=== PATIENT | male | born 1940 | race Caucasian/White ===

== ENCOUNTER → 2018-01-31 13:58 | Outpatient (CLI) | payer MEDICARE, OTHER, SELFPAY ==
[2018-01-31 17:44] LABS: Absolute Lymphocyte Count 1.49 X10^3/ul (0.83-4.51); Basophil# 0.02 X10^3/uL; Basophil% 0.3 % (0-1); Eosinophil# 0.06 X10^3/uL; Eosinophils% 0.8 % (0-5); Hematocrit 47.6 % (40-54); Lymphocyte # 1.49 X10^3/ul (4.0); Lymphocyte % 19.6 % (19-41); Mean Corp Hgb Conc 33.6 g/gl (32-36); Mean Corpuscular Hgb 30.9 pg (27.0-32.0); Mean Corpuscular Volume 91.9 fL (80-94); Monocyte# 0.97 X10^3/uL; Monocyte% 12.8 % (0-10); Neutrophil # 4.99 X10^3/uL (2.7-7.7); Neutrophil % 65.7 % (47-70); Platelet Count 263 K/mm3 (150-450); RBC Distribution Width CV 13.4 % (11.6-14.6); RBC Distribution Width SD 44.1 fl (35.1-43.9); Red Blood Count 5.18 M/mm3 (4.6-6.2); White Blood Count 7.6 K/mm3 (4.4-11.0)
[2018-01-31 17:45] LABS: POSITIVE COUNT NO; POSITIVE DIFFERENTIAL NO; POSITIVE MORPHOLOGY NO
[2018-01-31 18:03] LABS: AST(SGOT) 36 U/L (15-37); Alanine Aminotransfer ALT/SGPT 52 U/L (16-61); Albumin, Serum 3.9 g/dL (3.2-5.0); Alkaline Phosphatase 74 U/L (45-117); Anion Gap 7 (5-15); BUN 16 mg/dL (7-18); Calcium,Total 10.4 mg/dL (8.5-10.1); Chloride 109 mmol/L (98-107); EST Glomerular Filtration Rate 77 mL/min (>60); Est Glom Filt Rate - Afr Amer 94 mL/min (>60); Globulin 3.8 g/dL (2.2-4.2); Glucose 99 mg/dL (74-106); Potassium 4.6 mmol/L (3.5-5.1); Protein, Total 7.7 g/dL (6.4-8.2); Sodium Level 142 mmol/L (136-145); Thyroid Stim Hormone (TSH) 1.34 uIU/mL (0.358-3.74)
[2018-01-31 18:11] LABS: Vitamin D,25 Hydroxy 21.4 ng/mL (29.95-100.01)
[2018-01-31 18:13] LABS: Hemoglobin A1c 6.5 % (4.2-6.3)
== END ==
PROVIDERS: Family Provider Family Medicine Geriatric Medicine; PCP Family Medicine Geriatric Medicine; Visit Provider Family Medicine Geriatric Medicine
DX: E11.9 Type 2 diabetes mellitus without complications (principal); E55.9 Vitamin D deficiency, unspecified; I10 Essential (primary) hypertension
CPT/HCPCS: 36415; 80053; 82306; 83036; 84443; 85025

== ENCOUNTER → 2018-01-31 14:38 | Outpatient (CLI) | payer MEDICARE, OTHER, SELFPAY | PROVIDERS: Family Provider Family Medicine Geriatric Medicine; PCP Family Medicine Geriatric Medicine; Visit Provider Family Medicine Geriatric Medicine | DX: Z00.00 Encounter for general adult medical examination without abnormal findings (principal) ==

== ENCOUNTER → 2018-08-03 10:47 | Outpatient (CLI) | payer MEDICARE, OTHER, SELFPAY ==
[2018-08-03 12:42] LABS: Absolute Lymphocyte Count 2.23 X10^3/ul (0.83-4.51); Absolute Neutrophil Count 4.5 X10^3/uL (2.0-7.7); Basophil# 0.02 X10^3/uL; Basophil% 0.3 % (0-1); Eosinophil# 0.06 X10^3/uL; Eosinophils% 0.8 % (0-5); Hematocrit 49.1 % (40-54); Hemoglobin 16.2 g/dl (13.0-16.5); Lymphocyte # 2.23 X10^3/ul (4.0); Mean Corpuscular Hgb 31.6 pg (27.0-32.0); Mean Corpuscular Volume 95.7 fL (80-94); Monocyte# 1.12 X10^3/uL; Monocyte% 14.1 % (0-10); Neutrophil # 4.48 X10^3/uL (2.7-7.7); Neutrophil % 56.2 % (47-70); Platelet Count 270 K/mm3 (150-450); RBC Distribution Width CV 13.3 % (11.6-14.6); RBC Distribution Width SD 45.7 fl (35.1-43.9); Red Blood Count 5.13 M/mm3 (4.6-6.2)
[2018-08-03 12:51] LABS: POSITIVE COUNT NO; POSITIVE DIFFERENTIAL NO; POSITIVE MORPHOLOGY NO
[2018-08-03 12:58] LABS: Vitamin D,25 Hydroxy 15.5 ng/mL (29.95-100.01)
[2018-08-03 13:00] LABS: ALB/GLOB Ratio 1.1 RATIO (0.9-2.4); AST(SGOT) 43 U/L (15-37); Alanine Aminotransfer ALT/SGPT 66 U/L (16-61); Albumin, Serum 3.9 g/dL (3.2-5.0); Alkaline Phosphatase 76 U/L (45-117); Anion Gap 11 (5-15); BUN 15 mg/dL (7-18); BUN/Creat Ratio 12.9 RATIO (10-20); Calcium,Total 9.6 mg/dL (8.5-10.1); Chloride 108 mmol/L (98-107); Creatinine, Serum 1.16 mg/dL (0.70-1.30); EST Glomerular Filtration Rate 65 mL/min (>60); Est Glom Filt Rate - Afr Amer 79 mL/min (>60); Globulin 3.6 g/dL (2.2-4.2); Glucose 123 mg/dL (74-106); Potassium 4.2 mmol/L (3.5-5.1); Protein, Total 7.5 g/dL (6.4-8.2); Sodium Level 142 mmol/L (136-145); Thyroid Stim Hormone (TSH) 2.42 uIU/mL (0.358-3.74)
== END ==
PROVIDERS: Family Provider Family Medicine Geriatric Medicine; PCP Family Medicine Geriatric Medicine; Visit Provider Family Medicine Geriatric Medicine
DX: E11.9 Type 2 diabetes mellitus without complications (principal); E55.9 Vitamin D deficiency, unspecified; I10 Essential (primary) hypertension
CPT/HCPCS: 36415; 80053; 82306; 84443; 85025

== ENCOUNTER 2018-10-06 12:38 | Inpatient (IN) | payer MEDICARE, OTHER, SELFPAY ==
[2018-09-09 15:13] VITALS: BMI 27.0
[2018-10-06] VITALS (7 sets, daily range): BP systolic 84–129; BP diastolic 54–79; PULSE 90–119; RESP 16–18; TEMP 36.3–36.7; O2SAT 92–97; BMI 26.6; BMI 26.2; BMI 26.3
--- NOTE | 2018-10-06 13:54 | CT_ITS ---
STUDY: CT ABDOMEN AND PELVIS WITHOUT CONTRAST REASON FOR EXAM: Male, 78 years old. Right flank pain. History of a DVT and pulmonary embolism. RADIATION DOSAGE (If Supplied By Facility): CTDIvol = ( 13.95 ) mGy, DLP = ( 715.86 ) mGycm TECHNIQUE: Transaxial images were obtained from the dome of the diaphragm to the symphysis pubis without oral contrast, and without intravenous contrast. Sagittal and coronal images were reconstructed. Individualized dose optimization techniques were used for this CT. COMPARISON: Comparison is made with prior study dated May 26, 2013. FINDINGS: Mild degree of increased interstitial markings with areas of confluence and bullous changes at the lung bases suggestive of a scarring. Coronary artery calcification. There is decreased attenuation of the liver consistent with steatosis. There are multiple gallstones. Normal spleen. Normal pancreas. There is a small, circumscribed, smooth, low attenuation left adrenal mass, consistent with an adrenal adenoma. This is unchanged. Normal right adrenal gland. At least 4 nonobstructive intrarenal calculi seen in the right kidney. The largest measures 4.2 mm and is in the lower pole. 3 tiny nonobstructive calculi seen in the left kidney. There is a small hiatal hernia. Normal small intestine. There are multiple colonic diverticula consistent with diverticulosis. The appendix is visualized and appears normal. There is diffuse atherosclerotic calcification of the abdominal aorta and its major visceral branches, without a demonstrated aneurysm. Normal inferior vena cava. Normal retroperitoneum. Normal urinary bladder. There are prostatic calcifications. There is evidence of a 4.1 cm x 13.5 cm x 17.3 cm rectus sheath hematoma on the right side. Small left inguinal hernia containing fat. There are diffuse degenerative changes of the visualized lumbar spine. Grade 1 anterolisthesis of L5 on S1 with spondylolysis. CT/Abdomen/Pelvis without Cont IMPRESSION: Large right rectus sheath hematoma. Multiple gallstones. Small bilateral nonobstructive intrarenal calculi. Electronically Signed: Jose L Shelton MD at 15:36 EST Tel [phone], Service support ,
[2018-10-06] MEDS: Ondansetron 4 MG/2 ML Vial IV (14:32)
[2018-10-06] MEDS: 0.9% Normal Saline 1,000 ML 125 ML IV ×2 (14:32→20:18)
[2018-10-06] MEDS: Morphine 4 MG/ML Syringe IV (14:32)
[2018-10-06 14:40] LABS: Absolute Lymphocyte Count 1.64 X10^3/ul (0.83-4.51); Absolute Neutrophil Count 6.4 X10^3/uL (2.0-7.7); Basophil# 0.02 X10^3/uL; Basophil% 0.2 % (0-1); Eosinophil# 0.05 X10^3/uL; Eosinophils% 0.5 % (0-5); Hematocrit 51.3 % (40-54); Lymphocyte # 1.64 X10^3/ul (4.0); Lymphocyte % 17.2 % (19-41); Mean Corp Hgb Conc 33.1 g/gl (32-36); Mean Corpuscular Hgb 31.1 pg (27.0-32.0); Mean Platelet Vol. 10.2 fl (6.2-12.0); Monocyte# 1.44 X10^3/uL; Monocyte% 15.1 % (0-10); Neutrophil # 6.35 X10^3/uL (2.7-7.7); Neutrophil % 66.4 % (47-70); Platelet Count 237 K/mm3 (150-450); RBC Distribution Width CV 13.2 % (11.6-14.6); Red Blood Count 5.46 M/mm3 (4.6-6.2); White Blood Count 9.6 K/mm3 (4.4-11.0)
[2018-10-06 14:43] LABS: POSITIVE COUNT NO; POSITIVE DIFFERENTIAL NO; POSITIVE MORPHOLOGY NO
[2018-10-06 14:49] LABS: ALB/GLOB Ratio 1.1 RATIO (0.9-2.4); AST(SGOT) 47 U/L (15-37); Alanine Aminotransfer ALT/SGPT 76 U/L (16-61); Albumin, Serum 4.3 g/dL (3.2-5.0); Alkaline Phosphatase 78 U/L (45-117); Anion Gap 10 (5-15); BUN 18 mg/dL (7-18); BUN/Creat Ratio 16.7 RATIO (10-20); Calcium,Total 10.3 mg/dL (8.5-10.1); Chloride 103 mmol/L (98-107); Creatinine, Serum 1.08 mg/dL (0.70-1.30); EST Glomerular Filtration Rate 71 mL/min (>60); Est Glom Filt Rate - Afr Amer 85 mL/min (>60); Estimated Creatinine Clearance 60.08 ml/min; Globulin 3.8 g/dL (2.2-4.2); Glucose 126 mg/dL (74-106); Lipase 150 U/L (73-393); Potassium 4.1 mmol/L (3.5-5.1); Protein, Total 8.1 g/dL (6.4-8.2); Sodium Level 138 mmol/L (136-145)
[2018-10-06 15:03] LABS: Lactic Acid 1.8 mmol/L (0.4-2.0)
[2018-10-06 16:22] LABS: International Normalized Ratio 3.4; Prothrombin Time (Protime)PT. 34.9 SECONDS (11.7-14.9)
--- NOTE | 2018-10-06 16:37 | ED.VISSUMM ---
- ER Visit Summary Date of Service: 10/06/18 Chief Complaint: [Abdominal pain] History of Present Illness: The patient is a 78 M [presents to the emergency department complaint of abdominal pain that started 2 days ago. Patient states that he gave himself a Lovenox injection in the right side of the abdomen 2 days ago and since that time he is noticed increasing pain in swelling to the right side of the abdomen. Patient states that they were trying to bridge him from his Coumadin in order to have a colonoscopy. Patient has bad knees and is supposed to have surgery to potentially have a total knee replacement however they wanted to get a colonoscopy done first apparently. Patient denies any fever. He denies any vomiting. He denies any blood in his stool or black tarry stool. Patient continues to take his Coumadin.] Physical Examination: [HEENT-PERRLA, EOMI. Cranial nerves II through XII grossly intact. TMs clear. Mucous membranes moist. No adenopathy. Cardiovascular-regular rate and rhythm without murmur or ectopy Lungs-clear to auscultation, chest wall stable without crepitus or subcu emphysema Abdomen-normoactive bowel sounds, soft. Patient has tenderness to the right side of the abdomen with some fullness noted to the right abdominal wall. No ecchymosis or bruising noted. Extremities-intact ?4, normal range of motion, normal pulses, atraumatic] Test Results: [CBC with differential obtained showed a white blood cell count of 9.6, hemoglobin 17, hematocrit 51, platelets 221. Chemistries unremarkable. LFTs showed an ALT of 76, AST 47. Lipase was 150. INR was 3.4. CT scan of the abdomen and pelvis showed a large right-sided abdominal wall/rectus sheath hematoma.] Emergency Department Course and Treatment: [Patient was medicated with morphine and Zofran] Treatment Plan: [Case was discussed with Dr. Ochoa who was covering for Dr. López. I was asked to admit to hospitalist service. ] Disposition: [Admit] Impression: [Abdominal wall hematoma Coumadin coagulopathy Abdominal pain] This note was generated with [email or web address] dictation software. It may contain incorrect words, spelling, and punctuation that were not noted in review of the chart prior to signing ED Disposition - Plan for ED Patient: Chief Complaint: Other, Pain/Inj Referrals: Gaston Betts Chi, MD [Primary Care Provider] -
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
[2018-10-06 18:05] LABS: CPK Total, Creatine Kinase 132 U/L (39-308)
[2018-10-06] MEDS: Morphine 2 MG/ML Syringe IV (19:56)
[2018-10-06] MEDS: Phytonadione (Vit K) 10 MG/ML Ampul 5 MG PO (19:59)
[2018-10-07] VITALS (12 sets, daily range): BP systolic 90–119; BP diastolic 55–76; PULSE 72–87; RESP 14–16; TEMP 36.5–36.8; O2SAT 89–98
[2018-10-07] MEDS: Morphine 2 MG/ML Syringe IV (01:01)
[2018-10-07] MEDS: oxyCODONE 5 MG Tablet PO ×2 (04:12→09:33)
[2018-10-07] MEDS: 0.9% Normal Saline 1,000 ML 125 ML IV (04:12)
--- NOTE | 2018-10-07 05:55 | CT_ITS ---
STUDY: CT ABDOMEN AND PELVIS WITH CONTRAST REASON FOR EXAM: Male, 78 years old. Abdominal pain, evaluation right rectus muscle sheath hematoma question active bleeding, started level next injection this week. Coughing and pain. Positive colorectal cancer screening, hypertension, COPD, emphysema RADIATION DOSAGE (If Supplied By Facility): CTDIvol = ( 23.14 ) mGy, DLP = ( 1155.77 ) mGycm TECHNIQUE: Transaxial 3.75 mm were obtained from the dome of the diaphragm to the symphysis pubis with oral contrast. 100 ml of Isovue 300 contrast was administered. Sagittal and coronal images were reconstructed. Individualized dose optimization techniques were used for this CT. COMPARISON: CT abdomen pelvis 10/06/2018. FINDINGS: Stable chronic interstitial lung disease, emphysema, occasional bulla formation with scarring in the bases. The visualized portions of the heart are within normal limits. There is decreased attenuation of the enlarged liver consistent with steatosis. There are multiple gallstones. Normal spleen. Normal pancreas. Normal bilateral adrenal glands. Punctate nonobstructing bilateral renal calculi. Renal cortical thinning most consistent with scarring. Left inferior renal pole low attenuation in the cortex most consistent with a cyst of 0.8 cm. Mild bilateral perirenal stranding. Right rectus muscle sheath hematoma slightly more contracted measuring 5 x 12 x 12.6 cm ( AP x width x height ) mostly centered superior to the umbilicus, there is however extension inferior to the umbilicus over a craniocaudal distance of approximately 20 cm with the infraumbilical component more containing edema and small hematoma. The right inferior epigastric artery is prominent in enhancement, there is however no overt hemorrhage arising of the epigastric artery per se. The supra umbilical component of the rectus muscle hematoma contains a small vascular blush consistent with active hemorrhage image 57 series 2, image 65 series 602. Oral contrast is reaching the ascending colon. Normal visualized stomach. Normal small intestine. There are multiple colonic diverticula consistent with diverticulosis. The appendix is visualized and appears normal. There is atherosclerosis of the abdominal aorta, greater branches and pelvic arteries without aneurysm or leak. Normal inferior vena cava. Normal retroperitoneum. Normal urinary bladder. There is enlargement of the prostate gland. There are small bilateral inguinal and umbilical hernia containing adipose tissue. There are diffuse degenerative changes of the visualized spine. CT/Abdomen/Pelvis WITH Contrast IMPRESSION: Right rectal muscle sheath hematoma, the supraumbilical component is slightly more contracted on the current examination, however there is a vascular blush consistent with a small component of active hemorrhage. The infraumbilical rectus muscle hematoma is small in contains edema, this is however increased not visualized on previous exam. Stable chronic interstitial lung disease, emphysema, hepatomegaly, hepatic steatosis, cholelithiasis, renal calculi, renal scarring, arteriosclerosis, degenerative changes, ventral hernia containing fat, diverticulosis and prostate enlargement. N.B. : The above information has been verbally conveyed by Ely Dominguez MD to Howie Monteiro RN, on 10/07/2018 06:47:56 (ET). Electronically Signed: Ely Dominguez MD at 6:41 EST , Service support ,
--- NOTE | 2018-10-07 05:59 | NURSING ---
PLASTIC MANAGER taking pt off floor to CT.
--- NOTE | 2018-10-07 06:19 | NURSING ---
Pt back from CT.
[2018-10-07] MEDS: 0.9% NaCl Peripheral Flush Adult/Peds IV ×3 (06:20→11:40)
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
[2018-10-07 07:28] LABS: Hematocrit 42.5 % (40-54); Mean Corp Hgb Conc 32.9 g/gl (32-36); Mean Corpuscular Hgb 31.3 pg (27.0-32.0); Mean Corpuscular Volume 95.1 fL (80-94); Mean Platelet Vol. 9.8 fl (6.2-12.0); Platelet Count 229 K/mm3 (150-450); RBC Distribution Width CV 13.3 % (11.6-14.6); RBC Distribution Width SD 44.7 fl (35.1-43.9); Red Blood Count 4.47 M/mm3 (4.6-6.2)
[2018-10-07 07:29] LABS: Scan Indicated on CBC? Y/N NO
[2018-10-07 07:35] LABS: International Normalized Ratio 2.7; Prothrombin Time (Protime)PT. 28.4 SECONDS (11.7-14.9)
--- NOTE | 2018-10-07 07:42 | NURSING ---
pt up in chair, updated of contacts made thus far at pt request- phoned sister Moriah cell [phone], spoke with her spouse Shawn due to Moriah at work, conveyed to Shawn that pt would like him to notify Rodrigo to call patient (pt room phone # provided), updated. Pt sharing social concerns, indicating that his spouse will flip out, she doesn't handle stuff well and she has no one here, she cannot drive and that she has failing health. pt discusses i need to get POA papers, if something should happen i don't want any tubes or anything like that. informed Case management would be able to assist pt with paperwork regarding advanced directives. while in room, pt room phone rings- pt answers, indicates it is his family. privacy given.
--- NOTE | 2018-10-07 07:54 | NURSING ---
[facility] brother Rodrigo phone number is [phone]
[2018-10-07 07:58] LABS: Anion Gap 8 (5-15); BUN 25 mg/dL (7-18); BUN/Creat Ratio 20.3 RATIO (10-20); Calcium,Total 8.6 mg/dL (8.5-10.1); Chloride 106 mmol/L (98-107); Creatinine, Serum 1.23 mg/dL (0.70-1.30); EST Glomerular Filtration Rate 61 mL/min (>60); Est Glom Filt Rate - Afr Amer 74 mL/min (>60); Estimated Creatinine Clearance 52.76 ml/min; Glucose 138 mg/dL (74-106); Potassium 4.4 mmol/L (3.5-5.1); Sodium Level 138 mmol/L (136-145)
[2018-10-07 08:01] LABS: CPK Total, Creatine Kinase 93 U/L (39-308)
--- NOTE | 2018-10-07 08:17 | PCM.HOSP.N ---
Hospitalist Note I was called shirring machine operator automatic by Dr. Bishop. The patient has a rectus sheath hematoma with active bleeding from extravasation or vessel. He took Lovenox shot on Wednesday in the evening time and started having abdominal pain and then yesterday morning it got worse with abdominal wall swelling and he called Dr. Alpesh tang back until and then he came to ER where he was found rectal sheath hematoma. Dr. Bishop also discussed with Dr. Mendoza and suggested transfer to tertiary care center for IR. Patient denies dizziness but has pain and swelling of anterior abdominal wall. Vitals blood pressure 98/63, heart rate 81 pulse ox 96% on 2 L of oxygen no tachypnea. Started on IV fluid normal saline to 50 mill per hour for a total of 1 L and then 150 mill per hour. [facility] and then [facility]. Patient accepted by surgeon, Dr. Dillon.
--- NOTE | 2018-10-07 08:22 | CCHN_ITS ---
Hospitalist Note I was called solid waste division supervisor by Dr. Bishop. The patient has a rectus sheath hematoma with active bleeding from extravasation or vessel. He took Lovenox shot on Wednesday in the evening time and started having abdominal pain and then yesterday morning it got worse with abdominal wall swelling and he called Dr. Alpesh tang back until and then he came to ER where he was found rectal sheath hematoma. Dr. Bishop also discussed with Dr. Mendoza and suggested transfer to tertiary care center for IR. Patient denies dizziness but has pain and swelling of anterior abdominal wall. Vitals blood pressure 98/63, heart rate 81 pulse ox 96% on 2 L of oxygen no tachypnea. Started on IV fluid normal saline to 50 mill per hour for a total of 1 L and then 150 mill per hour. Transfer call made to [facility] but no bed available and then [facility]. Patient accepted by surgeon, Dr. Dillon.
[2018-10-07] MEDS: Ondansetron 4 MG/2 ML Vial IV (09:33)
[2018-10-07] MEDS: Acetaminophen 325 MG Tablet 650 MG PO (09:35)
--- NOTE | 2018-10-07 09:44 | ONC.CON.INP2 ---
- Problem List (1) Coagulopathy Status: Acute (2) Positive colorectal cancer screening using DNA-based stool test Status: Acute (3) Hematoma of rectus sheath Status: Acute Qualifiers: Encounter type: initial encounter Qualified Code(s): S30.1XXA - Contusion of abdominal wall, initial encounter (4) History of deep venous thrombosis or pulmonary embolus Status: Chronic (5) Hypercoagulable state Status: Chronic Consult Referring Physician: Dr. Bishop Consult Results: Coagulopathy complicating hypercoagulable state Subjective Date of Service:: 10/07/18 Chief Complaint: positive cologard History of Present Illness: 78-year-old male on long-term systemic anticoagulation admitted with an acute rectus sheath hematoma. 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 According to the patient diagnosis was not made until May 2013 when he presented with acute dyspnea and was found to have multiple pulmonary emboli. He was placed on systemic anticoagulation and to his recollection has been on Coumadin since with only temporary interruptions. In 2013 and repeated in 2015 hypercoagulability panel showed low protein C level and patient was told that he should remain on systemic anticoagulation indefinitely. 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 Patient recently had a positive noninvasive stool DNA test to screen for colorectal cancer and elective colonoscopy was scheduled with planned temporary Coumadin interruption with Lovenox bridging. The patient reports developing acute abdominal pain while on the Lovenox bridge, he stopped Lovenox and resumed his Coumadin. He was hospitalized October 06, [address] finding of a large acute rectus hematoma and INR of 3.4. Was given a dose of vitamin K on October 06, a repeat INR today October 07 is down to 2.[address] scan of the abdomen is suggestive of ongoing bleeding. Laboratory Tests 10/06/18 10/07/18 14:15 07:09 INR 3.4 2.7 Past Medical History: Chronic Problems (Last Updated 10/07/18 @ 07:22 by Abdullahi Bishop MD) Hypercoagulable state (Chronic) Osteoarthritis of knees, bilateral (Chronic) Emphysema (Chronic) HTN (hypertension) (Chronic) DDD (degenerative disc disease) (Chronic) 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) COPD (chronic obstructive pulmonary disease) (Chronic) Past Medical/Surgical History: Past Medical History - Most Recent Inpatient Visit Past Medical History Start: 10/06/18 17:37 Text: Status: Complete Freq: ONCE Protocol: Document 10/06/18 17:49 NANETTE (Rec: 10/06/18 17:52 NANETTE [id number]) BMI Required to complete PMH What is Patient's BMI 26.3 Past Medical History Unable History Recalled No Query Text:Pt Unable/Family Not Present Neurologic Medical History Hx Stroke/TIA No Hx Dementia/Alzheimer's No Hx Parkinson's Disease No Hx Seizures No Hx Multiple Sclerosis No Hx Migraines No Cardiac Medical History VTE Present on Admission No Hx of Deep Vein Thrombosis/VTE/PE Yes: PE 2012 Hx Hypertension Yes: ON MEDS Hx Chest Pain/Angina No Hx Heart Attack No Hx Cardiac Surgery/Stents/Etc. No Hx Heart Failure No Hx Pacemaker/AICD No Hx Irregular Heartbeat and/or Afib No Hx Anticoagulant Therapy Yes: COUMADIN Query Text:(Coumadin, Aspirin, Plavix, Xarelto, etc.) Hx Pain in Legs when Walking/Leg Cramps No Respiratory Medical History Hx COPD Yes Hx Emphysema No Hx Smoking Yes: QUIT IN Smoking Status Former smoker Tobacco Use Cigarettes Years Smoking 33 Packs Smoked per Day 1.5 Hx Smoking Cessation Date 1986 Hx Smoking Cessation Counseling No Hx Smoking Exposure Yes Hx Tobacco Use in last 12 months Yes Sent to [facility] Yes Hx of Pipe Smoking No Hx Sleep Apnea No CPAP No BIPAP No Do you snore loudly (louder than talking No or can be heard through closed doors)? Do you often feel tired/ fatigued/ Yes sleepy during daytime? Has anyone observed you stop breathing No during sleep? STOP Results Positive GI Medical History Hx Ulcer No Hx Hepatitis No Hx Cirrhosis No Hx GI Bleed No Hx Unplanned Weight Loss No Genitourinary Medical History Indwelling Catheter in Place on Arrival/ No Admission Hx Renal Disease Yes: FREQUENT KIDNSY STONES Hx Dialysis No Musculoskeletal History Hx Arthritis Yes Hx Rheumatoid Arthritis No Endocrine Medical History Hx Diabetes Yes: BORDERLINE Hx Thyroid Disease No Hematologic Medical History Hx of Blood Transfusion No Hx of Transfusion in last 3 Months No Ever experience any problems with No transfusion(s)? Hx of Preganancy in last 3 Months N/A Nurse Filling Out Transfusion & JLAMP Questions: Date: 10/06/18 Time: 17:51 Psycho/Social Medical History Hx Depression Yes Hx Anxiety Yes Hx Behavior Disorder No Hx Alcohol Use No Hx Substance Use No Other Medical History Hx Blood Disorders No Hx Anemia No Hx Cancer No Hx Drug Resistant Organism No Wound/Pressure Injury Present on Arrival No /Admission Query Text:If yes, chart assessment in Shift/Clinical Findings Central Line/PICC/VAD Present on Arrival No /Admission Antibiotics within last 7 days? No Risk for Readmission Number of Risk Factors 6 At Risk for Readmission Patient is At Risk For Readmission Patient is eligible for Call Back Y Past Medical History (Last Updated 10/07/18 @ 07:22 by Abdullahi Bishop MD) Osteoarthritis of knees, bilateral (Chronic) Emphysema (Chronic) HTN (hypertension) (Chronic) DDD (degenerative disc disease) (Chronic) 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) COPD (chronic obstructive pulmonary disease) (Chronic) Protein C deficiency (Acute) Berger by, chemical (Acute) Pulmonary embolism (Acute) chemical berger to arms and face (Inactive) Past Surgical History (Last Reviewed 10/06/18 @ 17:11 by CHRISTELLE Stewart) history of wound debridement (Acute) S/P bilateral cataract extraction (Inactive) arm surgery (Inactive) facial surgery (Inactive) Maternal Family History: Family History (Last Reviewed 10/06/18 @ 17:11 by CHRISTELLE Stewart) Brother Myocardial infarction Status post heart transplant Mother Hypertension CAD (coronary artery disease) Father Hypertension CAD (coronary artery disease) Family History: - - mother lived till age 84. Denies known cardiac history. Paternal Family History: Family History (Last Reviewed 10/06/18 @ 17:11 by CHRISTELLE Stewart) Brother Myocardial infarction Status post heart transplant Mother Hypertension CAD (coronary artery disease) Father Hypertension CAD (coronary artery disease) Family History: - - father with hernia. Denies known cardiac history. - Social History Lives: Spouse/ Significant Other Smoking Status: Former smoker Tobacco Use: Cigarettes Alcohol: None Drugs: None Allergies/Adverse Reactions: Allergy/AdvReac Type Severity Reaction Status Date / Time Penicillins Allergy Hives Verified 10/06/18 12:40 propoxyphene HCl AdvReac Upset Verified 10/06/18 12:40 [From Darvon] Stomach propoxyphene napsylate AdvReac Vomiting Verified 10/06/18 12:40 [From Darvocet-N 100] Review of Systems Constitutional:: Denies: Fever, Sweats, Weight loss, Appetite change, Chills Cardiovascular:: Reports: Dyspnea on exertion - Chronic due to COPD. Patient does not appreciate any recent worsening. Denies: Chest pain, Palpitations, Orthopnea, PND, Shortness of breath Respiratory: Reports: Shortness of breath upon exertion Gastrointestinal:: Reports: Abdominal pain - Anterior abdominal wall. Denies: Nausea, Vomiting, Diarrhea, Constipation, Hematochezia Genitourinary: Denies: Dysuria, Hematuria, 15, Flank pain Musculoskeletal:: Denies: Back pain, Myalgia, Arthralgia Skin: Reports: - - Bruises easy with trauma Neurological:: Denies: Headache, Dizziness, Visual changes, Tinnitus, Hearing loss Psychiatric: Denies: Anxiety, Depression, Homicidal Ideations, Suicidal Ideations Vital Signs Height 5 ft 10 in Weight: 83 kg Weight in Pounds 183.0 lbs Pulse Ox 97 Temperature 97.7 F Pulse Rate 82 Respiratory Rate 14 Blood Pressure [BP] 102/62 Blood Pressure 117/72 Blood Pressure Position [BP] Sitting Blood Pressure Position Sitting - Physical Exam General: Alert, Oriented x3, No apparent distress HEENT: Atraumatic, PERRLA, EOMI, Normocephalic Oropharynx:: Dry mucosa Neck:: Supple, Trachea midline. Negative for: JVD, bilateral Cardiac:: Regular rate, Regular rhythm, Normal S1, Normal S2. Negative for: Murmur Lungs: Clear to auscultation, Diminished, Excusion symmetrical. Negative for: Rhonchi, Wheezes Abdomen:: Soft - No peritonism, Distended - With an upper abdominal, more prominent on the right slightly tender mass representing the hematoma, Tender. Negative for: Hepatosplenomegaly Extremities:: Negative for: Cyanosis, Edema Neurological: Neuro grossly intact Skin:: Negative for: Lesions, Rash, Petechiae, Ecchymosis Psychiatric:: Appropriate affect, Euthymic Lymphatics:: Negative for: Cervical lymphadenopathy, Supraclavicular lymphadenopathy Laboratory Data: Laboratory Tests 10/07/18 10/07/18 10/07/18 Range/Units 08:10 07:09 07:09 WBC (4.4-11.0) K/mm3 RBC (4.6-6.2) M/mm3 Hgb (13.0-16.5) g/dl Hct (40-54) % MCV (80-94) fL MCH (27.0-32.0) pg MCHC (32-36) g/gl RDW (11.6-14.6) % RDW Differential (35.1-43.9) fl Plt Count (150-450) K/mm3 MPV (6.2-12.0) fl Immature Gran % (Auto) (0.0-0.9) % Neut % (Auto) (47-70) % Lymph % (Auto) (19-41) % [place] % (Auto) (0-10) % Eos % (Auto) (0-5) % Baso % (Auto) (0-1) % Absolute Neuts (auto) (2.0-7.7) X10^3/uL Absolute Lymphs (auto) (0.83-4.51) X10^3/ul Total Counted PT (11.7-14.9) SECONDS INR Sodium 138 (136-145) mmol/L Potassium 4.4 (3.5-5.1) mmol/L Chloride 106 (98-107) mmol/L Carbon Dioxide 24.0 (21.0-32.0) mmol/L Anion Gap 8 (5-15) BUN 25 H (7-18) mg/dL Creatinine 1.23 (0.70-1.30) mg/dL Estim Creat Clear Calc 52.76 ml/min Est GFR (MDRD) Af Amer 74 (>60) mL/min Est GFR (MDRD) Non-Af 61 (>60) mL/min BUN/Creatinine Ratio 20.3 H (10-20) RATIO Glucose 138 H (74-106) mg/dL Lactic Acid (0.4-2.0) mmol/L Calcium 8.6 (8.5-10.1) mg/dL Total Bilirubin (0.20-1.00) mg/dL AST (15-37) U/L ALT (16-61) U/L Alkaline Phosphatase (45-117) U/L Total Creatine Kinase 93 (39-308) U/L Total Protein (6.4-8.2) g/dL Albumin (3.2-5.0) g/dL Globulin (2.2-4.2) g/dL Albumin/Globulin Ratio (0.9-2.4) RATIO Lipase (73-393) U/L Blood Type A POSITIVE 10/07/18 10/07/18 10/06/18 Range/Units 07:09 07:09 14:15 WBC 9.0 (4.4-11.0) K/mm3 RBC 4.47 L (4.6-6.2) M/mm3 Hgb 14.0 (13.0-16.5) g/dl Hct 42.5 (40-54) % MCV 95.1 H (80-94) fL MCH 31.3 (27.0-32.0) pg MCHC 32.9 (32-36) g/gl RDW 13.3 (11.6-14.6) % RDW Differential 44.7 H (35.1-43.9) fl Plt Count 229 (150-450) K/mm3 MPV 9.8 (6.2-12.0) fl Immature Gran % (Auto) (0.0-0.9) % Neut % (Auto) (47-70) % Lymph % (Auto) (19-41) % [place] % (Auto) (0-10) % Eos % (Auto) (0-5) % Baso % (Auto) (0-1) % Absolute Neuts (auto) (2.0-7.7) X10^3/uL Absolute Lymphs (auto) (0.83-4.51) X10^3/ul Total Counted PT 28.4 H (11.7-14.9) SECONDS INR 2.7 Sodium (136-145) mmol/L Potassium (3.5-5.1) mmol/L Chloride (98-107) mmol/L Carbon Dioxide (21.0-32.0) mmol/L Anion Gap (5-15) BUN (7-18) mg/dL Creatinine (0.70-1.30) mg/dL Estim Creat Clear Calc ml/min Est GFR (MDRD) Af Amer (>60) mL/min Est GFR (MDRD) Non-Af (>60) mL/min BUN/Creatinine Ratio (10-20) RATIO Glucose (74-106) mg/dL Lactic Acid (0.4-2.0) mmol/L Calcium (8.5-10.1) mg/dL Total Bilirubin (0.20-1.00) mg/dL AST (15-37) U/L ALT (16-61) U/L Alkaline Phosphatase (45-117) U/L Total Creatine Kinase 132 (39-308) U/L Total Protein (6.4-8.2) g/dL Albumin (3.2-5.0) g/dL Globulin (2.2-4.2) g/dL Albumin/Globulin Ratio (0.9-2.4) RATIO Lipase (73-393) U/L Blood Type 10/06/18 10/06/18 10/06/18 Range/Units 14:15 14:15 14:15 WBC (4.4-11.0) K/mm3 RBC (4.6-6.2) M/mm3 Hgb (13.0-16.5) g/dl Hct (40-54) % MCV (80-94) fL MCH (27.0-32.0) pg MCHC (32-36) g/gl RDW (11.6-14.6) % RDW Differential (35.1-43.9) fl Plt Count (150-450) K/mm3 MPV (6.2-12.0) fl Immature Gran % (Auto) (0.0-0.9) % Neut % (Auto) (47-70) % Lymph % (Auto) (19-41) % [place] % (Auto) (0-10) % Eos % (Auto) (0-5) % Baso % (Auto) (0-1) % Absolute Neuts (auto) (2.0-7.7) X10^3/uL Absolute Lymphs (auto) (0.83-4.51) X10^3/ul Total Counted PT 34.9 H (11.7-14.9) SECONDS INR 3.4 Sodium 138 (136-145) mmol/L Potassium 4.1 (3.5-5.1) mmol/L Chloride 103 (98-107) mmol/L Carbon Dioxide 25.0 (21.0-32.0) mmol/L Anion Gap 10 (5-15) BUN 18 (7-18) mg/dL Creatinine 1.08 (0.70-1.30) mg/dL Estim Creat Clear Calc 60.08 ml/min Est GFR (MDRD) Af Amer 85 (>60) mL/min Est GFR (MDRD) Non-Af 71 (>60) mL/min BUN/Creatinine Ratio 16.7 (10-20) RATIO Glucose 126 H (74-106) mg/dL Lactic Acid 1.8 (0.4-2.0) mmol/L Calcium 10.3 H (8.5-10.1) mg/dL Total Bilirubin 0.60 (0.20-1.00) mg/dL AST 47 H (15-37) U/L ALT 76 H (16-61) U/L Alkaline Phosphatase 78 (45-117) U/L Total Creatine Kinase (39-308) U/L Total Protein 8.1 (6.4-8.2) g/dL Albumin 4.3 (3.2-5.0) g/dL Globulin 3.8 (2.2-4.2) g/dL Albumin/Globulin Ratio 1.1 (0.9-2.4) RATIO Lipase 150 (73-393) U/L Blood Type 10/06/18 Range/Units 14:15 WBC 9.6 (4.4-11.0) K/mm3 RBC 5.46 (4.6-6.2) M/mm3 Hgb 17.0 H (13.0-16.5) g/dl Hct 51.3 (40-54) % MCV 94.0 (80-94) fL MCH 31.1 (27.0-32.0) pg MCHC 33.1 (32-36) g/gl RDW 13.2 (11.6-14.6) % RDW Differential 45.0 H (35.1-43.9) fl Plt Count 237 (150-450) K/mm3 MPV 10.2 (6.2-12.0) fl Immature Gran % (Auto) 0.600 (0.0-0.9) % Neut % (Auto) 66.4 (47-70) % Lymph % (Auto) 17.2 L (19-41) % [place] % (Auto) 15.1 H (0-10) % Eos % (Auto) 0.5 (0-5) % Baso % (Auto) 0.2 (0-1) % Absolute Neuts (auto) 6.4 (2.0-7.7) X10^3/uL Absolute Lymphs (auto) 1.64 (0.83-4.51) X10^3/ul Total Counted Not Reportable PT (11.7-14.9) SECONDS INR Sodium (136-145) mmol/L Potassium (3.5-5.1) mmol/L Chloride (98-107) mmol/L Carbon Dioxide (21.0-32.0) mmol/L Anion Gap (5-15) BUN (7-18) mg/dL Creatinine (0.70-1.30) mg/dL Estim Creat Clear Calc ml/min Est GFR (MDRD) Af Amer (>60) mL/min Est GFR (MDRD) Non-Af (>60) mL/min BUN/Creatinine Ratio (10-20) RATIO Glucose (74-106) mg/dL Lactic Acid (0.4-2.0) mmol/L Calcium (8.5-10.1) mg/dL Total Bilirubin (0.20-1.00) mg/dL AST (15-37) U/L ALT (16-61) U/L Alkaline Phosphatase (45-117) U/L Total Creatine Kinase (39-308) U/L Total Protein (6.4-8.2) g/dL Albumin (3.2-5.0) g/dL Globulin (2.2-4.2) g/dL Albumin/Globulin Ratio (0.9-2.4) RATIO Lipase (73-393) U/L Blood Type Diagnostic Data: Diagnostic Data Abdomen/Pelvis CT 10/07/18 05:55 IMPRESSION: Right rectal muscle sheath hematoma, the supraumbilical component is slightly more contracted on the current examination, however there is a vascular blush consistent with a small component of active hemorrhage. The infraumbilical rectus muscle hematoma is small in contains edema, this is however increased not visualized on previous exam. Stable chronic interstitial lung disease, emphysema, hepatomegaly, hepatic steatosis, cholelithiasis, renal calculi, renal scarring, arteriosclerosis, degenerative changes, ventral hernia containing fat, diverticulosis and prostate enlargement. N.B. : The above information has been verbally conveyed by Ely Dominguez MD to Howie Monteiro RN, on 10/07/2018 06:47:56 (ET). Electronically Signed: Ely Dominguez MD at 6:41 EST , Service support , Assessment and Plan 78-year-old male admitted with an acute large rectus sheath hematoma complicatin. Coagulopathy, therapeutic to Coumadin anticoagulation with a partial reversal following vitamin K on October 06, 2018. 2. A hypercoagulable state, presumed due to protein C deficiency and history of DVT in 2013, PE in 2012 and 2016. He probably have super added hypercoagulability due to suspected colorectal cancer (recent abnormal screening DNA test) Patient has had partial correction of his therapeutic anticoagulation with vitamin K administered October 06 but a follow-up CT scan 24 hours from initial presentation on October 06 is suggestive of ongoing bleeding. Recommendations: 1. Advise complete reversal of Coumadin anticoagulation with FFP due to ongoing bleeding. 2. Vascular consult for retrievable IVC filter placement until the patient is able to resume systemic anticoagulation. The presence of the filter will only protect large pulmonary embolism. Arrangements has been made to transfer him urgently to a tertiary referral center for further invasive management. 3. IR consultation for feasibility of therapeutic embolization if an active bleeding vessel is identified to minimize the duration he has to be off anticoagulation. 4. To resume systemic anticoagulation as soon as bleeding is stabilized. I met with the patient, impression and recommendations discussed. Arrangements have been made to transfer him urgently to a tertiary referral center for further invasive management. Case discussed also with Meggan [facility] and [facility]. Medications: Prescriptions This Visit Medication Instructions Recorded Lisinopril/Hydrochlorothiazide 1 tab PO BID 10/06/18 [Lisinopril-Hctz 20-12.5 mg Tab] Warfarin Sodium [Coumadin] 2 mg PO DAILY 10/06/18 Warfarin Sodium [Coumadin] 5 mg PO DAILY 10/06/18 Medications Added to Medication List This Visit Category Date Time Status 0.9% Normal Saline 1,000 ml Med 10/07/18 11:45 Active IV 150 mls/hr 0.9% Normal Saline 1,000 ml Med 10/07/18 07:47 Active IV 250 mls/hr Ondansetron [Zofran] Med 10/07/18 09:09 Active 4 mg IV Q6H PRN PRN Oxycodone [Oxyir] Med 10/07/18 01:53 Active 5 - 10 mg PO Q4H PRN PRN proMETHazine [Phenergan] Med 10/07/18 09:09 Active 12.5 mg IV Q6H PRN PRN Primary Care Provider: Gaston Betts MD Referring Provider:
--- NOTE | 2018-10-07 10:04 | CASEMGMT ---
SW completed LW/POA forms w/pt prior to his being transferred. SW gave pt the originals and copies, placed a copy in the chart and in the envelope for the transferring hospital. EVANGELINA Munguia, [employer] TECHNICIAN
--- NOTE | 2018-10-07 10:06 | NURSING ---
[place] [id number] [address] phone number [phone]
--- NOTE | 2018-10-07 10:08 | NURSING ---
attempted to phone report- unit [phone], female states that nursing unit not aware of pt arriving and requests nurse calls back in 10-15 minutes. informed this is an urgent transfer and pt will be coming by mobile intensive care unit. said nurse requests that unit call to [phone] when recieve pt information to get nurse to nurse report to expedite transport.
--- NOTE | 2018-10-07 10:36 | NURSING ---
nurse to nurse report given to Laquita nava Wilson.
--- NOTE | 2018-10-07 11:00 | PCM.DC.SUM ---
Discharge Date and Diagnosis Date of Admission: 10/06/18 Date of Discharge: 10/07/18 - Primary Discharge Diagnosis Active and Suspected Problems (Last Updated 10/07/18 @ 07:22 by Abdullahi Bishop MD) Hematoma of rectus sheath (Acute) - Secondary Discharge Diagnosis Chronic Problems (Last Updated 10/07/18 @ 07:22 by Abdullahi Bishop MD) 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, bilateral (Chronic) Emphysema (Chronic) HTN (hypertension) (Chronic) DDD (degenerative disc disease) (Chronic) 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) COPD (chronic obstructive pulmonary disease) (Chronic) Hospital Course and Treatment Imaging Results: 10/07/18 05:55 CT Abd [Abdomen/Pelvis WITH Contrast] [CT] AM (NON MEDS) Operations: None Summary of Care Provided: The patient is a 78 year old M with history of protein C deficiency with 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 On CT abdomen was found rectal sheath hematoma measuring 4.1 x 13.5 x 17.3 cm with active extravasation in the superior portion of the rectus sheath. Surgeon Dr. Bishop was consulted. He called me after he discussed with oncologist Dr. Tsang to transfer the patient as it is actively bleeding.Patient denies dizziness but has pain and swelling of anterior abdominal wall. Vitals blood pressure 98/63, heart rate 81 pulse ox 96% on 2 L of oxygen no tachypnea. Started on IV fluid normal saline to 50 mill per hour for a total of 1 L and then 150 mill per hour. 2 units of FFP is ordered. INR was 3.4. Repeat on 10/07 was 2.7. Transfer call made to [facility] but no bed available and then [facility]. Patient accepted by surgeon, Dr. Dillon. Other comorbidities are stable including COPD, hypertension, bilateral knee arthritis and degenerative lumbar disc disease. DVT prophylaxis- SCDs Patient was transferred to [facility]. Clinical Impression(s) from Imaging Studies Abdomen/Pelvis CT 10/06/18 13:54 IMPRESSION: Large right rectus sheath hematoma. Multiple gallstones. Small bilateral nonobstructive intrarenal calculi. Abdomen/Pelvis CT 10/07/18 05:55 IMPRESSION: Right rectal muscle sheath hematoma, the supraumbilical component is slightly more contracted on the current examination, however there is a vascular blush consistent with a small component of active hemorrhage. The infraumbilical rectus muscle hematoma is small in contains edema, this is however increased not visualized on previous exam. Stable chronic interstitial lung disease, emphysema, hepatomegaly, hepatic steatosis, cholelithiasis, renal calculi, renal scarring, arteriosclerosis, degenerative changes, ventral hernia containing fat, diverticulosis and prostate enlargement. Subjective: The patient was seen and examined in the morning. Complain of abdominal pain which is getting worse. Anterior abdominal swelling is also getting bigger and tense. Blood pressure in the morning is 98/63. 1 L of normal saline bolus ordered and blood pressure 120/66. - Physical Exam General: Alert, Oriented x3, Cooperative HEENT: Atraumatic, PERRLA, EOMI, Normocephalic Neck: Supple, No JVD, Negative Carotid Bruits Lungs: Clear to auscultation, No rhonchi, No wheeze, No rales, Diminished - Air entry diminished in bilateral lung bases Cardiovascular: Regular rate, Regular Rhythm, Normal S1, Normal S2, No murmurs Abdomen: Bowel Sounds Present, Soft, Distended - Anterior abdominal is distended from xiphoid to pubic symphysis more in the umbilical region extending to flanks., Tender - Tenderness present in anterior abdominal wall. Extremities: No edema, Capillary Refill Less than 3 Seconds Skin: No rashes, No breakdown Musculoskeletal: No Tenderness to Palpation of Joints or Extremities, Arthritic Changes Neurological: Cranial nerves II-XII grossly intact, Deep Tendon Reflexes 2+/4 and Symmetrical, Neuro grossly intact Psych/Mental Status: Normal Affect, Appropriate Vital Signs Temp Pulse Resp BP Pulse Ox 97.7 F L 87 14 118/63 89 10/07/18 08:10 10/07/18 08:10 10/07/18 08:10 10/07/18 08:10 10/07/18 08:10 Oxygen Flow Rate (L/min) 2 Oxygen Delivery Method Room Air Weight: 182 lb 15.739 oz Body Mass Index (BMI) 26.2 Finger Stick Blood Glucose 147 Intake and Output for Last 24 Hours 10/05/18 10/06/18 10/07/18 23:59 23:59 23:59 Intake Total 1120 / 1120 1414 / 1414 Output Total 125 / 125 Balance 1120 / 1120 1289 / 1289 Laboratory Tests Past 24 Hrs 10/06/18 10/06/18 10/06/18 14:15 14:15 14:15 WBC 9.6 RBC 5.46 Hgb 17.0 H Hct 51.3 MCV 94.0 MCH 31.1 MCHC 33.1 RDW 13.2 RDW Differential 45.0 H Plt Count 237 MPV 10.2 Immature Gran % (Auto) 0.600 Neut % (Auto) 66.4 Lymph % (Auto) 17.2 L [place] % (Auto) 15.1 H Eos % (Auto) 0.5 Baso % (Auto) 0.2 Absolute Neuts (auto) 6.4 Absolute Lymphs (auto) 1.64 Total Counted Not Reportable PT INR Sodium 138 Potassium 4.1 Chloride 103 Carbon Dioxide 25.0 Anion Gap 10 BUN 18 Creatinine 1.08 Estim Creat Clear Calc 60.08 Est GFR (MDRD) Af Amer 85 Est GFR (MDRD) Non-Af 71 BUN/Creatinine Ratio 16.7 Glucose 126 H Lactic Acid 1.8 Calcium 10.3 H Total Bilirubin 0.60 AST 47 H ALT 76 H Alkaline Phosphatase 78 Total Creatine Kinase Total Protein 8.1 Albumin 4.3 Globulin 3.8 Albumin/Globulin Ratio 1.1 Lipase 150 10/06/18 10/06/18 10/07/18 14:15 14:15 07:09 WBC 9.0 RBC 4.47 L Hgb 14.0 Hct 42.5 MCV 95.1 H MCH 31.3 MCHC 32.9 RDW 13.3 RDW Differential 44.7 H Plt Count 229 MPV 9.8 Immature Gran % (Auto) Neut % (Auto) Lymph % (Auto) [place] % (Auto) Eos % (Auto) Baso % (Auto) Absolute Neuts (auto) Absolute Lymphs (auto) Total Counted PT 34.9 H INR 3.4 Sodium Potassium Chloride Carbon Dioxide Anion Gap BUN Creatinine Estim Creat Clear Calc Est GFR (MDRD) Af Amer Est GFR (MDRD) Non-Af BUN/Creatinine Ratio Glucose Lactic Acid Calcium Total Bilirubin AST ALT Alkaline Phosphatase Total Creatine Kinase 132 Total Protein Albumin Globulin Albumin/Globulin Ratio Lipase 10/07/18 10/07/18 10/07/18 07:09 07:09 07:09 WBC RBC Hgb Hct MCV MCH MCHC RDW RDW Differential Plt Count MPV Immature Gran % (Auto) Neut % (Auto) Lymph % (Auto) [place] % (Auto) Eos % (Auto) Baso % (Auto) Absolute Neuts (auto) Absolute Lymphs (auto) Total Counted PT 28.4 H INR 2.7 Sodium 138 Potassium 4.4 Chloride 106 Carbon Dioxide 24.0 Anion Gap 8 BUN 25 H Creatinine 1.23 Estim Creat Clear Calc 52.76 Est GFR (MDRD) Af Amer 74 Est GFR (MDRD) Non-Af 61 BUN/Creatinine Ratio 20.3 H Glucose 138 H Lactic Acid Calcium 8.6 Total Bilirubin AST ALT Alkaline Phosphatase Total Creatine Kinase 93 Total Protein Albumin Globulin Albumin/Globulin Ratio Lipase Home Medications: Medications to take at Discharge Albuterol Aerosols [Ventolin Aerosols] 1 inh INHALATION BID 08/10/16 Acetaminophen [Tylenol Arthritis] 650 mg PO Q6H PRN PRN 09/26/16 cyclobenzaprine 10 mg tablet 10 mg PO TID 09/09/18 Lisinopril/Hydrochlorothiazide [Lisinopril-Hctz 20-12.5 mg Tab] 1 tab PO BID 10/06/18 Warfarin Sodium [Coumadin] 2 mg PO DAILY 10/06/18 Warfarin Sodium [Coumadin] 5 mg PO DAILY 10/06/18 Primary Care Physician: Gaston Betts Chi, MD [Primary Care Provider] - Medical Necessity - Tobacco Use Smoking Status: Former smoker Tobacco Use: Cigarettes Meaningful Use Info Meaningful Use Diagnoses (Choose all that apply): None applicable Code Visit Inpatient E&M: 74006 Disch Hosp
[2018-10-07] MEDS: 0.9% Normal Saline 1,000 ML 150 ML IV (11:10)
--- NOTE | 2018-10-07 11:21 | NURSING ---
report given to FREDRICK SU[facility] PER TELEPHONE. STATES CREW INROUTE.
--- NOTE | 2018-10-07 11:23 | NURSING ---
PT BROTHER ENDER UPDATED ON TRANSPORT STATUS, POC.
--- NOTE | 2018-10-07 12:12 | NURSING ---
1200- [facility] HERE- NURSE TO MD/NURSE REPORT PROVIDED.
--- NOTE | 2018-10-07 12:12 | NURSING ---
PT BROTHER ENDER UPDATED ON GROUND CREW JUST LEFT WITH PT MARTATE TO ILAN.
--- OUTSIDE RECORDS SUMMARY | 2018-12-11 11:27 | XMS RPT_ITS ---
:1940 Author Organization OHIP Support Name Relationship Address Phone SHAHEED RODRIGO Unavailable Unavailable + ISABELLE CORONADOLY Unavailable Unavailable + [place] [address] R Unavailable Unavailable Unavailable MACE, RODRIGO Unavailable Unavailable + ISABELLE CORONADOLY Unavailable Unavailable + [place] [address] R Unavailable Unavailable Unavailable MACE, RODRIGO Unavailable Unavailable + ISABELLE CORONADOLY Unavailable Unavailable + Mace, Rodrigo Unavailable Unavailable + Isabelle Coronadoly Unavailable Unavailable + MACE, RODRIGO Unavailable Unavailable + IVONNE, MORIAH Unavailable Unavailable + [place] [address] R Unavailable Unavailable Unavailable MACE, CLAU Unavailable [address] + [place] [address] IVONNE, MORIAH Unavailable Unavailable + [place] [address] R Unavailable Unavailable Unavailable MACE, CLAU Unavailable [address] + [place] [address] IVONNE, MORIAH Unavailable Unavailable + [place] [address] R Unavailable Unavailable Unavailable MACE, RODRIGO Unavailable Unavailable + ISABELLE CORONADOLY Unavailable Unavailable + [place] [address] R Unavailable Unavailable Unavailable MACE, RODRIGO Unavailable Unavailable + ISABELLE CORONADOLY Unavailable Unavailable + [place] [address] R Unavailable Unavailable Unavailable MORIAH CORONADO Unavailable [address] + [place] . R Unavailable Unavailable Unavailable R Unavailable Unavailable Unavailable MACE, CLAU Unavailable [address] + [place] [address] IVONNE, MORIAH Unavailable [address] + [facility] [place] . R Unavailable Unavailable Unavailable MACE, CLAU Unavailable [address] + [place] [address] IVONNE, MORIAH Unavailable [address] + [facility] . [place] Unavailable Unavailable Unavailable MACE, CLAU Unavailable [address] + [place] [address] IVONNE, MORIAH Unavailable [address] + [facility] [place] . R Unavailable Unavailable Unavailable MACE, CLAU Unavailable [address] + [place] [address] IVONNE, MORIAH Unavailable [address] + [facility] [place] . R Unavailable Unavailable Unavailable MACE, CLAU Unavailable [address] + [place] [address] IVONNE, MORIAH Unavailable [address] + [facility], [place] . R Unavailable Unavailable Unavailable MACE, CLAU Unavailable [address] + [place] [address] IVONNE, MORIAH Unavailable [address] + [facility], [place] . R Unavailable Unavailable Unavailable Care Team Providers Name Role Phone Abdullahi Bishop Attending Unavailable Alpesh, Gaston Chi Referring Unavailable Abdullahi Bishop Attending Unavailable Abdullahi Bishop Referring Unavailable Alpesh, Gaston Chi Primary Care Unavailable Alpesh, Gaston Chi Primary Care Unavailable Semenedilia, Patito Admitting Unavailable Abdullahi Bishop Consulting Unavailable Navid Hampton Attending Unavailable Bishnu Fonseca Consulting Unavailable Sementi, Patito Admitting Unavailable CHRISTELLE Stewart Attending Unavailable Alpesh, Gaston Chi Primary Care Unavailable Sementi, Patito Consulting Unavailable Sementi, Patito Admitting Unavailable Abdullahi Bishop Attending Unavailable Alpesh, Gaston Chi Primary Care Unavailable Calabretta, Abdullahi Consulting Unavailable Isckarus, Mansour Consulting Unavailable Sementi, Patito Consulting Unavailable Sementi, Patito Admitting Unavailable Isckarus, Mansour Attending Unavailable Alpesh, Gaston Chi Primary Care Unavailable Calabretta, Abdullahi Consulting Unavailable Isckarus, Mansour Consulting Unavailable Memo, Navid Consulting Unavailable Sementi, Patito Admitting Unavailable Memo, Navid Attending Unavailable Alpesh, Gaston Chi Primary Care Unavailable Calabretta, Abdullahi Consulting Unavailable Isckarus, Mansour Consulting Unavailable Memo, Navid Consulting Unavailable Alpesh, Gaston Chi Attending Unavailable Alpesh, Gaston Chi Primary Care Unavailable Becky Ochoa Attending Unavailable Alpesh, Gaston Chi Referring Unavailable Alpesh, Gaston Chi Primary Care Unavailable Dave Lima Attending Unavailable Alpesh, Gaston Chi Referring Unavailable Alpesh, Gaston Chi Primary Care Unavailable Alpesh, Gaston Chi Attending Unavailable Alpesh, Gaston Chi Primary Care Unavailable Alpesh, Gaston Chi Attending Unavailable Alpesh, Gaston Chi Primary Care Unavailable Dave Lima Attending Unavailable Alpesh, Gaston Chi Referring Unavailable Alpesh, Gaston Chi Primary Care Unavailable Alpesh, Gaston Chi Attending Unavailable Alpesh, Gaston Chi Primary Care Unavailable Rakesh Khan Attending Unavailable PROVIDER, UNKNOWN Referring Unavailable No, PCP Primary Care Unavailable JOSE DILLON Admitting Unavailable JOSE DILLON Attending Unavailable REHMUSDIANNA Consulting Unavailable PROVIDER, UNKNOWN Admitting Unavailable PROVIDER, UNKNOWN Attending Unavailable SULAIMAN DILLON Admitting Unavailable SULAIMAN DILLON Attending Unavailable IMCA Primary Care Unavailable REHMUS, DIANNA H Consulting Unavailable PROBLEMS PROBLEMS DATE TYPE CONDITION / CODE ATTENDING STATUS SOURCE 10/07/2018 Active Contusion of JOSE DILLON Active [facility] abdominal wall, Clinic Other initial encounter / [facility] S30.1XXA(ICD-10) Repository 10/07/2018 Admitting Unknown / REJI, Active [facility] diagnosis UNK(Unknown) [facility] Repository 09/09/2018 Unknown R19.5 - Other fecal Calabretta, Active [place] abnormalities / [facility] R19.5(ICD-10) Hospital Repository 03/28/2018 Unknown 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 / Repository M17.0(ICD-10) 01/13/2018 Unknown M25.561 - Pain in Dave Lima Active [facility] right knee / Community M25.561(ICD-10) Hospital Repository 01/13/2018 Unknown M25.562 - Pain in Dave Lima Active [facility] left knee / Community M25.562(ICD-10) Hospital Repository 01/13/2018 Unknown G89.29 - Other Dave Lima Active [place] chronic pain / Community G89.29(ICD-10) Hospital Repository PROCEDURES PROCEDURES No Procedure Records FoundRESULTS RESULTS CBC W/DIFF, AUTOMATED Collected: 10/12/2018 Status: F Source: [place] 2:47 PM [facility] REPOSITORY TYPE CODE TESTS RESULT OUT OF RANGE REFERENCE UNITS LAB L100.1000 4.4-11.0 K/mm3 Normal WBC 7.5 LAB L100.1200 4.6-6.2 M/mm3 Low RBC 3.97 LAB L100.1300 13.0-16.5 g/dl Low HGB 12.4 LAB L100.1400 40-54 % Low HCT 37.8 LAB L100.1500 80-94 fL High MCV 95.2 LAB L100.1600 27.0-32.0 pg Normal MCH 31.2 LAB L100.1700 32-36 g/gl Normal MCHC 32.8 LAB L100.1810 11.6-14.6 % Normal RDW CV 12.9 LAB L100.1820 35.1-43.9 fl Normal RDW SD 42.9 LAB L100.1900 150-450 K/mm3 Normal PLT 295 LAB L100.2000 6.2-12.0 fl Normal MPV 10.1 LAB L100.2100 47-70 % Normal NEUT% 69.8 LAB L100.2200 19-41 % Low LY% 14.3 LAB L100.2300 0-10 % High MONO% 13.8 LAB L100.2400 0-5 % Normal EO% 0.9 LAB L100.2500 0-1 % Normal BASO% 0.3 LAB L100.2550 0.0-0.9 % Normal IM GRAN % 0.900 Result Comment: IG% - Immature Granulocytes (promyelocytes, myelocytes and metamyelocytes) > 1% indicates that a LEFT SHIFT is Present. LAB L100.2620 2.0-7.7 X10 3/uL Normal Absolute Neut 5.3 LAB L100.2720 0.83-4.51 X10 3/ul Normal Absolute Lymph 1.08 Performed By: #### L100.0100 #### [facility] [address] [place], [address] SHELBY Observed: 10/11/2018 Status: COMPLETED Source: [place] 12:00 AM CLINIC OTHER CAMPUS REPOSITORY Telephone (AKPRAD) TAYLOR ALCANTARA ([id number]) 1940 M T Date Time Provider Department 10/11/18 ELIS BESS (MEGHANA) KYLE During your visit today, we recorded the following information about you: Elis Bess APRN.CNP 10/11/2018 4:40 PM Signed Attempted to follow up with Mr. Alcantara after his recent hospitalization to answer any questions or concerns he may have. Message left on his voice mail. Will attempt to call again in near future. Elis Bess APRN.CNP Emergency General Surgery 4:40 PM 10/11/2018 Allergies As of Date: 10/11/2018 Noted Allergy Reaction DARVOCET A500 (PROPOXYPHENE N-ALAINA*10/07/2018 8 - GI Upset DARVON (PROPOXYPHENE HCL) 10/07/2018 8 - GI Upset PENICILLIN 10/07/2018 4 - Hives Date Reviewed: 10/09/2018 Reviewed by: Laquita (Rn) TOD Joaquin - Fully Assessed Reason for Visit: Post-hospitalization follow-up [Other] Prescriptions as of 10/11/2018 Sig: TRAMADOL 50 MG TABLET Take 1 tablet by mouth every * LISINOPRIL 20 MG-HYDROCHLOROT* Take 1 tablet by mouth twice * CHOLECALCIFEROL (VITAMIN D3) * Take 50,000 Units by mouth on* CYCLOBENZAPRINE 10 MG TABLET Take 10 mg by mouth 3 times d* Problem List As Of Date 10/11/2018 Noted Resolved Hematoma of rectus sheath [S30.1XXA] INVALID FOR* Encounter Status:Closed by ELIS BESS on 10/11/18 CASE MGT INIT Observed: 10/10/2018 Status: COMPLETED Source: [facility] 10:59 AM CLINIC OTHER CAMPUS REPOSITORY HNO ID: [id number] Author: Theodora (Rn) TOD Soriano Service: Care Management Author Type: Registered Nurse Type: Care Mgt Initial Assessment Filed: 10/10/2018 11:20 AM Note Text: CARE MANAGEMENT: ASSESSMENT AND DISCHARGE PLAN SERVICE DATE: 10/10/2018 SERVICE TIME: 10:59 AM PRIMARY CARE PHYSICIAN: Steve Colunga MD -Information provided on PCPs per patient's request. 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 He was given a dose of vitamin K and repeat INR 10/[address] scan of the abdomen 10/07 demonstrated a possible small component of active hemorrhage. Advance Directive: Current Advance Directive: None Cloud Operations Engineer Attempted to Assist with AD Completion: Yes Action: Patient Unwilling Health Literacy: 1. How often do you need to have someone help you when you read instructions, pamphlets, or other written material from your doctor or pharmacy? Never - 1 2. How confident are you filling out medical forms by yourself? Extremely - 1 If Patient scores > 3 on either question, the following interventions were put into place: Patient did not score > 3 FUNCTIONAL AND COGNITIVE/BEHAVIORAL PRIOR TO ADMISSION: Baseline Mental Status: Alert AND Oriented, Person, Place , Time, Situation and Age Appropriate Functional Status: Independent Does Patient Currently Receive Any Community Services or Home Care? None Equipment Prior to Admission: Aerosols/Intermittent positive breathing/Respiratory Treatments Oxygen PRN liters per minute Walker Wheelchair +Portable oxygen tanks Has the Patient Been in a Group Home Facility in the Past 30 days? No SOCIAL: Living Arrangement: Home Lives With: Spouse Financial Resources: Retired Primary Contact: Extended Emergency Contact Information Primary Emergency Contact: Haydee Alcantara Address[address] [address] [place], [place] [id number] Relation: Spouse Supportive: Yes Other Important Patient Contacts: None Caregiver Assessment: Caregiver is ready, willing and able to meet the patient's needs as recommended by the inter-professional team? Yes Patient's transition needs and plan for meeting these needs: Patient's states his family is willing/ able to care for him as needed including providing transportation at DC. Will follow. Does the patient have an acute stroke diagnosis, or has the patient had a stroke during this admission? No Medication Adherence: I am convinced of the importance of my prescription medication: Agree completely - 0 I worry that my prescription medication will do more harm than good to me Disagree completely - 0 I feel financially burdened by my nwx-ma-iodznr expenses for my prescription medication: Disagree completely - 0 Patient is categorized as low risk < 2 Are you interested in bedside delivery of your medications? No Food Concerns: In the Last Month, Have You had Trouble Getting Food? No trouble getting food During the Last Month, Have You Worried Whether Your Food Would Run Out Before You Had Enough Money to Buy More? No Is the Patient Psychosocially Complex? No ASSESSMENT AND PLAN: Medical Needs: 2 or more chronic diseases Psychosocial Needs: None FREEDOM OF CHOICE EXPLAINED: Financial Disclosure Provided POTENTIAL TRANSITION PLANS Home Patient independent at home with his spouse prior to admission. Patient hopeful to return home at discharge. Will follow clinical course for DC planning needs. SIGNATURE: Theodora Soriano RN PATIENT NAME: Taylor Alcantara DATE: October 10, 2018 TIME: 10:59 AM PAGER/CONTACT #: [phone] CNDS Observed: 10/10/2018 Status: COMPLETED Source: [place] 8:40 AM [facility] OTHER CAMPUS REPOSITORY O ID: [id number] Author: Elis Bess Service: General Surgery Author Type: Nurse Practitioner Type: Discharge Summaries Filed: 10/10/2018 8:42 AM Note Text: DISCHARGE SUMMARY PATIENT NAME: Taylor Alcantara Code Status: Not on file Highest Readmission Risk Score: 7 The 30 day readmissions risk score is derived from an internally validated risk model which evaluates patient level characteristics, utilization history, medication orders and lab results up until the day of discharge. Patients with a score of 40 or above are considered highest risk for readmission. Specific patient level drivers will be listed at the bottom of the summary. Admission Information Admission Information ADMIT DATE: 10/07/2018 DISCHARGE DATE: 10/10/2018 MY DOCTORS AND MEDICAL TEAM: My Main Hospital Doctor: Jose Dillon Primary Care Provider: Steve Colunga MD My Medical Team Members: Treatment Team: Attending Provider: Jose Dillon Consulting: Dianna Meyers MY CONDITION AT DISCHARGE: Stable REASON I WAS IN THE HOSPITAL: rectus sheath hematoma SUMMARY OF WHAT HAPPENED WHILE I WAS IN THE HOSPITAL: 78 year old male on jail anticoagulation for history of DVT/PE was transferred from [facility] with rectus sheath hematoma. Consultations were obtained from Interventional Radiology who recommended expectant management - no embolization needed and from Hematology who recommended holding anticoagulation for now with reevaluation after 1 week for determination in resuming Coumadin. BLE ultrasound was obtained for leg pain similar to prior DVT episode, results negative for DVT. Stable for discharge home with family. Will need to follow up with PCP/Hematology to discuss timing of anticoagulation. Mr. Alcantara states he has an upcoming appointment with his PCP this week as well. OTHER PROBLEMS/DIAGNOSIS: Active Problems: Hematoma of rectus sheath Resolved Problems: * No resolved hospital problems. * OPERATIONS PERFORMED WHILE IN THE HOSPITAL: None IMPORTANT TEST/PROCEDURES: No procedures performed TEST RESULTS NOT AVAILABLE AT THIS TIME: No pending results Discharge Disposition Discharge Disposition: Home With Self Care Activity When You Leave the Hospital No prolonged bedrest, longer than 8 hours in a 24 hour period Resume pre-hospital activity Diet Instructions Drink 6 to 8 glasses of fluids per day Resume your pre-hospital diet For Pain When You Leave the Hospital If you become constipated, you may use any fbul-hxv-tijrjmq treatment such as Milk of Magnesia, Sennakot, Prune Juice, Suppositories, etc. in addition to the stool softener/fiber supplement No alcohol or driving while on pain medication Use acetaminophen (Tylenol) as recommended on the bottle Use the dispensed medication (see prescription) Call Your Doctor If You have lightheadedness, fainting, or confusion You have persistent nausea/vomiting over 24 hours Your temperature is greater than 101F Follow Up Appointments Follow-Up Appointment Follow-up with Dr Chase or PCP in 1 week for re-evaluation and discussion on resuming anticoagulation When: In 1 week Patient/Parents to call for appointment?: Yes Oleg Chase [phone] [facility] [address] [facility] [address] PCP Requested Referral Follow-Up Appointment Follow-up with Dr Chase or PCP in 1 week for re-evaluation and discussion on resuming anticoagulation With: PCP When: In 1 week Patient/Parents to call for appointment?: Yes Additional Provider to Provider Information: No notes on file Transitions of Care Critical Issues: None LABS AND PROCEDURES PENDING AT DISCHARGE: Pathology Results (to be discussed at follow visit with surgeon.) FOLLOW-UP APPOINTMENTS ALREADY SCHEDULED WITH A [facility] PROVIDER: No future appointments. ALLERGIES Allergen Reactions - Darvocet A500 [Prop* GI Upset - Darvon [Propoxyphen* GI Upset - Penicillin Hives DISCHARGE MEDICATION: Current Discharge Medication List START taking these medications traMADol (ULTRAM) 50 mg Take 50 mg by mouth every 6 hours as needed for Pain. Qty: 28 tablet Refills: 0 Associated Diagnoses:Hematoma of rectus sheath, initial encounter CONTINUE these medications which have NOT CHANGED lisinopril-hydrochlorothiazide (PRINZIDE,ZESTORETIC) 1 tablet Take 1 tablet by mouth twice daily. cholecalciferol (Vitamin D3) (VITAMIN D3) 50,000 Units Take 50,000 Units by mouth once every month. cyclobenzaprine (FLEXERIL) 10 mg Take 10 mg by mouth 3 times daily at 6AM 12PM and 9PM. STOP taking these medications warfarin (COUMADIN) 2 mg Comments: Reason for Stopping: warfarin (COUMADIN) 5 mg Comments: Reason for Stopping: Exam: GENERAL: No distress, Alert NEURO: AANDOx3, CN II-XII grossly intact HEENT: normocephalic, atraumatic LUNGS: Unlabored breathing on nasal O2 (2L) CARDIAC: Regular rate and rhythm as above ABDOMEN: Firm, obese, TTP R abd/flank, moderately distended; bruising across entire abdomen. EXTREMITIES: BUSTAMANTE, No deformities, No edema, PPP SKIN: Skin color, texture, turgor normal, No rashes or lesions The patient's risk for 30-day readmission is determined using the following contributing factors: Pt variables contributing to increased readmission risk: 15 Most Recent BUN Result 8.8 First Resulted Calcium During Admission 6 Active Medication Orders 1 Insurance - Medicare 1 Discharge Disposition - Home TIME OF CARE: Discharge Management: I personally spent greater than 30 minutes involved in the discharge management of this patient. SIGNATURE: Elis Bess APRN.BINDER AND WRAPPER PACKER PAGER/CONTACT #: DATE: October 10, 2018 TIME: 8:41 AM Emergency General Surgery Service Pager: For questions or concerns Mon-Fri 6a-5p please page [phone]. After 5pm and on Weekends and Holidays, please page [phone] if in ICU or [phone] if on RNF. PROGRESS Observed: 10/10/2018 Status: COMPLETED Source: [place] 7:58 AM CLINIC OTHER CAMPUS REPOSITORY HNO ID: [id number] Author: Elis Bess Service: General Surgery Author Type: Nurse Practitioner Type: Progress Notes Filed: 10/10/2018 8:02 AM Note Text: Emergency General Surgery Progress Note SERVICE DATE: 10/10/2018 TIME: 0640 SUBJECTIVE: States abdominal pain improved, now just sore. States he would like to be off Coumadin and started on an alternative oral anticoagulant. States he has an appointment with his PCP this week. Passing flatus and BM. Denies N/V. Tolerating diet DIET REGULAR Nausea No Emesis No Flatus Yes Bowel movement Yes Pain Controlled Yes Ambulating Yes minimal, in room OBJECTIVE: Vitals: Temp (24hrs), Av.8 ?C (98.3 ?F), Min:36.7 ?C (98.1 ?F), Max:37 ?C (98.6 ?F) BP 132/75 Pulse 81 Temp 36.9 ?C (98.4 ?F) (Oral) Resp 18 Ht 175.3 cm (5' 9) Wt 83.5 kg (184 lb) SpO2 93% BMI 27.17 kg/m? O2 Therapy: Room Air IANDO: Date 10/09/18699 - 10/10/18 0610/10/18699 - 10/11/18 0659 Shift 5629-0207 6829-9175 8536-0946 24 Hour Total 5824-9677 0957-4124 6991-2957 24 Hour Total I N T A K E PO 360 360 PO 360 360 Shift Total 360 360 O U T P U T Urine 500 109 127 3617 Void (ml) 500 741 752 4398 Urine Not Saved. 1 x 1 x # of BMs Number of BMs 1 x 1 x Shift Total 500 138 788 2429 Weight (kg) 83.5 83.5 83.5 83.5 83.5 83.5 83.5 83.5 MEDICATIONS Current Facility-Administered Medications: dextrose 5% in LR infusion (D5-LR) 75 mL/hr INTRAVENOUS CONTINUOUS oxyCODONE-acetaminophen 5-325 mg 1-2 tablet (PERCOCET) 1-2 tablet ORAL q 4 H PRN morphine 1-2 mg injection 1-2 mg INTRAVENOUS q 2 H PRN ondansetron (PF) 4 mg injection (ZOFRAN) 4 mg INTRAVENOUS q 6 H PRN acetaminophen 650 mg tab(s) (TYLENOL) 650 mg ORAL q 4 H PRN ipratropium-albuterol 3 mL nebulizer solution (DUONEB) 3 mL INHALATION q 4 H PRN Labs: Recent Labs 10/10/18 0333 10/09/18 0415 10/08/18 0235 10/07/18 1642 NA -- -- -- 139 -- 138 K -- -- -- 4.1 -- 4.1 CHLOR -- -- -- 107 -- 106 CO2 -- -- -- 25 -- 27 BUN -- -- -- 15 -- 19* CREAT -- -- -- 0.96 -- 1.06 GLUC -- -- -- 138* -- 109* ANION -- -- -- 11 -- 9 CA -- -- -- 8.1* -- 8.8 WBC 6.25 6.56 < > 7.97 < > -- HB 10.4* 10.7* < > 11.0* < > -- HCT 31.6* 32.3* < > 33.1* < > -- PLT 192 174 < > 171 < > -- INR -- -- -- 1.34* -- 1.54* < > = values in this interval not displayed. Exam: GENERAL: No distress, Alert NEURO: AANDOx3, CN II-XII grossly intact HEENT: normocephalic, atraumatic LUNGS: Unlabored breathing on nasal O2 (2L) CARDIAC: Regular rate and rhythm as above ABDOMEN: Firm, obese, TTP R abd/flank, moderately distended; bruising across entire abdomen. EXTREMITIES: BUSTAMANTE, No deformities, No edema, PPP SKIN: Skin color, texture, turgor normal, No rashes or lesions ASSESSMENT AND PLAN: Active Hospital Problems Diagnosis Date Noted - Hematoma of rectus sheath 10/07/2018 78 year old male with h/o of DVTs, pulmonary emboli, admitted with rectus sheath hematoma - Pain control - Continue regular diet - Hgb stable - SCDs, Ambulate - U/S lower Ext negative - Hematology/oncology: Recommend Hold AC : Restart warfarin after resorption of the Hematoma. Evaluate after one week. - Discharge today SIGNATURE: Elis Bess APRN.CNP PATIENT NAME: Taylor Alcantara DATE: October 10, 2018 TIME: 7:58 AM Emergency General Surgery Service Pager: For questions or concerns Mon-Fri 6a-5p please page [phone]. After 5pm and on Weekends and Holidays, please page [phone]. HEMOGRAM/DIFF Collected: 10/10/2018 Status: F Source: [facility] 3:33 AM HEALTH SYSTEM REPOSITORY TYPE CODE TESTS RESULT OUT OF REFERENCE UNITS RANGE LAB WBC(LOINC) 4.23-9.07 thou/cmm WBC 6.25 LAB RBC(LOINC) 4.63-6.08 mil/cmm Low RBC 3.34 LAB HGB(LOINC) 13.7-17.5 g/dL Low Hgb 10.4 LAB HCT(LOINC) 40.1-51.0 % Low Hct 31.6 LAB MCV(LOINC) 83.2-95.6 fl MCV 94.6 LAB MCH(LOINC) 25.7-32.2 pg MCH 31.1 LAB MCHC(LOINC 32.3-36.5 % ) MCHC 32.9 LAB RDW(LOINC) 11.6-14.4 % RDW 12.5 LAB RDWSD(LOIN 36.1-45.8 fl C) RDW SD 43.3 LAB PLT(LOINC) 141-365 thou/cmm Platelet 192 LAB MPV(LOINC) 8.7-12.0 fl MPV 10.2 LAB SEG(LOINC) % Seg Neutrophil 62.1 LAB IGRE(LOINC % ) Immature Grans 0.80 LAB LYMPH(LOIN % C) Lymphocyte 19.4 LAB MNO(LOINC) % Monocyte 15.0 LAB EOSIN(LOIN % C) Eosinophil 2.1 LAB BASO(LOINC % ) Basophil 0.6 LAB SEGN(LOINC 1.78-5.38 thou/cmm ) Abs. Neut (ANC) 3.88 LAB IGAB(LOINC 0.00-0.05 thou/cmm ) Abs Immature Grans 0.05 LAB LYMN(LOINC 0.84-2.85 thou/cmm ) Abs. Lymph 1.21 LAB MONON(LOIN 0.30-0.82 thou/cmm C) Abs. High [place] 0.94 LAB EOSN(LOINC 0.04-0.54 thou/cmm ) Abs. Eosin 0.13 LAB BASON(LOIN 0.01-0.08 thou/cmm C) Abs. Baso 0.04 Performed By: #### [id number] #### [facility] [address] DVT LOWER BILATERAL Observed: 10/09/2018 Status: F Source: [facility] 2:59 PM HEALTH SYSTEM REPOSITORY Performed at [facility] APPROVED BY: Gold Strange MD EXAM TITLE: BILATERAL LOWER EXTREMITY VENOUS ULTRASOUND (GRAYSCALE, SPECTRAL ANALYSIS AND COLOR DUPLEX EVALUATION): DATE:10/09/2018 14:30 COMPARISON: None. CLINICAL INDICATION/HISTORY: Bilateral lower extremity swelling TECHNIQUE: The deep venous structures of the bilateral lower extremities were interrogated from the inguinal canal through the midcalf with don-scale and Color Doppler. Images were stored in a permanent archive. FINDINGS: All deep venous structures demonstrate normal compressibility, waveforms, and color flow. There is no evidence for lower extremity deep venous thrombosis. IMPRESSION: Normal bilateral lower extremity venous ultrasound. NURSING PROG Observed: 10/09/2018 Status: COMPLETED Source: [place] 1:00 PM [facility] REPOSITORY HNO ID: [id number] Author: Laquita (Rn) TOD Joaquin Service: Nursing Author Type: Registered Nurse Type: Nursing Progress Note Filed: 10/09/2018 2:01 PM Note Text: Patient c/o back of the R knee/calf area pain. Pt states the pain is the same as when he had a DVT in the past. He was given percocet for R knee pain, he states that was stiff knee and this is a new pain. Pt's vitals stale, no SOB. SANTOS Persaud notified, new orders to be given. Will cont to monitor. PROGRESS Observed: 10/09/2018 Status: COMPLETED Source: [place] 6:17 AM [facility] OTHER [facility] REPOSITORY HNO ID: [id number] Author: Rosita Olivarez (Marta Persaud Service: General Surgery Author Type: Nurse Specialist Type: Progress Notes Filed: 10/09/2018 3:00 PM Note Text: Emergency General Surgery Progress Note SERVICE DATE: 10/09/2018 TIME: 0700 SUBJECTIVE: Reports feeling better O2 sat recorded at 87% on room air last evening, now on O2 2L/NC with sats 94-97%. States was coughing up thick mucus due to COPD at that time, denies any SOB Tolerating diet DIET REGULAR Nausea No Emesis No Flatus Yes Bowel movement No Pain Controlled Yes Ambulating Yes minimal, in room OBJECTIVE: Vitals: Temp (24hrs), Av.7 ?C (98.1 ?F), Min:36 ?C (96.8 ?F), Max:37.6 ?C (99.7 ?F) BP 126/65 Pulse 95 Temp 37.6 ?C (99.7 ?F) (Oral) Resp 18 Ht 175.3 cm (5' 9) Wt 83.5 kg (184 lb) SpO2 97% BMI 27.17 kg/m? O2 Therapy: Nasal Cannula IANDO: Date 10/08/18699 - 10/09/18 0659 10/09/18699 - 10/10/18 0659 Shift 6405-0777 5806-1280 6806-4213 24 Hour Total 2537-5582 7429-6051 0446-7944 24 Hour Total I N T A K E PO 250 360 120 730 PO 250 360 120 730 Shift Total 250 360 120 730 O U T P U T Urine 400 200 200 800 Void (ml) 400 200 200 800 Shift Total 400 200 200 800 Weight (kg) 83.5 83.5 83.5 83.5 83.5 83.5 83.5 83.5 MEDICATIONS Current Facility-Administered Medications: dextrose 5% in LR infusion (D5-LR) 75 mL/hr INTRAVENOUS CONTINUOUS oxyCODONE-acetaminophen 5-325 mg 1-2 tablet (PERCOCET) 1-2 tablet ORAL q 4 H PRN morphine 1-2 mg injection 1-2 mg INTRAVENOUS q 2 H PRN ondansetron (PF) 4 mg injection (ZOFRAN) 4 mg INTRAVENOUS q 6 H PRN acetaminophen 650 mg tab(s) (TYLENOL) 650 mg ORAL q 4 H PRN ipratropium-albuterol 3 mL nebulizer solution (DUONEB) 3 mL INHALATION q 4 H PRN Labs: Recent Labs 10/09/18 0415 10/08/18200510/08/1823410/07/18 1642 NA -- -- -- 139 -- 138 K -- -- -- 4.1 -- 4.1 CHLOR -- -- -- 107 -- 106 CO2 -- -- -- 25 -- 27 BUN -- -- -- 15 -- 19* CREAT -- -- -- 0.96 -- 1.06 GLUC -- -- -- 138* -- 109* ANION -- -- -- 11 -- 9 CA -- -- -- 8.1* -- 8.8 WBC 6.56 6.82 < > 7.97 < > -- HB 10.7* 11.1* < > 11.0* < > -- HCT 32.3* 34.1* < > 33.1* < > -- PLT 174 174 < > 171 < > -- INR -- -- -- 1.34* -- 1.54* < > = values in this interval not displayed. Exam: GENERAL: No distress, Alert NEURO: AANDOx3, CN II-XII grossly intact HEENT: normocephalic, atraumatic LUNGS: Unlabored breathing on nasal O2 (2L) CARDIAC: Regular rate and rhythm as above ABDOMEN: Firm, obese, TTP R abd/flank, moderately distended EXTREMITIES: BUSTAMANTE, No deformities, No edema, PPP SKIN: Skin color, texture, turgor normal, No rashes or lesions ASSESSMENT AND PLAN: Active Hospital Problems Diagnosis Date Noted - Hematoma of rectus sheath 10/07/2018 78 year old male with h/o of DVTs, pulmonary emboli, admitted with rectus sheath hematoma - Pain control - Continue regular diet - Serial abdominal exams - Hgb stable - SCDs, Ambulate - Hematology/oncology: Recommend Hold AC : Restart warfarin after resorption of the Hematoma. Evaluate after one week. 1000 Assessment and plan discussed with attending: Dr Dillon - CITLALY for discharge today - Follow up in 1 week with PCP or Hematology for reevaluation and discussion on resuming anticoagulation 1310 US DVT ordered for c/o lower right leg pain, describes as similar to pain experienced with prior VT SIGNATURE: Rosita Persaud APRN.RN NEONATAL PATIENT NAME: Taylor Alcantara DATE: October 09, 2018 TIME: 6:18 AM Emergency General Surgery Service Pager: For questions or concerns Mon-Fri 6a-5p please page [phone]. After 5pm and on Weekends and Holidays, please page [phone]. HEMOGRAM/DIFF Collected: 10/09/2018 Status: F Source: [facility] 4:15 AM HEALTH SYSTEM REPOSITORY TYPE CODE TESTS RESULT OUT OF REFERENCE UNITS RANGE LAB WBC(LOINC) 4.23-9.07 thou/cmm WBC 6.56 LAB RBC(LOINC) 4.63-6.08 mil/cmm Low RBC 3.38 LAB HGB(LOINC) 13.7-17.5 g/dL Low Hgb 10.7 LAB HCT(LOINC) 40.1-51.0 % Low Hct 32.3 LAB MCV(LOINC) 83.2-95.6 fl MCV 95.6 LAB MCH(LOINC) 25.7-32.2 pg MCH 31.7 LAB MCHC(LOINC 32.3-36.5 % ) MCHC 33.1 LAB RDW(LOINC) 11.6-14.4 % RDW 12.8 LAB RDWSD(LOIN 36.1-45.8 fl C) RDW SD 44.8 LAB PLT(LOINC) 141-365 thou/cmm Platelet 174 LAB MPV(LOINC) 8.7-12.0 fl MPV 10.2 LAB SEG(LOINC) % Seg Neutrophil 63.0 LAB IGRE(LOINC % ) Immature Grans 0.80 LAB LYMPH(LOIN % C) Lymphocyte 18.9 LAB MNO(LOINC) % Monocyte 15.4 LAB EOSIN(LOIN % C) Eosinophil 1.4 LAB BASO(LOINC % ) Basophil 0.5 LAB SEGN(LOINC 1.78-5.38 thou/cmm ) Abs. Neut (ANC) 4.13 LAB IGAB(LOINC 0.00-0.05 thou/cmm ) Abs Immature Grans 0.05 LAB LYMN(LOINC 0.84-2.85 thou/cmm ) Abs. Lymph 1.24 LAB MONON(LOIN 0.30-0.82 thou/cmm C) Abs. High [place] 1.01 LAB EOSN(LOINC 0.04-0.54 thou/cmm ) Abs. Eosin 0.09 LAB BASON(LOIN 0.01-0.08 thou/cmm C) Abs. Baso 0.03 Result Comment: Smear scanned; tech agrees with automated differential Performed By: #### CBCD1 #### [facility] [address] [id number] HEMOGRAM/DIFF Collected: 10/08/2018 Status: F Source: [facility] 8:06 PM HEALTH SYSTEM REPOSITORY TYPE CODE TESTS RESULT OUT OF REFERENCE UNITS RANGE LAB WBC(LOINC) 4.23-9.07 thou/cmm WBC 6.82 LAB RBC(LOINC) 4.63-6.08 mil/cmm RBC Low 3.59 LAB HGB(LOINC) 13.7-17.5 g/dL Hgb Low 11.1 LAB HCT(LOINC) 40.1-51.0 % Hct Low 34.1 LAB MCV(LOINC) 83.2-95.6 fl MCV 95.0 LAB MCH(LOINC) 25.7-32.2 pg MCH 30.9 LAB MCHC(LOINC 32.3-36.5 % ) MCHC 32.6 LAB RDW(LOINC) 11.6-14.4 % RDW 12.7 LAB RDWSD(LOIN 36.1-45.8 fl C) RDW SD 44.0 LAB PLT(LOINC) 141-365 thou/cmm Platelet 174 LAB MPV(LOINC) 8.7-12.0 fl MPV 9.9 LAB SEG(LOINC) % Seg Neutrophil 67.0 LAB LYMPH(LOIN % C) Lymphocyte 16.0 LAB MNO(LOINC) % Monocyte 14.0 LAB EOSIN(LOIN % C) Eosinophil 1.0 LAB BASO(LOINC % ) Basophil 0.0 LAB META(LOINC % ) Metamyelocytes 1.0 LAB MYELO(LOIN % C) Myelocytes 1.0 LAB SEGN(LOINC 1.78-5.38 thou/cmm ) Abs. Neut (ANC) 4.57 LAB IMGRA(LOIN C) Immat Grans Abs calc 0.14 LAB LYMN(LOINC 0.84-2.85 thou/cmm ) Abs. Lymph 1.09 LAB MONON(LOIN 0.30-0.82 thou/cmm C) Abs. [place] High 0.95 LAB EOSN(LOINC 0.04-0.54 thou/cmm ) Abs. Eosin 0.07 LAB BASON(LOIN 0.01-0.08 thou/cmm C) Abs. Baso Low 0.00 LAB RBCM(LOINC ) RBC Morphology Normal Performed By: #### CBCD1 #### [facility] [address] [id number] CONSULT Observed: 10/08/2018 Status: COMPLETED Source: [place] 7:10 PM [facility] OTHER [facility]AMPUS REPOSITORY HNO ID: [id number] Author: Oleg Chase Service: Hematology/Oncology Author Type: Physician Type: Consults Filed: 10/08/2018 7:21 PM Note Text: DX: Hematoma 78 y.o. male on long-term anticoagulation who presents with an acute rectus sheath hematoma. Patient has a previous history of LE DVT in 2012 along with multiple pulmonary emboli. He was then placed on coumadin for systemic anticoagulation. Patient was temporarily off coumadin in September, and developed a pulmonary embolus. Patient also has a history of lower protein C level. Patient was in the process of discontinuing Coumadin with lovenox bridge for upcoming colonoscopy. The patient states that he developed acute abdominal pain after giving himself a LVX injection on Wednesday, 10/04. CT demonstrated a large acute rectus sheath hematoma and an INR of 3.4. He was given a dose of vitamin K and repeat INR 10/[address] scan of the abdomen 10/07 demonstrated a possible small component of active hemorrhage. No past medical history on file. No past surgical history on file. ALLERGIES Allergen Reactions - Darvocet A500 [Prop* GI Upset - Darvon [Propoxyphen* GI Upset - Penicillin Hives Current Facility-Administered Medications: dextrose 5% in LR infusion (D5-LR) 75 mL/hr INTRAVENOUS CONTINUOUS oxyCODONE-acetaminophen 5-325 mg 1-2 tablet (PERCOCET) 1-2 tablet ORAL q 4 H PRN morphine 1-2 mg injection 1-2 mg INTRAVENOUS q 2 H PRN ondansetron (PF) 4 mg injection (ZOFRAN) 4 mg INTRAVENOUS q 6 H PRN acetaminophen 650 mg tab(s) (TYLENOL) 650 mg ORAL q 4 H PRN ipratropium-albuterol 3 mL nebulizer solution (DUONEB) 3 mL INHALATION q 4 H PRN Blood pressure 115/66, pulse 96, temperature 36 ?C (96.8 ?F), temperature source Temporal Artery, resp. rate 18, height 175.3 cm (5' 9), weight 83.5 kg (184 lb), SpO2 93 %. GENERAL: No distress, Alert NEURO: AANDOx3, CN II-XII grossly intact HEENT: normocephalic, atraumatic LUNGS: Unlabored breathing CARDIAC: Regular rate and rhythm as above ABDOMEN: Soft, diffusely firm and tender abdomen A/P: : Hematoma secondary to AC therapy. Clot is organizing: No evidence of new bleeding. : Recommend Hold AC : Restart warfarin after resorption of the Hematoma. Surgery following will resume on eval of risk benefit. Evaluate after one week. Sofia Chase MD HEMOGRAM/DIFF Collected: 10/08/2018 Status: F Source: [facility] 12:00 HEALTH SYSTEM REPOSITORY TYPE CODE TESTS RESULT OUT OF REFERENCE UNITS RANGE LAB WBC(LOINC) 4.23-9.07 thou/cmm WBC 8.76 LAB RBC(LOINC) 4.63-6.08 mil/cmm Low RBC 3.82 LAB HGB(LOINC) 13.7-17.5 g/dL Low Hgb 11.9 LAB HCT(LOINC) 40.1-51.0 % Low Hct 36.9 LAB MCV(LOINC) 83.2-95.6 fl MCV High 96.6 LAB MCH(LOINC) 25.7-32.2 pg MCH 31.2 LAB MCHC(LOINC 32.3-36.5 % ) Low MCHC 32.2 LAB RDW(LOINC) 11.6-14.4 % RDW 12.8 LAB RDWSD(LOIN 36.1-45.8 fl C) RDW SD 45.1 LAB PLT(LOINC) 141-365 thou/cmm Platelet 210 LAB MPV(LOINC) 8.7-12.0 fl MPV 9.7 LAB SEG(LOINC) % Seg Neutrophil 65.5 LAB IGRE(LOINC % ) Immature Grans 0.80 LAB LYMPH(LOIN % C) Lymphocyte 19.6 LAB MNO(LOINC) % Monocyte 12.8 LAB EOSIN(LOIN % C) Eosinophil 0.8 LAB BASO(LOINC % ) Basophil 0.5 LAB SEGN(LOINC 1.78-5.38 thou/cmm ) Abs. High Neut (ANC) 5.74 LAB IGAB(LOINC 0.00-0.05 thou/cmm ) Abs High Immature Grans 0.07 LAB LYMN(LOINC 0.84-2.85 thou/cmm ) Abs. Lymph 1.72 LAB MONON(LOIN 0.30-0.82 thou/cmm C) Abs. High [place] 1.12 LAB EOSN(LOINC 0.04-0.54 thou/cmm ) Abs. Eosin 0.07 LAB BASON(LOIN 0.01-0.08 thou/cmm C) Abs. Baso 0.04 Performed By: #### CBCD1 #### [facility] [address] [address] DISCHARGE SUMMARY Observed: 10/08/2018 Status: F Source: [place] 8:35 AM [facility] REPOSITORY [facility] Medical Records Department [address] [place] [id number] Discharge Summary 10/07/18 1100 MR#: [id number] Acct: [id number] Name: TAYLOR ALCANTARA Rep #: [id number] : 1940 78 From: Navid Hampton MD PCP: Alpesh DURANT,Gaston Chi Status: DIS IN Y Location: [facility] [id number] Discharge Date and Diagnosis Date of Admission: 10/06/18 Date of Discharge: 10/07/18 - Primary Discharge Diagnosis Active and Suspected Problems (Last Updated 10/07/18 @ 07:22 by Abdullahi Bishop MD) Hematoma of rectus sheath (Acute) - Secondary Discharge Diagnosis Chronic Problems (Last Updated 10/07/18 @ 07:22 by Abdullahi Bishop MD) 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, bilateral (Chronic) Emphysema (Chronic) HTN (hypertension) (Chronic) DDD (degenerative disc disease) (Chronic) 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) COPD (chronic obstructive pulmonary disease) (Chronic) Hospital Course and Treatment Imaging Results: 10/07/18 05:55 CT Abd [Abdomen/Pelvis WITH Contrast] [CT] AM (NON MEDS) Operations: None Summary of Care Provided: The patient is a 78 year old M with history of protein C deficiency with 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 On CT abdomen was found rectal sheath hematoma measuring 4.1 x 13.5 x 17.3 cm with active extravasation in the superior portion of the rectus sheath. Surgeon Dr. Bishop was consulted. He called me after he discussed with oncologist Dr. Tsang to transfer the patient as it is actively bleeding.Patient denies dizziness but has pain and swelling of anterior abdominal wall. Vitals blood pressure 98/63, heart rate 81 pulse ox 96% on 2 L of oxygen no tachypnea. Started on IV fluid normal saline to 50 mill per hour for a total of 1 L and then 150 mill per hour. 2 units of FFP is ordered. INR was 3.4. Repeat on 10/07 was 2.7. Transfer call made to [facility] but no bed available and then [facility]. Patient accepted by surgeon, Dr. Dillon. Other comorbidities are stable including COPD, hypertension, bilateral knee arthritis and degenerative lumbar disc disease. DVT prophylaxis- SCDs Patient was transferred to [facility]. Clinical Impression(s) from Imaging Studies Abdomen/Pelvis CT 10/06/18 13:54 IMPRESSION: Large right rectus sheath hematoma. Multiple gallstones. Small bilateral nonobstructive intrarenal calculi. Abdomen/Pelvis CT 10/07/18 05:55 IMPRESSION: Right rectal muscle sheath hematoma, the supraumbilical component is slightly more contracted on the current examination, however there is a vascular blush consistent with a small component of active hemorrhage. The infraumbilical rectus muscle hematoma is small in contains edema, this is however increased not visualized on previous exam. Stable chronic interstitial lung disease, emphysema, hepatomegaly, hepatic steatosis, cholelithiasis, renal calculi, renal scarring, arteriosclerosis, degenerative changes, ventral hernia containing fat, diverticulosis and prostate enlargement. Subjective: The patient was seen and examined in the morning. Complain of abdominal pain which is getting worse. Anterior abdominal swelling is also getting bigger and tense. Blood pressure in the morning is 98/63. 1 L of normal saline bolus ordered and blood pressure 120/66. - Physical Exam General: Alert, Oriented x3, Cooperative HEENT: Atraumatic, PERRLA, EOMI, Normocephalic Neck: Supple, No JVD, Negative Carotid Bruits Lungs: Clear to auscultation, No rhonchi, No wheeze, No rales, Diminished - Air entry diminished in bilateral lung bases Cardiovascular: Regular rate, Regular Rhythm, Normal S1, Normal S2, No murmurs Abdomen: Bowel Sounds Present, Soft, Distended - Anterior abdominal is distended from xiphoid to pubic symphysis more in the umbilical region extending to flanks., Tender - Tenderness present in anterior abdominal wall. Extremities: No edema, Capillary Refill Less than 3 Seconds Skin: No rashes, No breakdown Musculoskeletal: No Tenderness to Palpation of Joints or Extremities, Arthritic Changes Neurological: Cranial nerves II-XII grossly intact, Deep Tendon Reflexes 2+/4 and Symmetrical, Neuro grossly intact Psych/Mental Status: Normal Affect, Appropriate Vital Signs Temp Pulse Resp BP Pulse Ox 97.7 F L 87 14 118/63 89 10/07/18 08:10 10/07/18 08:10 10/07/18 08:10 10/07/18 08:10 10/07/18 08:10 Oxygen Flow Rate (L/min) 2 Oxygen Delivery Method Room Air Weight: 182 lb 15.739 oz Body Mass Index (BMI) 26.2 Finger Stick Blood Glucose 147 Intake and Output for Last 24 Hours Intake Total 1120 / 1120 1414 / 1414 Output Total 125 / 125 Balance 1120 / 1120 1289 / 1289 Laboratory Tests Past 24 Hrs WBC 9.0 RBC 4.47 L Hgb 14.0 WBC RBC Hgb Hct Home Medications: Medications to take at Discharge Albuterol Aerosols [Ventolin Aerosols] 1 inh INHALATION BID 08/10/16 Acetaminophen [Tylenol Arthritis] 650 mg PO Q6H PRN PRN 09/26/16 cyclobenzaprine 10 mg tablet 10 mg PO TID 09/09/18 Lisinopril/Hydrochlorothiazide [Lisinopril-Hctz 20-12.5 mg Tab] 1 tab PO BID 10/06/18 Warfarin Sodium [Coumadin] 2 mg PO DAILY 10/06/18 Warfarin Sodium [Coumadin] 5 mg PO DAILY 10/06/18 Primary Care Physician: Gaston Betts Chi, MD [Primary Care Provider] - Medical Necessity - Tobacco Use Smoking Status: Former smoker Tobacco Use: Cigarettes Meaningful Use Info Meaningful Use Diagnoses (Choose all that apply): None applicable Code Visit Inpatient E AND M: 17231 Disch Hosp 10/08/18 0835 <Electronically signed by Navid Hamtpon MD> Date Navid Hampton MD Cosigner Signature (if applicable): Date CC: Navid Hampton MD; Gaston Betts MD Signed PROGRESS Observed: 10/08/2018 Status: COMPLETED Source: [place] 7:13 AM [facility] REPOSITORY [facility] ID: [id number] Author: Keri Mcpherson Service: General Surgery Author Type: Resident Type: Progress Notes Filed: 10/08/2018 9:14 AM Note Text: Attestation signed by Jose Dillon at 10/08/2018 11:38 AM I personally saw and examined the patient. I reviewed the resident's note. I agree with the resident's assessment and plan unless otherwise noted below. General Surgery Progress Note SERVICE DATE: 10/08/2018 SUBJECTIVE: No acute events overnight. Reports pain controlled. Denies nausea/emesis. Denies Bm. Tolerating diet DIET NPO OBJECTIVE: Vitals: Temp (24hrs), Av.7 ?C (98.1 ?F), Min:36.4 ?C (97.5 ?F), Max:37.2 ?C (99 ?F) BP 131/61 Pulse 112 Temp 36.9 ?C (98.4 ?F) (Oral) Resp 18 Ht 175.3 cm (5' 9) Wt 83.5 kg (184 lb) SpO2 94% BMI 27.17 kg/m? O2 Therapy: Nasal Cannula IANDO: Date 10/07/18699 - 10/08/18 0659 10/08/18 07 - 10/09/18 0659 Shift 2850-4089 8376-4911 2476-7156 24 Hour Total 0347-2182 4151-2040 2799-0997 24 Hour Total I N T A K E IV 618 1378 1995 NS 0.9% 618 1378 1995 Shift Total 618 1378 1995 O U T P U T Urine 100 300 500 900 Void (ml) 100 300 500 900 Shift Total 100 300 500 900 Weight (kg) 83.5 83.5 83.5 83.5 83.5 83.5 83.5 83.5 MEDICATIONS Current Facility-Administered Medications: NaCl 0.9% iv infusion 150 mL/hr INTRAVENOUS CONTINUOUS oxyCODONE-acetaminophen 5-325 mg 1-2 tablet (PERCOCET) 1-2 tablet ORAL q 4 H PRN morphine 1-2 mg injection 1-2 mg INTRAVENOUS q 2 H PRN ondansetron (PF) 4 mg injection (ZOFRAN) 4 mg INTRAVENOUS q 6 H PRN acetaminophen 650 mg tab(s) (TYLENOL) 650 mg ORAL q 4 H PRN ipratropium-albuterol 3 mL nebulizer solution (DUONEB) 3 mL INHALATION q 4 H PRN Labs: Recent Labs 10/08/18 0235 10/07/18 1702 10/07/18 1642 NA 139 -- 138 K 4.1 -- 4.1 CHLOR 107 -- 106 CO2 25 -- 27 BUN 15 -- 19* CREAT 0.96 -- 1.06 GLUC 138* -- 109* ANION 11 -- 9 CA 8.1* -- 8.8 WBC 7.97 8.07 -- HB 11.0* 12.2* -- HCT 33.1* 37.7* -- PLT 171 189 -- INR 1.34* -- 1.54* Exam: GENERAL: No distress, Alert NEURO: AANDOx3, CN II-XII grossly intact HEENT: normocephalic, atraumatic LUNGS: Unlabored breathing on NC (2<-4 L) CARDIAC: Regular rate and rhythm as above ABDOMEN: Soft, TTP R flank/abdomen, moderately distended, no evidence of overlying ecchymosis/skin necrosis EXTREMITIES: BUSTAMANTE, No deformities, No edema SKIN: Skin color, texture, turgor normal, No rashes or lesions ASSESSMENT AND PLAN: Active Hospital Problems Diagnosis Date Noted - Hematoma of rectus sheath 10/07/2018 78 year old male with h/o of DVTs, pulmonary emboli, admitted with rectus sheath hematoma ? - IR recs: Close observation, no embolization at this time - Bedrest, Serial abdominal exams - Trend hgb, INR 1.3 this am (reversed on admission) - Hematology/oncology c/s - SCDs for now - Will start diet today Emergency General Surgery Service Pager: For questions or concerns Mon-Fri 6a-5p please page [phone]. After 5pm and on Weekends and Holidays, please page [phone] if in ICU or [phone] if on RNF. SIGNATURE: Keri Mcpherson MD PATIENT NAME: Taylor Alcantara DATE: October 08, 2018 TIME: 7:13 AM Pager: [phone] Collected: 10/08/2018 Status: F Source: [facility] 2:35 AM HEALTH SYSTEM REPOSITORY TYPE CODE TESTS RESULT OUT OF RANGE REFERENCE UNITS LAB GFRFN(LOINC >60mL/min/1.73m ) 2 eGFR >60 Result Comment: If the patient is , multiply the result by 1.210. Performed By: #### GFR #### [place] [id number] HEMOGRAM/DIFF Collected: 10/08/2018 Status: F Source: [facility] 2:35 AM HEALTH SYSTEM REPOSITORY TYPE CODE TESTS RESULT OUT OF REFERENCE UNITS RANGE LAB WBC(LOINC) 4.23-9.07 thou/cmm WBC 7.97 LAB RBC(LOINC) 4.63-6.08 mil/cmm Low RBC 3.50 LAB HGB(LOINC) 13.7-17.5 g/dL Low Hgb 11.0 LAB HCT(LOINC) 40.1-51.0 % Low Hct 33.1 LAB MCV(LOINC) 83.2-95.6 fl MCV 94.6 LAB MCH(LOINC) 25.7-32.2 pg MCH 31.4 LAB MCHC(LOINC 32.3-36.5 % ) MCHC 33.2 LAB RDW(LOINC) 11.6-14.4 % RDW 12.9 LAB RDWSD(LOIN 36.1-45.8 fl C) RDW SD 44.7 LAB PLT(LOINC) 141-365 thou/cmm Platelet 171 LAB MPV(LOINC) 8.7-12.0 fl MPV 9.6 LAB SEG(LOINC) % Seg Neutrophil 72.3 LAB IGRE(LOINC % ) Immature Grans 0.90 LAB LYMPH(LOIN % C) Lymphocyte 12.8 LAB MNO(LOINC) % Monocyte 12.7 LAB EOSIN(LOIN % C) Eosinophil 0.8 LAB BASO(LOINC % ) Basophil 0.5 LAB SEGN(LOINC 1.78-5.38 thou/cmm ) Abs. High Neut (ANC) 5.76 LAB IGAB(LOINC 0.00-0.05 thou/cmm ) Abs High Immature Grans 0.07 LAB LYMN(LOINC 0.84-2.85 thou/cmm ) Abs. Lymph 1.02 LAB MONON(LOIN 0.30-0.82 thou/cmm C) Abs. High [place] 1.01 LAB EOSN(LOINC 0.04-0.54 thou/cmm ) Abs. Eosin 0.06 LAB BASON(LOIN 0.01-0.08 thou/cmm C) Abs. Baso 0.04 Performed By: #### CBCD1 #### [facility] [address] [place], [place] [address] PROTIME Collected: 10/08/2018 Status: F Source: [facility] 2:35 AM HEALTH SYSTEM REPOSITORY TYPE CODE TESTS RESULT OUT OF REFERENCE UNITS RANGE LAB PTI(LOINC) 9.7-13.0 sec Prothrombin High Time 13.6 LAB INR(LOINC) 0.90-1.30 INR High 1.34 Result Comment: Note: Reference Range Change Vitamin K Antagonist (VKA) Therapeutic Range: INR 2 to 3 (Target INR of 2.5) Note: For patients treated with VKA drugs, such as warfarin, the [employer] 2012 Guideline recommends a therapeutic INR range of 2 to 3 (target INR of 2.5). This recommendation includes high-risk patients with antiphospholipid syndrome with previous arterial or venous thromboembolism, current-generation mechanical or bioprosthetic aortic heart valve replacement. VKA Therapeutic Range for some Mechanical Valve Replacement: INR 2.5 to 3.5 (Target INR of 3) Note: Patients with mechanical aortic valve replacement and additional risk factors for thromboembolic events (atrial fibrillation, previous thromboembolism, LV dysfunction, hypercoagulable conditions) or an older generation mechanical AVR (i.e., ball in-Cage) or any mechanical MVR should have a INR therapeutic range of 2.5 to 3.5 target INR of 3). Meñott GH, et al. Chest 2012; 141:7S-47S Kavitha RA et al. [facility] 2017; 70: 252-289 Performed By: #### PT #### [facility] [address] [place] [address] ACTIVATED PTT Collected: 10/08/2018 Status: F Source: [facility] 2:35 AM [facility] SYSTEM REPOSITORY TYPE CODE TESTS RESULT OUT OF REFERENCE UNITS RANGE LAB APTT(LOINC 23.0-32.4 sec ) Activated PTT 24.3 Result Comment: Note: New Reference Range Unfractionated Heparin Therapeutic Ranges: Standard Heparin Nomogram: 53 to 78 seconds (anti-Xa level of 0.3 to 0.7 U/mL) Low Dose/ACS Nomogram: 49 to 67 seconds (anti-Xa level of 0.2 to 0.5 U/mL) Stroke Treatment Nomogram: 49 to 67 seconds (anti-Xa level of 0.2 to 0.5 U/mL) Note: The APTT therapeutic range has been determined for the current lot of laboratory APTT reagent in use throughout the [facility]. Performed By: #### APTT #### [facility] [address] [place] [id number] BASIC PANEL Collected: 10/08/2018 Status: F Source: [facility] 2:35 AM HEALTH SYSTEM REPOSITORY TYPE CODE TESTS RESULT OUT OF REFERENCE UNITS RANGE LAB NA(LOINC) 136-145 mEq/L Sodium Blood 139 LAB K(LOINC) 3.5-5.1 mEq/L Potassium Blood 4.1 LAB CL(LOINC) 98-107 mEq/L Chloride Blood 107 LAB CO2(LOINC) 21-32 mEq/L CO2 Blood 25 LAB GLU(LOINC) 70-99 mg/dL Glucose High Blood 138 LAB BUN(LOINC) 7-18 mg/dL BUN Blood 15 LAB CREA(LOINC 0.67-1.17 mg/dL ) Creatinine Blood 0.96 LAB CA(LOINC) 8.5-10.1 mg/dL Low Calcium Blood 8.1 LAB ANGAP(LOIN 8-16 C) Anion [place] [address] Performed By: #### P8 #### [address] [address] NURSING PROG Observed: 10/07/2018 Status: COMPLETED Source: [facility] 11:52 PM CLINIC OTHER CAMPUS REPOSITORY HNO ID: [id number] Author: Alexandra (Rn) Kenyon, RN Service: (none) Author Type: Registered Nurse Type: Nursing Progress Note Filed: 10/07/2018 11:54 PM Note Text: Nursing Progress Note Patient Name: Taylor Alcantara Patient Location: [place] [address]/[id number]-* Called Dr. Fernandes regarding pt needing to be put on 4L nasal cannula to get pt to 95%. Pt was 70% on RA. No new orders received. Will continue to monitor pt and wean oxygen if able. This note was completed by: Alexandra Prescott RN HEMOGRAM/DIFF Collected: 10/07/2018 Status: F Source: [facility] 5:02 PM HEALTH SYSTEM REPOSITORY TYPE CODE TESTS RESULT OUT OF REFERENCE UNITS RANGE LAB WBC(LOINC) 4.23-9.07 thou/cmm WBC 8.07 LAB RBC(LOINC) 4.63-6.08 mil/cmm Low RBC 3.94 LAB HGB(LOINC) 13.7-17.5 g/dL Low Hgb 12.2 LAB HCT(LOINC) 40.1-51.0 % Low Hct 37.7 LAB MCV(LOINC) 83.2-95.6 fl MCV High 95.7 LAB MCH(LOINC) 25.7-32.2 pg MCH 31.0 LAB MCHC(LOINC 32.3-36.5 % ) MCHC 32.4 LAB RDW(LOINC) 11.6-14.4 % RDW 13.1 LAB RDWSD(LOIN 36.1-45.8 fl C) RDW SD High 46.2 LAB PLT(LOINC) 141-365 thou/cmm Platelet 189 LAB MPV(LOINC) 8.7-12.0 fl MPV 9.8 LAB SEG(LOINC) % Seg Neutrophil 61.4 LAB IGRE(LOINC % ) Immature Grans 0.90 LAB LYMPH(LOIN % C) Lymphocyte 20.7 LAB MNO(LOINC) % Monocyte 15.4 LAB EOSIN(LOIN % C) Eosinophil 1.2 LAB BASO(LOINC % ) Basophil 0.4 LAB SEGN(LOINC 1.78-5.38 thou/cmm ) Abs. Neut (ANC) 4.95 LAB IGAB(LOINC 0.00-0.05 thou/cmm ) Abs High Immature Grans 0.07 LAB LYMN(LOINC 0.84-2.85 thou/cmm ) Abs. Lymph 1.67 LAB MONON(LOIN 0.30-0.82 thou/cmm C) Abs. High [place] 1.24 LAB EOSN(LOINC 0.04-0.54 thou/cmm ) Abs. Eosin 0.10 LAB BASON(LOIN 0.01-0.08 thou/cmm C) Abs. Baso 0.03 Result Comment: Smear scanned; tech agrees with automated differential Performed By: #### CBCD1 #### [facility] [address] [place] [address] BASIC PANEL Collected: 10/07/2018 Status: F Source: [facility] 4:42 HEALTH SYSTEM REPOSITORY TYPE CODE TESTS RESULT OUT OF REFERENCE UNITS RANGE LAB NA(LOINC) 136-145 mEq/L Sodium Blood 138 LAB K(LOINC) 3.5-5.1 mEq/L Potassium Blood 4.1 LAB CL(LOINC) 98-107 mEq/L Chloride Blood 106 LAB CO2(LOINC) 21-32 mEq/L CO2 Blood 27 LAB GLU(LOINC) 70-99 mg/dL Glucose High Blood 109 LAB BUN(LOINC) 7-18 mg/dL BUN High Blood 19 LAB CREA(LOINC 0.67-1.17 mg/dL ) Creatinine Blood 1.06 LAB CA(LOINC) 8.5-10.1 mg/dL Calcium Blood 8.8 LAB ANGAP(LOIN 8-16 C) Anion Gap 9 Performed By: #### P8 #### [facility] [address] [place] [address] PROTIME Collected: 10/07/2018 Status: F Source: [address] [facility] REPOSITORY TYPE CODE TESTS RESULT OUT OF REFERENCE UNITS RANGE LAB PTI(LOINC) 9.7-13.0 sec Prothrombin High Time 15.5 LAB INR(LOINC) 0.90-1.30 INR High 1.54 Result Comment: Note: Reference Range Change Vitamin K Antagonist (VKA) Therapeutic Range: INR 2 to 3 (Target INR of 2.5) Note: For patients treated with VKA drugs, such as warfarin, the [employer] 2012 Guideline recommends a therapeutic INR range of 2 to 3 (target INR of 2.5). This recommendation includes high-risk patients with antiphospholipid syndrome with previous arterial or venous thromboembolism, current-generation mechanical or bioprosthetic aortic heart valve replacement. VKA Therapeutic Range for some Mechanical Valve Replacement: INR 2.5 to 3.5 (Target INR of 3) Note: Patients with mechanical aortic valve replacement and additional risk factors for thromboembolic events (atrial fibrillation, previous thromboembolism, LV dysfunction, hypercoagulable conditions) or an older generation mechanical AVR (i.e., ball in-Cage) or any mechanical MVR should have a INR therapeutic range of 2.5 to 3.5 target INR of 3). Meñott GH, et al. Chest 2012; 141:7S-47S Kavitha RA, et al. JACC 2017; 70: 252-289 Performed By: #### PT #### [facility] [address] [place] [address] ACTIVATED PTT Collected: 10/07/2018 Status: F Source: [facility] 4:42 PM HEALTH SYSTEM REPOSITORY TYPE CODE TESTS RESULT OUT OF REFERENCE UNITS RANGE LAB APTT(LOINC 23.0-32.4 sec ) Activated PTT 27.3 Result Comment: Note: New Reference Range Unfractionated Heparin Therapeutic Ranges: Standard Heparin Nomogram: 53 to 78 seconds (anti-Xa level of 0.3 to 0.7 U/mL) Low Dose/ACS Nomogram: 49 to 67 seconds (anti-Xa level of 0.2 to 0.5 U/mL) Stroke Treatment Nomogram: 49 to 67 seconds (anti-Xa level of 0.2 to 0.5 U/mL) Note: The APTT therapeutic range has been determined for the current lot of laboratory APTT reagent in use throughout the [facility]. Performed By: #### APTT #### [place] [address] EMERGENCY DEPARTMENT Observed: 10/07/2018 Status: F Source: [place] SUMMARY 4:04 PM [facility] REPOSITORY [facility] Medical Records Department [address] [place] [address] Emergency Department Summary 10/06/18 1637 MR#: [id number] Acct: [id number] Name: TAYLOR ALCANTARA Rep #: [id number] : 1940 78 From: Earnest Kumar DO PCP: Alpesh DURANT,Gaston Zamora Status: DIS IN - ER Visit Summary Date of Service: 10/06/18 Chief Complaint: [Abdominal pain] History of Present Illness: The patient is a 78 M [presents to the emergency department complaint of abdominal pain that started 2 days ago. Patient states that he gave himself a Lovenox injection in the right side of the abdomen 2 days ago and since that time he is noticed increasing pain in swelling to the right side of the abdomen. Patient states that they were trying to bridge him from his Coumadin in order to have a colonoscopy. Patient has bad knees and is supposed to have surgery to potentially have a total knee replacement however they wanted to get a colonoscopy done first apparently. Patient denies any fever. He denies any vomiting. He denies any blood in his stool or black tarry stool. Patient continues to take his Coumadin.] Physical Examination: [HEENT-PERRLA, EOMI. Cranial nerves II through XII grossly intact. TMs clear. Mucous membranes moist. No adenopathy. Cardiovascular-regular rate and rhythm without murmur or ectopy Lungs-clear to auscultation, chest wall stable without crepitus or subcu emphysema Abdomen-normoactive bowel sounds, soft. Patient has tenderness to the right side of the abdomen with some fullness noted to the right abdominal wall. No ecchymosis or bruising noted. Extremities-intact 4, normal range of motion, normal pulses, atraumatic] Test Results: [CBC with differential obtained showed a white blood cell count of 9.6, hemoglobin 17, hematocrit 51, platelets 221. Chemistries unremarkable. LFTs showed an ALT of 76, AST 47. Lipase was 150. INR was 3.4. CT scan of the abdomen and pelvis showed a large right-sided abdominal wall/rectus sheath hematoma.] Emergency Department Course and Treatment: [Patient was medicated with morphine and Zofran] Treatment Plan: [Case was discussed with Dr. Ochoa who was covering for Dr. López. I was asked to admit to hospitalist service. ] Disposition: [Admit] Impression: [Abdominal wall hematoma Coumadin coagulopathy Abdominal pain] This note was generated with [employer] dictation software. It may contain incorrect words, spelling, and punctuation that were not noted in review of the chart prior to signing ED Disposition - Plan for ED Patient: Chief Complaint: Other, Pain/Inj Referrals: Gaston Betts Chi, MD [Primary Care Provider] - What to do if you have Problems For any increased pain, shortness of breath, bleeding, nausea or vomiting, chest pain, or any unexpected problems, contact your Primary Care Provider. Call [facility] ([phone]) or report to the closest Emergency Room. Call 911 if necessary. 10/07/18 1940 <Electronically signed by Remus Ungur DO> Date Remus Ungur DO Cosigner Signature (If Indicated): Date CC: Gaston Betts MD HISTORY PHYSICAL Observed: 10/07/2018 Status: COMPLETED Source: [facility] 2:34 PM CLINIC OTHER CAMPUS REPOSITORY O ID: [id number] Author: Edmond (Jourdan Mason Service: General Surgery Author Type: Resident Type: HANDP Filed: 10/07/2018 4:49 PM Note Text: EGS Surgery HANDP Note SERVICE DATE: 10/07/2018 SUBJECTIVE: This is a 78 y.o. male on long-term anticoagulation who presents with an acute rectus sheath hematoma. Patient has a previous history of LE DVT in 2012 along with multiple pulmonary emboli. He was then placed on coumadin for systemic anticoagulation. Patient was temporarily off coumadin in September, and developed a pulmonary embolus. Patient also has a history of lower protein C level. Patient was in the process of discontinuing Coumadin with lovenox bridge for upcoming colonoscopy. The patient states that he developed acute abdominal pain after giving himself a LVX injection on Wednesday, 10/04. Patient then took his coumadin on 10/05 and felt abdominal pain and noticed abdominal swelling. Patient was hospitalized 10/06, and CT demonstrated a large acute rectus sheath hematoma and an INR of 3.4. He was given a dose of vitamin K and repeat INR 10/[address] scan of the abdomen 10/07 demonstrated a possible small component of active hemorrhage. Currently, the patient denies any nausea, vomiting, fever, or chills. The patient denies any dizziness or light-headedness. Tolerating diet Nausea No Emesis No Flatus Yes Bowel movement No Pain Controlled Yes Ambulating Yes OBJECTIVE: Vitals: Temp (24hrs), Av.4 ?C (97.5 ?F), Min:36.4 ?C (97.5 ?F), Max:36.4 ?C (97.5 ?F) BP 119/70 Pulse 80 Temp 36.4 ?C (97.5 ?F) (Temporal Artery) Resp 18 Ht 175.3 cm (5' 9) Wt 83.5 kg (184 lb) SpO2 93% BMI 27.17 kg/m? O2 Therapy: Nasal Cannula IANDO: Date 10/06/18699 - 10/07/18 0659(Not Admitted) 10/07/18699 - 10/08/18 0659 Shift 7029-0577 7824-9740 6417-1598 24 Hour Total 6793-5788 8856-7047 3278-2510 24 Hour Total I N T A K E Shift Total O U T P U T Urine 100 100 Void (ml) 100 100 Shift Total 100 100 Weight (kg) 83.5 83.5 83.5 83.5 MEDICATIONS No current facility-administered medications for this encounter. Labs: No results for input(s): NA, K, CHLOR, CO2, BUN, CREAT, GLUC, ANION, CA, MG, P, ALB, AST, ALT, ALKPHOS, TBILI, DBILI, PHOSINTL, WBC, HB, HCT, PLT, LACT, INR, PH, PCO2, PO2, BE, HCO3 in the last 72 hours. Invalid input(s): LISDBC Exam: GENERAL: No distress, Alert NEURO: AANDOx3, CN II-XII grossly intact HEENT: normocephalic, atraumatic LUNGS: Unlabored breathing CARDIAC: Regular rate and rhythm as above ABDOMEN: Soft, diffusely firm and tender abdomen without any obvious ecchymosis. EXTREMITIES: BUSTAMANTE, No deformities, No edema SKIN: Skin color, texture, turgor normal, No rashes or lesions ASSESSMENT AND PLAN: There are no active hospital problems to display for this patient. 78 year old male with h/o of DVTs, pulmonary emboli, now with concern for rectus sheath hematoma with possible active bleeding, stable hemoglobin, supratherapeutic INR. - spoke with IR who recommends expectant management for now - no embolization at this time - cont to monitor for signs of blood loss - trend hgb - stable - will consult heme/onc for anticoagulation recs - SCDs for now - no current indication for transfusion - recommend bedrest for now - NPO - IVFs - serial abdominal exams - will discuss with attending SIGNATURE: Edmond Mason DO PATIENT NAME: Taylor Alcantara DATE: October 07, 2018 TIME: 2:34 PM Pager: [phone] CONSULTATION Observed: 10/07/2018 Status: F Source: [place] 10:13 AM [facility] REPOSITORY [facility] Medical Records Department [address] [place] [address] Consultation 10/07/18 0944 MR#: [id number] Acct: [id number] Name: TAYLOR ALCANTARA Rep #: [id number] : 1940 78 From: Bishnu Fonseca MD PCP: Gaston Betts MD, Chi Status: ADM IN Y Location: [facility] [id number] - Problem List (1) Coagulopathy Status: Acute (2) Positive colorectal cancer screening using DNA-based stool test Status: Acute (3) Hematoma of rectus sheath Status: Acute Qualifiers: Encounter type: initial encounter Qualified Code(s): S30.1XXA - Contusion of abdominal wall, initial encounter (4) History of deep venous thrombosis or pulmonary embolus Status: Chronic (5) Hypercoagulable state Status: Chronic Consult Referring Physician: Dr. Bishop Consult Results: Coagulopathy complicating hypercoagulable state Subjective Date of Service:: 10/07/18 Chief Complaint: positive cologard History of Present Illness: 78-year-old male on long-term systemic anticoagulation admitted with an acute rectus sheath hematoma. 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 According to the patient diagnosis was not made until May 2013 when he presented with acute dyspnea and was found to have multiple pulmonary emboli. He was placed on systemic anticoagulation and to his recollection has been on Coumadin since with only temporary interruptions. In 2013 and repeated in 2015 hypercoagulability panel showed low protein C level and patient was told that he should remain on systemic anticoagulation indefinitely. 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 Patient recently had a positive noninvasive stool DNA test to screen for colorectal cancer and elective colonoscopy was scheduled with planned temporary Coumadin interruption with Lovenox bridging. The patient reports developing acute abdominal pain while on the Lovenox bridge, he stopped Lovenox and resumed his Coumadin. He was hospitalized October 06, [address] finding of a large acute rectus hematoma and INR of 3.4. Was given a dose of vitamin K on October 06, a repeat INR today October 07 is down to 2.[address] scan of the abdomen is suggestive of ongoing bleeding. Laboratory Tests INR 3.4 2.7 Past Medical History: Chronic Problems (Last Updated 10/07/18 @ 07:22 by Abdullahi Bishop MD) Hypercoagulable state (Chronic) Osteoarthritis of knees, bilateral (Chronic) Emphysema (Chronic) HTN (hypertension) (Chronic) DDD (degenerative disc disease) (Chronic) 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) COPD (chronic obstructive pulmonary disease) (Chronic) Past Medical/Surgical History: Past Medical History - Most Recent Inpatient Visit Past Medical History Start: 10/06/18 17:37 Text: Status: Complete Freq: ONCE Protocol: Document 10/06/18 17:49 NANETTE (Rec: 10/06/18 17:52 NANETTE [id number]) BMI Required to complete PMH What is Patient's BMI 26.3 Past Medical History Unable History Recalled No Query Text:Pt Unable/Family Not Present Neurologic Medical History Hx Stroke/TIA No Hx Dementia/Alzheimer's No Hx Parkinson's Disease No Hx Seizures No Hx Multiple Sclerosis No Hx Migraines No Cardiac Medical History VTE Present on Admission No Hx of Deep Vein Thrombosis/VTE/PE Yes: PE 2012 Hx Hypertension Yes: ON MEDS Hx Chest Pain/Angina No Hx Heart Attack No Hx Cardiac Surgery/Stents/Etc. No Hx Heart Failure No Hx Pacemaker/AICD No Hx Irregular Heartbeat and/or Afib No Hx Anticoagulant Therapy Yes: COUMADIN Query Text:(Coumadin, Aspirin, Plavix, Xarelto, etc.) Hx Pain in Legs when Walking/Leg Cramps No Respiratory Medical History Hx COPD Yes Hx Emphysema No Hx Smoking Yes: QUIT IN Smoking Status Former smoker Tobacco Use Cigarettes Years Smoking 33 Packs Smoked per Day 1.5 Hx Smoking Cessation Date 1986 Hx Smoking Cessation Counseling No Hx Smoking Exposure Yes Hx Tobacco Use in last 12 months Yes Sent to [facility] Yes Hx of Pipe Smoking No Hx Sleep Apnea No CPAP No BIPAP No Do you snore loudly (louder than talking No or can be heard through closed doors)? Do you often feel tired/ fatigued/ Yes sleepy during daytime? Has anyone observed you stop breathing No during sleep? STOP Results Positive GI Medical History Hx Ulcer No Hx Hepatitis No Hx Cirrhosis No Hx GI Bleed No Hx Unplanned Weight Loss No Genitourinary Medical History Indwelling Catheter in Place on Arrival/ No Admission Hx Renal Disease Yes: FREQUENT KIDNSY STONES Hx Dialysis No Musculoskeletal History Hx Arthritis Yes Hx Rheumatoid Arthritis No Endocrine Medical History Hx Diabetes Yes: BORDERLINE Hx Thyroid Disease No Hematologic Medical History Hx of Blood Transfusion No Hx of Transfusion in last 3 Months No Ever experience any problems with No transfusion(s)? Hx of Preganancy in last 3 Months N/A Nurse Filling Out Transfusion AND JLAMP Questions: Date: 10/06/18 Time: 17:51 Psycho/Social Medical History Hx Depression Yes Hx Anxiety Yes Hx Behavior Disorder No Hx Alcohol Use No Hx Substance Use No Other Medical History Hx Blood Disorders No Hx Anemia No Hx Cancer No Hx Drug Resistant Organism No Wound/Pressure Injury Present on Arrival No /Admission Query Text:If yes, chart assessment in Shift/Clinical Findings Central Line/PICC/VAD Present on Arrival No /Admission Antibiotics within last 7 days? No Risk for Readmission Number of Risk Factors 6 At Risk for Readmission Patient is At Risk For Readmission Patient is eligible for Call Back Y Past Medical History (Last Updated 10/07/18 @ 07:22 by Abdullahi Bishop MD) Osteoarthritis of knees, bilateral (Chronic) Emphysema (Chronic) HTN (hypertension) (Chronic) DDD (degenerative disc disease) (Chronic) 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) COPD (chronic obstructive pulmonary disease) (Chronic) Protein C deficiency (Acute) Berger by, chemical (Acute) Pulmonary embolism (Acute) chemical berger to arms and face (Inactive) Past Surgical History (Last Reviewed 10/06/18 @ 17:11 by CHRISTELLE Stewart) history of wound debridement (Acute) S/P bilateral cataract extraction (Inactive) arm surgery (Inactive) facial surgery (Inactive) Maternal Family History: Family History (Last Reviewed 10/06/18 @ 17:11 by CHRISTELLE Stewart) Brother Myocardial infarction Status post heart transplant Mother Hypertension CAD (coronary artery disease) Father Hypertension CAD (coronary artery disease) Family History: - - mother lived till age 84. Denies known cardiac history. Paternal Family History: Family History (Last Reviewed 10/06/18 @ 17:11 by CHRISTELLE Stewart) Brother Myocardial infarction Status post heart transplant Mother Hypertension CAD (coronary artery disease) Father Hypertension CAD (coronary artery disease) Family History: - - father with hernia. Denies known cardiac history. - Social History Lives: Spouse/ Significant Other Smoking Status: Former smoker Tobacco Use: Cigarettes Alcohol: None Drugs: None Allergies/Adverse Reactions: Allergy/AdvReac Type Severity Reaction Status Date / Time Penicillins Allergy Hives Verified 10/06/18 12:40 Review of Systems Constitutional:: Denies: Fever, Sweats, Weight loss, Appetite change, Chills Cardiovascular:: Reports: Dyspnea on exertion - Chronic due to COPD. Patient does not appreciate any recent worsening. Denies: Chest pain, Palpitations, Orthopnea, PND, Shortness of breath Respiratory: Reports: Shortness of breath upon exertion Gastrointestinal:: Reports: Abdominal pain - Anterior abdominal wall. Denies: Nausea, Vomiting, Diarrhea, Constipation, Hematochezia Genitourinary: Denies: Dysuria, Hematuria, 15, Flank pain Musculoskeletal:: Denies: Back pain, Myalgia, Arthralgia Skin: Reports: - - Bruises easy with trauma Neurological:: Denies: Headache, Dizziness, Visual changes, Tinnitus, Hearing loss Psychiatric: Denies: Anxiety, Depression, Homicidal Ideations, Suicidal Ideations Vital Signs Height 5 ft 10 in - Physical Exam General: Alert, Oriented x3, No apparent distress HEENT: Atraumatic, PERRLA, EOMI, Normocephalic Oropharynx:: Dry mucosa Neck:: Supple, Trachea midline. Negative for: JVD, bilateral Cardiac:: Regular rate, Regular rhythm, Normal S1, Normal S2. Negative for: Murmur Lungs: Clear to auscultation, Diminished, Excusion symmetrical. Negative for: Rhonchi, Wheezes Abdomen:: Soft - No peritonism, Distended - With an upper abdominal, more prominent on the right slightly tender mass representing the hematoma, Tender. Negative for: Hepatosplenomegaly Extremities:: Negative for: Cyanosis, Edema Neurological: Neuro grossly intact Skin:: Negative for: Lesions, Rash, Petechiae, Ecchymosis Psychiatric:: Appropriate affect, Euthymic Lymphatics:: Negative for: Cervical lymphadenopathy, Supraclavicular lymphadenopathy Laboratory Data: Laboratory Tests WBC (4.4-11.0) K/mm3 WBC 9.6 (4.4-11.0) K/mm3 RBC 5.46 (4.6-6.2) M/mm3 Hgb 17.0 H (13.0-16.5) g/dl Hct 51.3 (40-54) % Diagnostic Data: Diagnostic Data Abdomen/Pelvis CT 10/07/18 05:55 IMPRESSION: Right rectal muscle sheath hematoma, the supraumbilical component is slightly more contracted on the current examination, however there is a vascular blush consistent with a small component of active hemorrhage. The infraumbilical rectus muscle hematoma is small in contains edema, this is however increased not visualized on previous exam. Stable chronic interstitial lung disease, emphysema, hepatomegaly, hepatic steatosis, cholelithiasis, renal calculi, renal scarring, arteriosclerosis, degenerative changes, ventral hernia containing fat, diverticulosis and prostate enlargement. N.B. : The above information has been verbally conveyed by Ely Dominguez MD to Howie Monteiro RN, on 10/07/2018 06:47:56 (ET). Electronically Signed: Ely Dominguez MD at 6:41 EST , Service support , Assessment and Plan 78-year-old male admitted with an acute large rectus sheath hematoma complicatin. Coagulopathy, therapeutic to Coumadin anticoagulation with a partial reversal following vitamin K on October 06, 2018. 2. A hypercoagulable state, presumed due to protein C deficiency and history of DVT in 2013, PE in 2012 and 2016. He probably have super added hypercoagulability due to suspected colorectal cancer (recent abnormal screening DNA test) Patient has had partial correction of his therapeutic anticoagulation with vitamin K administered October 06 but a follow-up CT scan 24 hours from initial presentation on October 06 is suggestive of ongoing bleeding. Recommendations: 1. Advise complete reversal of Coumadin anticoagulation with FFP due to ongoing bleeding. 2. Vascular consult for retrievable IVC filter placement until the patient is able to resume systemic anticoagulation. The presence of the filter will only protect large pulmonary embolism. Arrangements has been made to transfer him urgently to a tertiary referral center for further invasive management. 3. IR consultation for feasibility of therapeutic embolization if an active bleeding vessel is identified to minimize the duration he has to be off anticoagulation. 4. To resume systemic anticoagulation as soon as bleeding is stabilized. I met with the patient, impression and recommendations discussed. Arrangements have been made to transfer him urgently to a tertiary referral center for further invasive management. Case discussed also with Meggan Bishop and Memo. Medications: Prescriptions This Visit Medication Instructions Recorded Medications Added to Medication List This Visit Primary Care Provider: Gaston Betts MD Referring Provider: 10/07/18 1013 <Electronically signed by Bishnu Fonseca MD> Date Bishnu Fonseca MD Cosigner Signature (if applicable): Date CC: Abdullahi Bishop MD; Bishnu Fonseca MD; Gaston Betts MD Signed ABO RH BLOOD TYPE, Collected: 10/07/2018 Status: F Source: [place] PATIENT 8:10 AM [facility] REPOSITORY Order Comment: Number of units to be transfused: 2 When is Plasma to be Transfused? 0749 TYPE CODE TESTS RESULT OUT OF RANGE REFERENCE UNITS LAB B10.0800 A Normal BLOOD POSITIVE TYPE GEL Performed By: #### B10.0010 #### [facility] [place], [address] FFP Collected: 10/07/2018 Status: F Source: [place] 8:10 AM [facility] REPOSITORY TYPE CODE TESTS RESULT OUT OF REFERENCE UNITS RANGE LAB U100.0900 [id number] TRANSFUSED PRODUCT: Fresh Frozen Plasma COUNT: 2 Performed By: #### U100.0900 #### Non-[facility] - refer to report for specific site CONSULTATION Observed: 10/07/2018 Status: F Source: VERONICA 7:25 AM [facility] REPOSITORY [facility] Medical Records Department [address] [place] [address] Consultation 10/07/18718 MR#: [id number] Acct: [id number] Name: TAYLOR ALCANTARA Rep #: [id number] : 1940 78 From: Abdullahi Bishop MD PCP: Alpesh DURANT,Gaston Zamora Status: ADM IN Y Location: [facility] DT280-4 Problem List (1) Hematoma of rectus sheath Status: Acute Qualifiers: Encounter type: initial encounter Qualified Code(s): S30.1XXA - Contusion of abdominal wall, initial encounter Reason for Consult Date of Consultation: 10/07/18 Reason for Consultation: Rectus sheath hematoma History of Present Illness: The patient is a 78 year old M who presented yesterday evening with right abdominal pain. The patient was possibly bridging for a colonoscopy. The patient is on Coumadin for multiple PEs. His last PE happen after being off of Coumadin for only 3 days. According to the patient he was also diagnosed with protein C deficiency. The patient was started on Lovenox on Wednesday. He gave himself his first shot on the right side of his abdomen and immediately felt pain. The pain increased in nature and on he called his PCPs office and informed them that he would no longer be taking the shots and he started himself back on Coumadin. He presented to the emergency room yesterday afternoon and was admitted with a rectus sheath hematoma on the right side. I saw the patient he was painful yesterday. This morning he reports that he is less painful but he had a CT scan this morning that shows active extravasation and increase in size of the rectus sheath hematoma. He did receive p.o. vitamin K yesterday. 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 L100.2720 0.83-4.51 X10 3/ul Normal Absolute Lymph 1.64 Performed By: #### L100.0100 #### [facility] [address] [place], [address] COMPREHENSIVE METABOLIC Collected: 10/06/2018 Status: F Source: [facility] 2:15 PM [facility] REPOSITORY TYPE CODE TESTS RESULT OUT OF RANGE REFERENCE UNITS LAB L501.0100 74-106 mg/dL High GLU 126 Result Comment: Fasting Glucose result greater than or equal to 126 mg/dL suggests DIABETES MELLITUS per A.D.A. criteria. Please note revised GLUCOSE reference range effective 2017. LAB L501.1000 7-18 mg/dL Normal BUN 18 LAB L501.1100 0.70-1.30 mg/dL Normal CREAT,SERUM 1.08 Result Comment: The validity of the calculated GFR AND GFRAA in patients over 70 years has not been determined. Clinical correlation is essential. LAB L501.1110 >60 mL/min Normal EST GFR 71 Result Comment: Non- GFR Calc LAB L501.1115 >60 mL/min Normal EST GFR - AA 85 Result Comment: GFR Calc LAB L501.1255 ml/min Normal Estimated CRCL 60.08 LAB L501.1300 10-20 RATIO Normal BUN/CRE 16.7 LAB L501.1500 6.4-8. g/dL Normal 2 T PROT 8.1 LAB L501.1800 3.2-5. g/dL Normal 0 ALB 4.3 LAB L501.1950 2.2-4. g/dL Normal 2 GLOB 3.8 LAB L501.2000 0.9-2. RATIO Normal 4 A/G 1.1 LAB L501.2200 8.5-10 mg/dL High .1 CA 10.3 LAB L501.4100 15-37 U/L High AST 47 LAB L501.4305 45-117 U/L Normal ALK P 78 LAB L501.4405 16-61 U/L High ALT 76 LAB L501.4600 0.20-1 mg/dL Normal .00 T BILI 0.60 LAB L501.5300 136-14 mmol/L Normal 5 NA 138 LAB L501.5600 3.5-5. mmol/L Normal 1 K 4.1 LAB L501.5900 98-107 mmol/L Normal CL 103 LAB L501.6100 21.0-3 mmol/L Normal 2.0 CO2 25.0 LAB L501.6200 5-15 Normal GAP 10 Performed By: #### L500.4050, L501.2450 #### [facility] [address] [facility] [place], [address] LIPASE Collected: 10/06/2018 Status: F Source: [place] 2:15 PM [facility] REPOSITORY TYPE CODE TESTS RESULT OUT OF RANGE REFERENCE UNITS LAB L501.2450 73-393 U/L Normal LIPASE 150 Performed By: #### L500.4050, L501.2450 #### [facility] [address] [facility] [place], [address] LACTIC ACID Collected: 10/06/2018 Status: F Source: [place] 2:15 PM [facility] REPOSITORY Order Comment: Yes/No query for Sepsis Lactate Rule Y TYPE CODE TESTS RESULT OUT OF RANGE REFERENCE UNITS LAB L503.6005 0.4-2.0 mmol/L Normal LACTIC ACID 1.8 Performed By: #### L503.6005 #### [facility] [address] [facility] [place], [address] PROTHROMBIN TIME W/INR Collected: 10/06/2018 Status: F Source: [place] 2:15 PM [facility] REPOSITORY TYPE CODE TESTS RESULT OUT OF RANGE REFERENCE UNITS LAB L300.4150 11.7-14.9 SECONDS High PROTIME 34.9 LAB L300.4200 Normal INR 3.4 Performed By: #### L300.3900 #### [facility] [address] [facility] [place], [address] CPK TOTAL, CREATINE Collected: 10/06/2018 Status: F Source: [place] 2:15 PM [facility] REPOSITORY TYPE CODE TESTS RESULT OUT OF RANGE REFERENCE UNITS LAB L501.3620 39-308 U/L Normal CPK TOTAL 132 Performed By: #### L501.3620 #### [facility] [address] [facility] [place], [address] ABDOMEN/PELVIS WITHOUT Observed: 10/06/2018 Status: F Source: [place] CONT 1:55 PM [facility] REPOSITORY [facility] [address] [place] [address] Abdomen/Pelvis without Cont MR#: [id number] Acct: [id number] Name: TAYLOR ALCANTARA Rep #: [id number] : 1940 M 78 From: Jose L Shelton MD PCP: Alpesh DURANT,Call Britannia Status: PRE ER Study: Abdomen/Pelvis without Cont Date of Exam: 10/06/18 Exam# [id number] Ordering Dr: Earnest Kumar DO STUDY: CT ABDOMEN AND PELVIS WITHOUT CONTRAST REASON FOR EXAM: Male, 78 years old. Right flank pain. History of a DVT and pulmonary embolism. RADIATION DOSAGE (If Supplied By Facility): CTDIvol = ( 13.95 ) mGy, DLP = ( 715.86 ) mGycm TECHNIQUE: Transaxial images were obtained from the dome of the diaphragm to the symphysis pubis without oral contrast, and without intravenous contrast. Sagittal and coronal images were reconstructed. Individualized dose optimization techniques were used for this CT. COMPARISON: Comparison is made with prior study dated May 26, 2013. FINDINGS: Mild degree of increased interstitial markings with areas of confluence and bullous changes at the lung bases suggestive of a scarring. Coronary artery calcification. There is decreased attenuation of the liver consistent with steatosis. There are multiple gallstones. Normal spleen. Normal pancreas. There is a small, circumscribed, smooth, low attenuation left adrenal mass, consistent with an adrenal adenoma. This is unchanged. Normal right adrenal gland. At least 4 nonobstructive intrarenal calculi seen in the right kidney. The largest measures 4.2 mm and is in the lower pole. 3 tiny nonobstructive calculi seen in the left kidney. There is a small hiatal hernia. Normal small intestine. There are multiple colonic diverticula consistent with diverticulosis. The appendix is visualized and appears normal. There is diffuse atherosclerotic calcification of the abdominal aorta and its major visceral branches, without a demonstrated aneurysm. Normal inferior vena cava. Normal retroperitoneum. Normal urinary bladder. There are prostatic calcifications. There is evidence of a 4.1 cm x 13.5 cm x 17.3 cm rectus sheath hematoma on the right side. Small left inguinal hernia containing fat. There are diffuse degenerative changes of the visualized lumbar spine. Grade 1 anterolisthesis of L5 on S1 with spondylolysis. CT/Abdomen/Pelvis without Cont IMPRESSION: Large right rectus sheath hematoma. Multiple gallstones. Small bilateral nonobstructive intrarenal calculi. Electronically Signed: Jose L Shelton MD at 15:36 EST Tel [phone], Service support , CC: Earnest Kumar DO; Gaston Betts MD Pipe Layer: Signed SURGERY VISIT REPORT Observed: 09/09/2018 Status: F Source: [place] 3:35 PM [facility] REPOSITORY [facility] 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 Is patient in pain?: No Allergies Penicillins Allergy (Verified 09/09/18 15:13) Hives propoxyphene HCl [From Darvon] Adverse Reaction (Verified 09/09/18 15:13) Upset Stomach propoxyphene napsylate [From Darvocet-N 100] Adverse Reaction (Verified 09/09/18 15:13) Vomiting Medications Lisinopril 20 mg PO DAILY 09/02/13 [History Confirmed 09/09/18] Albuterol Aerosols [Ventolin Aerosols] 1 inh INHALATION BID 08/10/16 [History Confirmed 09/09/18] Acetaminophen [Tylenol Arthritis] 650 mg PO Q6H PRN PRN 09/26/16 [History Confirmed 09/09/18] warfarin 6 mg tablet 7 mg PO DAILY@1700 tab 08/30/17 [History Confirmed 09/09/18] baclofen 10 mg tablet 10 mg PO TID 09/09/18 [History Confirmed 09/09/18] citalopram 10 mg tablet 10 mg PO DAILY 09/09/18 [History Confirmed 09/09/18] cyclobenzaprine 10 mg tablet 10 mg PO TID 09/09/18 [History Confirmed 09/09/18] PFSH Medical History Osteoarthritis of knees, bilateral (Acute) Chest pain on breathing (Acute) Emphysema (Chronic) HTN (hypertension) (Chronic) DDD (degenerative disc disease) (Chronic) 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) COPD (chronic obstructive pulmonary disease) (Chronic) Pneumonia (Acute) BLAYNE (acute kidney injury) (Acute) Berger by, chemical (Acute) Pulmonary embolism (Acute) chemical berger to arms and face (Inactive) Surgical History history of wound debridement (Acute) S/P bilateral cataract extraction (Inactive) arm surgery (Inactive) facial surgery (Inactive) Family History Brother Myocardial infarction Status post heart transplant Mother Hypertension CAD (coronary artery disease) Father Hypertension CAD (coronary artery disease) Social History Smoking Status: Former smoker how long ago did patient quit smokin years alcohol intake: never HPI HPI HPI: TAYLOR ALCANTARA, is a 78 M who presents to the office today for positive cologuard test. The patient had this as a part of his screening protocol. The patient reports his last colonoscopy was many many years ago. Patient does not report any blood in his stool or abdominal pain. He has no family history of colon cancer. ROS General General: Yes fatigue; no weight change, appetite, colon cancer, breast cancer or weakness HEENT HEENT: Yes eye surgery; no difficulty swallowing, eye injury, swollen glands or hoarseness Endo Endocrine: No thyroid disease, diabetes mellitus, thyroid cancer, Hair loss, heat intolerance or cold intolerance Musc Musculoskeletal: Yes back problems and arthritis; no rheumatoid arthritis, gout or joint pain Cardio Cardiovascular: Yes high blood pressure; no murmur, pacemaker, heart disease, atrial fibrillation, heart attack, heart stent, palpitations, shortness of breat with exertion or chest pain Resp Respiratory: Yes shortness of breath, No sleep apnea, Yes cough, Yes COPD, No asthma, No emphysema, No wheezing Gastro Gastrointestinal: No abdominal pain, No nausea or vomiting, Yes diarrhea, No constipation, No blood in stool, No acid reflux, Yes hemorrhoids, No ulcers, No gallbladder problem, No black,tarry stools Neuro Neurologic: No weakness Exam Const General: cooperative Orientation: alert, oriented x3 Resp Effort AND Inspection: normal respiratory effort Auscultation: clear to auscultation bilaterally Cardio Rate: regular rate Rhythm: regular rhythm Heart Sounds: no murmurs GI Inspection: non-distended Palpation: soft, nontender Assessment AND Plan Problems 1. Positive colorectal cancer screening using DNA-based stool test R19.5 Plan 1. The patient had a positive [place] guard test and was recommended for colonoscopy to evaluate. The patient does not remember his last colonoscopy but he said it was over 10 years ago. The patient does not have any abdominal pain or family history of colon cancer. 2. The patient reports that he had a PE in 2012 was placed on warfarin. He says that he was taken off his warfarin a year ago for 3 days and developed another PE. The patient will need to be bridged with Lovenox up until the day of the procedure and not take it the day of the procedure and resume it the day after the procedure until his INR is back in the therapeutic range. We will contact Dr. Betts's office to assist in this. 3. I explained endoscopy in detail to the patient. I explained the risks including but not limited to stroke or heart attack with anesthesia, perforation of the GI tract, bleeding, infection. I explained that any of these could necessitate further emergency surgery. The patient understands and all questions were answered sufficiently. The patient wishes to proceed with procedure. Abdullahi Bishop MD Pager: [facility] [address] [place] [address], [address] [place] [address] Office: Orders Orders: Medications Discontinued: aspirin (Adult Aspirin Regimen) Discontinued Reason: Pt no longer taki81 mg PO DAILY ng Coding Level of Care Code Off vis,new,level 3 Diagnoses Positive colorectal cancer screening using DNA-based stool test R19.5 09/09/18 1535 <Electronically signed by Abdullahi Bishop MD> Date [facility] Signature: Date (if applicable) CC: Gaston Betts MD CBC W/DIFF, AUTOMATED Collected: 08/03/2018 Status: F Source: [place] 10:50 AM [facility] REPOSITORY TYPE CODE TESTS RESULT OUT OF RANGE REFERENCE UNITS LAB L100.1000 4.4-11.0 K/mm3 Normal WBC 8.0 LAB L100.1200 4.6-6.2 M/mm3 Normal RBC 5.13 LAB L100.1300 13.0-16.5 g/dl Normal HGB 16.2 LAB L100.1400 40-54 % Normal HCT 49.1 LAB L100.1500 80-94 fL High MCV 95.7 LAB L100.1600 27.0-32.0 pg Normal MCH 31.6 LAB L100.1700 32-36 g/gl Normal MCHC 33.0 LAB L100.1810 11.6-14.6 % Normal RDW CV 13.3 LAB L100.1820 35.1-43.9 fl High RDW SD 45.7 LAB L100.1900 150-450 K/mm3 Normal PLT 270 LAB L100.2000 6.2-12.0 fl Normal MPV 10.0 LAB L100.2100 47-70 % Normal NEUT% 56.2 LAB L100.2200 19-41 % Normal LY% 28.0 LAB L100.2300 0-10 % High MONO% 14.1 LAB L100.2400 0-5 % Normal EO% 0.8 LAB L100.2500 0-1 % Normal BASO% 0.3 LAB L100.2550 0.0-0.9 % Normal IM GRAN % 0.600 Result Comment: IG% - Immature Granulocytes (promyelocytes, myelocytes and metamyelocytes) > 1% indicates that a LEFT SHIFT is Present. LAB L100.2620 2.0-7.7 X10 3/uL Normal Absolute Neut 4.5 LAB L100.2720 0.83-4.51 X10 3/ul Normal Absolute Lymph 2.23 Performed By: #### L100.0100 #### [facility] [address] [place], [address] VITAMIN D,25 HYDROXY Collected: 08/03/2018 Status: F Source: [place] 10:50 AM [facility] REPOSITORY TYPE CODE TESTS RESULT OUT OF REFERENCE UNITS RANGE LAB L506.1000 29.95-100.01 ng/mL Low Vitamin D 15.5 25-OH Result Comment: Vitamin D 25(OH) Status Range Deficiency <20 ng/mL (50nmol/L) Insuffciency 20 - 30 ng/mL (50 - 75 nmol/L) Sufficiency 30 - 100 ng/mL (75 - 250 nmol/L) Toxicity >100 ng/mL (>250 nmol/L) Performed By: #### L506.1000 #### [facility] [address], [address] COMPREHENSIVE METABOLIC Collected: 08/03/2018 Status: F Source: [facility] 10:50 AM [facility] REPOSITORY TYPE CODE TESTS RESULT OUT OF RANGE REFERENCE UNITS LAB L501.0100 74-106 mg/dL High GLU 123 Result Comment: Fasting Glucose result from 100 to 125 mg/dL suggests IMPAIRED HOMEOSTASIS per A.D.A. criteria. Please note revised GLUCOSE reference range effective 2017. LAB L501.1000 7-18 mg/dL Normal BUN 15 LAB L501.1100 0.70-1.30 mg/dL Normal CREAT,SERUM 1.16 Result Comment: The validity of the calculated GFR AND GFRAA in patients over 70 years has not been determined. Clinical correlation is essential. LAB L501.1110 >60 mL/min Normal EST GFR 65 Result Comment: Non- GFR Calc LAB L501.1115 >60 mL/min Normal EST GFR - AA 79 Result Comment: GFR Calc LAB L501.1300 10-20 RATIO Normal BUN/CRE 12.9 LAB L501.1500 6.4-8.2 g/dL T Normal PROT 7.5 LAB L501.1800 3.2-5.0 g/dL Normal ALB 3.9 LAB L501.1950 2.2-4.2 g/dL Normal GLOB 3.6 LAB L501.2000 0.9-2.4 RATIO Normal A/G 1.1 LAB L501.2200 8.5-10.1 mg/dL CA Normal 9.6 LAB L501.4100 15-37 U/L High AST 43 LAB L501.4305 45-117 U/L Normal ALK P 76 LAB L501.4405 16-61 U/L High ALT 66 LAB L501.4600 0.20-1.00 mg/dL T Normal BILI 0.30 LAB L501.5300 136-145 mmol/L NA Normal 142 LAB L501.5600 3.5-5.1 mmol/L K Normal 4.2 LAB L501.5900 98-107 mmol/L High CL 108 LAB L501.6100 21.0-32.0 mmol/L Normal CO2 23.0 LAB L501.6200 5-15 Normal GAP 11 Performed By: #### L500.4050, L501.9520 #### [facility] [address] [place], [address] THYROID STIM HORMONE Collected: 08/03/2018 Status: F Source: [place] (TSH) 10:50 AM [facility] REPOSITORY TYPE CODE TESTS RESULT OUT OF RANGE REFERENCE UNITS LAB L501.9520 0.358-3.74 uIU/mL Normal TSH 2.42 Performed By: #### L500.4050, L501.9520 #### [facility] [address] [place], [address] ORTHOPEDIC VISIT Observed: 04/03/2018 Status: F Source: [place] REPORT 10:39 AM [facility] REPOSITORY [facility] [address] [place] [address] OFFICE VISIT Date of Service: 03/28/18 MR#: [id number] Acct: [id number] Name: TAYLOR ALCANTARA Rep #: [id number] : 1940 Provider: Dave Lima DO Age/Sex: 77/M Location: [facility] [place] Status: Signed Intake Intake Visit Reasons: Bilat Knee Pain Is patient in pain?: Yes Pain scale (1-10): 8 Allergies Penicillins Allergy (Verified 12/06/17 15:54) Hives propoxyphene HCl [From Darvon] Adverse Reaction (Verified 12/06/17 15:54) Upset Stomach propoxyphene napsylate [From Darvocet-N 100] Adverse Reaction (Verified 12/06/17 15:54) Vomiting Medications Lisinopril 20 mg PO DAILY 09/02/13 [History Confirmed 11/18/17] Albuterol Aerosols [Ventolin Aerosols] 1 inh INHALATION BID 08/10/16 [History Confirmed 11/18/17] Acetaminophen [Tylenol Arthritis] 650 mg PO Q6H PRN PRN 09/26/16 [History Confirmed 11/18/17] Oxycodone [Oxyir] 5 mg PO Q6H PRN PRN #20 tab 09/29/16 [Rx Confirmed 11/18/17] warfarin 6 mg tablet 7 mg PO DAILY@1700 tab 08/30/17 [History Confirmed 11/18/17] PFSH Medical History Osteoarthritis of knees, bilateral (Acute) Chest pain on breathing (Acute) Emphysema (Chronic) HTN (hypertension) (Chronic) DDD (degenerative disc disease) (Chronic) 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) COPD (chronic obstructive pulmonary disease) (Chronic) Pneumonia (Acute) BLAYNE (acute kidney injury) (Acute) Berger by, chemical (Acute) Pulmonary embolism (Acute) chemical berger to arms and face (Inactive) Surgical History S/P bilateral cataract extraction (Inactive) arm surgery (Inactive) facial surgery (Inactive) Family History Brother Myocardial infarction Status post heart transplant Mother Hypertension CAD (coronary artery disease) Father Hypertension CAD (coronary artery disease) Social History Smoking Status: Former smoker how long ago did patient quit smokin years alcohol intake: never HPI Bilat Knee Pain: Details: TAYLOR ALCANTARA is a 77 year old M here today for bilateral knee pain, the right is greater than the left. He has had good relief that has last a little over three months from the last injections. He has increased pain with increased activities and he has been doing a lot lately to care for his brother and outside work. Denies numbness, tingling or other associated symptoms. He does not wear any bracing. ROS [facility] Reports joint pain, Reports muscle weakness, Reports stiffness, Reports as per HPI, Reports abnormal walking Neuro Yes abnormal walking Ortho Exam Left Knee KNEE: Alert and oriented 3 no acute distress. Appropriate eye contact and affect. Otherwise intact in L1 S1 distributions. He has positive pulses. Patient has bilateral varus deformities knee with a mild knee effusions noted today. He has medial joint line pain bilaterally. He continues have positive Reinaldo's and Apley's compression maneuver. No obvious popliteal masses or calf pain negative Homans. Office Procedures Ortho Injections Injections Yes Knee Bilateral Details: Obtained consent for injection. Under sterile conditions, injected the patients bilateral knee with a 10cc cocktail of 8cc bupivacaine and 2cc kenalog each. The patient tolerated the injection well without any noted complication. Patient should call our office if redness develops, pain worsens or if they have any concerns. Office Meds Kenalog Performing Provider: Dave Lima DO Administered by: NEAL Elam on 03/28/18 14:15 Dose Route Admin Location Lot Number Expiration DateNDC Employment Officer 4 mg Intra-Articularbilateral knee [id number] 01/18/19 4412-7507-82 [employer] Assessment AND Plan Problems 1. Primary osteoarthritis of both knees M17.0 2. Chronic pain of both knees M25.561; M25.562; G89.29 Plan Assessment: Bilateral osteoarthritis knees bilateral knee pain. Plan: This point time patient would like to proceed with his knee injections. Last injections were roughly 4 months ago. Patient does not desire surgical intervention to his knees at this point. Patient will follow up my partner or PA in 3-4 months for repeat injections if needed. Patient counseled the longer he goes between injections better. If he were to fail conservative measures patient will be a good candidate for total knee arthroplasties Obtained consent for injection. Under sterile conditions, injected the patients right knee with a 10cc cocktail of 8cc bupivacaine and 2cc kenalog. The patient tolerated the injection well without any noted complication. Patient should call our office if redness develops, pain worsens or if they have any concerns. Obtained consent for injection. Under sterile conditions, injected the patients left knee with a 10cc cocktail of 8cc bupivacaine and 2cc kenalog . The patient tolerated the injection well without any noted complication. Patient should call our office if redness develops, pain worsens or if they have any concerns. 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) 04/03/18 1039 <Electronically signed by Dave Lima DO> Date Dave Perez Signature: Date (if applicable) CC: CBC W/DIFF, AUTOMATED Collected: 01/31/2018 Status: F Source: [place] 2:42 PM [facility] [facility] REPOS[facility]ORY TYPE CODE TESTS RESULT OUT OF RANGE REFERENCE UNITS LAB L100.1000 4.4-11.0 K/mm3 Normal WBC 7.6 LAB L100.1200 4.6-6.2 M/mm3 Normal RBC 5.18 LAB L100.1300 13.0-16.5 g/dl Normal HGB 16.0 LAB L100.1400 40-54 % Normal HCT 47.6 LAB L100.1500 80-94 fL Normal MCV 91.9 LAB L100.1600 27.0-32.0 pg Normal MCH 30.9 LAB L100.1700 32-36 g/gl Normal MCHC 33.6 LAB L100.1810 11.6-14.6 % Normal RDW CV 13.4 LAB L100.1820 35.1-43.9 fl High RDW SD 44.1 LAB L100.1900 150-450 K/mm3 Normal PLT 263 LAB L100.2000 6.2-12.0 fl Normal MPV 10.0 LAB L100.2100 47-70 % Normal NEUT% 65.7 LAB L100.2200 19-41 % Normal LY% 19.6 LAB L100.2300 0-10 % High MONO% 12.8 LAB L100.2400 0-5 % Normal EO% 0.8 LAB L100.2500 0-1 % Normal BASO% 0.3 LAB L100.2550 0.0-0.9 % Normal IM GRAN % 0.800 Result Comment: IG% - Immature Granulocytes (promyelocytes, myelocytes and metamyelocytes) > 1% indicates that a LEFT SHIFT is Present. LAB L100.2620 2.0-7.7 X10 3/uL Normal Absolute Neut 5.0 LAB L100.2720 0.83-4.51 X10 3/ul Normal Absolute Lymph 1.49 Performed By: #### L100.0100 #### [facility] [place], [address] COMPREHENSIVE METABOLIC Collected: 01/31/2018 Status: F Source: [place] AMADO 2:42 PM [facility] REPOSITORY TYPE CODE TESTS RESULT OUT OF RANGE REFERENCE UNITS LAB L501.0100 74-106 mg/dL Normal GLU 99 Result Comment: Please note revised GLUCOSE reference range effective 2017. LAB L501.1000 7-18 mg/dL Normal BUN 16 LAB L501.1100 0.70-1.30 mg/dL Normal CREAT,SERUM 1.00 Result Comment: The validity of the calculated GFR AND GFRAA in patients over 70 years has not been determined. Clinical correlation is essential. LAB L501.1110 >60 mL/min Normal EST GFR 77 Result Comment: Non- GFR Calc LAB L501.1115 >60 mL/min Normal EST GFR - AA 94 Result Comment: GFR Calc LAB L501.1300 10-20 RATIO Normal BUN/CRE 16.0 LAB L501.1500 6.4-8.2 g/dL T Normal PROT 7.7 LAB L501.1800 3.2-5.0 g/dL Normal ALB 3.9 LAB L501.1950 2.2-4.2 g/dL Normal GLOB 3.8 LAB L501.2000 0.9-2.4 RATIO Normal A/G 1.0 LAB L501.2200 8.5-10.1 mg/dL High CA 10.4 LAB L501.4100 15-37 U/L Normal AST 36 LAB L501.4305 45-117 U/L Normal ALK P 74 LAB L501.4405 16-61 U/L Normal ALT 52 LAB L501.4600 0.20-1.00 mg/dL T Normal BILI 0.30 LAB L501.5300 136-145 mmol/L NA Normal 142 LAB L501.5600 3.5-5.1 mmol/L K Normal 4.6 LAB L501.5900 98-107 mmol/L High CL 109 LAB L501.6100 21.0-32.0 mmol/L Normal CO2 26.0 LAB L501.6200 5-15 Normal GAP 7 Performed By: #### L500.4050, L501.9520 #### [facility] [address] [place], [address] THYROID STIM HORMONE Collected: 01/31/2018 Status: F Source: [place] (TSH) 2:42 PM [facility] REPOSITORY TYPE CODE TESTS RESULT OUT OF RANGE REFERENCE UNITS LAB L501.9520 0.358-3.74 uIU/mL Normal TSH 1.34 Performed By: #### L500.4050, L501.9520 #### [facility] [address] [place], [address] VITAMIN D,25 HYDROXY Collected: 01/31/2018 Status: F Source: [place] 2:42 PM [facility] REPOSITORY TYPE CODE TESTS RESULT OUT OF REFERENCE UNITS RANGE LAB L506.1000 29.95-100.01 ng/mL Low Vitamin D 21.4 25-OH Result Comment: Vitamin D 25(OH) Status Range Deficiency <20 ng/mL (50nmol/L) Insuffciency 20 - 30 ng/mL (50 - 75 nmol/L) Sufficiency 30 - 100 ng/mL (75 - 250 nmol/L) Toxicity >100 ng/mL (>250 nmol/L) Performed By: #### L506.1000 #### [facility] [address] [place], [address] HEMOGLOBIN A1C Collected: 01/31/2018 Status: F Source: [place] 2:42 PM [facility] REPOSITORY TYPE CODE TESTS RESULT OUT OF RANGE REFERENCE UNITS LAB L501.9985 4.2-6.3 % High HGB A1C 6.5 Performed By: #### L501.9985 #### [facility] [address] [place], [address] ORTHOPEDIC VISIT Observed: 12/13/2017 Status: F Source: [place] REPORT 8:47 AM [facility] REPOSITORY [facility] [address] [place] [address] 5 [place] [address] OFFICE VISIT Date of Service: 12/06/17 MR#: [id number] Acct: [id number] Name: TAYLOR ALCANTARA #: [id number] : 1940 Provider: Dave Lima DO Age/Sex: 77/M Location: [facility] Status: Signed Intake Intake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
== END 2018-10-07 11:58 | disposition short-term general hospital (02) | DRG 556 ==
LOC: ED 15:51 → MS2 17:37
PROVIDERS: Family Medicine; Nurse Practitioner Family; Admitting Provider Internal Medicine; Emergency Provider Emergency Medicine; Family Provider Family Medicine Geriatric Medicine; PCP Family Medicine Geriatric Medicine; Visit Provider Internal Medicine
DX: M79.81 Nontraumatic hematoma of soft tissue (principal); D68.32 Hemorrhagic disorder due to extrinsic circulating anticoagulants; J96.11 Chronic respiratory failure with hypoxia; D68.59 Other primary thrombophilia; T45.515A Adverse effect of anticoagulants, initial encounter; M17.0 Bilateral primary osteoarthritis of knee; I10 Essential (primary) hypertension; Z87.891 Personal history of nicotine dependence; K80.20 Calculus of gallbladder without cholecystitis without obstruction; N20.0 Calculus of kidney; Z79.01 Long term (current) use of anticoagulants; Z86.711 Personal history of pulmonary embolism; Z86.718 Personal history of other venous thrombosis and embolism; J43.9 Emphysema, unspecified; M51.36 Other intervertebral disc degeneration, lumbar region
CPT/HCPCS: 36415; 74176; 74177; 80048; 80053; 82550; 83605; 83690; 85025; 85027; 85610; 86900; 99282; J7030; J7040; J7050; P9017; Q9967; A4216; J2405

== ENCOUNTER → 2018-10-12 14:46 | Outpatient (CLI) | payer MEDICARE, OTHER, SELFPAY ==
[2018-10-06 17:37] VITALS: BMI 26.2
[2018-10-12 17:22] LABS: Absolute Lymphocyte Count 1.08 X10^3/ul (0.83-4.51); Absolute Neutrophil Count 5.3 X10^3/uL (2.0-7.7); Basophil# 0.02 X10^3/uL; Basophil% 0.3 % (0-1); Eosinophil# 0.07 X10^3/uL; Eosinophils% 0.9 % (0-5); Hematocrit 37.8 % (40-54); Hemoglobin 12.4 g/dl (13.0-16.5); Lymphocyte # 1.08 X10^3/ul (4.0); Lymphocyte % 14.3 % (19-41); Mean Corp Hgb Conc 32.8 g/gl (32-36); Mean Corpuscular Hgb 31.2 pg (27.0-32.0); Mean Corpuscular Volume 95.2 fL (80-94); Mean Platelet Vol. 10.1 fl (6.2-12.0); Monocyte# 1.04 X10^3/uL; Monocyte% 13.8 % (0-10); Neutrophil # 5.25 X10^3/uL (2.7-7.7); Neutrophil % 69.8 % (47-70); Platelet Count 295 K/mm3 (150-450); RBC Distribution Width CV 12.9 % (11.6-14.6); RBC Distribution Width SD 42.9 fl (35.1-43.9); Red Blood Count 3.97 M/mm3 (4.6-6.2); White Blood Count 7.5 K/mm3 (4.4-11.0)
[2018-10-12 17:34] LABS: POSITIVE COUNT NO; POSITIVE DIFFERENTIAL NO; POSITIVE MORPHOLOGY NO
--- OUTSIDE RECORDS SUMMARY | 2018-12-14 15:42 | XMS RPT_ITS ---
:1940 Author Organization OHIP Support Name Relationship Address Phone SHAHEED, RODRIGO Unavailable Unavailable + ISABELLE CORONADOLY Unavailable Unavailable + [place] [address] R Unavailable Unavailable Unavailable MACE, RODRIGO Unavailable Unavailable + ISABELLE CORONADOLY Unavailable Unavailable + [place] [address] R Unavailable Unavailable Unavailable MACE, RODRIGO Unavailable Unavailable + IVONNE MORIAH Unavailable Unavailable + Mace, Rodrigo Unavailable Unavailable + Isabelle Coronadoly Unavailable Unavailable + MACE, RODRIGO Unavailable Unavailable + IVONNE, MORIAH Unavailable Unavailable + [place] [address] R Unavailable Unavailable Unavailable MACE, RODRIGO Unavailable Unavailable + IVONNE, MORIAH Unavailable Unavailable + [place] [address] R Unavailable Unavailable Unavailable MACE, CLAU Unavailable [address] [facility] + [place] [address] ISABELLE CORONADOLY Unavailable Unavailable + [place] [address] R Unavailable Unavailable Unavailable MACE, RODRIGO Unavailable Unavailable + IVONNE, MORIAH Unavailable Unavailable + [place] [address] R Unavailable Unavailable Unavailable MACE, RODRIGO Unavailable Unavailable + ISABELLE CORONADOLY Unavailable Unavailable + [place] [address] R Unavailable Unavailable Unavailable ISABELLE CORONADOLY Unavailable [address] + [place], [place] . R Unavailable Unavailable Unavailable R Unavailable Unavailable Unavailable MACE, CLAU Unavailable [address] + [place] [address] IVONNE, MORIAH Unavailable [address] + [place] . R Unavailable Unavailable Unavailable MACE, CLAU Unavailable [address] + [place] [address] IVONNE, MORIAH Unavailable [address] + [place] . R Unavailable Unavailable Unavailable MACE, CLAU Unavailable [address] + [place] [address] IVONNE, MORIAH Unavailable [address] + [place] . R Unavailable Unavailable Unavailable MACE, CLAU Unavailable [address] + [place] [address] IVONNE, MORIAH Unavailable [address] + [place] . R Unavailable Unavailable Unavailable MACE, CLAU Unavailable [address] + [place] [address] IVONNE, MORIAH Unavailable [address] + [place] . R Unavailable Unavailable Unavailable MACE, CLAU Unavailable [address] + [place] [address] IVONNE, MORIAH Unavailable [address] + [place] . R Unavailable Unavailable Unavailable Care Team Providers Name Role Phone Abdullahi Bishop Attending Unavailable Alpesh, Gaston Chi Referring Unavailable Abdullahi Bishop Attending Unavailable Abdullahi Bishop Referring Unavailable Alpesh, Gaston Chi Primary Care Unavailable Alpesh, Gaston Chi Primary Care Unavailable Sementi, Patito Admitting Unavailable Abdullahi Bishop Consulting Unavailable Navid Hampton Attending Unavailable Isckarus, Mansour Consulting Unavailable Sementi, Patito Admitting Unavailable Alpesh, Gaston Chi Primary Care Unavailable Sementi, Patito Consulting Unavailable Semenedilia, Patito Attending Unavailable Sementi, Patito Admitting Unavailable Abdullahi Bishop Attending Unavailable Alpesh, Gaston Chi Primary Care Unavailable Abdullahi Bishop Consulting Unavailable Isckarus, Mansour Consulting Unavailable Sementi, [...] Referring Unavailable No, PCP Primary Care Unavailable PROVIDER, UNKNOWN Admitting Unavailable PROVIDER, UNKNOWN Attending Unavailable JOSE DILLON Admitting Unavailable JOSE DILLON Attending Unavailable DIANNA MEYERSOGLJUAN JOSE Consulting Unavailable SULAIMAN DILLON Admitting Unavailable SULAIMAN DILLON Attending Unavailable IMCA Primary Care Unavailable REHMUS, DIANNA H Consulting Unavailable PROBLEMS PROBLEMS DATE TYPE CONDITION / CODE ATTENDING STATUS SOURCE 10/07/2018 Active Contusion of JOSE DILLON Active [place] abdominal wall, Clinic Other initial encounter / [place] S30.1XXA(ICD-10) Repository 10/07/2018 Admitting Unknown / REJI, Active [place] [facility] diagnosis UNK(Unknown) [facility] Repository 09/09/2018 Unknown R19.5 - Other fecal [place], Active [place] abnormalities / [facility] R19.5(ICD-10) Hospital Repository 03/28/2018 Unknown M17.0 - Bilateral [place] Active [place] primary Community osteoarthritis of Hospital knee / Repository M17.0(ICD-10) 01/13/2018 Unknown M25.561 - Pain in Dave Lima Active [place] right knee / Community M25.561(ICD-10) Hospital Repository 01/13/2018 Unknown M25.562 - Pain in Dave Lima Active [place] left knee / Community M25.562(ICD-10) Hospital Repository 01/13/2018 Unknown G89.29 - Other [place] L[place] Active [place] chronic pain / Community G89.29(ICD-10) Hospital Repository PROCEDURES PROCEDURES No Procedure Records FoundRESULTS RESULTS CBC W/DIFF, AUTOMATED Collected: 10/12/2018 Status: F Source: [place] 2:47 PM [facility] HOSPITAL REPOSITORY TYPE CODE TESTS RESULT OUT [...] Lymph 1.08 Performed By: #### L100.0100 #### [facility] [address] [place], [address] CNPN Observed: 10/11/2018 Status: COMPLETED Source: [place] 12:00 AM CLINIC OTHER CAMPUS REPOSITORY Telephone (AKPRAD) TAYLOR ALCANTARA ([id number]) 1940 M T Date Time Provider Department [...] Hives Date Reviewed: 10/09/2018 Reviewed by: Laquita (Ashley) ASHLEY Joaquin - Fully Assessed Reason for Visit: [...] [place] 10:59 AM CLINIC OTHER CAMPUS REPOSITORY O ID: [id number] Author: Theodora (Rn) ASHLEY Soriano Service: Care Management Author Type: Registered Nurse Type: Care Mgt Initial Assessment Filed: 10/10/2018 11:20 AM Note Text: CARE MANAGEMENT: ASSESSMENT AND DISCHARGE PLAN SERVICE DATE: 10/10/2018 SERVICE TIME: 10:59 AM PRIMARY CARE PHYSICIAN: Steve Colunga MD -Information provided on PCPs per patient's request. ADMISSION STATUS: Observation Needs Prior to Discharge: Ready for Discharge MEDICAL: Patient/Urgent Care Physician Assistant Stated Goals: To return home to life [...] hemorrhage. Advance Directive: Current Advance Directive: None Business Project Manager Attempted to Assist with AD Completion: Yes [...] tanks Has the Patient Been in a Usp Facility in the Past 30 days? No SOCIAL: Living Arrangement: Home Lives With: Spouse Financial Resources: Retired Primary Contact: Extended Emergency Contact Information Primary Emergency Contact: Haydee Alcantara Address: [address] [place] [address] Relation: Spouse Supportive: Yes Other Important Patient [...] 0 I feel financially burdened by my buc-rb-zjkpgj expenses for my prescription medication: Disagree completely [...] 10, 2018 TIME: 10:59 AM PAGER/CONTACT #: [phone] CNDS Observed: 10/10/2018 Status: COMPLETED Source: [place] 8:40 AM [facility] OTHER CAMPUS REPOSITORY O ID: [id number] Author: Elis Bess Service: General Surgery Author [...] THE HOSPITAL: 78 year old male on senior care anticoagulation for history of DVT/PE was transferred from [facility] with rectus sheath hematoma. Consultations were [...] you become constipated, you may use any plgl-ozx-tvphkll treatment such as Milk of Magnesia, Sennakot, [...] to call for appointment?: Yes Oleg Chase [phone] [facility] [address] [facility] [address] PCP Requested Referral Follow-Up Appointment Follow-up with Dr Rena or PCP in 1 week for re-evaluation and discussion on resuming anticoagulation With: PCP When: In 1 week Patient/Parents to call for appointment?: Yes Additional Provider to Provider Information: No notes on file Transitions of Care Critical Issues: None LABS AND PROCEDURES PENDING AT DISCHARGE: Pathology Results (to be discussed at follow visit with surgeon.) FOLLOW-UP APPOINTMENTS ALREADY SCHEDULED WITH A [facility] PROVIDER: No future appointments. ALLERGIES Allergen Reactions [...] management of this patient. SIGNATURE: Elis Bess APRN.CNP PAGER/CONTACT #: DATE: October 10, 2018 TIME: 8:41 AM Emergency General Surgery Service Pager: For questions or concerns Mon-Fri 6a-5p please page [phone]. After 5pm and on Weekends and Holidays, please page [phone] if in ICU or [phone] if on RNF. PROGRESS Observed: 10/10/2018 Status: COMPLETED Source: [place] 7:58 AM CLINIC OTHER CAMPUS REPOSITORY HNO ID: [id number] Author: Elis Bess Service: General Surgery Author [...] Room Air IANDO: Date 10/09/18699 - 10/10/18 0659 10/10/18699 - 10/11/18 0659 Shift 3579-1323 2228-8888 3934-5054 24 Hour Total 6592-4499 5749-9582 3591-9861 24 Hour Total I N T A K E PO 360 360 PO 360 360 Shift Total 360 360 O U T P U T Urine 500 992 169 2053 Void (ml) 500 420 911 9814 Urine Not Saved. 1 x 1 x # of BMs Number of BMs 1 x 1 x Shift Total 500 767 899 3527 Weight (kg) 83.5 83.5 83.5 83.5 83.5 [...] Surgery Service Pager: For questions or concerns Mon-Wed 6a-5p please page [phone]. After 5pm and on Weekends and Holidays, please page [phone]. HEMOGRAM/DIFF Collected: 10/10/2018 Status: F Source: [facility] 3:33 AM HEALTH SYSTEM REPOSITORY TYPE CODE [...] LAB MONON(LOIN 0.30-0.82 thou/cmm C) Abs. High [place]nam 0.94 LAB EOSN(LOINC 0.04-0.54 thou/cmm ) Abs. Eosin 0.13 LAB BASON(LOIN 0.01-0.08 thou/cmm C) Abs. Baso 0.04 Performed By: #### CBCD1 #### [facility] [address] DVT LOWER BILATERAL Observed: 10/09/2018 Status: F Source: [facility] 2:59 PM HEALTH SYSTEM REPOSITORY Performed at [facility] APPROVED BY: Gold Strange MD EXAM [...] NURSING PROG Observed: 10/09/2018 Status: COMPLETED Source: [place] 1:00 PM [facility] REPOSITORY HNO ID: [id number] Author: Laquita (Rn) ASHLEY Joaquin Service: Nursing Author Type: Registered Nurse [...] monitor. PROGRESS Observed: 10/09/2018 Status: COMPLETED Source: [place] 6:17 AM [facility] REPOSITORY HNO ID: [id number] Author: Rosita Olivarez (Tennis Racket Repairer) Hung Service: General Surgery Author Type: Nurse Specialist [...] 10/09/18 0659 10/09/18699 - 10/10/18 0659 Shift 6158-0796 9641-8140 0865-7498 24 Hour Total 0178-7043 3576-1099 5824-1626 24 Hour Total I N T A [...] H PRN Labs: Recent Labs 10/09/18 0415 10/08/18200510/08/18 0235 10/07/18 1642 NA -- -- -- [...] plan discussed with attending: Dr Dillon - OK for discharge today - Follow up in 1 week with PCP or Hematology for reevaluation and discussion on resuming anticoagulation 1310 US DVT ordered for c/o lower right leg pain, describes as similar to pain experienced with prior VT SIGNATURE: Rosita Persaud APRN.COURTROOM REPORTER PATIENT NAME: Taylor Alcantara DATE: October 09, 2018 TIME: 6:18 AM Emergency General Surgery Service Pager: For questions or concerns Mon-Wed 6a-5p please page [phone]. After 5pm and on Weekends and Holidays, please page [phone]. HEMOGRAM/DIFF Collected: 10/09/2018 Status: F Source: [facility] 4:15 AM HEALTH SYSTEM REPOSITORY TYPE CODE [...] LAB MONON(LOIN 0.30-0.82 thou/cmm C) Abs. High [place] 1.01 LAB EOSN(LOINC 0.04-0.54 thou/cmm ) Abs. Eosin 0.09 LAB BASON(LOIN 0.01-0.08 thou/cmm C) Abs. Baso 0.03 Result Comment: Smear scanned; tech agrees with automated differential Performed By: #### CBCD1 #### [facility] [address] [place] [address] HEMOGRAM/DIFF Collected: 10/08/2018 Status: F Source: [facility] 8:06 HEALTH SYSTEM REPOSITORY TYPE CODE TESTS RESULT [...] 1.09 LAB MONON(LOIN 0.30-0.82 thou/cmm C) Abs. [place] High 0.95 LAB EOSN(LOINC 0.04-0.54 thou/cmm ) Abs. Eosin 0.07 LAB BASON(LOIN 0.01-0.08 thou/cmm C) Abs. Baso Low 0.00 LAB RBCM(LOINC ) RBC Morphology Normal Performed By: #### CBCD1 #### [facility] [address] [place] [address] CONSULT Observed: 10/08/2018 Status: COMPLETED Source: [place] 7:10 PM CLINIC OTHER CAMPUS REPOSITORY HNO ID: [id number] Author: Oleg Chase Service: Hematology/Oncology Author Type: [...] MD HEMOGRAM/DIFF Collected: 10/08/2018 Status: F Source: [facility] 12:00 HEALTH SYSTEM REPOSITORY TYPE CODE TESTS [...] LAB MONON(LOIN 0.30-0.82 thou/cmm C) Abs. High [place] 1.12 LAB EOSN(LOINC 0.04-0.54 thou/cmm ) Abs. Eosin 0.07 LAB BASON(LOIN 0.01-0.08 thou/cmm C) Abs. Baso 0.04 Performed By: #### CBCD1 #### [facility] [address] [place] [address] DISCHARGE SUMMARY Observed: 10/08/2018 Status: F Source: [place] 8:35 AM [facility] REPOSITORY [facility] Medical Records Department [address] [place] [address] Discharge Summary 10/07/18 1100 MR#: [id number] Acct: [id number] Name: TAYLOR ALCANTARA Rep #: [id number] : 1940 78 From: Navid Hampton MD PCP: Alpesh DURANT,Gaston Chi Status: DIS IN Y Location: [facility] [id number] Discharge Date and Diagnosis Date of Admission: [...] 10/07 was 2.7. Transfer call made to [facility] but no bed available and then [facility]. Patient accepted by surgeon, Dr. Dillon. Other comorbidities are stable including COPD, hypertension, bilateral knee arthritis and degenerative lumbar disc disease. DVT prophylaxis- SCDs Patient was transferred to [facility]. Clinical Impression(s) from Imaging Studies Abdomen/Pelvis [...] applicable Code Visit Inpatient E AND M: 42432 Disch Hosp 10/08/18 0835 <Electronically signed by Navid Hampton MD> Date Navid Hampton MD Cosigner Signature (if applicable): Date CC: Navid Hampton MD; Gaston Betts MD Signed PROGRESS Observed: 10/08/2018 Status: COMPLETED Source: [place] 7:13 AM [facility] OTHER CAMPUS REPOSITORY O ID: [id number] Author: Keri Mcpherson Service: General Surgery Author [...] 0659 10/08/18 07 - 10/09/18 0659 Shift 3268-0621 8086-3040 0801-4272 24 Hour Total 8390-6071 4357-3428 3503-8940 24 Hour Total I N T A [...] in ICU or 2174 if on RNF. SIGNATURE: Keri Mcpherson MD PATIENT NAME: Taylor Alcantara DATE: October 08, 2018 TIME: 7:13 AM Pager: MDRD GFR Collected: 10/08/2018 Status: F Source: [facility] 2:35 AM HEALTH SYSTEM REPOSITORY TYPE CODE TESTS RESULT OUT OF RANGE REFERENCE UNITS LAB GFRFN(LOINC >60mL/min/1.73m ) 2 eGFR >60 Result Comment: If the patient is , multiply the result by 1.210. Performed By: #### GFR #### [place] [address] HEMOGRAM/DIFF Collected: 10/08/2018 Status: F Source: [facility] 2:35 AM HEALTH SYSTEM REPOSITORY TYPE CODE [...] LAB MONON(LOIN 0.30-0.82 thou/cmm C) Abs. High [place] 1.01 LAB EOSN(LOINC 0.04-0.54 thou/cmm ) Abs. Eosin 0.06 LAB BASON(LOIN 0.01-0.08 thou/cmm C) Abs. Baso 0.04 Performed By: #### CBCD1 #### [place] [address] PROTIME Collected: 10/08/2018 Status: F Source: [facility] 2:35 AM HEALTH SYSTEM REPOSITORY TYPE CODE TESTS RESULT OUT OF REFERENCE UNITS RANGE LAB PTI(LOINC) 9.7-13.0 sec Prothrombin High Time 13.6 LAB INR(LOINC) 0.90-1.30 INR High 1.34 Result Comment: Note: Reference Range Change Vitamin K Antagonist (VKA) Therapeutic Range: INR 2 to 3 (Target INR of 2.5) Note: For patients treated with VKA drugs, such as warfarin, the [place] [employer] 2012 Guideline recommends [...] 2.5 to 3.5 target INR of 3). Guyatt GH, et al. Chest 2012; 141:7S-47S Kavitha RA, et al. [facility] 2017; 70: 252-289 Performed By: #### PT #### [facility] [address] [place] [address] ACTIVATED PTT Collected: 10/08/2018 Status: F Source: [facility] 2:35 AM HEALTH SYSTEM REPOSITORY TYPE CODE [...] laboratory APTT reagent in use throughout the [facility]. Performed By: #### APTT #### [facility] [address] [place] [id number] BASIC PANEL Collected: 10/08/2018 Status: F Source: [facility] 2:35 AM HEALTH SYSTEM REPOSITORY TYPE CODE [...] Gap 11 Performed By: #### P8 #### [place] [id number] NURSING PROG Observed: 10/07/2018 Status: COMPLETED Source: [place] 11:52 PM CLINIC OTHER CAMPUS REPOSITORY O ID: [id number] Author: Alexandra (Rn) Kenyon RN Service: (none) Author Type: Registered Nurse Type: Nursing Progress Note Filed: 10/07/2018 11:54 PM Note Text: Nursing Progress Note Patient Name: aTylor Alcantara Patient Location: [place] [address] [address] Called Dr. Fernandes regarding pt needing to be put on 4L nasal cannula to get pt to 95%. Pt was 70% on RA. No new orders received. Will continue to monitor pt and wean oxygen if able. This note was completed by: Alexandra Prescott RN HEMOGRAM/DIFF Collected: 10/07/2018 Status: F Source: [facility] 5:02 PM HEALTH SYSTEM REPOSITORY TYPE CODE [...] LAB MONON(LOIN 0.30-0.82 thou/cmm C) Abs. High [place]nam 1.24 LAB EOSN(LOINC 0.04-0.54 thou/cmm ) Abs. Eosin 0.10 LAB BASON(LOIN 0.01-0.08 thou/cmm C) Abs. Baso 0.03 Result Comment: Smear scanned; tech agrees with automated differential Performed By: #### CBCD1 #### [facility] 1 [place], [place] [address] BASIC PANEL Collected: 10/07/2018 Status: F Source: [facility] 4:42 HEALTH SYSTEM REPOSITORY TYPE CODE TESTS [...] Performed By: #### P8 #### [facility] [address] [place] [id number] PROTIME Collected: 10/07/2018 Status: F Source: [facility] 4:42 HEALTH SYSTEM REPOSITORY TYPE CODE TESTS RESULT OUT OF REFERENCE UNITS RANGE LAB PTI(LOINC) 9.7-13.0 sec Prothrombin High Time 15.5 LAB INR(LOINC) 0.90-1.30 INR High 1.54 Result Comment: Note: Reference Range Change Vitamin K Antagonist (VKA) Therapeutic Range: INR 2 to 3 (Target INR of 2.5) Note: For patients treated with VKA drugs, such as warfarin, the [place] [employer] 2012 Guideline recommends [...] 2.5 to 3.5 target INR of 3). Kimberly GH, et al. Chest 2012; 141:7S-47S Kavitha RA, et al. JACC 2017; 70: 252-289 Performed By: #### PT #### [facility] [address] [place] [address] ACTIVATED PTT Collected: 10/07/2018 Status: F Source: [facility] 4:42 PM HEALTH SYSTEM REPOSITORY TYPE CODE [...] laboratory APTT reagent in use throughout the [facility]. Performed By: #### APTT #### [facility] [address] [place] [address] EMERGENCY DEPARTMENT Observed: 10/07/2018 Status: F Source: [facility] 4:04 PM [facility] HOSPITAL REPOSITORY [facility] Medical Records Department [address] [place] [address] Emergency Department Summary 10/06/18 1637 MR#: [id number] Acct: [id number] Name: TAYLOR ALCANTARA Rep #: [id number] : 1940 78 From: Earnest Kumar DO [...] Abdominal pain] This note was generated with [employer] dictation software. It may contain incorrect words, [...] your Primary Care Provider. Call [facility] ([phone]) or report to the closest Emergency Room. Call 911 if necessary. 10/07/18 4991 <Electronically signed by Earnest Kumar DO> Date Earnest Kumar DO Hunter Signature (If Indicated): Date CC: Gaston Betts MD HISTORY PHYSICAL Observed: 10/07/2018 Status: COMPLETED Source: [place] 2:34 PM CLINIC OTHER CAMPUS REPOSITORY O ID: [id number] Author: Edmond Mason Service: General Surgery Author Type: Resident [...] kg/m? O2 Therapy: Nasal Cannula IANDO: Date 10/06/18 07 - 10/07/18 0659(Not Admitted) 10/07/18699 - 10/08/18 0659 Shift 7905-7725 5001-7955 1661-2471 24 Hour Total 0184-6060 1487-8615 9144-8534 24 Hour Total I N T A [...] October 07, 2018 TIME: 2:34 PM Pager: [phone] CONSULTATION Observed: 10/07/2018 Status: F Source: [place] 10:13 AM [facility] REPOSITORY [facility] Medical Records Department [address] [place] [address] Consultation 10/07/18 0944 MR#: [id number] Acct: [id number] Name: TAYLOR ALCANTARA Rep #: [id number] : 1940 78 From: Bishnu Fonseca MD PCP: Alpesh DURANT,Gaston Zamora Status: ADM IN Y Location: [facility] [id number] - Problem List (1) Coagulopathy Status: Acute [...] 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 According to the [...] 10/06/18 17:49 NANETTE (Rec: 10/06/18 17:52 NANETTE [id number]) BMI Required to complete PMH What is Patient's BMI 26.3 Past Medical History Unable History Recalled No Query Text:Pt Unable/Family Not Present Neurologic Medical History Hx Stroke/TIA No Hx Dementia/Alzheimer's No Hx Parkinson's Disease No Hx Seizures No Hx Multiple Sclerosis No Hx Migraines No Cardiac Medical History VTE Present on Admission No Hx of Deep Vein Thrombosis/VTE/PE Yes: PE 2013 Hx Hypertension Yes: ON MEDS Hx Chest [...] History (Last Reviewed 10/06/18 @ 17:11 by SHARIF Stewart Brother Myocardial infarction Status post heart transplant [...] conveyed by Ely Dominguez MD to Howie Mnoteiro RN, on 10/07/2018 06:47:56 (ET). Electronically Signed: [...] Status: F Source: [place] PATIENT 8:10 AM [facility] REPOSITORY Order Comment: Number of units to be transfused: 2 When is Plasma to be Transfused? 0749 TYPE CODE TESTS RESULT OUT OF RANGE REFERENCE UNITS LAB B10.0800 A Normal BLOOD POSITIVE TYPE GEL Performed By: #### B10.0010 #### [facility] [address] [place], [address] FFP Collected: 10/07/2018 Status: F Source: [place] 8:10 AM [facility] REPOSITORY TYPE CODE TESTS RESULT OUT OF REFERENCE UNITS RANGE LAB U100.0900 [id number] TRANSFUSED PRODUCT: Fresh Frozen Plasma COUNT: 2 Performed By: #### U100.0900 #### [facility] - refer to report for specific site CONSULTATION Observed: 10/07/2018 Status: F Source: [place] 7:25 AM [facility] REPOSITORY [facility] Medical Records Department [address] [place] [address] Consultation 10/07/18 0719 MR#: [id number] Acct: [id number] Name: TAYLOR ALCANTARA Rep #: [id number] : 1940 78 From: Abdullahi Bishop MD PCP: Alpesh DURANT,Gaston Zamora Status: ADM IN Y Location: [place] GS295-7 Problem List (1) Hematoma of rectus sheath [...] (Chronic) I10 DDD (degenerative disc disease) (Chronic) JYS2381 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) FME5782 COPD (chronic obstructive pulmonary disease) (Chronic) J44.9 [...] L Shelton MD at 15:36 EST Tel [phone], Service support , Abdomen/Pelvis CT 10/07/18 05:55 [...] discussed the case with Dr. Fonseca, our production sampler. I have put in a consult for [...] this active bleed. Abdullahi Bishop MD Pager: [facility] [address] [place] [address], [address] [place] [address] Office: 10/07/18 6025 <Electronically signed by Abdullahi Bishop MD> Date Abdullahi Bishop MD Cosigner Signature (if applicable): Date CC: Abdullahi Bishop MD; Bishnu Fonseca MD; Gaston Betts MD Signed CBC-COMPLETE BLOOD CNT Collected: 10/07/2018 Status: F Source: [place] NO DIFF 7:09 AM [facility] REPOSITORY TYPE CODE TESTS RESULT OUT OF [...] MPV 9.8 Performed By: #### L100.0500 #### [facility] [address] [facility] [place], [place], [address] PROTHROMBIN TIME W/INR Collected: 10/07/2018 Status: F Source: [place] 7:09 AM [facility] REPOSITORY TYPE CODE TESTS RESULT OUT OF RANGE REFERENCE UNITS LAB L300.4150 11.7-14.9 SECONDS High PROTIME 28.4 LAB L300.4200 Normal INR 2.7 Performed By: #### L300.3900 #### [facility] [address] [facility] [place], [address] BASIC METABOLIC Collected: 10/07/2018 Status: F Source: [place] PROFILE (BMP) 7:09 AM [facility] REPOSITORY TYPE CODE TESTS RESULT OUT OF [...] GAP 8 Performed By: #### L500.2500 #### [facility] [address] [facility] [place], [address] CPK TOTAL, CREATINE Collected: 10/07/2018 Status: F Source: [place] KINASE 7:09 AM [facility] REPOSITORY TYPE CODE TESTS RESULT OUT OF RANGE REFERENCE UNITS LAB L501.3620 39-308 U/L Normal CPK TOTAL 93 Performed By: #### L501.3620 #### [facility] [address] [place], [address] ABDOMEN/PELVIS WITH Observed: 10/07/2018 Status: F Source: [place] CONTRAST 12:00 AM [facility] REPOSITORY [facility] Imaging Services [address] [facility] [place] [address] Abdomen/Pelvis WITH Contrast MR#: [id number] Acct: [id number] Name: TAYLOR ALCANTARA Rep #: [id number] : 1940 M 78 From: Ely Dominguez MD PCP: Alpesh DURANT,Gaston Zamora Status: ADM IN Study: Abdomen/Pelvis WITH Contrast Date of Exam: 10/07/18 Exam# [id number] Ordering Dr: Emelia Carranza LADIES' LOCKER ROOM ATTENDANT-C STUDY: CT ABDOMEN AND PELVIS WITH CONTRAST [...] , CC: CHRISTELLE Carranza; Gaston Betts MD Robotic Toy Inventor: Signed HISTORY AND PHYSICAL Observed: 10/06/2018 Status: F Source: [place] EXAM 8:46 PM [facility] REPOSITORY [facility] Medical Records Department [address] [place] [address] History and Physical 10/06/18 1705 MR#: [id number] Acct: [id number] Name: TAYLOR ALCANTARA Rep #: [id number] : 1940 78 From: Emelia BOURGEOIS PCP: Alpesh DURANT,Gaston Zamora Status: ADM IN Location: [facility] [id number] ADDENDUM by Patito Shay on 10/06/18 at [...] a thrombotic event. Inpatient E AND M: 08246 Init Hosp L3 10/06/182045 <Electronically signed by [...] (Chronic) I10 DDD (degenerative disc disease) (Chronic) QPD4933 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) AWU7850 COPD (chronic obstructive pulmonary disease) (Chronic) J44.9 [...] <Electronically signed by Emelia WOLFC> Date Emelia WOLFC 10/06/182028<Electronically signed by Nancy Shay DO> Cosigner Signature: Date (if applicable) Nancy Shay DO CC: CHRISTELLE Carranza; Patito Shay; Gaston Betts MD Signed CBC W/DIFF, AUTOMATED Collected: 10/06/2018 Status: F Source: [place] 2:15 PM [facility] REPOSITORY TYPE CODE TESTS RESULT OUT OF [...] Lymph 1.64 Performed By: #### L100.0100 #### [facility] [address] [place], [place], [address] COMPREHENSIVE METABOLIC Collected: 10/06/2018 Status: F Source: [facility] 2:15 PM [facility] REPOSITORY TYPE CODE TESTS RESULT OUT OF [...] 10 Performed By: #### L500.4050, L501.2450 #### [facility] [address] [place], [address] LIPASE Collected: 10/06/2018 Status: F Source: [place] 2:15 PM [facility] REPOSITORY TYPE CODE TESTS RESULT OUT OF RANGE REFERENCE UNITS LAB L501.2450 73-393 U/L Normal LIPASE 150 Performed By: #### L500.4050, L501.2450 #### [facility] [address] [place], [address] LACTIC ACID Collected: 10/06/2018 Status: F Source: [place] 2:15 PM [facility] REPOSITORY Order Comment: Yes/No query for Sepsis Lactate Rule Y TYPE CODE TESTS RESULT OUT OF RANGE REFERENCE UNITS LAB L503.6005 0.4-2.0 mmol/L Normal LACTIC ACID 1.8 Performed By: #### L503.6005 #### [facility] [address] [facility] [place], [address] PROTHROMBIN TIME W/INR Collected: 10/06/2018 Status: F Source: [place] 2:15 PM [facility] REPOSITORY TYPE CODE TESTS RESULT OUT OF RANGE REFERENCE UNITS LAB L300.4150 11.7-14.9 SECONDS High PROTIME 34.9 LAB L300.4200 Normal INR 3.4 Performed By: #### L300.3900 #### [facility] [address] [place], [address] CPK TOTAL, CREATINE Collected: 10/06/2018 Status: F Source: [place] KINASE 2:15 PM [facility] REPOSITORY TYPE CODE TESTS RESULT OUT OF RANGE REFERENCE UNITS LAB L501.3620 39-308 U/L Normal CPK TOTAL 132 Performed By: #### L501.3620 #### [facility] [address] [facility] [place], [address] ABDOMEN/PELVIS WITHOUT Observed: 10/06/2018 Status: F Source: [place] CONT 1:55 PM [facility] REPOSITORY [facility] Imaging Services [address] [place] [address] Abdomen/Pelvis without Cont MR#: [id number] Acct: [id number] Name: TAYLOR ALCANTARA Rep #: [id number] : 1940 M 78 From: Jose L Shelton MD PCP: Alpesh DURANT,Zapoint Status: PRE ER Study: Abdomen/Pelvis without Cont Date of Exam: 10/06/18 Exam# [id number] Ordering Dr: Earnest Kumar DO STUDY: CT [...] L Shelton MD at 15:36 EST Tel [phone], Service support , CC: Earnest Kumar DO; Gaston Betts MD Robotic Toy Inventor: Signed SURGERY VISIT REPORT Observed: 09/09/2018 Status: F Source: [place] 3:35 PM [facility] REPOSITORY [facility] [address] [place], [place] [address]michell. [address] [place] [address] OFFICE VISIT Date of Service: 09/09/18 MR#: [id number] Acct: [id number] Name: TAYLOR ALCANTARA Rep #: [id number] : 1940 Provider: Abdullahi Bishop MD Age/Sex: 78/M Location: 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 The patient had a positive [place] guard test and was recommended for colonoscopy [...] proceed with procedure. Abdullahi Bishop MD Pager: [facility] [address] [place] [address], [address] [place] [address] Office: Orders Orders: Medications Discontinued: aspirin (Adult Aspirin Regimen) Discontinued Reason: Pt no longer taki81 mg PO DAILY ng Coding Level of Care Code Off vis,new,level 3 Diagnoses Positive colorectal cancer screening using DNA-based stool test R19.5 09/09/18 1535 <Electronically signed by Abdullahi Bishop MD> Date Abdullahi Bishop MD Cosigner Signature: Date (if applicable) CC: Gaston Betts MD CBC W/DIFF, AUTOMATED Collected: 08/03/2018 Status: F Source: [place] 10:50 AM [facility] REPOSITORY TYPE CODE TESTS RESULT OUT OF [...] Lymph 2.23 Performed By: #### L100.0100 #### [facility] [address] [place], [address] VITAMIN D,25 HYDROXY Collected: 08/03/2018 Status: F Source: [place] 10:50 AM [facility] REPOSITORY TYPE CODE TESTS RESULT OUT OF REFERENCE UNITS RANGE LAB L506.1000 29.95-100.01 ng/mL Low Vitamin D 15.5 25-OH Result Comment: Vitamin D 25(OH) Status Range Deficiency <20 ng/mL (50nmol/L) Insuffciency 20 - 30 ng/mL (50 - 75 nmol/L) Sufficiency 30 - 100 ng/mL (75 - 250 nmol/L) Toxicity >100 ng/mL (>250 nmol/L) Performed By: #### L506.1000 #### [facility] [place], [address] COMPREHENSIVE METABOLIC Collected: 08/03/2018 Status: F Source: [place] [facility] 10:50 AM [facility] REPOSITORY TYPE CODE TESTS RESULT OUT OF [...] 11 Performed By: #### L500.4050, L501.9520 #### [facility] [address] [place], [address] THYROID STIM HORMONE Collected: 08/03/2018 Status: F Source: [place] (TSH) 10:50 AM [facility] REPOSITORY TYPE CODE TESTS RESULT OUT OF RANGE REFERENCE UNITS LAB L501.9520 0.358-3.74 uIU/mL Normal TSH 2.42 Performed By: #### L500.4050, L501.9520 #### [facility] [address] [facility] [place], [place], [address] ORTHOPEDIC VISIT Observed: 04/03/2018 Status: F Source: [place] REPORT 10:39 AM [facility] REPOSITORY [facility] [address] [place] [address] 5 [place] [address] OFFICE VISIT Date of Service: 03/28/18 MR#: [id number] Acct: [id number] Name: TAYLOR ALCANTARA Rep #: [id number] : 1940 Provider: Dave Lima DO Age/Sex: 77/M Location: [facility] Status: Signed Intake Intake Visit Reasons: Bilat [...] never HPI Bilat Knee Pain: Details: TAYLOR LACANTARA is a 77 year old M here [...] He does not wear any bracing. ROS Musc Reports joint pain, Reports muscle weakness, Reports [...] if they have any concerns. Office Meds Odalys Performing Provider: Dave Lima DO Administered by: NEAL Elam on 03/28/18 14:15 Dose Route Admin Location Lot Number Expiration DateNDC Cigarette And Filter Chief Inspector 4 mg Intra-Articularbilateral knee [id number] 01/18/19 0278-8774-43 [place] [employer] / [email or web address] Assessment AND Plan Problems 1. 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 [place], [place], [address] COMPREHENSIVE METABOLIC Collected: 01/31/2018 Status: F Source: [place] AMADO 2:42 PM [facility] REPOSITORY TYPE CODE TESTS RESULT OUT OF [...] 7 Performed By: #### L500.4050, L501.9520 #### [facility] [address] [place], [address] THYROID STIM HORMONE Collected: 01/31/2018 Status: F Source: [place] (TSH) 2:42 PM [facility] REPOSITORY TYPE CODE TESTS RESULT OUT OF RANGE REFERENCE UNITS LAB L501.9520 0.358-3.74 uIU/mL Normal TSH 1.34 Performed By: #### L500.4050, L501.9520 #### [facility] [address] [place], [address] VITAMIN D,25 HYDROXY Collected: 01/31/2018 Status: F Source: [place] 2:42 PM [facility] REPOSITORY TYPE CODE TESTS RESULT OUT OF REFERENCE UNITS RANGE LAB L506.1000 29.95-100.01 ng/mL Low Vitamin D 21.4 25-OH Result Comment: Vitamin D 25(OH) Status Range Deficiency <20 ng/mL (50nmol/L) Insuffciency 20 - 30 ng/mL (50 - 75 nmol/L) Sufficiency 30 - 100 ng/mL (75 - 250 nmol/L) Toxicity >100 ng/mL (>250 nmol/L) Performed By: #### L506.1000 #### [facility] [address] [place], [address] HEMOGLOBIN A1C Collected: 01/31/2018 Status: F Source: [place] 2:42 PM [facility] REPOSITORY TYPE CODE TESTS RESULT OUT OF RANGE REFERENCE UNITS LAB L501.9985 4.2-6.3 % High HGB A1C 6.5 Performed By: #### L501.9985 #### [facility] [address] [place], [address] ORTHOPEDIC VISIT Observed: 12/13/2017 Status: F Source: [place] REPORT 8:47 AM [facility] REPOSITORY [facility] [address] [place] [address] 5 [place] [address] OFFICE VISIT Date of Service: 12/06/17 MR#: [id number] Acct: [id number] Name: TAYLOR ALCANTARA Rep #: [id number] : 1940 Provider: Dave Lima DO Age/Sex: 77/M Location: [facility] Status: Signed Intake Intake Visit Reasons: bilateral [...] Ortho Injections Injections Yes Knee Bilateral Office Ayde Morrow Performing Provider: Dave Lima DO Administered by: Dave Lima DO on 12/06/17 16:32 [address]ose [address] Admin Location Lot Number Expiration DateNDC Cigarette And Filter Chief Inspector 2 mg Intra-Articularbilateral [id number] 12/19/18 [id number] [place] [employer] / [email or web address] Assessment AND Plan Problems 1. 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 Emphysema J43.9 Plan Did discuss the [...] change in symptoms. Becky Ochoa M.D. Pager: [phone] [facility] [address] [place] [address], [address] [place] [id number] Office: [phone] Medications Discontinued: Plan Detail Follow Up PRN Coding Level of Care Code Off vis,new,level 3 Diagnoses Umbilical hernia without obstruction and without gangrene K42.9 History of deep venous thrombosis or pulmonary embolus DAV9076 Emphysema J43.9 12/08/17 0938 <Electronically signed by Becky Ochoa MD> Date Becky Harrison Signature: Date (if applicable) CC: Gaston Betts MD ALLERGIES ALLERGIES DATE TYPE / CODE NAME / CODE REACTION SEVERITY SOURCE 10/07/2018 DRUG/486544 PROPOXYPHENE GI UPSET [facility] 003(SNOMED N-ACETAMINOPHEN Other [place]) Repository 10/07/2018 DRUG PROPOXYPHENE HCL GI UPSET [facility] INGREDI/419 Other [place] 150010(SNOM Repository ED CT) 10/07/2018 DRUG PENICILLIN HIVES [facility] INGREDI/419 Other [place] 043074(SNOM Repository ED CT) 10/06/2018 Drug propoxyphene Upset Stomach Unknown [place] Allergy/416 HCl/N712127865(RXNO Community 444169([facility]) [facility] ED CT) Repository 10/06/2018 Drug propoxyphene Vomiting Unknown [place] Allergy/416 napsylate/Q07838921 Community 612616([facility] 6(RXNORM) [facility] ED CT) Repository 10/06/2018 Drug Penicillins/E690264 Hives Unknown [place] Allergy/416 476(RXNORM) Community 262086([facility] ED [facility]) Repository NG/27707336 PROPOXYPHENE [facility] 6(SNOMED N-ACETAMINOPHEN Health System CT) Repository NG/24177789 PROPOXYPHENE HCL [facility] 6(SNOMED Health System CT) Repository NG/65973698 PENICILLIN [facility] 6(SNOMED Health System CT) Repository ENCOUNTERS ENCOUNTERS ADMIT/DISCHARGE ACCOUNT NUMBER ADMITTING ENCOUNTER LOCATION SOURCE CLASS 10/12/2018 [id number] [facility] ding:POLAB3 Repository 10/11/2018 [id number] [facility] ding:EN Repository 10/07/2018/ [id number] Unknown [facility] u[facility] Repository 10/07/2018/ [id number] REJI JOSE Ambulatory [address] Other [place] Repository 10/07/2018/ [id number] REJI, Inpatient AKRON [facility] 019 SULAIMAN R [facility] MEDICAL Repository CENTERBuildi nARoom: 5217Bed: 02 10/07/2018 [id number] Inpatient [facility] Repository 10/06/2018/ [id number] Sementi, Inpatient [place] 019 Patito Encounter [facility] ding:[id number] Repository : AY132Bdx: 1 10/06/2018 [id number] Sementi, Ambulatory BMSBuilding: [place] Patito BMS.Replaced by [facility] Repository 10/06/2018 [id number] Sementi, Ambulatory BMSBuilding: [place] Pat[place] BMS..[facility] Repository 10/06/2018 [id number] Sementi, Ambulatory BMSBuilding: [place] Pat[place] BMS..[facility] Repository 10/06/2018 [id number] Sementi, Ambulatory BMSBuilding: [place] Pat[place] BMS.Replaced by [facility] Repository 09/09/2018/ [id number] Ambulatory BMSBuilding: [place] 018 BMS.[facility] Repository 08/03/2018 [id number] Ambulatory [facility] ding:POLAB3 Repository 03/28/2018/ [id number] Ambulatory BMSBuilding: [place] 018 BMS.[facility] Repository 01/31/2018 [id number] Ambulatory [facility] ding:POLAB3 Repository 01/31/2018 [id number] Ambulatory [facility] ding:POLAB3 Repository 12/06/2017/ [id number] Ambulatory BMSBuilding: [place] 018 BMS.[facility] Repository 11/18/2017/ [id number] Ambulatory BMSBuilding: [place] 018 BMS.[facility] Repository PAYERS PAYERS ENCOUNTER GUARANTOR PAYER SUBSCRIBER SOURCE 10/12/2018 TAYLOR A Primary TAYLOR A MACEDOB: [place] Community [id number] Insurance:MEDICARE [id number] BPolicy Number: [place] [id number]: (330) Date:2018-10-12 [phone] (HP) 10/12/2018 Secondary TAYLOR A MACEDOB: [place] [facility] Insurance:[facility] [id number] Hospital SUPPLEMENT INSPolicy Repository Number: [id number] Date:1966-60-57LDMRZ SENIOR SUPPLEMENT [address] [place] [address]UP: 10/12/2018 Tertiary NOT GIVENUNK [place] [facility] Insurance:SELF PAY Hospital INSURANCEPolicy Repository Number: Effective Date:2018-10-12 10/11/2018 TAYLOR A Primary TAYLOR A MACEDOB: [place] [facility]1177 Insurance:MEDICARE [id number] [facility] Center BPolicy Number: Repository [place] [id number]: (330) Date:2018-09-14 [phone] (HP) 10/11/2018 Secondary TAYLOR A MACEDOB: [place] [facility] Insurance:[facility] [id number] Hospital SUPPLEMENT INSPolicy Repository Number: [id number] Date:[id number] SENIOR SUPPLEMENT [address] [place] [address]LY: 10/11/2018 Tertiary NOT GIVENUNK [place] [facility] Insurance:SELF PAY Hospital INSURANCEPolicy Repository Number: Effective Date:2018-09-14 10/07/2018 TAYLOR A Primary TAYLOR A MACEDOB: [facility] MACEDOB: Insurance:MEDICARE [id number] [facility] PART APolicy Number: 7 [facility] [id number] [place] Date:2007-05-21 [address]Pnz: [phone]: [phone] (HP) (HP) (WP) 10/07/2018 TAYLOR MACEDOB: Primary TAYLOR MACEDOB: [facility] Insurance:MEDICARE A [id number] AND BPolicy Number: Repository [place] [id number]: 330) Date: [phone] (HP) 10/07/2018 Secondary TAYLOR MACEDOB: [facility] Insurance:[facility] [id number] Health System MEDICARE Repository SUPPLEMENTPolicy Number: [id number] Date: 10/07/2018 Taylor A Primary Taylor A MaceDOB: [facility] [employer] MaceDOB: Insurance:MedicarePoli [id number] System Repository cy Number: Effective Ganesh View Date: [place] [address]Nve: (HP) 10/07/2018 Secondary Taylor A MaceDOB: [facility] Insurance:MedicarePoli [id number] System Repository cy Number: Effective Date: 10/07/2018 Tertiary Taylor A MaceDOB: [facility] [id number] System Repository Number: Effective Date: 10/06/2018 TAYLOR A Primary TAYLOR A MACEDOB: [place] [facility] [id number] Insurance:MEDICARE [id number] Regional Medical Center PART A BPolicy Number: Repository [place] [id number]: (330) Date:2018-10-06 [phone] (HP) 10/06/2018 Secondary TAYLOR A MACEDOB: [place] [facility] Insurance:[facility]LY [facility] [id number] Hospital SUPPLEMENT INSPolicy Repository Number: [id number] Date:2088-36-77HEEGH SENIOR SUPPLEMENT INSP[address] [place] [address]QF: 10/06/2018 Tertiary NOT GIVENUNK [place] [facility] Insurance:SELF PAY Hospital INSURANCEPolicy Repository Number: Effective Date:2018-10-06 10/06/2018 TAYLOR A Primary TAYLOR A MACEDOB: [place] [facility] [id number] Insurance:MEDICARE [id number] County Hospital Center BPolicy Number: Repository LNjustyna MARTIN [id number] 827[address]Zft: (330) Date:2018-10-066664 () 10/06/2018 Secondary TAYLOR A MACEDOB: [place] [facility] Insurance:[facility] [id number] Hospital SUPPLEMENT INSPolicy Repository Number: [id number] Date:3146-29-56BXUXW SENIOR SUPPLEMENT INSPO [address] [place] [address]BJ: 10/06/2018 Tertiary NOT GIVENUNK [place] [facility] Insurance:SELF PAY Hospital INSURANCEPolicy Repository Number: Effective Date:2018-10-06 10/06/2018 TAYLOR A Primary TAYLOR A MACEDOB: [place] [facility] [id number] Insurance:MEDICARE [id number] County Hospital Center BPolicy Number: Repository [place] [id number]: (330) Date:2018-10-0699 () 10/06/2018 Secondary TAYLOR A MACEDOB: [place] [facility] Insurance:[facility] [id number] Hospital SUPPLEMENT INSPolicy Repository Number: [id number] Date:9097-69-39FFNAH SENIOR SUPPLEMENT [address]FJ[place], [place] [address]FR: 10/06/2018 Tertiary NOT GIVENUNK [place] [facility] Insurance:SELF PAY Hospital INSURANCEPolicy Repository Number: Effective Date:2018-10-06 10/06/2018 TAYLOR A Primary TAYLOR A MACEDOB: [place] [facility] [id number] Insurance:MEDICARE [id number] [facility] Hospital Center BPolicy Number: Repository [place] [id number]: (330) Date:2018-10-06 [id number] () 10/06/2018 Secondary TAYLOR A MACEDOB: [place] [facility] Insurance:[facility] [id number] Hospital SUPPLEMENT INSPolicy Repository Number: [id number] Date:9859-12-60IBHBA SENIOR SUPPLEMENT [address] [place] [address]RL: 10/06/2018 Tertiary NOT GIVENUNK [place] [facility] Insurance:SELF PAY Hospital INSURANCEPolicy Repository Number: Effective Date:2018-10-06 10/06/2018 TAYLOR A Primary TAYLOR A MACEDOB: [place] [facility] [id number] Insurance:MEDICARE [id number] [facility] A BPolicy Number: Repository justyna TAYLOR [id number]: (330) Date:2018-10-06 [phone] (HP) 10/06/2018 Secondary TAYLOR A MACEDOB: [place] [facility] Insurance:[facility] [id number] Hospital SUPPLEMENT INSPolicy Repository Number: [id number] Date:[id number] SENIOR SUPPLEMENT IN[address] [place] [address]LB: 10/06/2018 Tertiary NOT GIVENUNK [place] [facility] Insurance:SELF PAY Hospital INSURANCEPolicy Repository Number: Effective Date:2018-10-06 09/09/2018 TAYLOR A Primary TAYLOR A MACEDOB: [place] [facility] [id number] Insurance:MEDICARE [id number] [facility] Medical Center A BPolicy Number: Repository justyna TAYLOR [id number]: (330) Date:2018-09-021849 (HP) 09/09/2018 Secondary TAYLOR A MACEDOB: [place] [facility] Insurance:[facility] [id number] Hospital SUPPLEMENT INSPolicy Repository Number: [id number] Date:3693-22-06TPFJX SENIOR SUPPLEMENT IN[address]O [address] [place] [address]CB: 09/09/2018 Tertiary NOT GIVENUNK [place] [facility] Insurance:SELF PAY Hospital INSURANCEPolicy Repository Number: Effective Date:2018-09-07 08/03/2018 TAYLOR A Primary TAYLOR A MACEDOB: [place] [facility] [id number] Insurance:MEDICARE [id number] Regional Medical Center PART A BPolicy Number: Repository justyna TAYLOR [id number] [address]Mqo: (330) Date:2018-08-03 [id number] (HP) 08/03/2018 Secondary TAYLOR A MACEDOB: [place] [facility] Insurance:[facility]ETFORMERLY [facility] [id number] Hospital SUPPLEMENT INSPolicy Repository Number: [id number] Date:3496-71-85GQGBZ SENIOR SUPPLEMENT INSPO [address] [place] [address]JZ: 08/03/2018 Tertiary NOT GIVENUNK [place] [facility] Insurance:SELF PAY Hospital INSURANCEPolicy Repository Number: Effective Date:2018-08-03 03/28/2018 TAYLOR A Primary TAYLOR A MACEDOB: [place] [facility] [id number] Insurance:MEDICARE [id number] Regional Medical Center PART A BPolicy Number: Repository [place] [id number]: (330) Date:2018-03-25 [phone] () 03/28/2018 Secondary TAYLOR A MACEDOB: [place] [facility] Insurance:AETFORMERLY MOREHEAD [facility] [id number] [facility] SUPPLEMENT INSPolicy Repository Number: [id number] Date:0723-88-93THEZX SENIOR SUPPLEMENT INSPO [address] [place] [id number]: 03/28/2018 Tertiary NOT GIVENUNK [facility] Insurance:SELF PAY Hospital INSURANCEPolicy Repository Number: Effective Date:2018-03-28 01/31/2018 TAYLOR A Primary TAYLOR A MACEDOB: [facility] [id number] Insurance:MEDICARE [id number] PART A BPolicy Number: [place] [id number]: (330) Date:2018-01-31 [phone] (HP) 01/31/2018 Secondary TAYLOR A MACEDOB: [facility] Insurance:AETFORMERLY [facility] [id number] Hospital SUPPLEMENT INSPolicy Repository Number: [id number] Date:2018-12-36CRYDA SENIOR SUPPLEMENT IN[id number] [place] [id number]: 01/31/2018 Tertiary NOT GIVENUNK [facility] Insurance:SELF PAY Hospital INSURANCEPolicy Repository Number: Effective Date:2018-01-31 01/31/2018 TAYLOR A Primary TAYLOR A MACEDOB: [facility] [id number] Insurance:MEDICARE [id number] PART A BPolicy Number: [place] [id number]: (330) Date:2018-01-31 [phone] (HP) 01/31/2018 Secondary TAYLOR A MACEDOB: [facility] Insurance:[facility] [id number] Hospital SUPPLEMENT INSPolicy Repository Number: [id number] Date:2056-22-63GOWIM SENIOR SUPPLEMENT INSPO [id number] [place] [id number]: 01/31/2018 Tertiary NOT GIVENUNK [facility] Insurance:SELF PAY Hospital INSURANCEPolicy Repository Number: Effective Date:2018-01-31 12/06/2017 TAYLOR A Primary TAYLOR A MACEDOB: [facility] [id number] Insurance:MEDICARE [id number] PART A BPolicy Number: [place] [id number]: (330) Date:2017-12-06 [phone] (HP) 12/06/2017 Secondary TAYLOR A MACEDOB: [facility] Insurance:[facility] [id number] Hospital SUPPLEMENT INSPolicy Repository Number: [id number] Date:1784-00-33NTYRJ SENIOR SUPPLEMENT INSP[id number] [place] [id number]: 12/06/2017 Tertiary NOT GIVENUNK [facility] Insurance:SELF PAY Hospital INSURANCEPolicy Repository Number: Effective Date:2017-12-06 11/18/2017 TAYLOR A Primary TAYLOR A MACEDOB: [facility] [id number] Insurance:MEDICARE [id number] PART A BPolicy Number: [place] [id number]: (330) Date:2017-11-17 [phone] (HP) 11/18/2017 Secondary TAYLOR A MACEDOB: [facility] Insurance:[facility] [id number] Hospital SUPPLEMENT INSPolicy Repository Number: [id number] Date:6949-71-05PEMSL SENIOR SUPPLEMENT INSPO [address] [address]CSFZFXATU, [place] [address]IT: 11/18/2017 Tertiary NOT GIVENLE [facility] Insurance:SELF PAY Hospital INSURANCEPolicy Repository Number: Effective Date:2017-11-17
== END ==
PROVIDERS: Family Provider Family Medicine Geriatric Medicine; PCP Family Medicine Geriatric Medicine; Visit Provider Family Medicine Geriatric Medicine
DX: D68.59 Other primary thrombophilia (principal)
CPT/HCPCS: 36415; 85025

== ENCOUNTER 2018-10-25 16:42 | Inpatient (IN) | payer MEDICARE, OTHER, SELFPAY ==
[2018-10-06 17:37] VITALS: BMI 26.2
[2018-10-25] VITALS (12 sets, daily range): BP systolic 97–135; BP diastolic 70–99; PULSE 106–131; RESP 16–23; TEMP 36.4–36.7; O2SAT 92–96; BMI 26.0; BMI 26.1; BMI 25.7
--- NOTE | 2018-10-25 17:18 | EKG12_ITS ---
Test Reason : SOB Blood Pressure : / mmHG Vent. Rate : 106 BPM Atrial Rate : 106 BPM P-R Int : 154 ms QRS Dur : 094 ms QT Int : 358 ms P-R-T Axes : 067 -35 036 degrees QTc Int : 475 ms Sinus tachycardia Left axis deviation Inferior infarct , age undetermined Abnormal ECG Confirmed by JOSE DURANT, NATHAN ([id number]), newspaper managing editor RADHA MARSH ([id number]) on 10/31/2018 9:52:33 AM Referred By: Omega Ann Confirmed By:NATHAN GARCIA MD
--- NOTE | 2018-10-25 17:19 | CT_ITS ---
We are attempting to reach Mandy Hernández to discuss findings. An addendum with communication details will be sent when the communication is complete. STUDY: CTA CHEST REASON FOR EXAM: Male, 78 years old. Dyspnea and syncope RADIATION DOSAGE (If Supplied By Facility): CTDIvol = ( 21.00 ) mGy, DLP = ( 774.71 ) mGycm TECHNIQUE: The examination was performed with the intravenous administration of 100 ml of Isovue 370 contrast material. Post-processing of the angiographic images was performed, with multiplanar reformation and 3D reconstruction. Individualized dose optimization techniques were used for this CT. COMPARISON: September 2016 FINDINGS: Normal enhancement of the main pulmonary artery and right and left pulmonary arteries. There is extensive intraluminal thrombus involving the main pulmonary arteries which contains sagittal embolus extending into the interlobar vessels bilaterally segmental and subsegmental branches of both lower lobes. There is also clot noted within the branches to both upper lobes. Atherosclerotic changes of the aorta without evidence for aneurysm There is no demonstrated aortic dissection. Heart is enlarged and there is multivessel coronary artery calcification Normal mediastinum. Normal hilar regions. Normal visualized trachea and bronchi. The lungs are well expanded. There is diffuse chronic interstitial and emphysematous change seen bilaterally. Normal pleura. Normal chest wall structures. Dorsal spine demonstrates advanced spondylosis The liver is enlarged and fatty infiltrated. The pulmonary embolic disease has progressed significantly since prior exam CT/CTA Chest W/WO Contrast IMPRESSION: Extensive bilateral pulmonary emboli including saddle embolus. Chronic interstitial emphysematous changes Electronically Signed: Tripp Chen MD at 19:02 EST , Service support ,
[2018-10-25] MEDS: 0.9% Normal Saline 1,000 ML 999 ML IV (17:22)
--- NOTE | 2018-10-25 17:23 | ED.DCSUM_ITS ---
- ER Visit Summary Date of Service: 10/25/18 Chief Complaint: Shortness of breath and syncopal episode History of Present Illness: The patient is a 78 M who presents for shortness of breath, intermittent today. Patient prior to arrival had a syncopal episode. His heard him fall and found him unresponsive. EMS was called. Patient is currently complaining of healing short of breath, nausea and dizziness. He has a history of DVT and PEs for which she is on Coumadin. He recently was admitted at [facility] because of a rectus sheath hematoma. He is now back on his Coumadin for 2 weeks. Patient denies fever, chest pain, abdominal pain, urinary symptoms, diarrhea, or vomiting. He feels he needs to cough up mucus but has been unable to. He takes breathing treatments at home. Physical Examination: Vital signs: afebrile, hemodynamically stable, 88% on nasal cannula General: well nourished, well developed, in moderate distress Skin: warm, dry, no rash, no pallor HEENT: normocephalic and atraumatic; PERRL, EOMI, dry mucous membranes Cardiovascular: Tachycardic rate and rhythm without murmurs, no peripheral edema, 2+ pulses all distal extremities Respiratory: Tachypnea, moderate increased work of breathing, lungs are clear to auscultation bilaterally and diminished globally, no rales, rhonchi or wheezing Abdominal: Abdomen is soft, tender with normoactive bowel sounds, mass noted in the right abdomen with old contusion subcutaneously no guarding or rebound, no masses MSK: Moves all extremities, no deformities, normal strength Neuro: Awake and alert, oriented ?4. No facial droop, sensation and motor function intact and symmetric Test Results: Abnormal Lab Results 10/25/18 10/25/18 10/25/18 16:50 16:54 16:54 WBC 10.6 RBC 4.65 Hgb 14.8 Hct 45.1 MCV 97.0 H MCH 31.8 MCHC 32.8 RDW 13.8 RDW Differential 47.2 H Plt Count 238 MPV 10.1 Immature Gran % (Auto) 1.000 H Neut % (Auto) 63.4 Lymph % (Auto) 19.7 [place] % (Auto) 14.7 H Eos % (Auto) 0.9 Baso % (Auto) 0.3 Absolute Neuts (auto) 6.7 Absolute Lymphs (auto) 2.08 Total Counted Not Reportable Differential Comment SLIDE SCANNED Diff Path Review May foll Platelet Estimate ADEQUATE Anisocytosis RARE Macrocytosis RARE PT 14.4 INR 1.1 APTT 24.8 Sodium 138 Potassium 3.9 Chloride 105 Carbon Dioxide 23.0 Anion Gap 10 BUN 20 H Creatinine 1.30 Estim Creat Clear Calc 49.91 Est GFR (MDRD) Af Amer 69 Est GFR (MDRD) Non-Af 57 L BUN/Creatinine Ratio 15.4 Glucose 144 H Lactic Acid Calcium 9.2 Troponin I < 0.015 B-Natriuretic Peptide 10/25/18 10/25/18 16:54 18:06 WBC RBC Hgb Hct MCV MCH MCHC RDW RDW Differential Plt Count MPV Immature Gran % (Auto) Neut % (Auto) Lymph % (Auto) [place] % (Auto) Eos % (Auto) Baso % (Auto) Absolute Neuts (auto) Absolute Lymphs (auto) Total Counted Differential Comment Diff Path Review Platelet Estimate Anisocytosis Macrocytosis PT INR APTT Sodium Potassium Chloride Carbon Dioxide Anion Gap BUN Creatinine Estim Creat Clear Calc Est GFR (MDRD) Af Amer Est GFR (MDRD) Non-Af BUN/Creatinine Ratio Glucose Lactic Acid 2.6 H Calcium Troponin I B-Natriuretic Peptide 15.7 Clinical Impression(s) from Imaging Studies Chest CTA 10/25/18 17:19 IMPRESSION: Extensive bilateral pulmonary emboli including saddle embolus. Chronic interstitial emphysematous changes Electronically Signed: Tripp Chen MD at 19:02 EST , Service support , ADDENDUM: 10/25/18 191 IMPRESSION: Extensive bilateral pulmonary emboli including saddle embolus. Chronic interstitial emphysematous changes N.B. : The above information has been verbally conveyed by Tripp Chen MD to Mandy Gan MD, on 10/25/2018 19:06:29 (ET). Electronically Signed: Tripp Chen MD at 19:02 EST , Service support , Abdomen/Pelvis CT 10/25/18 17:23 IMPRESSION: 1. Atherosclerotic vascular calcifications. 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 No luminal stenosis, however. 2. Slight decreased size of hematoma in the right rectus abdominis muscle. 3. Fatty metamorphosis of the liver again noted. 4. Gallstones. No CT sign of acute cholecystitis. 5. Small, nonobstructing right renal stones again noted. No hydronephrosis. 6. Colonic diverticulosis without acute diverticulitis. No sign of bowel obstruction. The appendix is normal. 7. Stable fat-containing left inguinal hernia. 8. Stable degenerative changes of the spine as well as chronic central depression of the superior L2 and L3 vertebral endplates. Chronic bilateral L5 pars defects and grade 1 L5-S1 anterolisthesis again noted. Electronically Signed: William Dobbins MD at 18:36 EST , Service support , Brain CT 10/25/18 17:23 IMPRESSION: Chronic involutional changes without evidence of acute intracranial or calvarial abnormality. Electronically Signed: Agustin Zuniga DO at 18:23 EST Tel [phone], Service support , Medications Given Heparin Sodium (Porcine) (Heparin Na) 0 unit IV UD PRN; Protocol Heparin Sodium/Dextrose () 25,000 units in 250 mls @ 10 mls/hr IV .Q25H SAI; Protocol Last Admin: 10/25/18 19:10 Dose: 10 mls/hr Discontinued Medications Albuterol Sulfate (Ventolin Aerosols) 2.5 mg INHALATION Q20M SAI Stop: 10/25/18 18:11 Last Admin: 10/25/18 18:05 Dose: 2.5 mg Admin: 10/25/18 18:05 Dose: 2.5 mg Admin: 10/25/18 18:04 Dose: 2.5 mg Albuterol/Ipratropium (Duoneb) 3 ml INHALATION X1 ONE Stop: 10/25/18 17:19 Last Admin: 10/25/18 18:05 Dose: 3 ml Aspirin (Aspirin) 325 mg PO X1 ONE Stop: 10/25/18 17:42 Last Admin: 10/25/18 18:30 Dose: 325 mg Heparin Sodium (Porcine) (Heparin Na) 4,000 unit IV BOLUS ONE Stop: 10/25/18 18:36 Last Admin: 10/25/18 19:10 Dose: 4,000 unit Sodium Chloride () 1,000 mls @ 999 mls/hr IV .Q1H1M ONE Stop: 10/25/18 18:18 Last Admin: 10/25/18 17:22 Dose: 999 mls/hr Emergency Department Course and Treatment: Patient presents for worsening shortness of breath today with a syncopal episode and associated dizziness. Patient does have history of pulmonary embolism and has been off of his Coumadin due to a rectus sheath hematoma. He states he has been back on Coumadin for 2 weeks, however given his significant history, PE is high on the differential. He also does have COPD, thus COPD exacerbation also on the differential. Patient was started on breathing treatments and had modest improvement in his respiratory effort. CTA of the chest was emergently obtained. Because patient did fall in his syncopal episode, a head CT was also performed and showed no intracranial hemorrhage. Also due to the recent rectus sheath hematoma, CT abdomen and pelvis was performed to evaluate for any possible rebleeding. CTA of the chest was remarkable for large bilateral clot burden. Patient remained hemodynamically stable and maintained an oxygen saturation in the low 90s on nasal cannula. Heparin was started. Given patient's history of the recent rectus sheath hematoma, patient is not a candidate for tPA. Patient currently has no signs of impending hemodynamic collapse. Patient's troponin was negative. EKG showed a sinus tachycardia with Q waves in 3 and aVF but otherwise no ischemic changes. CBC and BMP were unremarkable. Patient had elevated lactate of 2.6, likely more related to his PE rather than underlying sepsis. Patient was discussed with Dr. Seth laboy for further management of bilateral PEs, hypoxia on room air and shortness of breath. Critical care time of 50 minutes for initial evaluation, coordination of care, frequent reassessments, interpretation of CT a of the chest, lab work, discussion with hospitalist and family, documentation. Treatment Plan: [] Disposition: [] Impression: Bilateral pulmonary emboli, hypoxia on room air, shortness of breath This note was generated with Eduvantation software. It may contain incorrect words, spelling, and punctuation that were not noted in review of the chart prior to signing ED Disposition - Plan for ED Patient: [facility]
--- NOTE | 2018-10-25 17:23 | CT_ITS ---
STUDY: CT BRAIN WITHOUT CONTRAST REASON FOR EXAM: Male, 78 years old. Syncope. Dyspnea. RADIATION DOSAGE (If Supplied By Facility): CTDIvol = ( 44.99 ) mGy, DLP = ( 745.49 ) mGycm TECHNIQUE: Transaxial CT imaging of the brain was performed without administration of intravenous contrast material. Individualized dose optimization techniques were used for this CT. COMPARISON: None. FINDINGS: Normal soft tissue structures. Normal calvarium. There is mild cerebral atrophy with widening of the extra-axial spaces and ventricular dilatation. There are areas of decreased attenuation within the white matter tracts of the supratentorial brain, consistent with microvascular disease changes. There are small punctate calcifications of the basal ganglia which are seen in the aging brain as a normal variant. Normal brainstem. Normal cerebellum. There is no intracranial hemorrhage. There are no findings of an acute ischemic infarction. Normal visualized paranasal sinuses. CT/Brain/Head without Contrast IMPRESSION: Chronic involutional changes without evidence of acute intracranial or calvarial abnormality. Electronically Signed: Agustin Zuniga DO at 18:23 EST Tel [phone], Service support ,
--- NOTE | 2018-10-25 17:23 | CT_ITS ---
STUDY: CT ABDOMEN AND PELVIS WITH CONTRAST REASON FOR EXAM: Male, 78 years old. Dyspnea, syncope. RADIATION DOSAGE (If Supplied By Facility): CTDIvol = ( 23.87 ) mGy, DLP = ( 1104.75 ) mGycm TECHNIQUE: Transaxial images were obtained from the dome of the diaphragm to the symphysis pubis without oral contrast. 100 ml of Isovue 370 contrast was administered. Sagittal and coronal images were reconstructed. Individualized dose optimization techniques were used for this CT. COMPARISON: CT abdomen and pelvis with IV contrast October 07, 2018 and without IV contrast February 21, 20172018. FINDINGS: There is a stable band of scarring in the anterior-inferior right lung base. Minor atelectasis now in the posterior right calcified sulcus. The visualized portions of the heart are within normal limits. Liver density is difficult to accurately assess after IV contrast, but there is grossly stable diffuse decreased density consistent with fatty infiltration. The main portal vein diameter is 1.5 mm. There are a few stable gallstones. No mural thickening of the gallbladder nor pericholecystic fluid to suggest acute cholecystitis. Normal spleen. Normal pancreas. Normal bilateral adrenal glands. At least one small nonobstructing calyceal stone again seen in the lower pole of the right kidney, and there may be another nonobstructing stone versus atherosclerotic calcification at the midpole. Punctate calcification also seen within focal cortical scarring at the tip of the lower pole. 10 mm cortical cyst again seen in the lateral lower pole of left kidney. No hydronephrosis. Normal visualized stomach. Normal small intestine. There are stable multiple colonic diverticula consistent with diverticulosis. The appendix is visualized and appears normal. There is diffuse atherosclerotic calcification of the abdominal aorta and iliofemoral arteries. 2.5 x 2.65 cm fusiform ectasia of the proximal mid infrarenal aorta includes mural thrombus or noncalcified plaque along the left posterolateral wall. Normal inferior vena cava. Normal retroperitoneum. Normal urinary bladder. There are prostatic calcifications. Mildly heterogeneous fusiform shaped 12.75 x 3.9 x 9.7 cm hematoma in the right rectus abdominis muscle is slightly decreased in size. There is a stable small umbilical hernia containing fat. There is a stable left-sided inguinal hernia containing adipose tissue. There are stable degenerative changes of the visualized lumbar spine. Central depression of the superior L2 and L3 vertebral endplates, chronic bilateral L5 pars defects, and grade 1 L5-S1 spondylolisthesis are also unchanged. CT/Abdomen/Pelvis W IV Cont ONLY IMPRESSION: 1. Atherosclerotic vascular calcifications. 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 No luminal stenosis, however. 2. Slight decreased size of hematoma in the right rectus abdominis muscle. 3. Fatty metamorphosis of the liver again noted. 4. Gallstones. No CT sign of acute cholecystitis. 5. Small, nonobstructing right renal stones again noted. No hydronephrosis. 6. Colonic diverticulosis without acute diverticulitis. No sign of bowel obstruction. The appendix is normal. 7. Stable fat-containing left inguinal hernia. 8. Stable degenerative changes of the spine as well as chronic central depression of the superior L2 and L3 vertebral endplates. Chronic bilateral L5 pars defects and grade 1 L5-S1 anterolisthesis again noted. Electronically Signed: William Dobbins MD at 18:36 EST , Service support ,
[2018-10-25 17:45] LABS: Absolute Lymphocyte Count 2.08 X10^3/ul (0.83-4.51); Absolute Neutrophil Count 6.7 X10^3/uL (2.0-7.7); Basophil# 0.03 X10^3/uL; Basophil% 0.3 % (0-1); Eosinophils% 0.9 % (0-5); Hematocrit 45.1 % (40-54); Hemoglobin 14.8 g/dl (13.0-16.5); Lymphocyte # 2.08 X10^3/ul (4.0); Lymphocyte % 19.7 % (19-41); Mean Corp Hgb Conc 32.8 g/gl (32-36); Mean Corpuscular Hgb 31.8 pg (27.0-32.0); Mean Platelet Vol. 10.1 fl (6.2-12.0); Monocyte# 1.55 X10^3/uL; Monocyte% 14.7 % (0-10); Neutrophil # 6.68 X10^3/uL (2.7-7.7); Neutrophil % 63.4 % (47-70); Platelet Count 238 K/mm3 (150-450); RBC Distribution Width CV 13.8 % (11.6-14.6); RBC Distribution Width SD 47.2 fl (35.1-43.9); Red Blood Count 4.65 M/mm3 (4.6-6.2); White Blood Count 10.6 K/mm3 (4.4-11.0)
[2018-10-25 17:48] LABS: Differential Indicated SCAN CRITERIA MET; POSITIVE COUNT NO; POSITIVE DIFFERENTIAL YES; POSITIVE MORPHOLOGY NO
[2018-10-25 17:56] LABS: Anion Gap 10 (5-15); BUN 20 mg/dL (7-18); BUN/Creat Ratio 15.4 RATIO (10-20); Calcium,Total 9.2 mg/dL (8.5-10.1); Chloride 105 mmol/L (98-107); EST Glomerular Filtration Rate 57 mL/min (>60); Est Glom Filt Rate - Afr Amer 69 mL/min (>60); Estimated Creatinine Clearance 49.91 ml/min; Glucose 144 mg/dL (74-106); Potassium 3.9 mmol/L (3.5-5.1); Sodium Level 138 mmol/L (136-145)
[2018-10-25] MEDS: Albuterol 2.5 MG/3 ML VIAL.NEB. INHALATION ×3 (18:04→18:05)
[2018-10-25] MEDS: Ipratropium/Albuterol Sulfate 3 ML AMPUL.NEB INHALATION ×2 (18:05→22:50)
[2018-10-25 18:11] LABS: Anisocytosis RARE; Differential Comment SLIDE SCANNED; Macrocytosis RARE; Platelet Estimate ADEQUATE (ADEQ)
[2018-10-25] MEDS: Aspirin 325 MG Tablet PO (18:30)
[2018-10-25 18:31] LABS: BNP,B-Type NATRIURETIC PEPTIDE 15.7 pg/mL (0-100)
[2018-10-25 18:45] LABS: Lactic Acid 2.6 mmol/L (0.4-2.0)
--- NOTE | 2018-10-25 18:45 | ED.RN ---
LAB CALLS WITH CRITICAL RESULT, LACTIC ACID 2.6, DR. MORGAN MADE AWARE.
[2018-10-25 18:48] LABS: International Normalized Ratio 1.1; Prothrombin Time (Protime)PT. 14.4 SECONDS (11.7-14.9)
[2018-10-25 18:49] LABS: Partial Thromboplast Time 24.8 Seconds (24.1-36.2)
[2018-10-25] MEDS: HEPARIN/D5w 25,000 UNITS 25,000 UNITS/250 ML IV.SOLN. 10 UNITS IV (19:10)
[2018-10-25] MEDS: Heparin Injection (Vial) 5,000 UNIT/ML VIAL 4000 UNIT IV (19:10)
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
--- NOTE | 2018-10-25 20:17 | VDLE_ITS ---
Reason For Study: Pulmonary Embolism RIGHT LEFT GSV is normal. GSV is normal. CFV is compressible, spontaneous, phasic, CFV is compressible, spontaneous, phasic, competent and demonstrates normal competent, and demonstrates normal augmentation. augmentation. FV is compressible, spontaneous, phasic, FV is compressible, spontaneous, phasic, competent and demonstrates normal competent and demonstrates normal augmentation. augmentation. POP V is compressible, spontaneous, phasic, POP V is compressible, spontaneous, phasic, competent and demonstrates normal competent and demonstrates normal augmentation. augmentation. T/P Trunk is compressible. T/P Trunk is compressible. PTV is compressible. PTV is compressible. RT PerV is compressible. Acute deep vein thrombosis is noted in the Procedure left peroneal vein. Exam performed portable in patient room. A preliminary report was called and/or faxed to [facility] Nurse. Interpretation Summary Acute deep venous thrombosis left peroneal vein. No evidence for acute deep venous thrombosis right lower extremity Patent and compressible bilateral great saphenous veins Ordering Physician: Omega Ann Referring Physician: Gaston Betts Chi Performed By: Sharri Inman RVT and Student
--- NOTE | 2018-10-25 20:17 | ECHOD_ITS ---
Reason For Study: Emboli Procedure This was a 2D Doppler, Color Flow transthoracic echocardiogram. Exam performed portable in ICU/CCU. Left Ventricle Normal size and thickness. D shaped septum in diastole. The estimated ejection fraction is 65 %. Stage 1 diastolic dysfunction. No regional wall motion abnormalities noted. Right Ventricle Severely dilated right ventricle. Moderately severe global right ventricular systolic dysfunction. Apical RV strain pattern c/w acute pulmonary embolism. Atria Normal left atrium. The right atrium is severely enlarged. Normal atrial septum. Mitral Valve The mitral valve is structurally normal. No prolapse or stenosis seen. Tricuspid Valve Normal tricuspid valve. Trivial tricuspid valve insufficiency. Right ventricular systolic pressure estimated to be 40 mmHg. Mild pulmonary hypertension. Aortic Valve Trisinus/trileaflet aortic valve. Mild focal aortic valve thickening. Pulmonic Valve Normal pulmonic valve. Great Vessels Normal aortic root. Normal arch. Pericardium/Pleural No pericardial effusion. MMode/2D Measurements & Calculations LVIDd: 3.7 cm IVSd: 1.3 cm Ao root diam: 3.8 cm LVIDs: 2.5 cm LVPWd: 1.1 cm LA dimension: 3.3 cm RVDd: 5.2 cm FS: 33.5 % LAV(MOD-bp): 34.7 ml LA A4 area: 13.6 cm2 RA A4 area: 24.0 cm2 LAV(MOD-bp) Indexed: 17.4 ml/m2 LAV(MOD-sp2): 34.9 ml LAV(MOD-sp4): 29.6 ml Time Measurements MV dec time: 0.21 sec Doppler Measurements & Calculations MV E max nino: 56.9 cm/sec Lat Peak E' Nino: 8.6 cm/sec Med Peak E' Nino: 6.8 cm/sec MV A max nino: 101.3 cm/sec E/E' lat: 6.6 E/E' med: 8.4 MV E/A: 0.56 MV V2 max: 104.8 cm/sec MV P1/2t max nino: 55.0 cm/sec Ao V2 max: 134.2 cm/sec MV max P.4 mmHg MV P1/2t: 68.9 msec Ao max P.2 mmHg MV V2 mean: 55.3 cm/sec MV dec slope: 233.6 cm/sec2 Ao V2 mean: 85.5 cm/sec MV mean P.5 mmHg MVA(P1/2t): 3.2 cm2 Ao mean P.5 mmHg MV V2 VTI: 18.0 cm Ao V2 VTI: 22.6 cm LV V1 max: 94.5 cm/sec PA V2 max: 53.9 cm/sec TR max nino: 273.2 cm/sec LV V1 max P.6 mmHg TR max P.9 mmHg LV V1 mean P.6 mmHg LV V1 mean: 58.5 cm/sec LV V1 VTI: 15.2 cm Interpretation Summary The estimated ejection fraction is 65 %. Stage 1 diastolic dysfunction. Severely dilated right ventricle. Moderately severe global right ventricular systolic dysfunction. D shaped septum in diastole. Apical RV strain pattern c/w acute pulmonary embolism. The right atrium is severely enlarged. Trivial tricuspid valve insufficiency. Right ventricular systolic pressure estimated to be 40 mmHg. At least mild pulmonary hypertension; may be underestimated. Compared to echo report dated 05/30/2014, LV function has remained the same, but RV is now severely enlarged. D/w Dr Blanco. Ordering Physician: Omega Ann Referring Physician: Omega Ann Performed By: Aaron Correia RCS
[2018-10-25] MEDS: Lisinopril 20 MG Tablet PO (20:59)
[2018-10-25] MEDS: hydroCHLOROthiazide 12.5mg 12.5 MG PO (20:59)
[2018-10-25] MEDS: 0.9% Normal Saline 1,000 ML 75 ML IV (20:59)
[2018-10-25 22:11] LABS: Reflex Lactate? Y
[2018-10-25 23:29] LABS: Lactic Acid 4.1 mmol/L (0.4-2.0)
[2018-10-26] VITALS (40 sets, daily range): BP systolic 78–156; BP diastolic 50–92; PULSE 79–129; RESP 13–27; TEMP 36.3–37.6; O2SAT 86–100
[2018-10-26 01:31] LABS: Partial Thromboplast Time 38.5 Seconds (24.1-36.2)
[2018-10-26] MEDS: Heparin Injection (Vial) 5,000 UNIT/ML VIAL IV ×2 (01:57→16:40)
[2018-10-26] MEDS: 0.9% Normal Saline 1,000 ML 150 ML IV (05:22)
[2018-10-26] MEDS: Ipratropium/Albuterol Sulfate 3 ML AMPUL.NEB INHALATION ×2 (06:56→12:58)
--- NOTE | 2018-10-26 08:12 | CPS ---
Pt. SOB when I walked into room. Sp02 was 86% on 4L NC. Pt. was breathing heavily through mouth. Expressed discomfort with NC also. Put pt. on low grade Ventri mask at 31% on 6L flow. Sp02 much improved at 94%.
[2018-10-26 08:44] LABS: Partial Thromboplast Time 41.6 Seconds (24.1-36.2)
--- NOTE | 2018-10-26 09:22 | PCM.PROGNOTE ---
Patient Problems: Active and Suspected Problems (Last Reviewed 10/25/18 @ 19:51 by Omega Ann MD) Bilateral pulmonary embolism (Acute) Subjective: Chief complaint: Follow-up after admission for extensive bilateral pulmonary emboli/saddle embolism, acute on chronic hypoxic respiratory failure and lactic acidosis. Patient seen and examined. He mentioned that his breathing is almost the same, no significant improvement. He looked dyspneic and tachypneic. Denied chest pain, palpitation, dizziness or lightheadedness. Denied cough or sputum production. 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 On admission, his INR was 1.1, subtherapeutic. Back in September,, he was admitted for rectus sheath hematoma after he was started on Lovenox bridging for elective colonoscopy. At this time, he is tachycardic, blood pressure stable, tachypneic, pulse ox is 96% on 4 L. - Physical Exam General: Alert, Oriented x3, Cooperative, - - Moderately short of breath, distress. HEENT: Atraumatic, PERRLA, EOMI, Normocephalic Oral: Moist Mucosa, No Gingival or Mucosal Lesions/ Ulcerations Neck: Supple, No JVD, Negative Carotid Bruits, Trachea Midline, Thyroid Normal Size and Texture Lungs: Clear to auscultation, No rhonchi, No wheeze, No rales, Diminished, - - Decreased breath sounds at the bases, otherwise clear. Cardiovascular: Regular rate, Regular Rhythm, Normal S1, Normal S2, No murmurs, PMI Normal, Tachycardic Abdomen: Bowel Sounds Present, Non Tender, No Hepato-splenomegaly, - - Large anterior abdominal wall firm mass at the mid abdomen, mainly on the right side to the midline, measuring about 15 x 50 cm, nontender with overlying bruises. Extremities: No clubbing, No cyanosis, No edema Skin: No rashes, No breakdown Lymphatic: No Cervical, Supraclavicular, or Inguinal Adenopathy Neurological: Cranial nerves II-XII grossly intact, Motor Exam 5/5 strength throughout Psych/Mental Status: Normal Affect, Appropriate, Alert and oriented to time, place, person, mood and affect Vital Signs Temp Pulse Resp BP Pulse Ox 97.4 F L 109 H 20 H 131/85 H 96 10/26/18 05:25 10/26/18 09:00 10/26/18 09:00 10/26/18 09:00 10/26/18 09:00 Oxygen Flow Rate (L/min) 4 Oxygen Delivery Method Nasal Cannula Weight: 179 lb 10.828 oz Body Mass Index (BMI) 25.7 Finger Stick Blood Glucose 147 Intake and Output for Last 24 Hours 10/24/18 10/25/18 10/26/18 23:59 23:59 23:59 Intake Total 417.1 / 417.1 891.8 / 891.8 Output Total 325 / 325 400 / 400 Balance 92.1 / 92.1 491.8 / 491.8 Microbiology Past 72 Hours 10/25/18 18:00 Influenza Types A,B Direct FA (DEBRA) - Final Mucosa - Nose Laboratory Tests Past 24 Hrs 10/25/18 10/25/18 10/25/18 16:50 16:54 16:54 WBC 10.6 RBC 4.65 Hgb 14.8 Hct 45.1 MCV 97.0 H MCH 31.8 MCHC 32.8 RDW 13.8 RDW Differential 47.2 H Plt Count 238 MPV 10.1 Immature Gran % (Auto) 1.000 H Neut % (Auto) 63.4 Lymph % (Auto) 19.7 [place] % (Auto) 14.7 H Eos % (Auto) 0.9 Baso % (Auto) 0.3 Absolute Neuts (auto) 6.7 Absolute Lymphs (auto) 2.08 Total Counted Not Reportable Differential Comment SLIDE SCANNED Diff Path Review May foll Platelet Estimate ADEQUATE Anisocytosis RARE Macrocytosis RARE PT 14.4 INR 1.1 APTT 24.8 Sodium 138 Potassium 3.9 Chloride 105 Carbon Dioxide 23.0 Anion Gap 10 BUN 20 H Creatinine 1.30 Estim Creat Clear Calc 49.91 Est GFR (MDRD) Af Amer 69 Est GFR (MDRD) Non-Af 57 L BUN/Creatinine Ratio 15.4 Glucose 144 H Lactic Acid Calcium 9.2 Troponin I < 0.015 B-Natriuretic Peptide 10/25/18 10/25/18 10/25/18 16:54 18:06 22:30 WBC RBC Hgb Hct MCV MCH MCHC RDW RDW Differential Plt Count MPV Immature Gran % (Auto) Neut % (Auto) Lymph % (Auto) [place] % (Auto) Eos % (Auto) Baso % (Auto) Absolute Neuts (auto) Absolute Lymphs (auto) Total Counted Differential Comment Diff Path Review Platelet Estimate Anisocytosis Macrocytosis PT INR APTT Sodium Potassium Chloride Carbon Dioxide Anion Gap BUN Creatinine Estim Creat Clear Calc Est GFR (MDRD) Af Amer Est GFR (MDRD) Non-Af BUN/Creatinine Ratio Glucose Lactic Acid 2.6 H 4.1 H* Calcium Troponin I B-Natriuretic Peptide 15.7 10/26/18 10/26/18 01:05 07:45 WBC RBC Hgb Hct MCV MCH MCHC RDW RDW Differential Plt Count MPV Immature Gran % (Auto) Neut % (Auto) Lymph % (Auto) [place] % (Auto) Eos % (Auto) Baso % (Auto) Absolute Neuts (auto) Absolute Lymphs (auto) Total Counted Differential Comment Diff Path Review Platelet Estimate Anisocytosis Macrocytosis PT INR APTT 38.5 H 41.6 H Sodium Potassium Chloride Carbon Dioxide Anion Gap BUN Creatinine Estim Creat Clear Calc Est GFR (MDRD) Af Amer Est GFR (MDRD) Non-Af BUN/Creatinine Ratio Glucose Lactic Acid Calcium Troponin I B-Natriuretic Peptide Clinical Impression(s) from Imaging Studies Chest CTA 10/25/18 17:19 IMPRESSION: Extensive bilateral pulmonary emboli including saddle embolus. Chronic interstitial emphysematous changes Electronically Signed: Tripp Chen MD at 19:02 EST , Service support , ADDENDUM: 10/25/18 1914 IMPRESSION: Extensive bilateral pulmonary emboli including saddle embolus. Chronic interstitial emphysematous changes N.B. : The above information has been verbally conveyed by Tripp Chen MD to Mandy Gan MD, on 10/25/2018 19:06:29 (ET). Electronically Signed: Tripp Chen MD at 19:02 EST , Service support , Abdomen/Pelvis CT 10/25/18 17:23 IMPRESSION: 1. Atherosclerotic vascular calcifications. 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 No luminal stenosis, however. 2. Slight decreased size of hematoma in the right rectus abdominis muscle. 3. Fatty metamorphosis of the liver again noted. 4. Gallstones. No CT sign of acute cholecystitis. 5. Small, nonobstructing right renal stones again noted. No hydronephrosis. 6. Colonic diverticulosis without acute diverticulitis. No sign of bowel obstruction. The appendix is normal. 7. Stable fat-containing left inguinal hernia. 8. Stable degenerative changes of the spine as well as chronic central depression of the superior L2 and L3 vertebral endplates. Chronic bilateral L5 pars defects and grade 1 L5-S1 anterolisthesis again noted. Electronically Signed: William Dobbins MD at 18:36 EST , Service support , Brain CT 10/25/18 17:23 IMPRESSION: Chronic involutional changes without evidence of acute intracranial or calvarial abnormality. Electronically Signed: Agustin Zuniga DO at 18:23 EST Tel [phone], Service support , Medical Necessity - Tobacco Use Smoking Status: Former smoker Tobacco Use: Cigarettes, Cigars Assessment/Plan All Active Problems (Last Reviewed 10/25/18 @ 19:51 by Omega Ann MD) Positive colorectal cancer screening using DNA-based stool test (Acute) Hematoma of rectus sheath (Acute) Coagulopathy (Acute) Bilateral pulmonary embolism (Acute) This is a 78 years old male patient presented to the emergency room because of shortness of breath and syncopal episode, found to have extensive bilateral pulmonary emboli with saddle embolus on CTA chest, 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 #1 acute extensive bilateral pulmonary emboli/saddle embous: He is on IV heparin drip. CTA chest reviewed. Patient is dyspneic and tachypneic, tachycardic, blood pressure stable. EKG reviewed, revealed sinus tachycardia, otherwise normal. His lactic acid is elevated likely because of the hypoxia, I doubt any infectious process. 2D echocardiogram ordered. Plan: Transfer to ICU, serial cardiac enzymes, continue IV heparin drip, critical care consult. #2 acute on chronic hypoxic respiratory failure: Patient has been on oxygen secondary to COPD. At this time, he is on oxygen up to 4 L, dyspneic and tachypneic. It is secondary to above. Plan for bronchodilators, continue IV heparin drip as above. #3 acute DVT of the left peroneal vein: He is on IV heparin drip as above. Upon admission, INR 1.1, subcapital. #4 recent history of rectus sheath hematoma: This occurred when he was started on Lovenox bridging for colonoscopy on September,, he developed the rectus sheath hematoma. On examination, he does have large anterior abdominal hematoma. 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 Plan for clinical monitoring monitoring, repeat CBC tomorrow morning. #5 lactic acidosis: This is likely because of tissue hypoxemia. I doubt any infectious process. Patient is afebrile, no leukocytosis. Plan to treat underlying extensive PEs. #6 protein C deficiency: On lifelong Coumadin, INR was therapeutic upon admission. Plan as above. #7 COPD/chronic respiratory failure: Continue DuoNeb every 6 hours, albuterol as needed, incentive spirometer, oxygen by nasal cannula as above. #9 hypertension: Blood pressure stable, continue HCTZ and lisinopril. #10 DVT prophylaxis: He is on IV heparin drip. This note was generated with [employer] dictation software. It may contain incorrect words, spelling, and punctuation that were not noted in checking the note before signing. Code Visit Inpatient E&M: 37652 Subs Hosp L3
--- NOTE | 2018-10-26 09:26 | PN_ITS ---
Patient Problems: Active and Suspected Problems (Last Reviewed 10/25/18 @ 19:51 by Omega Ann MD) Bilateral pulmonary embolism (Acute) Subjective: Chief complaint: Follow-up after admission for extensive bilateral pulmonary emboli/saddle embolism, acute on chronic hypoxic respiratory failure and lactic acidosis. Patient seen and examined. He mentioned that his breathing is almost the same, no significant improvement. He looked dyspneic and tachypneic. Denied chest pain, palpitation, dizziness or lightheadedness. Denied cough or sputum production. 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 On admission, his INR was 1.1, subtherapeutic. Back in September,, he was admitted for rectus sheath hematoma after he was started on Lovenox bridging for elective colonoscopy. At this time, he is tachycardic, blood pressure stable, tachypneic, pulse ox is 96% on 4 L. - Physical Exam General: Alert, Oriented x3, Cooperative, - - Moderately short of breath, distress. HEENT: Atraumatic, PERRLA, EOMI, Normocephalic Oral: Moist Mucosa, No Gingival or Mucosal Lesions/ Ulcerations Neck: Supple, No JVD, Negative Carotid Bruits, Trachea Midline, Thyroid Normal Size and Texture Lungs: Clear to auscultation, No rhonchi, No wheeze, No rales, Diminished, - - Decreased breath sounds at the bases, otherwise clear. Cardiovascular: Regular rate, Regular Rhythm, Normal S1, Normal S2, No murmurs, PMI Normal, Tachycardic Abdomen: Bowel Sounds Present, Non Tender, No Hepato-splenomegaly, - - Large anterior abdominal wall firm mass at the mid abdomen, mainly on the right side to the midline, measuring about 15 x 50 cm, nontender with overlying bruises. Extremities: No clubbing, No cyanosis, No edema Skin: No rashes, No breakdown Lymphatic: No Cervical, Supraclavicular, or Inguinal Adenopathy Neurological: Cranial nerves II-XII grossly intact, Motor Exam 5/5 strength throughout Psych/Mental Status: Normal Affect, Appropriate, Alert and oriented to time, place, person, mood and affect Vital Signs Temp Pulse Resp BP Pulse Ox 97.4 F L 109 H 20 H 131/85 H 96 10/26/18 05:25 10/26/18 09:00 10/26/18 09:00 10/26/18 09:00 10/26/18 09:00 Oxygen Flow Rate (L/min) 4 Oxygen Delivery Method Nasal Cannula Weight: 179 lb 10.828 oz Body Mass Index (BMI) 25.7 Finger Stick Blood Glucose 147 Intake and Output for Last 24 Hours 10/24/18 10/25/18 10/26/18 23:59 23:59 23:59 Intake Total 417.1 / 417.1 891.8 / 891.8 Output Total 325 / 325 400 / 400 Balance 92.1 / 92.1 491.8 / 491.8 Microbiology Past 72 Hours 10/25/18 18:00 Influenza Types A,B Direct FA (DEBRA) - Final Mucosa - Nose Laboratory Tests Past 24 Hrs 10/25/18 10/25/18 10/25/18 16:50 16:54 16:54 WBC 10.6 RBC 4.65 Hgb 14.8 Hct 45.1 MCV 97.0 H MCH 31.8 MCHC 32.8 RDW 13.8 RDW Differential 47.2 H Plt Count 238 MPV 10.1 Immature Gran % (Auto) 1.000 H Neut % (Auto) 63.4 Lymph % (Auto) 19.7 [place] % (Auto) 14.7 H Eos % (Auto) 0.9 Baso % (Auto) 0.3 Absolute Neuts (auto) 6.7 Absolute Lymphs (auto) 2.08 Total Counted Not Reportable Differential Comment SLIDE SCANNED Diff Path Review May foll Platelet Estimate ADEQUATE Anisocytosis RARE Macrocytosis RARE PT 14.4 INR 1.1 APTT 24.8 Sodium 138 Potassium 3.9 Chloride 105 Carbon Dioxide 23.0 Anion Gap 10 BUN 20 H Creatinine 1.30 Estim Creat Clear Calc 49.91 Est GFR (MDRD) Af Amer 69 Est GFR (MDRD) Non-Af 57 L BUN/Creatinine Ratio 15.4 Glucose 144 H Lactic Acid Calcium 9.2 Troponin I < 0.015 B-Natriuretic Peptide 10/25/18 10/25/18 10/25/18 16:54 18:06 22:30 WBC RBC Hgb Hct MCV MCH MCHC RDW RDW Differential Plt Count MPV Immature Gran % (Auto) Neut % (Auto) Lymph % (Auto) [place] % (Auto) Eos % (Auto) Baso % (Auto) Absolute Neuts (auto) Absolute Lymphs (auto) Total Counted Differential Comment Diff Path Review Platelet Estimate Anisocytosis Macrocytosis PT INR APTT Sodium Potassium Chloride Carbon Dioxide Anion Gap BUN Creatinine Estim Creat Clear Calc Est GFR (MDRD) Af Amer Est GFR (MDRD) Non-Af BUN/Creatinine Ratio Glucose Lactic Acid 2.6 H 4.1 H* Calcium Troponin I B-Natriuretic Peptide 15.7 10/26/18 10/26/18 01:05 07:45 WBC RBC Hgb Hct MCV MCH MCHC RDW RDW Differential Plt Count MPV Immature Gran % (Auto) Neut % (Auto) Lymph % (Auto) [place] % (Auto) Eos % (Auto) Baso % (Auto) Absolute Neuts (auto) Absolute Lymphs (auto) Total Counted Differential Comment Diff Path Review Platelet Estimate Anisocytosis Macrocytosis PT INR APTT 38.5 H 41.6 H Sodium Potassium Chloride Carbon Dioxide Anion Gap BUN Creatinine Estim Creat Clear Calc Est GFR (MDRD) Af Amer Est GFR (MDRD) Non-Af BUN/Creatinine Ratio Glucose Lactic Acid Calcium Troponin I B-Natriuretic Peptide Clinical Impression(s) from Imaging Studies Chest CTA 10/25/18 17:19 IMPRESSION: Extensive bilateral pulmonary emboli including saddle embolus. Chronic interstitial emphysematous changes Electronically Signed: Tripp Chen MD at 19:02 EST , Service support , ADDENDUM: 10/25/18 1914 IMPRESSION: Extensive bilateral pulmonary emboli including saddle embolus. Chronic interstitial emphysematous changes N.B. : The above information has been verbally conveyed by Tripp Chen MD to Mandy Gan MD, on 10/25/2018 19:06:29 (ET). Electronically Signed: Tripp Chen MD at 19:02 EST , Service support , Abdomen/Pelvis CT 10/25/18 17:23 IMPRESSION: 1. Atherosclerotic vascular calcifications. 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 No luminal stenosis, however. 2. Slight decreased size of hematoma in the right rectus abdominis muscle. 3. Fatty metamorphosis of the liver again noted. 4. Gallstones. No CT sign of acute cholecystitis. 5. Small, nonobstructing right renal stones again noted. No hydronephrosis. 6. Colonic diverticulosis without acute diverticulitis. No sign of bowel obstruction. The appendix is normal. 7. Stable fat-containing left inguinal hernia. 8. Stable degenerative changes of the spine as well as chronic central depression of the superior L2 and L3 vertebral endplates. Chronic bilateral L5 pars defects and grade 1 L5-S1 anterolisthesis again noted. Electronically Signed: William Dobbins MD at 18:36 EST , Service support , Brain CT 10/25/18 17:23 IMPRESSION: Chronic involutional changes without evidence of acute intracranial or calvarial abnormality. Electronically Signed: Agustin Zuniga DO at 18:23 EST Tel [phone], Service support , Medical Necessity - Tobacco Use Smoking Status: Former smoker Tobacco Use: Cigarettes, Cigars Assessment/Plan All Active Problems (Last Reviewed 10/25/18 @ 19:51 by Omega Ann MD) Positive colorectal cancer screening using DNA-based stool test (Acute) Hematoma of rectus sheath (Acute) Coagulopathy (Acute) Bilateral pulmonary embolism (Acute) This is a 78 years old male patient presented to the emergency room because of shortness of breath and syncopal episode, found to have extensive bilateral pulmonary emboli with saddle embolus on CTA chest, 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 #1 acute extensive bilateral pulmonary emboli/saddle embous: He is on IV heparin drip. CTA chest reviewed. Patient is dyspneic and tachypneic, tachycardic, blood pressure stable. EKG reviewed, revealed sinus tachycardia, otherwise normal. His lactic acid is elevated likely because of the hypoxia, I doubt any infectious process. 2D echocardiogram ordered. Plan: Transfer to ICU, serial cardiac enzymes, continue IV heparin drip, critical care consult. #2 acute on chronic hypoxic respiratory failure: Patient has been on oxygen secondary to COPD. At this time, he is on oxygen up to 4 L, dyspneic and tachypneic. It is secondary to above. Plan for bronchodilators, continue IV heparin drip as above. #3 acute DVT of the left peroneal vein: He is on IV heparin drip as above. Upon admission, INR 1.1, subcapital. #4 recent history of rectus sheath hematoma: This occurred when he was started on Lovenox bridging for colonoscopy on September,, he developed the rectus sheath hematoma. On examination, he does have large anterior abdominal hematoma. 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 Plan for clinical monitoring monitoring, repeat CBC tomorrow morning. #5 lactic acidosis: This is likely because of tissue hypoxemia. I doubt any infectious process. Patient is afebrile, no leukocytosis. Plan to treat underlying extensive PEs. #6 protein C deficiency: On lifelong Coumadin, INR was therapeutic upon admission. Plan as above. #7 COPD/chronic respiratory failure: Continue DuoNeb every 6 hours, albuterol as needed, incentive spirometer, oxygen by nasal cannula as above. #9 hypertension: Blood pressure stable, continue HCTZ and lisinopril. #10 DVT prophylaxis: He is on IV heparin drip. This note was generated with iWelcome dictation software. It may contain incorrect words, spelling, and punctuation that were not noted in checking the note before signing. Code Visit Inpatient E&M: 04524 Subs Hosp L3
--- NOTE | 2018-10-26 10:00 | NURSING ---
In ICU 1 per bed from PCU, [employer] INTERN in attendance.
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
[2018-10-26] MEDS: hydroCHLOROthiazide 12.5mg 12.5 MG PO (12:01)
[2018-10-26 12:41] LABS: Pathologist Review Reviewed
[2018-10-26] MEDS: Haloperidol Lactate 5 MG/ML Vial IV (13:30)
--- NOTE | 2018-10-26 13:44 | CASEMGMT ---
TOD KATHLEEN assessment: Face to Face with patient for initial transition planning/care coordination assessment. TOD KATHLEEN introduced self and role at [facility], pt voices understanding and consents to assessment at this time. Pt is sitting up in bed in no distress at this time. Pt is A/Ox4 at this time and answers all questions appropriately at this time. Care providers, pharmacy, and demographics verified at this time. PCP: Alpesh Specialists: Aron Camacho Pharmacy: [facility] Insurance: [employer] A/B, [facility] Prescription Benefit: Yes Living Will/HPOA: Pt states has LW/HPOA and they are on file at [facility] at this time. Pt states his sister, Moriah, is HPOA. LNOK: Moriah Peña, sister; Rodrigo Alcantara, brother Living Arrangements: Pt states lives with in a ranch style home with only 2 steps and states no concerns at home at this time. Pt states they just built the home to be more accessible. Transportation: Pt states drives self and states no transportation concerns at this time. DME/HHC: Pt states has the following DME: walker, nebulizer and home oxygen thru [employer]. Pt states he has only been using 2.5liters prn. Pt states is working on getting new grab bars in shower. Pt states does not have hx of HHC or SNF in the past. Pt states some anxiety with going home at time of discharge but states 'I won't be going to a fpc if I can help it.' Pt is retired. Pt states quit smoking in 1986 and does not drink ETOH. Pt states no further concerns/needs at this time. CM to follow PT/OT evals and for any further discharge planning/needs. Advised pt to ask for CM if any further questions/concerns/needs arise, voices understanding. Plan: Home, pending PT/OT evals. S[place] TOD KATHLEEN
[2018-10-26] MEDS: Lisinopril 20 MG Tablet PO (13:47)
[2018-10-26 15:12] LABS: Hematocrit 41.9 % (40-54); Hemoglobin 13.5 g/dl (13.0-16.5)
[2018-10-26 15:17] LABS: Partial Thromboplast Time 39.8 Seconds (24.1-36.2)
[2018-10-26] MEDS: HEPARIN/D5w 25,000 UNITS 25,000 UNITS/250 ML IV.SOLN. 10 UNITS IV (16:33)
[2018-10-26] MEDS: 0.9% NaCl Peripheral Flush Adult/Peds IV (16:35)
--- NOTE | 2018-10-26 18:34 | NURSING ---
education re chronic illness deferred till acute illness resolving
[2018-10-26] MEDS: 0.9% Normal Saline 1,000 ML 75 ML IV (21:06)
[2018-10-26 23:02] LABS: Partial Thromboplast Time 47.7 Seconds (24.1-36.2)
[2018-10-27] VITALS (32 sets, daily range): BP systolic 82–153; BP diastolic 57–94; PULSE 96–123; RESP 16–27; TEMP 36.9–37.4; O2SAT 89–98
[2018-10-27 05:29] LABS: Absolute Lymphocyte Count 1.22 X10^3/ul (0.83-4.51); Absolute Neutrophil Count 6.8 X10^3/uL (2.0-7.7); Basophil# 0.02 X10^3/uL; Basophil% 0.2 % (0-1); Eosinophil# 0.11 X10^3/uL; Eosinophils% 1.2 % (0-5); Hemoglobin 12.6 g/dl (13.0-16.5); Lymphocyte # 1.22 X10^3/ul (4.0); Lymphocyte % 12.9 % (19-41); Mean Corp Hgb Conc 31.5 g/gl (32-36); Mean Corpuscular Hgb 30.9 pg (27.0-32.0); Mean Platelet Vol. 10.2 fl (6.2-12.0); Monocyte# 1.26 X10^3/uL; Monocyte% 13.4 % (0-10); Neutrophil # 6.75 X10^3/uL (2.7-7.7); Neutrophil % 71.6 % (47-70); Platelet Count 194 K/mm3 (150-450); RBC Distribution Width SD 48.3 fl (35.1-43.9); Red Blood Count 4.08 M/mm3 (4.6-6.2); White Blood Count 9.4 K/mm3 (4.4-11.0)
[2018-10-27 05:30] LABS: POSITIVE COUNT NO; POSITIVE DIFFERENTIAL NO; POSITIVE MORPHOLOGY NO
[2018-10-27 05:36] LABS: Partial Thromboplast Time 24.5 Seconds (24.1-36.2)
[2018-10-27 05:41] LABS: Anion Gap 9 (5-15); BUN 14 mg/dL (7-18); BUN/Creat Ratio 13.2 RATIO (10-20); Calcium,Total 8.6 mg/dL (8.5-10.1); Chloride 111 mmol/L (98-107); Creatinine, Serum 1.06 mg/dL (0.70-1.30); EST Glomerular Filtration Rate 72 mL/min (>60); Est Glom Filt Rate - Afr Amer 87 mL/min (>60); Estimated Creatinine Clearance 61.22 ml/min; Glucose 137 mg/dL (74-106); Potassium 4.2 mmol/L (3.5-5.1); Sodium Level 143 mmol/L (136-145)
[2018-10-27] MEDS: HEPARIN/D5w 25,000 UNITS 25,000 UNITS/250 ML IV.SOLN. 10 UNITS IV ×2 (05:46→19:29)
[2018-10-27] MEDS: Heparin Injection (Vial) 5,000 UNIT/ML VIAL IV (05:47)
[2018-10-27] MEDS: Ipratropium/Albuterol Sulfate 3 ML AMPUL.NEB INHALATION ×3 (07:21→19:24)
--- NOTE | 2018-10-27 08:40 | PN_ITS ---
Patient Problems: Active and Suspected Problems (Last Reviewed 10/25/18 @ 19:51 by Omega Ann MD) Bilateral pulmonary embolism (Acute) Subjective: Chief complaint: Follow-up after admission for extensive bilateral pulmonary emboli/saddle embolism, acute on chronic hypoxic respiratory failure and lactic acidosis. Patient seen and examined. No acute events overnight. He reported some improvement of his shortness of breath of the he is requiring more oxygen. Denied chest pain, palpitation, dizziness or lightheadedness. Denied increasing abdominal pain, nausea or vomiting. He has been afebrile, tachycardic, blood pressure is on the lower side, pulse ox is 95% on 5 L. - Physical Exam General: Alert, Oriented x3, Cooperative, - - Moderately short of breath. HEENT: Atraumatic, PERRLA, EOMI, Normocephalic Oral: Moist Mucosa, No Gingival or Mucosal Lesions/ Ulcerations Neck: Supple, No JVD, Negative Carotid Bruits, Trachea Midline, Thyroid Normal Size and Texture Lungs: Clear to auscultation, No wheeze, No rales, Diminished, Rhonchi Cardiovascular: Regular rate, Regular Rhythm, Normal S1, Normal S2, PMI Normal, Tachycardic Abdomen: Bowel Sounds Present, Soft, Non Tender, Non-Distended, - - Today, abdomen is more softer, less firm than yesterday, rectus sheath hematoma is decreasing in size. Extremities: No clubbing, No cyanosis, No edema Skin: No rashes, No breakdown Lymphatic: No Cervical, Supraclavicular, or Inguinal Adenopathy Neurological: Cranial nerves II-XII grossly intact, Neuro grossly intact Psych/Mental Status: Normal Affect, Appropriate, Alert and oriented to time, place, person, mood and affect Vital Signs Temp Pulse Resp BP Pulse Ox 98.8 F 102 H 16 88/69 L 95 10/27/18 04:00 10/27/18 07:21 10/27/18 07:21 10/27/18 06:00 10/27/18 07:21 Oxygen Flow Rate (L/min) 5 Oxygen Delivery Method Nasal Cannula Weight: 182 lb 1.629 oz Body Mass Index (BMI) 25.7 Finger Stick Blood Glucose 147 Intake and Output for Last 24 Hours 10/25/18 10/26/18 10/27/18 23:59 23:59 23:59 Intake Total 417.1 / 417.1 3171.8 / 3171.8 511 / 511 Output Total 325 / 325 1400 / 1400 200 / 200 Balance 92.1 / 92.1 1771.8 / 1771.8 311 / 311 Microbiology Past 72 Hours 10/25/18 18:00 Influenza Types A,B Direct FA (DEBRA) - Final Mucosa - Nose Laboratory Tests Past 24 Hrs 10/25/18 10/26/18 10/26/18 16:54 07:45 15:00 WBC RBC Hgb Hct MCV MCH MCHC RDW RDW Differential Plt Count MPV Immature Gran % (Auto) Neut % (Auto) Lymph % (Auto) [place] % (Auto) Eos % (Auto) Baso % (Auto) Absolute Neuts (auto) Absolute Lymphs (auto) Total Counted Diff Path Review Reviewed APTT 41.6 H 39.8 H Sodium Potassium Chloride Carbon Dioxide Anion Gap BUN Creatinine Estim Creat Clear Calc Est GFR (MDRD) Af Amer Est GFR (MDRD) Non-Af BUN/Creatinine Ratio Glucose Calcium Troponin I 10/26/18 10/26/18 10/26/18 15:00 15:00 22:35 WBC RBC Hgb 13.5 Hct 41.9 MCV MCH MCHC RDW RDW Differential Plt Count MPV Immature Gran % (Auto) Neut % (Auto) Lymph % (Auto) [place] % (Auto) Eos % (Auto) Baso % (Auto) Absolute Neuts (auto) Absolute Lymphs (auto) Total Counted Diff Path Review APTT 47.7 H Sodium Potassium Chloride Carbon Dioxide Anion Gap BUN Creatinine Estim Creat Clear Calc Est GFR (MDRD) Af Amer Est GFR (MDRD) Non-Af BUN/Creatinine Ratio Glucose Calcium Troponin I 0.163 H 10/27/18 10/27/18 10/27/18 05:10 05:10 05:10 WBC 9.4 RBC 4.08 L Hgb 12.6 L Hct 40.0 MCV 98.0 H MCH 30.9 MCHC 31.5 L RDW 14.0 RDW Differential 48.3 H Plt Count 194 MPV 10.2 Immature Gran % (Auto) 0.700 Neut % (Auto) 71.6 H Lymph % (Auto) 12.9 L [place] % (Auto) 13.4 H Eos % (Auto) 1.2 Baso % (Auto) 0.2 Absolute Neuts (auto) 6.8 Absolute Lymphs (auto) 1.22 Total Counted Not Reportable Diff Path Review APTT 24.5 Sodium 143 Potassium 4.2 Chloride 111 H Carbon Dioxide 23.0 Anion Gap 9 BUN 14 Creatinine 1.06 Estim Creat Clear Calc 61.22 Est GFR (MDRD) Af Amer 87 Est GFR (MDRD) Non-Af 72 BUN/Creatinine Ratio 13.2 Glucose 137 H Calcium 8.6 Troponin I Medical Necessity - Tobacco Use Smoking Status: Former smoker Tobacco Use: Cigarettes, Cigars Assessment/Plan All Active Problems (Last Reviewed 10/25/18 @ 19:51 by Omega Ann MD) Positive colorectal cancer screening using DNA-based stool test (Acute) Hematoma of rectus sheath (Acute) Coagulopathy (Acute) Bilateral pulmonary embolism (Acute) This is a 78 years old male patient presented to the emergency room because of shortness of breath and syncopal episode, found to have extensive bilateral pulmonary emboli with saddle embolus on CTA chest, 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 #1 acute extensive bilateral pulmonary emboli/saddle embous: Remained on IV heparin drip. He is requiring more oxygen, still tachycardic, blood pressure is on the lower side. EKG reviewed, revealed sinus tachycardia, otherwise normal. His lactic acid is elevated likely because of the hypoxia, I doubt any infectious process. 2D echocardiogram revealed ejection fraction of 65%, stage I diastolic dysfunction, severely dilated right ventricle, RVSP of 40 consistent with mild pulmonary hypertension. Initial troponin was negative, repeat troponin was 0.163 and it is likely due to extensive PEs causing heart strain. plan: Continue same treatment. #2 acute on chronic hypoxic respiratory failure: Patient has been on oxygen secondary to COPD. Oxygen record has been increasing, he is up to 6 L of oxygen. It is secondary to above. Plan as above. #3 acute DVT of the left peroneal vein: He is on IV heparin drip as above. Upon admission, INR 1.1, subtherapeutic. #4 recent history of rectus sheath hematoma: On examination, size of the hematoma is decreasing. Patient denies any worsening abdominal pain. Hemoglobin and hematocrit are stable. This hematoma occurred when he was started on Lovenox bridging for colonoscopy on September,, he developed the rectus sheath hematoma. 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 #5 lactic acidosis: This is likely because of tissue hypoxemia. I doubt any infectious process. Patient is afebrile, no leukocytosis. Plan to treat underlying extensive PEs. #6 protein C deficiency: On lifelong Coumadin, INR was therapeutic upon admission. Plan as above. #7 COPD/chronic respiratory failure: Continue DuoNeb every 6 hours, albuterol as needed, incentive spirometer, oxygen by nasal cannula as above. #9 hypertension: Blood pressure has been borderline, will hold HCTZ and lisinopril. #10 DVT prophylaxis: He is on IV heparin drip. This note was generated with [employer] dictation software. It may contain incorrect words, spelling, and punctuation that were not noted in checking the note before signing. Code Visit Inpatient E&M: 78111 Subs Hosp L2
--- NOTE | 2018-10-27 09:05 | CASEMGMT ---
This RN CM participated in multi-disciplinary ICU rounds for pt this am and pt requested that this RN CM cancel his appt this wednesday10/31/[address] Betts's office. Call to Dr. Betts's office and per spa receptionist, pt was to see the nurse for INR check and she states she will cancel this appt at this time. SStjennifer BARON CM
[2018-10-27] MEDS: 0.9% Normal Saline 1,000 ML 75 ML IV ×2 (10:27→21:51)
[2018-10-27 11:29] LABS: Partial Thromboplast Time 50.8 Seconds (24.1-36.2)
--- NOTE | 2018-10-27 12:25 | PN_ITS ---
Subjective: Patient did okay overnight. Patient has been to the bedside and reports less dizziness, but taking it slow. Nursing reports that patient's IV with heparin was found on the floor overnight and repeat PTT was within normal range. No bleeding complications were reported overnight. General: Alert, Oriented x3, Cooperative, No apparent distress, - - Less anxious today. Speaking in full sentences. HEENT: Atraumatic, PERRLA, EOMI, Normocephalic, - - No scleral icterus or injection noted. Oral: Moist Mucosa, No Gingival or Mucosal Lesions/ Ulcerations Neck: Supple, No JVD, No Nodes, Trachea Midline Lungs: No rhonchi, No wheeze, No rales, Diminished Cardiovascular: Regular rate, Regular Rhythm, Normal S1, No murmurs, - - Pronounced S2. Abdomen: Bowel Sounds Present, Soft, Non Tender, Non-Distended, - - No increase in area of induration Extremities: No clubbing, No cyanosis, Capillary Refill Less than 3 Seconds, Edema Skin: - - No significant change compared to previous Musculoskeletal: No Tenderness to Palpation of Joints or Extremities Lymphatic: No Cervical, Supraclavicular, or Inguinal Adenopathy Neurological: Cranial nerves II-XII grossly intact, Neuro grossly intact, Motor Exam 5/5 strength throughout Psych/Mental Status: Alert and oriented to time, place, person, mood and affect Vital Signs Temp Pulse Resp BP Pulse Ox 37.2 C 109 H 22 H 127/75 H 96 10/27/18 08:00 10/27/18 11:43 10/27/18 09:00 10/27/18 09:00 10/27/18 10:00 Oxygen Flow Rate (L/min) 4 Oxygen Delivery Method Nasal Cannula Weight: 82.6 kg Body Mass Index (BMI) 25.7 Finger Stick Blood Glucose 147 Intake and Output for Last 24 Hours 10/25/18 10/26/18 10/27/18 23:59 23:59 23:59 Intake Total 417.1 / 417.1 3171.8 / 3171.8 1055 / 1055 Output Total 325 / 325 1400 / 1400 750 / 750 Balance 92.1 / 92.1 1771.8 / 1771.8 305 / 305 Labs (Last 48 Hours) 10/25/18 10/25/18 10/25/18 16:50 16:54 16:54 WBC 10.6 RBC 4.65 Hgb 14.8 Hct 45.1 MCV 97.0 H MCH 31.8 MCHC 32.8 RDW 13.8 RDW Differential 47.2 H Plt Count 238 MPV 10.1 Immature Gran % (Auto) 1.000 H Neut % (Auto) 63.4 Lymph % (Auto) 19.7 [place] % (Auto) 14.7 H Eos % (Auto) 0.9 Baso % (Auto) 0.3 Absolute Neuts (auto) 6.7 Absolute Lymphs (auto) 2.08 Total Counted Not Reportable Differential Comment SLIDE SCANNED Diff Path Review Reviewed Platelet Estimate ADEQUATE Anisocytosis RARE Macrocytosis RARE PT 14.4 INR 1.1 APTT 24.8 Sodium 138 Potassium 3.9 Chloride 105 Carbon Dioxide 23.0 Anion Gap 10 BUN 20 H Creatinine 1.30 Estim Creat Clear Calc 49.91 Est GFR (MDRD) Af Amer 69 Est GFR (MDRD) Non-Af 57 L BUN/Creatinine Ratio 15.4 Glucose 144 H Lactic Acid Calcium 9.2 Troponin I < 0.015 B-Natriuretic Peptide 10/25/18 10/25/18 10/25/18 16:54 18:06 22:30 WBC RBC Hgb Hct MCV MCH MCHC RDW RDW Differential Plt Count MPV Immature Gran % (Auto) Neut % (Auto) Lymph % (Auto) [place] % (Auto) Eos % (Auto) Baso % (Auto) Absolute Neuts (auto) Absolute Lymphs (auto) Total Counted Differential Comment Diff Path Review Platelet Estimate Anisocytosis Macrocytosis PT INR APTT Sodium Potassium Chloride Carbon Dioxide Anion Gap BUN Creatinine Estim Creat Clear Calc Est GFR (MDRD) Af Amer Est GFR (MDRD) Non-Af BUN/Creatinine Ratio Glucose Lactic Acid 2.6 H 4.1 H* Calcium Troponin I B-Natriuretic Peptide 15.7 10/26/18 10/26/18 10/26/18 01:05 07:45 15:00 WBC RBC Hgb Hct MCV MCH MCHC RDW RDW Differential Plt Count MPV Immature Gran % (Auto) Neut % (Auto) Lymph % (Auto) [place] % (Auto) Eos % (Auto) Baso % (Auto) Absolute Neuts (auto) Absolute Lymphs (auto) Total Counted Differential Comment Diff Path Review Platelet Estimate Anisocytosis Macrocytosis PT INR APTT 38.5 H 41.6 H 39.8 H Sodium Potassium Chloride Carbon Dioxide Anion Gap BUN Creatinine Estim Creat Clear Calc Est GFR (MDRD) Af Amer Est GFR (MDRD) Non-Af BUN/Creatinine Ratio Glucose Lactic Acid Calcium Troponin I B-Natriuretic Peptide 10/26/18 10/26/18 10/26/18 15:00 15:00 22:35 WBC RBC Hgb 13.5 Hct 41.9 MCV MCH MCHC RDW RDW Differential Plt Count MPV Immature Gran % (Auto) Neut % (Auto) Lymph % (Auto) [place] % (Auto) Eos % (Auto) Baso % (Auto) Absolute Neuts (auto) Absolute Lymphs (auto) Total Counted Differential Comment Diff Path Review Platelet Estimate Anisocytosis Macrocytosis PT INR APTT 47.7 H Sodium Potassium Chloride Carbon Dioxide Anion Gap BUN Creatinine Estim Creat Clear Calc Est GFR (MDRD) Af Amer Est GFR (MDRD) Non-Af BUN/Creatinine Ratio Glucose Lactic Acid Calcium Troponin I 0.163 H B-Natriuretic Peptide 10/27/18 10/27/18 10/27/18 05:10 05:10 05:10 WBC 9.4 RBC 4.08 L Hgb 12.6 L Hct 40.0 MCV 98.0 H MCH 30.9 MCHC 31.5 L RDW 14.0 RDW Differential 48.3 H Plt Count 194 MPV 10.2 Immature Gran % (Auto) 0.700 Neut % (Auto) 71.6 H Lymph % (Auto) 12.9 L [place] % (Auto) 13.4 H Eos % (Auto) 1.2 Baso % (Auto) 0.2 Absolute Neuts (auto) 6.8 Absolute Lymphs (auto) 1.22 Total Counted Not Reportable Differential Comment Diff Path Review Platelet Estimate Anisocytosis Macrocytosis PT INR APTT 24.5 Sodium 143 Potassium 4.2 Chloride 111 H Carbon Dioxide 23.0 Anion Gap 9 BUN 14 Creatinine 1.06 Estim Creat Clear Calc 61.22 Est GFR (MDRD) Af Amer 87 Est GFR (MDRD) Non-Af 72 BUN/Creatinine Ratio 13.2 Glucose 137 H Lactic Acid Calcium 8.6 Troponin I B-Natriuretic Peptide 10/27/18 11:10 WBC RBC Hgb Hct MCV MCH MCHC RDW RDW Differential Plt Count MPV Immature Gran % (Auto) Neut % (Auto) Lymph % (Auto) [place] % (Auto) Eos % (Auto) Baso % (Auto) Absolute Neuts (auto) Absolute Lymphs (auto) Total Counted Differential Comment Diff Path Review Platelet Estimate Anisocytosis Macrocytosis PT INR APTT 50.8 H Sodium Potassium Chloride Carbon Dioxide Anion Gap BUN Creatinine Estim Creat Clear Calc Est GFR (MDRD) Af Amer Est GFR (MDRD) Non-Af BUN/Creatinine Ratio Glucose Lactic Acid Calcium Troponin I B-Natriuretic Peptide Microbiology 10/25/18 18:00 Mucosa - Nose Influenza Types A,B Direct FA ([facility]) - Final Medical Necessity - Tobacco Use Smoking Status: Former smoker Tobacco Use: Cigarettes, Cigars Assessment/Plan All Active Problems (Last Reviewed 10/25/18 @ 19:51 by Omega Ann MD) Positive colorectal cancer screening using DNA-based stool test (Acute) Hematoma of rectus sheath (Acute) Coagulopathy (Acute) Bilateral pulmonary embolism (Acute) RECOMMENDATIONS: 1. Continue heparin drip 2. Supplemental oxygen to keep saturations greater than 90% 3. Increase activity as tolerated 4. Bronchodilators as ordered but no steroids at this time 5. Transition to DNR Comfort Care arrest without intubation IMPRESSIONS: 1. Submassive pulmonary embolism secondary to protein C deficiency Echocardiogram shows significant strain on right-sided heart. Patient has been on heparin drip and doing okay overnight. Patient may have longer recovery secondary to protein C deficiency. We will continue with heparin for now. Poss ibly transition to Coumadin therapy Wednesday or Wednesday. Increase activity as tolerated. 2. Rectus sheath hematoma Hematoma appears to be improving clinically. Patient still with some tenderness on palpation, but cutaneous variation indicate probable reabsorption. Will need to watch this closely given patient's need for further anticoagulation. If patient were to develop repeat bleeding, IVC filter may be necessary. Patient is not a good candidate for TPA 3. 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 Patient currently on a heparin drip. Patient does not appear to be in acute exacerbation of COPD, but this may be contributing to hypoxemia. 4. CODE STATUS Discussed with patient at the bedside. Patient does not want to be intubated or receive CPR for any reason. Patient states that he lives with chronic pain and has had family members get intubated. Code Visit Inpatient E&M: 15302 Subs Hosp L3
[2018-10-27 18:58] LABS: Partial Thromboplast Time 62.2 Seconds (24.1-36.2)
[2018-10-27] MEDS: Acetaminophen 325 MG Tablet 650 MG PO (21:48)
[2018-10-28] VITALS (21 sets, daily range): BP systolic 89–131; BP diastolic 52–82; PULSE 88–116; RESP 17–23; TEMP 36.4–37.2; O2SAT 90–100
[2018-10-28 01:06] LABS: Partial Thromboplast Time 73.9 Seconds (24.1-36.2)
[2018-10-28] MEDS: 0.9% NaCl Peripheral Flush Adult/Peds IV ×2 (04:30→04:32)
[2018-10-28 04:48] LABS: Absolute Lymphocyte Count 1.69 X10^3/ul (0.83-4.51); Absolute Neutrophil Count 4.5 X10^3/uL (2.0-7.7); Basophil# 0.03 X10^3/uL; Basophil% 0.4 % (0-1); Eosinophil# 0.21 X10^3/uL; Eosinophils% 2.7 % (0-5); Hemoglobin 11.9 g/dl (13.0-16.5); Lymphocyte # 1.69 X10^3/ul (4.0); Lymphocyte % 21.9 % (19-41); Mean Corp Hgb Conc 32.2 g/gl (32-36); Mean Corpuscular Hgb 31.5 pg (27.0-32.0); Mean Corpuscular Volume 97.9 fL (80-94); Mean Platelet Vol. 10.4 fl (6.2-12.0); Monocyte# 1.16 X10^3/uL; Monocyte% 15.1 % (0-10); Neutrophil # 4.51 X10^3/uL (2.7-7.7); Neutrophil % 58.6 % (47-70); Platelet Count 179 K/mm3 (150-450); RBC Distribution Width CV 13.7 % (11.6-14.6); RBC Distribution Width SD 47.4 fl (35.1-43.9); Red Blood Count 3.78 M/mm3 (4.6-6.2); White Blood Count 7.7 K/mm3 (4.4-11.0)
[2018-10-28 04:56] LABS: POSITIVE COUNT NO; POSITIVE DIFFERENTIAL NO; POSITIVE MORPHOLOGY NO
[2018-10-28 05:05] LABS: Anion Gap 10 (5-15); BUN 13 mg/dL (7-18); BUN/Creat Ratio 13.7 RATIO (10-20); Calcium,Total 8.5 mg/dL (8.5-10.1); Chloride 110 mmol/L (98-107); Creatinine, Serum 0.95 mg/dL (0.70-1.30); EST Glomerular Filtration Rate 82 mL/min (>60); Est Glom Filt Rate - Afr Amer 99 mL/min (>60); Glucose 119 mg/dL (74-106); Magnesium 1.9 mg/dL (1.6-2.6); Phosphorus 2.9 mg/dL (2.5-4.9); Potassium 4.1 mmol/L (3.5-5.1); Sodium Level 144 mmol/L (136-145)
--- NOTE | 2018-10-28 06:38 | PN_ITS ---
Subjective: Patient did well overnight. No acute issues were reported. Patient was able to make it out of the bed to the chair yesterday. No fevers were noted overnight. Patient is still requiring 4-5 L nasal cannula to maintain saturations. No hemodynamic instability has been reported. Patient reports no change in abdominal discomfort. No bleeding complications have been reported. General: Alert, Oriented x3, Cooperative, No apparent distress, Well developed, Well nourished, - - Speaking in full sentences. HEENT: Atraumatic, PERRLA, EOMI, Normocephalic, - - No scleral icterus or injection noted. Oral: Moist Mucosa, No Gingival or Mucosal Lesions/ Ulcerations Neck: Supple, No JVD, No Nodes, Trachea Midline Lungs: No rhonchi, No wheeze, No rales, Diminished, - - Symmetric expansion. No dullness to percussion. Cardiovascular: Regular rate, Regular Rhythm, Normal S1, Normal S2, No murmurs, No rub noted, No Gallop Abdomen: Bowel Sounds Present, Soft, Non Tender, Non-Distended Extremities: No clubbing, No cyanosis, No edema, Capillary Refill Less than 3 Seconds Skin: No rashes, No breakdown, - - Abdomen appears stable compared to previous Musculoskeletal: No Tenderness to Palpation of Joints or Extremities Lymphatic: No Cervical, Supraclavicular, or Inguinal Adenopathy Neurological: Cranial nerves II-XII grossly intact, Neuro grossly intact, Motor Exam 5/5 strength throughout Psych/Mental Status: Alert and oriented to time, place, person, mood and affect Vital Signs Temp Pulse Resp BP Pulse Ox 36.6 C 95 21 H 116/78 97 10/28/18 04:00 10/28/18 05:00 10/28/18 05:00 10/28/18 05:00 10/28/18 05:00 Oxygen Flow Rate (L/min) 5 Oxygen Delivery Method Nasal Cannula Weight: 82.5 kg Body Mass Index (BMI) 25.7 Finger Stick Blood Glucose 147 Intake and Output for Last 24 Hours 10/26/18 10/27/18 10/28/18 23:59 23:59 23:59 Intake Total 3171.8 / 3171.8 1962 / 1962 1451 / 1451 Output Total 1400 / 1400 1200 / 1200 750 / 750 Balance 1771.8 / 1771.8 762 / 762 701 / 701 Labs (Last 48 Hours) 10/25/18 10/26/18 10/26/18 16:54 07:45 15:00 WBC RBC Hgb Hct MCV MCH MCHC RDW RDW Differential Plt Count MPV Immature Gran % (Auto) Neut % (Auto) Lymph % (Auto) [place] % (Auto) Eos % (Auto) Baso % (Auto) Absolute Neuts (auto) Absolute Lymphs (auto) Total Counted Diff Path Review Reviewed APTT 41.6 H 39.8 H Sodium Potassium Chloride Carbon Dioxide Anion Gap BUN Creatinine Estim Creat Clear Calc Est GFR (MDRD) Af Amer Est GFR (MDRD) Non-Af BUN/Creatinine Ratio Glucose Calcium Phosphorus Magnesium Troponin I 10/26/18 10/26/18 10/26/18 15:00 15:00 22:35 WBC RBC Hgb 13.5 Hct 41.9 MCV MCH MCHC RDW RDW Differential Plt Count MPV Immature Gran % (Auto) Neut % (Auto) Lymph % (Auto) [place] % (Auto) Eos % (Auto) Baso % (Auto) Absolute Neuts (auto) Absolute Lymphs (auto) Total Counted Diff Path Review APTT 47.7 H Sodium Potassium Chloride Carbon Dioxide Anion Gap BUN Creatinine Estim Creat Clear Calc Est GFR (MDRD) Af Amer Est GFR (MDRD) Non-Af BUN/Creatinine Ratio Glucose Calcium Phosphorus Magnesium Troponin I 0.163 H 10/27/18 10/27/18 10/27/18 05:10 05:10 05:10 WBC 9.4 RBC 4.08 L Hgb 12.6 L Hct 40.0 MCV 98.0 H MCH 30.9 MCHC 31.5 L RDW 14.0 RDW Differential 48.3 H Plt Count 194 MPV 10.2 Immature Gran % (Auto) 0.700 Neut % (Auto) 71.6 H Lymph % (Auto) 12.9 L [place] % (Auto) 13.4 H Eos % (Auto) 1.2 Baso % (Auto) 0.2 Absolute Neuts (auto) 6.8 Absolute Lymphs (auto) 1.22 Total Counted Not Reportable Diff Path Review APTT 24.5 Sodium 143 Potassium 4.2 Chloride 111 H Carbon Dioxide 23.0 Anion Gap 9 BUN 14 Creatinine 1.06 Estim Creat Clear Calc 61.22 Est GFR (MDRD) Af Amer 87 Est GFR (MDRD) Non-Af 72 BUN/Creatinine Ratio 13.2 Glucose 137 H Calcium 8.6 Phosphorus Magnesium Troponin I 10/27/18 10/27/18 10/28/18 11:10 17:55 00:05 WBC RBC Hgb Hct MCV MCH MCHC RDW RDW Differential Plt Count MPV Immature Gran % (Auto) Neut % (Auto) Lymph % (Auto) [place] % (Auto) Eos % (Auto) Baso % (Auto) Absolute Neuts (auto) Absolute Lymphs (auto) Total Counted Diff Path Review APTT 50.8 H 62.2 H 73.9 H Sodium Potassium Chloride Carbon Dioxide Anion Gap BUN Creatinine Estim Creat Clear Calc Est GFR (MDRD) Af Amer Est GFR (MDRD) Non-Af BUN/Creatinine Ratio Glucose Calcium Phosphorus Magnesium Troponin I 10/28/18 10/28/18 04:30 04:30 WBC 7.7 RBC 3.78 L Hgb 11.9 L Hct 37.0 L MCV 97.9 H MCH 31.5 MCHC 32.2 RDW 13.7 RDW Differential 47.4 H Plt Count 179 MPV 10.4 Immature Gran % (Auto) 1.300 H Neut % (Auto) 58.6 Lymph % (Auto) 21.9 [place] % (Auto) 15.1 H Eos % (Auto) 2.7 Baso % (Auto) 0.4 Absolute Neuts (auto) 4.5 Absolute Lymphs (auto) 1.69 Total Counted Not Reportable Diff Path Review APTT Sodium 144 Potassium 4.1 Chloride 110 H Carbon Dioxide 24.0 Anion Gap 10 BUN 13 Creatinine 0.95 Estim Creat Clear Calc 68.30 Est GFR (MDRD) Af Amer 99 Est GFR (MDRD) Non-Af 82 BUN/Creatinine Ratio 13.7 Glucose 119 H Calcium 8.5 Phosphorus 2.9 Magnesium 1.9 Troponin I Microbiology 10/27/18 10:45 Sputum, Expectorated/Coughed Gram Stain - Final Medical Necessity - Tobacco Use Smoking Status: Former smoker Tobacco Use: Cigarettes, Cigars Assessment/Plan All Active Problems (Last Reviewed 10/25/18 @ 19:51 by Omega Ann MD) Positive colorectal cancer screening using DNA-based stool test (Acute) Hematoma of rectus sheath (Acute) Coagulopathy (Acute) Bilateral pulmonary embolism (Acute) RECOMMENDATIONS: 1. Continue heparin drip, okay to initiate Coumadin from my perspective 2. Supplemental oxygen to keep saturations greater than 90% 3. Increase activity as tolerated 4. Bronchodilators as ordered but no steroids at this time 5. Transition to DNR Comfort Care arrest without intubation 6. Okay to leave the intensive care unit IMPRESSIONS: 1. Submassive pulmonary embolism secondary to protein C deficiency Echocardiogram showed significant strain on right-sided heart. Patient has been on heparin drip and doing okay overnight. Patient may have longer recovery secondary to protein C deficiency. Okay to initiate Coumadin therapy. Increase activity as tolerated. Hemodynamically stable on nasal cannula oxygen. Okay to leave the intensive care unit from my perspective. 2. Rectus sheath hematoma Hematoma appears to be stable clinically. Patient still with some tenderness on palpation, but cutaneous variation indicate probable reabsorption. Will need to watch this closely given patient's need for further anticoagulation. Patient is not a good candidate for TPA 3. 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 Patient currently on a heparin drip. Patient does not appear to be in acute exacerbation of COPD, but this may be contributing to hypoxemia. 4. CODE STATUS Discussed with patient at the bedside. Patient does not want to be intubated or receive CPR for any reason. Patient states that he lives with chronic pain and has had family members get intubated. Code Visit Inpatient E&M: 33662 [facility] Hosp L3
[2018-10-28] MEDS: Ipratropium/Albuterol Sulfate 3 ML AMPUL.NEB INHALATION ×3 (06:46→19:47)
[2018-10-28 07:56] LABS: Partial Thromboplast Time 70.3 Seconds (24.1-36.2)
--- NOTE | 2018-10-28 09:11 | PN_ITS ---
Patient Problems: Active and Suspected Problems (Last Reviewed 10/25/18 @ 19:51 by Omega Ann MD) Bilateral pulmonary embolism (Acute) Subjective: Chief complaint: Follow-up after admission for extensive bilateral pulmonary emboli/saddle embolism, acute on chronic hypoxic respiratory failure and lactic acidosis. Patient seen and examined. No acute events overnight. He is sitting on his chair, eating his breakfast. He reported improvement of his shortness of breath, oxygen, has been decreasing. Denied abdominal pain, nausea or vomiting. He is afebrile, blood pressure and heart rate are stable, pulse ox is 90% on 3 L. - Physical Exam General: Alert, Oriented x3, Cooperative, - - Minimally short of breath. HEENT: Atraumatic, PERRLA, EOMI, Normocephalic Oral: Moist Mucosa, No Gingival or Mucosal Lesions/ Ulcerations Neck: Supple, No JVD, Negative Carotid Bruits, Trachea Midline, Thyroid Normal Size and Texture Lungs: No wheeze, No rales, Diminished, Rhonchi Cardiovascular: Regular rate, Regular Rhythm, Normal S1, Normal S2, PMI Normal Abdomen: Bowel Sounds Present, Soft, Non Tender, Non-Distended, No Hepato-splenomegaly Extremities: No clubbing, No cyanosis, No edema Skin: No rashes, No breakdown Lymphatic: No Cervical, Supraclavicular, or Inguinal Adenopathy Neurological: Cranial nerves II-XII grossly intact, Motor Exam 5/5 strength throughout Psych/Mental Status: Normal Affect, Appropriate, Alert and oriented to time, place, person, mood and affect Vital Signs Temp Pulse Resp BP Pulse Ox 97.9 F 110 H 22 H 102/64 90 10/28/18 04:00 10/28/18 07:04 10/28/18 06:46 10/28/18 06:00 10/28/18 06:46 Oxygen Flow Rate (L/min) 3 Oxygen Delivery Method Nasal Cannula Weight: 181 lb 14.102 oz Body Mass Index (BMI) 25.7 Finger Stick Blood Glucose 147 Intake and Output for Last 24 Hours 10/26/18 10/27/18 10/28/18 23:59 23:59 23:59 Intake Total 3171.8 / 3171.8 1962 / 1961 1451 / 1451 Output Total 1400 / 1400 1200 / 1200 750 / 750 Balance 1771.8 / 1771.8 762 / 762 701 / 701 Microbiology Past 72 Hours 10/27/18 10:45 Gram Stain - Final Sputum, Expectorated/Coughed Respiratory Culture - Preliminary Appears to be normal respiratory juan. Further studies to follow. 10/25/18 18:00 Influenza Types A,B Direct FA ([facility]) - Final Mucosa - Nose Laboratory Tests Past 24 Hrs 10/27/18 10/27/18 10/28/18 11:10 17:55 00:05 WBC RBC Hgb Hct MCV MCH MCHC RDW RDW Differential Plt Count MPV Immature Gran % (Auto) Neut % (Auto) Lymph % (Auto) [place] % (Auto) Eos % (Auto) Baso % (Auto) Absolute Neuts (auto) Absolute Lymphs (auto) Total Counted APTT 50.8 H 62.2 H 73.9 H Sodium Potassium Chloride Carbon Dioxide Anion Gap BUN Creatinine Estim Creat Clear Calc Est GFR (MDRD) Af Amer Est GFR (MDRD) Non-Af BUN/Creatinine Ratio Glucose Calcium Phosphorus Magnesium 10/28/18 10/28/18 10/28/18 04:30 04:30 07:10 WBC 7.7 RBC 3.78 L Hgb 11.9 L Hct 37.0 L MCV 97.9 H MCH 31.5 MCHC 32.2 RDW 13.7 RDW Differential 47.4 H Plt Count 179 MPV 10.4 Immature Gran % (Auto) 1.300 H Neut % (Auto) 58.6 Lymph % (Auto) 21.9 [place] % (Auto) 15.1 H Eos % (Auto) 2.7 Baso % (Auto) 0.4 Absolute Neuts (auto) 4.5 Absolute Lymphs (auto) 1.69 Total Counted Not Reportable APTT 70.3 H Sodium 144 Potassium 4.1 Chloride 110 H Carbon Dioxide 24.0 Anion Gap 10 BUN 13 Creatinine 0.95 Estim Creat Clear Calc 68.30 Est GFR (MDRD) Af Amer 99 Est GFR (MDRD) Non-Af 82 BUN/Creatinine Ratio 13.7 Glucose 119 H Calcium 8.5 Phosphorus 2.9 Magnesium 1.9 Medical Necessity - Tobacco Use Smoking Status: Former smoker Tobacco Use: Cigarettes, Cigars Assessment/Plan All Active Problems (Last Reviewed 10/25/18 @ 19:51 by Omega Ann MD) Positive colorectal cancer screening using DNA-based stool test (Acute) Hematoma of rectus sheath (Acute) Coagulopathy (Acute) Bilateral pulmonary embolism (Acute) This is a 78 years old male patient presented to the emergency room because of shortness of breath and syncopal episode, found to have extensive bilateral pulmonary emboli with saddle embolus on CTA chest, 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 #1 acute extensive bilateral pulmonary emboli/saddle embous: Remained on IV heparin drip. Symptoms improved, he is requiring less oxygen. Blood pressure stable, heart rate is down and improving. 2D echocardiogram revealed ejection fraction of 65%, stage I diastolic dysfunction, severely dilated right ventricle, RVSP of 40 consistent with mild pulmonary hypertension. Plan: Start oral Coumadin, repeat INR tomorrow morning, transfer to PCU. #2 acute on chronic hypoxic respiratory failure: Patient has been on oxygen secondary to COPD. Oxygen requirement has been decreasing, he is down to 3 L. #3 acute DVT of the left peroneal vein: He is on IV heparin drip as above. Upon admission, INR 1.1, subtherapeutic. Plan as above. #4 recent history of rectus sheath hematoma: On examination, size of the hematoma is decreasing. Patient denies any worsening abdominal pain. Hemoglobin and hematocrit are stable. This hematoma occurred when he was started on Lovenox bridging for colonoscopy on September,, he developed the rectus sheath hematoma. 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 Plan as above. #5 lactic acidosis: This is likely because of tissue hypoxemia. I doubt any infectious process. Patient is afebrile, no leukocytosis. Plan to treat underlying extensive PEs. #6 protein C deficiency: On lifelong Coumadin, INR was therapeutic upon admi ssion. Plan as above. #7 COPD/chronic respiratory failure: Continue DuoNeb every 6 hours, albuterol as needed, incentive spirometer, oxygen by nasal cannula as above. #9 hypertension: Blood pressure stabilized, keep holding HCTZ and lisinopril. #10 DVT prophylaxis: He is on IV heparin drip. This note was generated with [employer] dictation software. It may contain incorrect words, spelling, and punctuation that were not noted in checking the note before signing. Code Visit Inpatient E&M: 62416 Subs Hosp L2
[2018-10-28] MEDS: HEPARIN/D5w 25,000 UNITS 25,000 UNITS/250 ML IV.SOLN. 10 UNITS IV (09:45)
[2018-10-28] MEDS: Acetaminophen 325 MG Tablet 650 MG PO ×2 (13:57→20:02)
[2018-10-28 15:44] LABS: Partial Thromboplast Time 59.1 Seconds (24.1-36.2)
[2018-10-28 21:35] LABS: Partial Thromboplast Time 50.9 Seconds (24.1-36.2)
[2018-10-29] VITALS (13 sets, daily range): BP systolic 106–137; BP diastolic 62–73; PULSE 89–110; RESP 15–20; TEMP 36.4–37.3; O2SAT 94–99
[2018-10-29] MEDS: HEPARIN/D5w 25,000 UNITS 25,000 UNITS/250 ML IV.SOLN. 10 UNITS IV ×2 (01:15→13:25)
[2018-10-29 04:15] LABS: Hematocrit 38.3 % (40-54); Hemoglobin 12.5 g/dl (13.0-16.5)
[2018-10-29 04:18] LABS: International Normalized Ratio 1.1; Prothrombin Time (Protime)PT. 14.5 SECONDS (11.7-14.9)
[2018-10-29 04:19] LABS: Partial Thromboplast Time 65.1 Seconds (24.1-36.2)
--- NOTE | 2018-10-29 07:24 | PCM.PROGNOTE ---
Patient Problems: Active and Suspected Problems (Last Reviewed 10/25/18 @ 19:51 by Omega Ann MD) Bilateral pulmonary embolism (Acute) Subjective: Patient transferred out of the intensive care unit yesterday. Patient states his dizziness with change in body position is much improved compared to previous. Patient is still requiring some nasal cannula oxygen to maintain saturations. No bleeding complications have been reported overnight. - Physical Exam General: Alert, Oriented x3, Cooperative, No apparent distress, - - No conversational dyspnea appreciated. HEENT: Atraumatic, PERRLA, EOMI, Normocephalic, - - No scleral icterus or injection noted. Oral: Moist Mucosa, No Gingival or Mucosal Lesions/ Ulcerations Neck: Supple, No JVD, No Nodes, Trachea Midline Lungs: No rhonchi, No wheeze, No rales, Diminished, - - Symmetric expansion. No dullness to percussion. Cardiovascular: Regular rate, Regular Rhythm, Normal S1, Normal S2, No murmurs, No rub noted, No Gallop Abdomen: Bowel Sounds Present, Soft, Non Tender, Non-Distended Extremities: No clubbing, No cyanosis, No edema Skin: No rashes, No breakdown, - - No significant change in abdominal exam Musculoskeletal: No Tenderness to Palpation of Joints or Extremities Lymphatic: No Cervical, Supraclavicular, or Inguinal Adenopathy Neurological: Cranial nerves II-XII grossly intact, Neuro grossly intact Psych/Mental Status: Alert and oriented to time, place, person, mood and affect Vital Signs Temp Pulse Resp BP Pulse Ox 37.3 C 89 20 H 106/62 99 10/29/18 02:15 10/29/18 03:17 10/29/18 02:15 10/29/18 02:15 10/29/18 02:15 Oxygen Flow Rate (L/min) 3 Oxygen Delivery Method Nasal Cannula Weight: 82.5 kg Body Mass Index (BMI) 25.7 Finger Stick Blood Glucose 147 Intake and Output for Last 24 Hours 10/27/18 10/28/18 10/29/18 23:59 23:59 23:59 Intake Total 1961 3271 / 3271 104 / 104 Output Total 1200 / 1200 1200 / 1200 300 / 300 Balance 762 / 762 207 / 2071 -196 / -196 Microbiology Past 72 Hours 10/25/18 18:26 Blood Culture - Preliminary Blood Culture (Wb) #2 - Anticubital Right No growth in 48 hours. 10/25/18 18:06 Blood Culture - Preliminary Blood Culture (Wb) - Anticubital Left No growth in 48 hours. 10/27/18 10:45 Gram Stain - Final Sputum, Expectorated/Coughed Respiratory Culture - Preliminary Appears to be normal respiratory juan. Further studies to follow. Laboratory Tests Past 24 Hrs 10/28/18 10/28/18 10/28/18 07:10 15:20 21:15 Hgb Hct PT INR APTT 70.3 H 59.1 H 50.9 H 10/29/18 10/29/18 03:55 03:55 Hgb 12.5 L Hct 38.3 L PT 14.5 INR 1.1 APTT 65.1 H Medical Necessity - Tobacco Use Smoking Status: Former smoker Tobacco Use: Cigarettes, Cigars Assessment/Plan All Active Problems (Last Reviewed 10/25/18 @ 19:51 by Omega Ann MD) Positive colorectal cancer screening using DNA-based stool test (Acute) Hematoma of rectus sheath (Acute) Coagulopathy (Acute) Bilateral pulmonary embolism (Acute) RECOMMENDATIONS: 1. Continue heparin drip, continue Coumadin therapy 2. Supplemental oxygen to keep saturations greater than 90% 3. Increase activity as tolerated 4. Bronchodilators as ordered but no steroids at this time 5. Transition to DNR Comfort Care arrest without intubation 6. Walking oximetry prior to discharge IMPRESSIONS: 1. Submassive pulmonary embolism secondary to protein C deficiency Echocardiogram showed significant strain on right-sided heart. Patient has been on heparin drip and doing okay overnight. Patient may have longer recovery secondary to protein C deficiency. Will likely require bridge therapy to therapeutic Coumadin levels. Patient will be at increased risk for complications given background of protein C deficiency. Increase activity as tolerated. Hemodynamically stable on nasal cannula oxygen. 2. Rectus sheath hematoma Hematoma appears to be stable clinically. Patient still with some tenderness on palpation, but cutaneous variation indicate probable reabsorption. Will need to watch this closely given patient's need for further anticoagulation. Patient is not a good candidate for TPA 3. 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 Patient currently on a heparin drip. Patient does not appear to be in acute exacerbation of COPD, but this may be contributing to hypoxemia. 4. CODE STATUS Discussed with patient at the bedside. Patient does not want to be intubated or receive CPR for any reason. Patient states that he lives with chronic pain and has had family members get intubated. Code Visit Inpatient E&M: 42908 Subs Hosp L2
[2018-10-29] MEDS: Ipratropium/Albuterol Sulfate 3 ML AMPUL.NEB INHALATION ×3 (07:47→20:10)
--- NOTE | 2018-10-29 08:08 | PCM.PROGNOTE ---
Patient Problems: Active and Suspected Problems (Last Reviewed 10/25/18 @ 19:51 by Omega Ann MD) Bilateral pulmonary embolism (Acute) Subjective: Chief complaint: Follow-up after admission for extensive bilateral pulmonary emboli/saddle embolism, acute on chronic hypoxic respiratory failure and lactic acidosis. Patient seen and examined. No acute events overnight. He is doing better, shortness of breath continued to improve very slowly, still requiring oxygen supplement but down to 3 L. Denied abdominal pain, nausea vomiting. Other vital signs are stable. - Physical Exam General: Alert, Oriented x3, Cooperative, No apparent distress HEENT: Atraumatic, PERRLA, EOMI, Normocephalic Oral: Moist Mucosa, No Gingival or Mucosal Lesions/ Ulcerations Neck: Supple, No JVD, Negative Carotid Bruits, Trachea Midline, Thyroid Normal Size and Texture Lungs: Clear to auscultation, No rhonchi, No wheeze, No rales, Diminished Cardiovascular: Regular rate, Regular Rhythm, Normal S1, Normal S2, PMI Normal Abdomen: Bowel Sounds Present, Soft, Non Tender, Non-Distended, No Hepato-splenomegaly Extremities: No clubbing, No cyanosis, No edema Skin: No rashes, No breakdown Musculoskeletal: No Tenderness to Palpation of Joints or Extremities Lymphatic: No Cervical, Supraclavicular, or Inguinal Adenopathy Neurological: Cranial nerves II-XII grossly intact, Motor Exam 5/5 strength throughout Psych/Mental Status: Normal Affect, Appropriate, Alert and oriented to time, place, person, mood and affect Vital Signs Temp Pulse Resp BP Pulse Ox 99.1 F 95 20 H 106/62 94 10/29/18 02:15 10/29/18 07:47 10/29/18 07:47 10/29/18 02:15 10/29/18 07:47 Oxygen Flow Rate (L/min) 3 Oxygen Delivery Method Nasal Cannula Weight: 181 lb 14.102 oz Body Mass Index (BMI) 25.7 Finger Stick Blood Glucose 147 Intake and Output for Last 24 Hours 10/27/18 10/28/18 10/29/18 23:59 23:59 23:59 Intake Total 1961 / 1961 3271 / 3271 104 / 104 Output Total 1200 / 1200 1200 / 1200 300 / 300 Balance 762 / 762 2070 / 2070 -196 / -196 Microbiology Past 72 Hours 10/25/18 18:26 Blood Culture - Preliminary Blood Culture (Wb) #2 - Anticubital Right No growth in 48 hours. 10/25/18 18:06 Blood Culture - Preliminary Blood Culture (Wb) - Anticubital Left No growth in 48 hours. 10/27/18 10:45 Gram Stain - Final Sputum, Expectorated/Coughed Respiratory Culture - Preliminary Appears to be normal respiratory juan. Further studies to follow. Laboratory Tests Past 24 Hrs 10/28/18 10/28/18 10/29/18 15:20 21:15 03:55 Hgb 12.5 L Hct 38.3 L PT INR APTT 59.1 H 50.9 H 10/29/18 03:55 Hgb Hct PT 14.5 INR 1.1 APTT 65.1 H Medical Necessity - Tobacco Use Smoking Status: Former smoker Tobacco Use: Cigarettes, Cigars Assessment/Plan All Active Problems (Last Reviewed 10/25/18 @ 19:51 by Omega Ann MD) Positive colorectal cancer screening using DNA-based stool test (Acute) Hematoma of rectus sheath (Acute) Coagulopathy (Acute) Bilateral pulmonary embolism (Acute) This is a 78 years old male patient presented to the emergency room because of shortness of breath and syncopal episode, found to have extensive bilateral pulmonary emboli with saddle embolus on CTA chest, 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 #1 acute extensive bilateral pulmonary emboli/saddle embous: Remained on IV heparin drip, started on Coumadin yesterday, INR still subtherapeutic. Symptoms continue to improve, no tachycardia, pulse ox is maintained on 3 L. 2D echocardiogram revealed ejection fraction of 65%, stage I diastolic dysfunction, severely dilated right ventricle, RVSP of 40 consistent with mild pulmonary hypertension. Plan to continue same treatment, repeat INR tomorrow morning. #2 acute on chronic hypoxic respiratory failure: Patient has been on oxygen secondary to COPD. Oxygen requirement has been decreasing, he is down to 3 L. #3 acute DVT of the left peroneal vein: He is on IV heparin and Coumadin drip as above. INR is 1.1, subtherapeutic. Plan as above. #4 recent history of rectus sheath hematoma: No complaints, abdominal examination is benign, hematoma size is stable. Hemoglobin and hematocrit are stable. This hematoma occurred when he was started on Lovenox bridging for colonoscopy on September,, he developed the rectus sheath hematoma. 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 Plan as above. #5 lactic acidosis: This is likely because of tissue hypoxemia. I doubt any infectious process. Patient is afebrile, no leukocytosis. Plan to treat underlying extensive PEs. #6 protein C deficiency: On lifelong Coumadin, INR still therapeutic. Plan as above. #7 COPD/chronic respiratory failure: Continue DuoNeb every 6 hours, albuterol as needed, incentive spirometer, oxygen by nasal cannula as above. #9 hypertension: Blood pressure stabilized, keep holding HCTZ and lisinopril. #10 DVT prophylaxis: He is on IV heparin drip and Coumadin. This note was generated with [employer] dictation software. It may contain incorrect words, spelling, and punctuation that were not noted in checking the note before signing. Code Visit Inpatient E&M: 59396 Subs Hosp L2
[2018-10-29 10:04] LABS: Partial Thromboplast Time 61.8 Seconds (24.1-36.2)
[2018-10-29] MEDS: Acetaminophen 325 MG Tablet 650 MG PO ×2 (10:49→19:46)
[2018-10-29] MEDS: BENZOCAINE/MENTHOL 1 LOZENGE MUCOUS MEM (13:25)
[2018-10-29] MEDS: 0.9% NaCl Peripheral Flush Adult/Peds IV (21:25)
[2018-10-30] VITALS (15 sets, daily range): BP systolic 123–153; BP diastolic 67–85; PULSE 83–102; RESP 16–20; TEMP 36.3–37; O2SAT 91–96
[2018-10-30] MEDS: HEPARIN/D5w 25,000 UNITS 25,000 UNITS/250 ML IV.SOLN. 10 UNITS IV ×2 (03:45→16:39)
[2018-10-30 05:38] LABS: Absolute Lymphocyte Count 1.39 X10^3/ul (0.83-4.51); Absolute Neutrophil Count 3.9 X10^3/uL (2.0-7.7); Basophil# 0.02 X10^3/uL; Basophil% 0.3 % (0-1); Eosinophil# 0.21 X10^3/uL; Eosinophils% 3.2 % (0-5); Hematocrit 40.1 % (40-54); Hemoglobin 12.7 g/dl (13.0-16.5); Lymphocyte # 1.39 X10^3/ul (4.0); Lymphocyte % 21.2 % (19-41); Mean Corp Hgb Conc 31.7 g/gl (32-36); Mean Corpuscular Hgb 30.5 pg (27.0-32.0); Mean Corpuscular Volume 96.4 fL (80-94); Mean Platelet Vol. 10.5 fl (6.2-12.0); Monocyte# 0.99 X10^3/uL; Monocyte% 15.1 % (0-10); Neutrophil # 3.88 X10^3/uL (2.7-7.7); Platelet Count 213 K/mm3 (150-450); RBC Distribution Width CV 13.7 % (11.6-14.6); RBC Distribution Width SD 48.5 fl (35.1-43.9); Red Blood Count 4.16 M/mm3 (4.6-6.2); White Blood Count 6.6 K/mm3 (4.4-11.0)
[2018-10-30 05:46] LABS: International Normalized Ratio 1.1
[2018-10-30 05:48] LABS: Partial Thromboplast Time 67.1 Seconds (24.1-36.2)
[2018-10-30 05:52] LABS: POSITIVE COUNT NO; POSITIVE DIFFERENTIAL NO; POSITIVE MORPHOLOGY NO
[2018-10-30] MEDS: Ipratropium/Albuterol Sulfate 3 ML AMPUL.NEB INHALATION ×3 (06:58→19:20)
--- NOTE | 2018-10-30 08:16 | PN_ITS ---
Patient Problems: Active and Suspected Problems (Last Reviewed 10/25/18 @ 19:51 by Omega Ann MD) Bilateral pulmonary embolism (Acute) Subjective: Patient did well overnight. No acute issues were reported. Patient denies any bleeding complications. Patient is still requiring supplemental oxygen to maintain appropriate saturations. Patient does report leg weakness limiting his ability to get to the bathroom. - Physical Exam General: Alert, Oriented x3, Cooperative, No apparent distress, - - Speaking in full sentences. HEENT: Atraumatic, PERRLA, EOMI, Normocephalic, - - No scleral icterus or injection noted. Oral: Moist Mucosa, No Gingival or Mucosal Lesions/ Ulcerations Neck: Supple, No JVD, No Nodes, Trachea Midline Lungs: Normal air movement, No rhonchi, No wheeze, No rales, Diminished, - - Symmetric expansion. No dullness to percussion. Cardiovascular: Regular rate, Regular Rhythm, Normal S1, Normal S2, No murmurs, No rub noted, No Gallop Abdomen: Bowel Sounds Present, Soft, Non Tender, Non-Distended Extremities: No clubbing, No cyanosis, No edema, Capillary Refill Less than 3 Seconds Skin: - - No significant change compared to previous Musculoskeletal: No Tenderness to Palpation of Joints or Extremities, No Muscle Wasting Lymphatic: No Cervical, Supraclavicular, or Inguinal Adenopathy Neurological: Cranial nerves II-XII grossly intact, Neuro grossly intact, Motor Exam 5/5 strength throughout Psych/Mental Status: Alert and oriented to time, place, person, mood and affect Vital Signs Temp Pulse Resp BP Pulse Ox 37.0 C 92 20 H 126/67 H 93 10/30/18 03:20 10/30/18 07:19 10/30/18 06:58 10/30/18 03:20 10/30/18 06:58 Oxygen Flow Rate (L/min) 3 Oxygen Delivery Method Nasal Cannula Weight: 81.7 kg Body Mass Index (BMI) 25.7 Finger Stick Blood Glucose 147 Intake and Output for Last 24 Hours 10/28/18 10/29/18 10/30/18 23:59 23:59 23:59 Intake Total 3271 / 3271 1200 / 1200 544 / 544 Output Total 1200 / 1200 300 / 300 1025 / 1025 Balance 2070 / 2070 900 / 900 -481 / -481 Microbiology Past 72 Hours 10/27/18 10:45 Gram Stain - Final Sputum, Expectorated/Coughed Respiratory Culture - Final 10/25/18 18:26 Blood Culture - Preliminary Blood Culture (Wb) #2 - Anticubital Right No growth in 48 hours. 10/25/18 18:06 Blood Culture - Preliminary Blood Culture (Wb) - Anticubital Left No growth in 48 hours. Laboratory Tests Past 24 Hrs 10/29/18 10/30/18 10/30/18 09:40 04:40 04:40 WBC 6.6 RBC 4.16 L Hgb 12.7 L Hct 40.1 MCV 96.4 H MCH 30.5 MCHC 31.7 L RDW 13.7 RDW Differential 48.5 H Plt Count 213 MPV 10.5 Immature Gran % (Auto) 1.200 H Neut % (Auto) 59.0 Lymph % (Auto) 21.2 [place] % (Auto) 15.1 H Eos % (Auto) 3.2 Baso % (Auto) 0.3 Absolute Neuts (auto) 3.9 Absolute Lymphs (auto) 1.39 Total Counted Not Reportable PT 14.0 INR 1.1 APTT 61.8 H 67.1 H Medical Necessity - Tobacco Use Smoking Status: Former smoker Tobacco Use: Cigarettes, Cigars Assessment/Plan All Active Problems (Last Reviewed 10/25/18 @ 19:51 by Omega Ann MD) Positive colorectal cancer screening using DNA-based stool test (Acute) Hematoma of rectus sheath (Acute) Coagulopathy (Acute) Bilateral pulmonary embolism (Acute) RECOMMENDATIONS: 1. Continue heparin drip, continue Coumadin therapy, await therapeutic INR 2. Supplemental oxygen to keep saturations greater than 90% 3. Increase activity as tolerated 4. Bronchodilators as ordered but no steroids at this time 5. Transition to DNR Comfort Care arrest without intubation 6. Walking oximetry prior to discharge IMPRESSIONS: 1. Submassive pulmonary embolism secondary to protein C deficiency Echocardiogram showed significant strain on right-sided heart. This will need to be rechecked in 4-6 weeks to ensure resolution. Patient has been on heparin drip and doing okay overnight. Patient may have longer recovery secondary to protein C deficiency. Will likely require bridge therapy to therapeutic Coumadin levels. Patient will be at increased risk for complications given background of protein C deficiency. Increase activity as tolerated. Hemodynamically stable on nasal cannula oxygen. 2. Rectus sheath hematoma Hematoma appears to be stable clinically. Patient still with some tenderness on palpation, but cutaneous variation indicate probable reabsorption. Will need to watch this closely given patient's need for further anticoagulation. Patient is not a good candidate for TPA 3. 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 Patient currently on a heparin drip. Patient does not appear to be in acute exacerbation of COPD, but this may be contributing to hypoxemia. 4. CODE STATUS Discussed with patient at the bedside. Patient does not want to be intuba pennie or receive CPR for any reason. Patient states that he lives with chronic pain and has had family members get intubated. Code Visit Inpatient E&M: 30162 Subs Hosp L2
--- NOTE | 2018-10-30 08:34 | PCM.PROGNOTE ---
Patient Problems: Active and Suspected Problems (Last Reviewed 10/25/18 @ 19:51 by Omega Ann MD) Bilateral pulmonary embolism (Acute) Subjective: Chief complaint: Follow-up after admission for extensive bilateral pulmonary emboli/saddle embolism, acute on chronic hypoxic respiratory failure. Patient seen and examined. No acute events overnight. His breathing has been stable, remains on 3 L of oxygen. He has been ambulating, needs assistance. Denied abdominal pain, nausea vomiting. Denies dizziness or lightheadedness. His vital signs are stable, remains on 3 L of oxygen, pulse ox is 93%. - Physical Exam General: Alert, Oriented x3, Cooperative, No apparent distress HEENT: Atraumatic, PERRLA, EOMI, Normocephalic Oral: Moist Mucosa, No Gingival or Mucosal Lesions/ Ulcerations Neck: Supple, No JVD, Negative Carotid Bruits, Trachea Midline, Thyroid Normal Size and Texture Lungs: Clear to auscultation, No rhonchi, No wheeze, No rales, Diminished Cardiovascular: Regular rate, Regular Rhythm, Normal S1, Normal S2, PMI Normal Abdomen: Bowel Sounds Present, Soft, Non Tender, Non-Distended, No Hepato-splenomegaly Extremities: No clubbing, No cyanosis, No edema Skin: No rashes, No breakdown Lymphatic: No Cervical, Supraclavicular, or Inguinal Adenopathy Neurological: Cranial nerves II-XII grossly intact, Neuro grossly intact Psych/Mental Status: Normal Affect, Appropriate, Alert and oriented to time, place, person, mood and affect Vital Signs Temp Pulse Resp BP Pulse Ox 98.6 F 92 20 H 126/67 H 93 10/30/18 03:20 10/30/18 07:19 10/30/18 06:58 10/30/18 03:20 10/30/18 06:58 Oxygen Flow Rate (L/min) 3 Oxygen Delivery Method Nasal Cannula Weight: 180 lb 1.883 oz Body Mass Index (BMI) 25.7 Finger Stick Blood Glucose 147 Intake and Output for Last 24 Hours 10/28/18 10/29/18 10/30/18 23:59 23:59 23:59 Intake Total 3271 / 3271 1200 / 1200 544 / 544 Output Total 1200 / 1200 300 / 300 1025 / 1025 Balance 2070 / 2070 900 / 900 -481 / -481 Microbiology Past 72 Hours 10/27/18 10:45 Gram Stain - Final Sputum, Expectorated/Coughed Respiratory Culture - Final 10/25/18 18:26 Blood Culture - Preliminary Blood Culture (Wb) #2 - Anticubital Right No growth in 48 hours. 10/25/18 18:06 Blood Culture - Preliminary Blood Culture (Wb) - Anticubital Left No growth in 48 hours. Laboratory Tests Past 24 Hrs 10/29/18 10/30/18 10/30/18 09:40 04:40 04:40 WBC 6.6 RBC 4.16 L Hgb 12.7 L Hct 40.1 MCV 96.4 H MCH 30.5 MCHC 31.7 L RDW 13.7 RDW Differential 48.5 H Plt Count 213 MPV 10.5 Immature Gran % (Auto) 1.200 H Neut % (Auto) 59.0 Lymph % (Auto) 21.2 [place] % (Auto) 15.1 H Eos % (Auto) 3.2 Baso % (Auto) 0.3 Absolute Neuts (auto) 3.9 Absolute Lymphs (auto) 1.39 Total Counted Not Reportable PT 14.0 INR 1.1 APTT 61.8 H 67.1 H Medical Necessity - Tobacco Use Smoking Status: Former smoker Tobacco Use: Cigarettes, Cigars Assessment/Plan All Active Problems (Last Reviewed 10/25/18 @ 19:51 by Omega Ann MD) Positive colorectal cancer screening using DNA-based stool test (Acute) Hematoma of rectus sheath (Acute) Coagulopathy (Acute) Bilateral pulmonary embolism (Acute) This is a 78 years old male patient presented to the emergency room because of shortness of breath and syncopal episode, found to have extensive bilateral pulmonary emboli with saddle embolus on CTA chest, 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 #1 acute extensive bilateral pulmonary emboli/saddle embous: Remained on IV heparin drip, on Coumadin, INR still subtherapeutic. Vital signs have been stable, no more tachycardia, blood pressure maintained, pulse ox is improving, currently on 3 L. 2D echocardiogram revealed ejection fraction of 65%, stage I diastolic dysfunction, severely dilated right ventricle, RVSP of 40 consistent with mild pulmonary hypertension. Plan to keep patient in the hospital until INR is therapeutic, will increase Coumadin to 7.5 mg p.o. daily, repeat INR tomorrow morning. #2 acute on chronic hypoxic respiratory failure: Patient has been on oxygen at home secondary to COPD. Oxygen requirement has been decreasing, he is down to 3 L. #3 acute DVT of the left peroneal vein: He is on IV heparin and Coumadin drip as above. INR is 1.1, subtherapeutic. Plan as above. #4 recent history of rectus sheath hematoma: No complaints, abdominal examination is benign, hematoma size is stable. Hemoglobin and hematocrit are stable. This hematoma occurred when he was started on Lovenox bridging for colonoscopy on September,, he developed the rectus sheath hematoma. 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 Plan as above. #5 lactic acidosis: This is likely because of tissue hypoxemia. I doubt any infectious process. Resolved. #6 protein C deficiency: On lifelong Coumadin, INR still therapeutic. Plan as above. #7 COPD/chronic respiratory failure: Continue DuoNeb every 6 hours, albuterol as needed, incentive spirometer, oxygen by nasal cannula as above. #9 hypertension: Blood pressure stabilized, keep holding HCTZ and lisinopril. #10 DVT prophylaxis: He is on IV heparin drip and Coumadin. This note was generated with [employer] dictation software. It may contain incorrect words, spelling, and punctuation that were not noted in checking the note before signing. Code Visit Inpatient E&M: 39093 Subs Hosp L2
[2018-10-30] MEDS: Acetaminophen 325 MG Tablet 650 MG PO (20:40)
[2018-10-31] VITALS (14 sets, daily range): BP systolic 115–137; BP diastolic 64–75; PULSE 78–100; RESP 16–20; TEMP 36.4–37.2; O2SAT 92–97
[2018-10-31 05:15] LABS: International Normalized Ratio 1.2; Prothrombin Time (Protime)PT. 14.9 SECONDS (11.7-14.9)
[2018-10-31 05:16] LABS: Partial Thromboplast Time 59.9 Seconds (24.1-36.2)
[2018-10-31] MEDS: Ipratropium/Albuterol Sulfate 3 ML AMPUL.NEB INHALATION ×3 (07:07→19:44)
--- NOTE | 2018-10-31 08:22 | PCM.PROGNOTE ---
Patient Problems: Active and Suspected Problems (Last Reviewed 10/25/18 @ 19:51 by Omega Ann MD) Bilateral pulmonary embolism (Acute) Subjective: The patient was seen and examined at the bedside this morning. Events from the last 24 hours have been reviewed. The patient is currently afebrile, hemodynamically stable and maintaining appropriate oxygen saturations on 2 L/min via nasal cannula. INR was noted to be 1.2 this morning. The patient does report the presence of back pain. Objective: The patient's most recent lab work, culture data and imaging studies have all been personally reviewed. CTA chest revealed extensive bilateral pulmonary emboli including saddle embolus. Surface echocardiogram revealed evidence of stage I diastolic dysfunction along with a severely dilated RV, moderate severe global RV systolic dysfunction, apical RV strain pattern and a right ventricular systolic pressure estimated to be 40 mmHg. - Physical Exam General: Alert, Cooperative, No apparent distress, - - is present at the bedside HEENT: Atraumatic, PERRLA, Normocephalic Oral: No Gingival or Mucosal Lesions/ Ulcerations Neck: Supple, No Nodes, Trachea Midline Lungs: No rhonchi, No wheeze, No rales, Diminished Cardiovascular: Regular rate, Regular Rhythm, Normal S1, Normal S2 Abdomen: Bowel Sounds Present, Soft, Non Tender Extremities: No clubbing, No cyanosis, No edema Skin: No breakdown Musculoskeletal: No Muscle Wasting Lymphatic: No Cervical, Supraclavicular, or Inguinal Adenopathy Neurological: Neuro grossly intact Psych/Mental Status: Normal Affect, Appropriate Vital Signs Temp Pulse Resp BP Pulse Ox 37.2 C 87 16 125/64 H 92 10/31/18 03:00 10/31/18 07:10 10/31/18 07:07 10/31/18 03:00 10/31/18 07:07 Oxygen Flow Rate (L/min) 2 Oxygen Delivery Method Nasal Cannula Weight: 179 lb 3.773 oz Body Mass Index (BMI) 25.7 Finger Stick Blood Glucose 147 Intake and Output for Last 24 Hours 10/29/18 10/30/18 10/31/18 23:59 23:59 23:59 Intake Total 1200 / 1200 1772 / 1772 107 / 107 Output Total 300 / 300 1025 / 1025 Balance 900 / 900 747 / 747 107 / 107 Microbiology Past 72 Hours 10/27/18 10:45 Gram Stain - Final Sputum, Expectorated/Coughed Respiratory Culture - Final 10/25/18 18:26 Blood Culture - Preliminary Blood Culture (Wb) #2 - Anticubital Right No growth in 48 hours. 10/25/18 18:06 Blood Culture - Preliminary Blood Culture (Wb) - Anticubital Left No growth in 48 hours. Laboratory Tests Past 24 Hrs 10/31/18 04:56 PT 14.9 INR 1.2 APTT 59.9 H Labs (Last 48 Hours) 10/29/18 10/30/18 10/30/18 09:40 04:40 04:40 WBC 6.6 RBC 4.16 L Hgb 12.7 L Hct 40.1 MCV 96.4 H MCH 30.5 MCHC 31.7 L RDW 13.7 RDW Differential 48.5 H Plt Count 213 MPV 10.5 Immature Gran % (Auto) 1.200 H Neut % (Auto) 59.0 Lymph % (Auto) 21.2 [place] % (Auto) 15.1 H Eos % (Auto) 3.2 Baso % (Auto) 0.3 Absolute Neuts (auto) 3.9 Absolute Lymphs (auto) 1.39 Total Counted Not Reportable PT 14.0 INR 1.1 APTT 61.8 H 67.1 H 10/31/18 04:56 WBC RBC Hgb Hct MCV MCH MCHC RDW RDW Differential Plt Count MPV Immature Gran % (Auto) Neut % (Auto) Lymph % (Auto) [place] % (Auto) Eos % (Auto) Baso % (Auto) Absolute Neuts (auto) Absolute Lymphs (auto) Total Counted PT 14.9 INR 1.2 APTT 59.9 H Microbiology 10/27/18 10:45 Sputum, Expectorated/Coughed Gram Stain - Final 10/27/18 10:45 Sputum, Expectorated/Coughed Respiratory Culture - Final Clinical Impression(s) from Imaging Studies Chest CTA 10/25/18 17:19 IMPRESSION: Extensive bilateral pulmonary emboli including saddle embolus. Chronic interstitial emphysematous changes Electronically Signed: Tripp Chen MD at 19:02 EST , Service support , ADDENDUM: 02/05/19 1914 IMPRESSION: Extensive bilateral pulmonary emboli including saddle embolus. Chronic interstitial emphysematous changes N.B. : The above information has been verbally conveyed by Trpip Chen MD to Mandy Gan MD, on 10/25/2018 19:06:29 (ET). Electronically Signed: Tripp Chen MD at 19:02 EST , Service support , Abdomen/Pelvis CT 10/25/18 17:23 IMPRESSION: 1. Atherosclerotic vascular calcifications. 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 No luminal stenosis, however. 2. Slight decreased size of hematoma in the right rectus abdominis muscle. 3. Fatty metamorphosis of the liver again noted. 4. Gallstones. No CT sign of acute cholecystitis. 5. Small, nonobstructing right renal stones again noted. No hydronephrosis. 6. Colonic diverticulosis without acute diverticulitis. No sign of bowel obstruction. The appendix is normal. 7. Stable fat-containing left inguinal hernia. 8. Stable degenerative changes of the spine as well as chronic central depression of the superior L2 and L3 vertebral endplates. Chronic bilateral L5 pars defects and grade 1 L5-S1 anterolisthesis again noted. Electronically Signed: William Dobbins MD at 18:36 EST , Service support , Brain CT 10/25/18 17:23 IMPRESSION: Chronic involutional changes without evidence of acute intracranial or calvarial abnormality. Electronically Signed: Agustin Zuniga DO at 18:23 EST Tel [phone], Service support , Medical Necessity - Tobacco Use Smoking Status: Former smoker Tobacco Use: Cigarettes, Cigars Assessment/Plan All Active Problems (Last Reviewed 10/25/18 @ 19:51 by Omega Ann MD) Positive colorectal cancer screening using DNA-based stool test (Acute) Hematoma of rectus sheath (Acute) Coagulopathy (Acute) Bilateral pulmonary embolism (Acute) RECOMMENDATIONS: 1. Continue heparin drip with Coumadin bridge as ordered. 2. Wean supplemental oxygen to maintain saturations at or above 90%. 3. Encourage incentive spirometer use and mobilize patient as tolerated. 4. Perform walking oximetry study prior to consideration for discharge from the hospital. IMPRESSIONS: 1. 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 The patient's INR remains subtherapeutic this morning. Recommend continuing to wean supplemental oxygen as tolerated. Recommend outpatient follow-up in the pulmonary medicine clinic along with repeat echocardiogram in 4-6 weeks. 2. Rectus sheath hematoma Hematoma appears to be stable clinically. The patient is not a good candidate for TPA. 3. Self-reported COPD/AAA/chronic pain syndrome/osteoarthritis/CODE STATUS Complicates care, management, recovery and prognosis. CODE STATUS was once again verified to be DNR CCA. This note was generated with [employer] dictation software. It may contain incorrect words, spelling, and punctuation that were not noted in checking the note before signing. Code Visit Inpatient E&M: 72727 Subs Hosp L2
--- NOTE | 2018-10-31 08:27 | PN_ITS ---
Patient Problems: Active and Suspected Problems (Last Reviewed 10/25/18 @ 19:51 by Omega Ann MD) Bilateral pulmonary embolism (Acute) Subjective: The patient was seen and examined at the bedside this morning. Events from the last 24 hours have been reviewed. The patient is currently afebrile, hemodynamically stable and maintaining appropriate oxygen saturations on 2 L/min via nasal cannula. INR was noted to be 1.2 this morning. The patient does report the presence of back pain. Objective: The patient's most recent lab work, culture data and imaging studies have all been personally reviewed. CTA chest revealed extensive bilateral pulmonary emboli including saddle embolus. Surface echocardiogram revealed evidence of stage I diastolic dysfunction along with a severely dilated RV, moderate severe global RV systolic dysfunction, apical RV strain pattern and a right ventricular systolic pressure estimated to be 40 mmHg. - Physical Exam General: Alert, Cooperative, No apparent distress, - - is present at the bedside HEENT: Atraumatic, PERRLA, Normocephalic Oral: No Gingival or Mucosal Lesions/ Ulcerations Neck: Supple, No Nodes, Trachea Midline Lungs: No rhonchi, No wheeze, No rales, Diminished Cardiovascular: Regular rate, Regular Rhythm, Normal S1, Normal S2 Abdomen: Bowel Sounds Present, Soft, Non Tender Extremities: No clubbing, No cyanosis, No edema Skin: No breakdown Musculoskeletal: No Muscle Wasting Lymphatic: No Cervical, Supraclavicular, or Inguinal Adenopathy Neurological: Neuro grossly intact Psych/Mental Status: Normal Affect, Appropriate Vital Signs Temp Pulse Resp BP Pulse Ox 37.2 C 87 16 125/64 H 92 10/31/18 03:00 10/31/18 07:10 10/31/18 07:07 10/31/18 03:00 10/31/18 07:07 Oxygen Flow Rate (L/min) 2 Oxygen Delivery Method Nasal Cannula Weight: 179 lb 3.773 oz Body Mass Index (BMI) 25.7 Finger Stick Blood Glucose 147 Intake and Output for Last 24 Hours 10/29/18 10/30/18 10/31/18 23:59 23:59 23:59 Intake Total 1200 / 1200 1772 / 1772 107 / 107 Output Total 300 / 300 1025 / 1025 Balance 900 / 900 747 / 747 107 / 107 Microbiology Past 72 Hours 10/27/18 10:45 Gram Stain - Final Sputum, Expectorated/Coughed Respiratory Culture - Final 10/25/18 18:26 Blood Culture - Preliminary Blood Culture (Wb) #2 - Anticubital Right No growth in 48 hours. 10/25/18 18:06 Blood Culture - Preliminary Blood Culture (Wb) - Anticubital Left No growth in 48 hours. Laboratory Tests Past 24 Hrs 10/31/18 04:56 PT 14.9 INR 1.2 APTT 59.9 H Labs (Last 48 Hours) 10/29/18 10/30/18 10/30/18 09:40 04:40 04:40 WBC 6.6 RBC 4.16 L Hgb 12.7 L Hct 40.1 MCV 96.4 H MCH 30.5 MCHC 31.7 L RDW 13.7 RDW Differential 48.5 H Plt Count 213 MPV 10.5 Immature Gran % (Auto) 1.200 H Neut % (Auto) 59.0 Lymph % (Auto) 21.2 [place] % (Auto) 15.1 H Eos % (Auto) 3.2 Baso % (Auto) 0.3 Absolute Neuts (auto) 3.9 Absolute Lymphs (auto) 1.39 Total Counted Not Reportable PT 14.0 INR 1.1 APTT 61.8 H 67.1 H 10/31/18 04:56 WBC RBC Hgb Hct MCV MCH MCHC RDW RDW Differential Plt Count MPV Immature Gran % (Auto) Neut % (Auto) Lymph % (Auto) [place] % (Auto) Eos % (Auto) Baso % (Auto) Absolute Neuts (auto) Absolute Lymphs (auto) Total Counted PT 14.9 INR 1.2 APTT 59.9 H Microbiology 10/27/18 10:45 Sputum, Expectorated/Coughed Gram Stain - Final 10/27/18 10:45 Sputum, Expectorated/Coughed Respiratory Culture - Final Clinical Impression(s) from Imaging Studies Chest CTA 10/25/18 17:19 IMPRESSION: Extensive bilateral pulmonary emboli including saddle embolus. Chronic interstitial emphysematous changes Electronically Signed: Tripp Chen MD at 19:02 EST , Service support , ADDENDUM: 02/05/19 1914 IMPRESSION: Extensive bilateral pulmonary emboli including saddle embolus. Chronic interstitial emphysematous changes N.B. : The above information has been verbally conveyed by Tripp Chen MD to Mandy Gan MD, on 10/25/2018 19:06:29 (ET). Electronically Signed: Tripp Chen MD at 19:02 EST , Service support , Abdomen/Pelvis CT 10/25/18 17:23 IMPRESSION: 1. Atherosclerotic vascular calcifications. 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 No luminal stenosis, however. 2. Slight decreased size of hematoma in the right rectus abdominis muscle. 3. Fatty metamorphosis of the liver again noted. 4. Gallstones. No CT sign of acute cholecystitis. 5. Small, nonobstructing right renal stones again noted. No hydronephrosis. 6. Colonic diverticulosis without acute diverticulitis. No sign of bowel obstruction. The appendix is normal. 7. Stable fat-containing left inguinal hernia. 8. Stable degenerative changes of the spine as well as chronic central depression of the superior L2 and L3 vertebral endplates. Chronic bilateral L5 pars defects and grade 1 L5-S1 anterolisthesis again noted. Electronically Signed: William Dobbins MD at 18:36 EST , Service support , Brain CT 10/25/18 17:23 IMPRESSION: Chronic involutional changes without evidence of acute intracranial or calvarial abnormality. Electronically Signed: Agustin Zuniga DO at 18:23 EST Tel [phone], Service support , Medical Necessity - Tobacco Use Smoking Status: Former smoker Tobacco Use: Cigarettes, Cigars Assessment/Plan All Active Problems (Last Reviewed 10/25/18 @ 19:51 by Omega Ann MD) Positive colorectal cancer screening using DNA-based stool test (Acute) Hematoma of rectus sheath (Acute) Coagulopathy (Acute) Bilateral pulmonary embolism (Acute) RECOMMENDATIONS: 1. Continue heparin drip with Coumadin bridge as ordered. 2. Wean supplemental oxygen to maintain saturations at or above 90%. 3. Encourage incentive spirometer use and mobilize patient as tolerated. 4. Perform walking oximetry study prior to consideration for discharge from the hospital. IMPRESSIONS: 1. 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 The patient's INR remains subtherapeutic this morning. Recommend continuing to wean supplemental oxygen as tolerated. Recommend outpatient follow-up in the pulmonary medicine clinic along with repeat echocardiogram in 4-6 weeks. 2. Rectus sheath hematoma Hematoma appears to be stable clinically. The patient is not a good candidate for TPA. 3. Self-reported COPD/AAA/chronic pain syndrome/osteoarthritis/CODE STATUS Complicates care, management, recovery and prognosis. CODE STATUS was once again verified to be DNR CCA. This note was generated with [employer] dictation software. It may contain incorrect words, spelling, and punctuation that were not noted in checking the note before signing. Code Visit Inpatient E&M: 95434 Subs Hosp L2
[2018-10-31] MEDS: HEPARIN/D5w 25,000 UNITS 25,000 UNITS/250 ML IV.SOLN. 10 UNITS IV ×2 (08:29→21:39)
[2018-10-31] MEDS: Acetaminophen 325 MG Tablet 650 MG PO ×2 (08:30→14:12)
--- NOTE | 2018-10-31 12:59 | PCM.PN.HOSP ---
Patient Problems: Active and Suspected Problems (Last Reviewed 10/25/18 @ 19:51 by Omega Ann MD) Bilateral pulmonary embolism (Acute) Subjective: Patient seen and examined. He is being managed for bilateral extensive pulmonary emboli including saddle embolus. A surface echocardiogram showed stage I diastolic dysfunction with severely dilated right ventricle and moderate severe global right ventricular systolic dysfunction with apical right ventricular strain pattern and RVSP of 40 mmHg. He is on coumadin and heparin drip. No complaints and feels well. He denies any palpitations or dizziness, chest pain, abdominal pain, diarrhea vomiting. Review of systems otherwise negative. Labs and vitals reviewed. INR remains subtherapeutic and is 1.2 today. He is on heparin drip. Vitals/I&O's: Vital Signs Temp Pulse Resp BP Pulse Ox 97.7 F L 95 16 115/68 94 10/31/18 09:44 10/31/18 11:02 10/31/18 09:44 10/31/18 09:44 10/31/18 09:44 Oxygen Flow Rate (L/min) 2 Oxygen Delivery Method Nasal Cannula Weight: 179 lb 3.773 oz Body Mass Index (BMI) 25.7 Finger Stick Blood Glucose 147 Intake and Output for Last 24 Hours 10/29/18 10/30/18 10/31/18 23:59 23:59 23:59 Intake Total 1200 / 1200 1772 / 1772 347 / 347 Output Total 300 / 300 1025 / 1025 Balance 900 / 900 747 / 747 347 / 347 General: Alert, Oriented x3, Cooperative, No apparent distress HEENT: Atraumatic, PERRLA, EOMI, Normocephalic Oral: Moist Mucosa Neck: Supple, No JVD, Negative Carotid Bruits Lungs: Clear to auscultation, Normal air movement, No rhonchi, No wheeze, No rales, - - on 2L of oxygen Cardiovascular: Regular rate, Regular Rhythm, Normal S1, Normal S2, No murmurs Abdomen: Bowel Sounds Present, Soft, Non Tender, Non-Distended, No Hepato-splenomegaly Extremities: No clubbing, No cyanosis, No edema, Capillary Refill Less than 3 Seconds Skin: No rashes, No breakdown Musculoskeletal: No Tenderness to Palpation of Joints or Extremities Lymphatic: No Cervical, Supraclavicular, or Inguinal Adenopathy Neurological: Cranial nerves II-XII grossly intact, Neuro grossly intact, Motor Exam 5/5 strength throughout Psych/Mental Status: Normal Affect, Appropriate, Alert and oriented to time, place, person, mood and affect Microbiology Past 72 Hours 10/25/18 18:26 Blood Culture (Wb) #2 - Anticubital Right Blood Culture - Final No growth in 5 days. 10/25/18 18:06 Blood Culture (Wb) - Anticubital Left Blood Culture - Final No growth in 5 days. 10/27/18 10:45 Sputum, Expectorated/Coughed Gram Stain - Final 10/27/18 10:45 Sputum, Expectorated/Coughed Respiratory Culture - Final Laboratory Results 10/31/18 04:56: PT 14.9, INR 1.2, APTT 59.9 H Diagnostic Data Chest CTA 10/25/18 17:19 IMPRESSION: Extensive bilateral pulmonary emboli including saddle embolus. Chronic interstitial emphysematous changes Electronically Signed: Tripp Chen MD at 19:02 EST , Service support , ADDENDUM: 10/25/18 191 IMPRESSION: Extensive bilateral pulmonary emboli including saddle embolus. Chronic interstitial emphysematous changes N.B. : The above information has been verbally conveyed by Tripp Chen MD to Mandy Gan MD, on 10/25/2018 19:06:29 (ET). Electronically Signed: Tripp Chen MD at 19:02 EST , Service support , Abdomen/Pelvis CT 10/25/18 17:23 IMPRESSION: 1. Atherosclerotic vascular calcifications. 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 No luminal stenosis, however. 2. Slight decreased size of hematoma in the right rectus abdominis muscle. 3. Fatty metamorphosis of the liver again noted. 4. Gallstones. No CT sign of acute cholecystitis. 5. Small, nonobstructing right renal stones again noted. No hydronephrosis. 6. Colonic diverticulosis without acute diverticulitis. No sign of bowel obstruction. The appendix is normal. 7. Stable fat-containing left inguinal hernia. 8. Stable degenerative changes of the spine as well as chronic central depression of the superior L2 and L3 vertebral endplates. Chronic bilateral L5 pars defects and grade 1 L5-S1 anterolisthesis again noted. Electronically Signed: William Dobbins MD at 18:36 EST , Service support , Brain CT 10/25/18 17:23 IMPRESSION: Chronic involutional changes without evidence of acute intracranial or calvarial abnormality. Electronically Signed: Agustin Zuniga DO at 18:23 EST Tel [phone], Service support , Current Medications Acetaminophen (Tylenol) 650 mg PO Q6H PRN PRN PRN Reason: Non-cardiac pain (mod-severe) Last Admin: 10/31/18 08:30 Dose: 650 mg Albuterol Sulfate (Ventolin Aerosols) 2.5 mg INHALATION Q2H PRN PRN Reason: SHORTNESS OF BREATH/WHEEZING Albuterol/Ipratropium (Duoneb) 3 ml INHALATION Q6HWA.RT SAI Last Admin: 10/31/18 07:07 Dose: 3 ml Bisacodyl (Dulcolax) 5 mg PO DAILY PRN PRN PRN Reason: Constipation Cyclobenzaprine HCl (Flexeril) 10 mg PO TID PRN PRN Reason: PAIN Last Admin: 10/30/18 20:40 Dose: 10 mg Haloperidol Lactate (Haldol) 5 mg IV Q6H PRN PRN PRN Reason: ANXIETY Last Admin: 10/26/18 13:30 Dose: 5 mg Heparin Sodium (Porcine) (Heparin Na) 0 unit IV UD PRN; Protocol Sodium Chloride () 250 mls @ 15 mls/hr IV .[id number] PRN PRN Reason: SALINE FLUSH Heparin Sodium/Dextrose () 25,000 units in 250 mls @ 10 mls/hr IV .Q25H SAI; Protocol Last Admin: 10/31/18 08:29 Dose: 10 mls/hr Magnesium Hydroxide (Milk Of Magnesia) 30 ml PO DAILY PRN PRN Reason: Constipation Nutritional Formula (Lactose Free) (Ensure Enlive) 120 ml PO 4X/DAY [facility] [place] Last Admin: 10/31/18 08:30 Dose: 120 ml Ondansetron HCl (Zofran) 4 mg IV Q8H PRN PRN PRN Reason: NAUSEA Sodium Chloride () 5 - 15 ml IV UD PRN PRN Reason: SALINE FLUSH Last Admin: 10/29/18 21:25 Dose: 10 ml Throat Lozenges (Cepacol Sore Throat Lozenge) 1 lozenge MUCOUS MEM Q2H PRN PRN PRN Reason: COUGH Last Admin: 10/29/18 13:25 Dose: 1 lozenge Warfarin Sodium (Coumadin (Pbkc)) 7.5 mg PO DAILY@1700 [facility] [place] Last Admin: 10/30/18 16:37 Dose: 7.5 mg Zolpidem Tartrate (Ambien (Generic)) 5 mg PO QHS PRN PRN PRN Reason: INSOMNIA Medical Necessity - Tobacco Use Smoking Status: Former smoker Tobacco Use: Cigarettes, Cigars Assessment/Plan All Active Problems (Last Reviewed 10/25/18 @ 19:51 by Omega Ann MD) Positive colorectal cancer screening using DNA-based stool test (Acute) Hematoma of rectus sheath (Acute) Coagulopathy (Acute) Bilateral pulmonary embolism (Acute) 1. 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 INR is 1.2 today will give coumadin 10mg today and monitor INR pulmonology on board 2. Acute on chronic hypoxic respiratory failure resolving. On 2L of oxygen now; baseline is 3L of oxygen at home will monitor 3. Acute DVT of left peroneal vein: as under 1. 4. History of rectus sheath hematoma Says he was taking Lovenox as bridging in preparation for colonoscopy in March 2019 and developed a rectus sheath hematoma. CT abdomen done showed decreasing size of hematoma with stable 2.5 cm on his home aneurysm of infrarenal aorta with eccentric mural thrombus or noncalcified plaque. Currently on Coumadin and heparin drip 5. Lactic acidosis: Resolved 6. Protein [employer] deficiency: As under 1. 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 COPD: On breathing treatments and incentive spirometer. 8. Hypertension: BP meds were held on admission on account of hypotension. Blood pressure has remained fairly stable and is 115/60 today. We will continue monitoring. 9. DVT prophylaxis: On heparin drip and Coumadin Code status: DNRCCA Code Visit Inpatient E&M: 23248 Subs Hosp L3
--- NOTE | 2018-10-31 13:16 | PN_ITS ---
Patient Problems: Active and Suspected Problems (Last Reviewed 10/25/18 @ 19:51 by Omega Ann MD) Bilateral pulmonary embolism (Acute) Subjective: Patient seen and examined. He is being managed for bilateral extensive pulmonary emboli including saddle embolus. A surface echocardiogram showed stage I diastolic dysfunction with severely dilated right ventricle and moderate severe global right ventricular systolic dysfunction with apical right ventricular strain pattern and RVSP of 40 mmHg. He is on coumadin and heparin d rip. No complaints and feels well. He denies any palpitations or dizziness, chest pain, abdominal pain, diarrhea vomiting. Review of systems otherwise negative. Labs and vitals reviewed. INR remains subtherapeutic and is 1.2 today. He is on heparin drip. Vitals/I&O's: Vital Signs Temp Pulse Resp BP Pulse Ox 97.7 F L 95 16 115/68 94 10/31/18 09:44 10/31/18 11:02 10/31/18 09:44 10/31/18 09:44 10/31/18 09:44 Oxygen Flow Rate (L/min) 2 Oxygen Delivery Method Nasal Cannula Weight: 179 lb 3.773 oz Body Mass Index (BMI) 25.7 Finger Stick Blood Glucose 147 Intake and Output for Last 24 Hours 10/29/18 10/30/18 10/31/18 23:59 23:59 23:59 Intake Total 1200 / 1200 1772 / 1772 347 / 347 Output Total 300 / 300 1025 / 1025 Balance 900 / 900 747 / 747 347 / 347 General: Alert, Oriented x3, Cooperative, No apparent distress HEENT: Atraumatic, PERRLA, EOMI, Normocephalic Oral: Moist Mucosa Neck: Supple, No JVD, Negative Carotid Bruits Lungs: Clear to auscultation, Normal air movement, No rhonchi, No wheeze, No rales, - - on 2L of oxygen Cardiovascular: Regular rate, Regular Rhythm, Normal S1, Normal S2, No murmurs Abdomen: Bowel Sounds Present, Soft, Non Tender, Non-Distended, No Hepato- splenomegaly Extremities: No clubbing, No cyanosis, No edema, Capillary Refill Less than 3 Seconds Skin: No rashes, No breakdown Musculoskeletal: No Tenderness to Palpation of Joints or Extremities Lymphatic: No Cervical, Supraclavicular, or Inguinal Adenopathy Neurological: Cranial nerves II-XII grossly intact, Neuro grossly intact, Motor Exam 5/5 strength throughout Psych/Mental Status: Normal Affect, Appropriate, Alert and oriented to time, place, person, mood and affect Microbiology Past 72 Hours 10/25/18 18:26 Blood Culture (Wb) #2 - Anticubital Right Blood Culture - Final No growth in 5 days. 10/25/18 18:06 Blood Culture (Wb) - Anticubital Left Blood Culture - Final No growth in 5 days. 10/27/18 10:45 Sputum, Expectorated/Coughed Gram Stain - Final 10/27/18 10:45 Sputum, Expectorated/Coughed Respiratory Culture - Final Laboratory Results 10/31/18 04:56: PT 14.9, INR 1.2, APTT 59.9 H Diagnostic Data Chest CTA 10/25/18 17:19 IMPRESSION: Extensive bilateral pulmonary emboli including saddle embolus. Chronic interstitial emphysematous changes Electronically Signed: Tripp Chen MD at 19:02 EST , Service support , ADDENDUM: 10/25/18 191 IMPRESSION: Extensive bilateral pulmonary emboli including saddle embolus. Chronic interstitial emphysematous changes N.B. : The above information has been verbally conveyed by Tripp Chen MD to Mandy Gan MD, on 10/25/2018 19:06:29 (ET). Electronically Signed: Tripp Chen MD at 19:02 EST , Service support , Abdomen/Pelvis CT 10/25/18 17:23 IMPRESSION: 1. Atherosclerotic vascular calcifications. 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 No luminal stenosis, however. 2. Slight decreased size of hematoma in the right rectus abdominis muscle. 3. Fatty metamorphosis of the liver again noted. 4. Gallstones. No CT sign of acute cholecystitis. 5. Small, nonobstructing right renal stones again noted. No hydronephrosis. 6. Colonic diverticulosis without acute diverticulitis. No sign of bowel obstruction. The appendix is normal. 7. Stable fat-containing left inguinal hernia. 8. Stable degenerative changes of the spine as well as chronic central depression of the superior L2 and L3 vertebral endplates. Chronic bilateral L5 pars defects and grade 1 L5-S1 anterolisthesis again noted. Electronically Signed: William Dobbins MD at 18:36 EST , Service support , Brain CT 10/25/18 17:23 IMPRESSION: Chronic involutional changes without evidence of acute intracranial or calvarial abnormality. Electronically Signed: Agustin Zuniga DO at 18:23 EST Tel [phone], Service support , Current Medications Acetaminophen (Tylenol) 650 mg PO Q6H PRN PRN PRN Reason: Non-cardiac pain (mod-severe) Last Admin: 10/31/18 08:30 Dose: 650 mg Albuterol Sulfate (Ventolin Aerosols) 2.5 mg INHALATION Q2H PRN PRN Reason: SHORTNESS OF BREATH/WHEEZING Albuterol/Ipratropium (Duoneb) 3 ml INHALATION Q6HWA.RT SAI Last Admin: 10/31/18 07:07 Dose: 3 ml Bisacodyl (Dulcolax) 5 mg PO DAILY PRN PRN PRN Reason: Constipation Cyclobenzaprine HCl (Flexeril) 10 mg PO TID PRN PRN Reason: PAIN Last Admin: 10/30/18 20:40 Dose: 10 mg Haloperidol Lactate (Haldol) 5 mg IV Q6H PRN PRN PRN Reason: ANXIETY Last Admin: 10/26/18 13:30 Dose: 5 mg Heparin Sodium (Porcine) (Heparin Na) 0 unit IV UD PRN; Protocol Sodium Chloride () 250 mls @ 15 mls/hr IV .[id number] PRN PRN Reason: SALINE FLUSH Heparin Sodium/Dextrose () 25,000 units in 250 mls @ 10 mls/hr IV .Q25H SAI; Protocol Last Admin: 10/31/18 08:29 Dose: 10 mls/hr Magnesium Hydroxide (Milk Of Magnesia) 30 ml PO DAILY PRN PRN Reason: Constipation Nutritional Formula (Lactose Free) (Ensure Enlive) 120 ml PO 4X/DAY [facility] Last Admin: 10/31/18 08:30 Dose: 120 ml Ondansetron HCl (Zofran) 4 mg IV Q8H PRN PRN PRN Reason: NAUSEA Sodium Chloride () 5 - 15 ml IV UD PRN PRN Reason: SALINE FLUSH Last Admin: 10/29/18 21:25 Dose: 10 ml Throat Lozenges (Cepacol Sore Throat Lozenge) 1 lozenge MUCOUS MEM Q2H PRN PRN PRN Reason: COUGH Last Admin: 10/29/18 13:25 Dose: 1 lozenge Warfarin Sodium (Coumadin (Pbkc)) 7.5 mg PO DAILY@1700 [facility] Last Admin: 10/30/18 16:37 Dose: 7.5 mg Zolpidem Tartrate (Ambien (Generic)) 5 mg PO QHS PRN PRN PRN Reason: INSOMNIA Medical Necessity - Tobacco Use Smoking Status: Former smoker Tobacco Use: Cigarettes, Cigars Assessment/Plan All Active Problems (Last Reviewed 10/25/18 @ 19:51 by Omega Ann MD) Positive colorectal cancer screening using DNA-based stool test (Acute) Hematoma of rectus sheath (Acute) Coagulopathy (Acute) Bilateral pulmonary embolism (Acute) 1. 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 INR is 1.2 today * will give coumadin 10mg today and monitor INR * pulmonology on board * 2. Acute on chronic hypoxic respiratory failure * resolving. On 2L of oxygen now; baseline is 3L of oxygen at home * will monitor * 3. Acute DVT of left peroneal vein: as under 1. 4. History of rectus sheath hematoma * Says he was taking Lovenox as bridging in preparation for colonoscopy in March 2019 and developed a rectus sheath hematoma. * CT abdomen done showed decreasing size of hematoma with stable 2.5 cm on his home aneurysm of infrarenal aorta with eccentric mural thrombus or noncalcified plaque. * Currently on Coumadin and heparin drip * 5. Lactic acidosis: Resolved 6. Protein [employer] deficiency: As under 1. 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 COPD: On breathing treatments and incentive spirometer. 8. Hypertension: * BP meds were held on admission on account of hypotension. * Blood pressure has remained fairly stable and is 115/60 today. * We will continue monitoring. 9. DVT prophylaxis: On heparin drip and Coumadin Code status: DNRCCA Code Visit Inpatient E&M: 24599 Subs Hosp L3
[2018-11-01] VITALS (14 sets, daily range): BP systolic 121–146; BP diastolic 62–79; PULSE 86–107; RESP 18–20; TEMP 36.6–37.1; O2SAT 93–94
[2018-11-01 06:30] LABS: Absolute Lymphocyte Count 1.38 X10^3/ul (0.83-4.51); Absolute Neutrophil Count 4.8 X10^3/uL (2.0-7.7); Basophil# 0.03 X10^3/uL; Basophil% 0.4 % (0-1); Eosinophil# 0.21 X10^3/uL; Eosinophils% 2.7 % (0-5); Hematocrit 42.9 % (40-54); Hemoglobin 13.8 g/dl (13.0-16.5); Lymphocyte # 1.38 X10^3/ul (4.0); Mean Corp Hgb Conc 32.2 g/gl (32-36); Mean Corpuscular Hgb 31.1 pg (27.0-32.0); Mean Corpuscular Volume 96.6 fL (80-94); Mean Platelet Vol. 10.2 fl (6.2-12.0); Monocyte# 1.06 X10^3/uL; Monocyte% 13.9 % (0-10); Neutrophil # 4.83 X10^3/uL (2.7-7.7); Neutrophil % 63.2 % (47-70); Platelet Count 254 K/mm3 (150-450); RBC Distribution Width SD 47.5 fl (35.1-43.9); Red Blood Count 4.44 M/mm3 (4.6-6.2); White Blood Count 7.7 K/mm3 (4.4-11.0)
[2018-11-01 06:31] LABS: POSITIVE COUNT NO; POSITIVE DIFFERENTIAL NO; POSITIVE MORPHOLOGY NO
[2018-11-01 06:34] LABS: International Normalized Ratio 1.3; Prothrombin Time (Protime)PT. 15.7 SECONDS (11.7-14.9)
[2018-11-01 06:35] LABS: Partial Thromboplast Time 66.6 Seconds (24.1-36.2)
[2018-11-01 06:50] LABS: Anion Gap 11 (5-15); BUN 13 mg/dL (7-18); BUN/Creat Ratio 12.7 RATIO (10-20); Calcium,Total 9.7 mg/dL (8.5-10.1); Chloride 104 mmol/L (98-107); Creatinine, Serum 1.02 mg/dL (0.70-1.30); EST Glomerular Filtration Rate 75 mL/min (>60); Est Glom Filt Rate - Afr Amer 91 mL/min (>60); Estimated Creatinine Clearance 63.62 ml/min; Glucose 126 mg/dL (74-106); Potassium 4.6 mmol/L (3.5-5.1); Sodium Level 139 mmol/L (136-145)
[2018-11-01] MEDS: Ipratropium/Albuterol Sulfate 3 ML AMPUL.NEB INHALATION ×3 (06:50→19:16)
[2018-11-01] MEDS: Acetaminophen 325 MG Tablet 650 MG PO ×2 (09:41→20:54)
--- NOTE | 2018-11-01 11:28 | PCM.PROGNOTE ---
Patient Problems: Active and Suspected Problems (Last Reviewed 10/25/18 @ 19:51 by Omega Ann MD) Bilateral pulmonary embolism (Acute) Subjective: The patient was seen and examined at the bedside this morning. Events from the last 24 hours have been reviewed. The patient is currently afebrile, hemodynamically stable and maintaining appropriate oxygen saturations on 2 L/min via nasal cannula. The patient remains subtherapeutic with an INR of 1.3 this morning. Objective: The patient's most recent lab work, culture data and imaging studies have all been personally reviewed. CTA chest revealed extensive bilateral pulmonary emboli including saddle embolus. Surface echocardiogram revealed evidence of stage I diastolic dysfunction along with a severely dilated RV, moderate severe global RV systolic dysfunction, apical RV strain pattern and a right ventricular systolic pressure estimated to be 40 mmHg. - Physical Exam General: Alert, No apparent distress HEENT: Atraumatic, PERRLA, Normocephalic Oral: No Gingival or Mucosal Lesions/ Ulcerations Neck: Supple, No Nodes, Trachea Midline Lungs: No rhonchi, No wheeze, No rales, Diminished Cardiovascular: Regular rate, Regular Rhythm, Normal S1, Normal S2, No murmurs Abdomen: Bowel Sounds Present, Soft, Non Tender Extremities: No clubbing, No cyanosis, No edema Skin: - - No significant change from previous Musculoskeletal: No Muscle Wasting Lymphatic: No Cervical, Supraclavicular, or Inguinal Adenopathy Neurological: Neuro grossly intact Psych/Mental Status: Normal Affect, Appropriate Vital Signs Temp Pulse Resp BP Pulse Ox 36.6 C 95 18 146/79 H 94 11/01/18 09:33 11/01/18 09:33 11/01/18 09:33 11/01/18 09:33 11/01/18 09:33 Oxygen Flow Rate (L/min) 2 Oxygen Delivery Method Nasal Cannula Weight: 177 lb 0.499 oz Body Mass Index (BMI) 25.7 Finger Stick Blood Glucose 147 Intake and Output for Last 24 Hours 10/30/18 10/31/18 11/01/18 23:59 23:59 23:59 Intake Total 1772 / 1772 1103 / 1103 125 / 125 Output Total 1025 / 1025 Balance 747 / 747 1103 / 1103 125 / 125 Microbiology Past 72 Hours 10/25/18 18:26 Blood Culture - Final Blood Culture (Wb) #2 - Anticubital Right No growth in 5 days. 10/25/18 18:06 Blood Culture - Final Blood Culture (Wb) - Anticubital Left No growth in 5 days. 10/27/18 10:45 Gram Stain - Final Sputum, Expectorated/Coughed Respiratory Culture - Final Laboratory Tests Past 24 Hrs 11/01/18 11/01/18 11/01/18 05:58 05:58 05:58 WBC 7.7 RBC 4.44 L Hgb 13.8 Hct 42.9 MCV 96.6 H MCH 31.1 MCHC 32.2 RDW 14.0 RDW Differential 47.5 H Plt Count 254 MPV 10.2 Immature Gran % (Auto) 1.800 H Neut % (Auto) 63.2 Lymph % (Auto) 18.0 L [place] % (Auto) 13.9 H Eos % (Auto) 2.7 Baso % (Auto) 0.4 Absolute Neuts (auto) 4.8 Absolute Lymphs (auto) 1.38 Total Counted Not Reportable PT 15.7 H INR 1.3 APTT 66.6 H Sodium 139 Potassium 4.6 Chloride 104 Carbon Dioxide 24.0 Anion Gap 11 BUN 13 Creatinine 1.02 Estim Creat Clear Calc 63.62 Est GFR (MDRD) Af Amer 91 Est GFR (MDRD) Non-Af 75 BUN/Creatinine Ratio 12.7 Glucose 126 H Calcium 9.7 Clinical Impression(s) from Imaging Studies Chest CTA 10/25/18 17:19 IMPRESSION: Extensive bilateral pulmonary emboli including saddle embolus. Chronic interstitial emphysematous changes Electronically Signed: Tripp Chen MD at 19:02 EST , Service support , ADDENDUM: 10/25/18 191 IMPRESSION: Extensive bilateral pulmonary emboli including saddle embolus. Chronic interstitial emphysematous changes N.B. : The above information has been verbally conveyed by Tripp Chen MD to Mandy Gan MD, on 10/25/2018 19:06:29 (ET). Electronically Signed: Tripp Chen MD at 19:02 EST , Service support , Abdomen/Pelvis CT 10/25/18 17:23 IMPRESSION: 1. Atherosclerotic vascular calcifications. 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 No luminal stenosis, however. 2. Slight decreased size of hematoma in the right rectus abdominis muscle. 3. Fatty metamorphosis of the liver again noted. 4. Gallstones. No CT sign of acute cholecystitis. 5. Small, nonobstructing right renal stones again noted. No hydronephrosis. 6. Colonic diverticulosis without acute diverticulitis. No sign of bowel obstruction. The appendix is normal. 7. Stable fat-containing left inguinal hernia. 8. Stable degenerative changes of the spine as well as chronic central depression of the superior L2 and L3 vertebral endplates. Chronic bilateral L5 pars defects and grade 1 L5-S1 anterolisthesis again noted. Electronically Signed: William Dobbins MD at 18:36 EST , Service support , Brain CT 10/25/18 17:23 IMPRESSION: Chronic involutional changes without evidence of acute intracranial or calvarial abnormality. Electronically Signed: Agustin Zuniga DO at 18:23 EST Tel [phone], Service support , Medical Necessity - Tobacco Use Smoking Status: Former smoker Tobacco Use: Cigarettes, Cigars Assessment/Plan All Active Problems (Last Reviewed 10/25/18 @ 19:51 by Omega Ann MD) Positive colorectal cancer screening using DNA-based stool test (Acute) Hematoma of rectus sheath (Acute) Coagulopathy (Acute) Bilateral pulmonary embolism (Acute) RECOMMENDATIONS: 1. Continue heparin drip with Coumadin bridge as ordered. 2. Wean supplemental oxygen to maintain saturations at or above 90%. 3. Encourage incentive spirometer use and mobilize patient as tolerated. 4. Perform walking oximetry study prior to consideration for discharge from the hospital. 5. Outpatient pulmonary follow-up upon discharge with repeat echocardiogram in 4-6 weeks. IMPRESSIONS: 1. 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 The patient's INR remains subtherapeutic. Dose adjustments have already been made to the patient's Coumadin. Recommend continuing to wean supplemental oxygen as tolerated. Recommend outpatient follow-up in the pulmonary medicine clinic along with repeat echocardiogram in 4-6 weeks. 2. Rectus sheath hematoma Hematoma appears to be stable clinically. The patient is not a good candidate for TPA. 3. Self-reported COPD/AAA/chronic pain syndrome/osteoarthritis/CODE STATUS Complicates care, management, recovery and prognosis. CODE STATUS was once again verified to be DNR CCA. This note was generated with [employer] dictation software. It may contain incorrect words, spelling, and punctuation that were not noted in checking the note before signing. DISPOSITION: Given the lack of further ICU needs, will sign off. Please call with any additional questions. As noted above, the patient should follow-up in the pulmonary medicine clinic on an outpatient basis. Code Visit Inpatient E&M: 28608 Subs Hosp L2
--- NOTE | 2018-11-01 11:32 | PN_ITS ---
Patient Problems: Active and Suspected Problems (Last Reviewed 10/25/18 @ 19:51 by Omega Ann MD) Bilateral pulmonary embolism (Acute) Subjective: The patient was seen and examined at the bedside this morning. Events from the last 24 hours have been reviewed. The patient is currently afebrile, hemodynamically stable and maintaining appropriate oxygen saturations on 2 L/min via nasal cannula. The patient remains subtherapeutic with an INR of 1.3 this morning. Objective: The patient's most recent lab work, culture data and imaging studies have all been personally reviewed. CTA chest revealed extensive bilateral pulmonary emboli including saddle embolus. Surface echocardiogram revealed evidence of stage I diastolic dysfunction along with a severely dilated RV, moderate severe global RV systolic dysfunction, apical RV strain pattern and a right ventricular systolic pressure estimated to be 40 mmHg. - Physical Exam General: Alert, No apparent distress HEENT: Atraumatic, PERRLA, Normocephalic Oral: No Gingival or Mucosal Lesions/ Ulcerations Neck: Supple, No Nodes, Trachea Midline Lungs: No rhonchi, No wheeze, No rales, Diminished Cardiovascular: Regular rate, Regular Rhythm, Normal S1, Normal S2, No murmurs Abdomen: Bowel Sounds Present, Soft, Non Tender Extremities: No clubbing, No cyanosis, No edema Skin: - - No significant change from previous Musculoskeletal: No Muscle Wasting Lymphatic: No Cervical, Supraclavicular, or Inguinal Adenopathy Neurological: Neuro grossly intact Psych/Mental Status: Normal Affect, Appropriate Vital Signs Temp Pulse Resp BP Pulse Ox 36.6 C 95 18 146/79 H 94 11/01/18 09:33 11/01/18 09:33 11/01/18 09:33 11/01/18 09:33 11/01/18 09:33 Oxygen Flow Rate (L/min) 2 Oxygen Delivery Method Nasal Cannula Weight: 177 lb 0.499 oz Body Mass Index (BMI) 25.7 Finger Stick Blood Glucose 147 Intake and Output for Last 24 Hours 10/30/18 10/31/18 11/01/18 23:59 23:59 23:59 Intake Total 1772 / 1772 1103 / 1103 125 / 125 Output Total 1025 / 1025 Balance 747 / 747 1103 / 1103 125 / 125 Microbiology Past 72 Hours 10/25/18 18:26 Blood Culture - Final Blood Culture (Wb) #2 - Anticubital Right No growth in 5 days. 10/25/18 18:06 Blood Culture - Final Blood Culture (Wb) - Anticubital Left No growth in 5 days. 10/27/18 10:45 Gram Stain - Final Sputum, Expectorated/Coughed Respiratory Culture - Final Laboratory Tests Past 24 Hrs 11/01/18 11/01/18 11/01/18 05:58 05:58 05:58 WBC 7.7 RBC 4.44 L Hgb 13.8 Hct 42.9 MCV 96.6 H MCH 31.1 MCHC 32.2 RDW 14.0 RDW Differential 47.5 H Plt Count 254 MPV 10.2 Immature Gran % (Auto) 1.800 H Neut % (Auto) 63.2 Lymph % (Auto) 18.0 L [place] % (Auto) 13.9 H Eos % (Auto) 2.7 Baso % (Auto) 0.4 Absolute Neuts (auto) 4.8 Absolute Lymphs (auto) 1.38 Total Counted Not Reportable PT 15.7 H INR 1.3 APTT 66.6 H Sodium 139 Potassium 4.6 Chloride 104 Carbon Dioxide 24.0 Anion Gap 11 BUN 13 Creatinine 1.02 Estim Creat Clear Calc 63.62 Est GFR (MDRD) Af Amer 91 Est GFR (MDRD) Non-Af 75 BUN/Creatinine Ratio 12.7 Glucose 126 H Calcium 9.7 Clinical Impression(s) from Imaging Studies Chest CTA 10/25/18 17:19 IMPRESSION: Extensive bilateral pulmonary emboli including saddle embolus. Chronic interstitial emphysematous changes Electronically Signed: Tripp Chen MD at 19:02 EST , Service support , ADDENDUM: 10/25/18 191 IMPRESSION: Extensive bilateral pulmonary emboli including saddle embolus. Chronic interstitial emphysematous changes N.B. : The above information has been verbally conveyed by Tripp Chen MD to Mandy Gan MD, on 10/25/2018 19:06:29 (ET). Electronically Signed: Tripp Chen MD at 19:02 EST , Service support , Abdomen/Pelvis CT 10/25/18 17:23 IMPRESSION: 1. Atherosclerotic vascular calcifications. 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 No luminal stenosis, however. 2. Slight decreased size of hematoma in the right rectus abdominis muscle. 3. Fatty metamorphosis of the liver again noted. 4. Gallstones. No CT sign of acute cholecystitis. 5. Small, nonobstructing right renal stones again noted. No hydronephrosis. 6. Colonic diverticulosis without acute diverticulitis. No sign of bowel obstruction. The appendix is normal. 7. Stable fat-containing left inguinal hernia. 8. Stable degenerative changes of the spine as well as chronic central depression of the superior L2 and L3 vertebral endplates. Chronic bilateral L5 pars defects and grade 1 L5-S1 anterolisthesis again noted. Electronically Signed: William Dobbins MD at 18:36 EST , Service support , Brain CT 10/25/18 17:23 IMPRESSION: Chronic involutional changes without evidence of acute intracranial or calvarial abnormality. Electronically Signed: Agustin Zuniga DO at 18:23 EST Tel [phone], Service support , Medical Necessity - Tobacco Use Smoking Status: Former smoker Tobacco Use: Cigarettes, Cigars Assessment/Plan All Active Problems (Last Reviewed 10/25/18 @ 19:51 by Omega Ann MD) Positive colorectal cancer screening using DNA-based stool test (Acute) Hematoma of rectus sheath (Acute) Coagulopathy (Acute) Bilateral pulmonary embolism (Acute) RECOMMENDATIONS: 1. Continue heparin drip with Coumadin bridge as ordered. 2. Wean supplemental oxygen to maintain saturations at or above 90%. 3. Encourage incentive spirometer use and mobilize patient as tolerated. 4. Perform walking oximetry study prior to consideration for discharge from the hospital. 5. Outpatient pulmonary follow-up upon discharge with repeat echocardiogram in 4-6 weeks. IMPRESSIONS: 1. 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 The patient's INR remains subtherapeutic. Dose adjustments have already been made to the patient's Coumadin. Recommend continuing to wean supplemental oxygen as tolerated. Recommend outpatient follow-up in the pulmonary medicine clinic along with repeat echocardiogram in 4-6 weeks. 2. Rectus sheath hematoma Hematoma appears to be stable clinically. The patient is not a good candidate for TPA. 3. Self-reported COPD/AAA/chronic pain syndrome/osteoarthritis/CODE STATUS Complicates care, management, recovery and prognosis. CODE STATUS was once again verified to be DNR CCA. This note was generated with [employer] dictation software. It may contain incorrect words, spelling, and punctuation that were not noted in checking the note before signing. DISPOSITION: Given the lack of further ICU needs, will sign off. Please call with any additional questions. As noted above, the patient should follow-up in the pulmonary medicine clinic on an outpatient basis. Code Visit Inpatient E&M: 03064 Subs Hosp L2
[2018-11-01] MEDS: HEPARIN/D5w 25,000 UNITS 25,000 UNITS/250 ML IV.SOLN. 10 UNITS IV (13:12)
--- NOTE | 2018-11-01 14:16 | PN_ITS ---
<Godfrey Garrett - Last Filed: 11/01/18 14:11> Patient Problems: Active and Suspected Problems (Last Reviewed 10/25/18 @ 19:51 by Omega Ann MD) Bilateral pulmonary embolism (Acute) Subjective: Pt primarily c/o back pain. He describes spasming of his right thoracic region when trying to stand up. Elliott johnson and flexeril have mildly helped. Will try K pad. Abdominal wall is better per pt. No dizziness/LH. Pt is ambulatory. He does occasionally cough up mucus which makes his back hurt as well. - Physical Exam General: Alert, Oriented x3, Cooperative HEENT: Atraumatic, PERRLA, EOMI, Normocephalic Neck: Supple, No JVD, Negative Carotid Bruits Lungs: Clear to auscultation, Normal air movement Cardiovascular: Regular rate, No murmurs Abdomen: Bowel Sounds Present, Soft, Non Tender, - - swelling on right side, nontender, no bruising noted. Extremities: No edema, Capillary Refill Less than 3 Seconds, - - spine is nontender to palp. Skin: No rashes, No breakdown Musculoskeletal: No Tenderness to Palpation of Joints or Extremities Neurological: Cranial nerves II-XII grossly intact Psych/Mental Status: Normal Affect, Appropriate Vital Signs Temp Pulse Resp BP Pulse Ox 97.8 F 86 20 H 146/79 H 94 11/01/18 09:33 11/01/18 12:07 11/01/18 12:07 11/01/18 09:33 11/01/18 09:33 Oxygen Flow Rate (L/min) 2 Oxygen Delivery Method Nasal Cannula Weight: 177 lb 0.499 oz Body Mass Index (BMI) 25.7 Finger Stick Blood Glucose 147 Intake and Output for Last 24 Hours 10/30/18 10/31/18 11/01/18 23:59 23:59 23:59 Intake Total 1772 / 1772 1103 / 1103 625 / 625 Output Total 1025 / 1025 Balance 747 / 747 1103 / 1103 625 / 625 Microbiology Past 72 Hours 10/25/18 18:26 Blood Culture - Final Blood Culture (Wb) #2 - Anticubital Right No growth in 5 days. 10/25/18 18:06 Blood Culture - Final Blood Culture (Wb) - Anticubital Left No growth in 5 days. 10/27/18 10:45 Gram Stain - Final Sputum, Expectorated/Coughed Respiratory Culture - Final Laboratory Tests Past 24 Hrs 11/01/18 11/01/18 11/01/18 05:58 05:58 05:58 WBC 7.7 RBC 4.44 L Hgb 13.8 Hct 42.9 MCV 96.6 H MCH 31.1 MCHC 32.2 RDW 14.0 RDW Differential 47.5 H Plt Count 254 MPV 10.2 Immature Gran % (Auto) 1.800 H Neut % (Auto) 63.2 Lymph % (Auto) 18.0 L [place] % (Auto) 13.9 H Eos % (Auto) 2.7 Baso % (Auto) 0.4 Absolute Neuts (auto) 4.8 Absolute Lymphs (auto) 1.38 Total Counted Not Reportable PT 15.7 H INR 1.3 APTT 66.6 H Sodium 139 Potassium 4.6 Chloride 104 Carbon Dioxide 24.0 Anion Gap 11 BUN 13 Creatinine 1.02 Estim Creat Clear Calc 63.62 Est GFR (MDRD) Af Amer 91 Est GFR (MDRD) Non-Af 75 BUN/Creatinine Ratio 12.7 Glucose 126 H Calcium 9.7 Medical Necessity - Tobacco Use Smoking Status: Former smoker Tobacco Use: Cigarettes, Cigars Assessment/Plan All Active Problems (Last Reviewed 10/25/18 @ 19:51 by Omega Ann MD) Positive colorectal cancer screening using DNA-based stool test (Acute) Hematoma of rectus sheath (Acute) Coagulopathy (Acute) Bilateral pulmonary embolism (Acute) 1. 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 Continue heparin bridge to coumadin. daily INR. Slowly rising. 2. Back pain - describes muscle spasm sensation and worse with coughing, also when standing - nontender to palp along musculature and no spasms with palp. Likely pleurisy and musculoskeletal. Continue same therapy + Kpad. 3. Abdominal hematoma appears to be healing 4. LA resolved 5. COPD with chronic hypxic resp failure - baseline 3 lpm. stable no wheezing. 6. HTN - stable DVT ppx: as per #1 DC planning: home when INR therapeutic. This patient was seen by Godfrey Garrett PA-C under the supervision of Doctor Klarissa. <Koram,Sheryl Tonja - Last Filed: 11/01/18 15:51> - Physical Exam Vital Signs Temp Pulse Resp BP Pulse Ox 98.4 F 97 18 122/73 H 94 11/01/18 15:26 11/01/18 15:26 11/01/18 15:26 11/01/18 15:26 11/01/18 15:26 Oxygen Flow Rate (L/min) 2 Oxygen Delivery Method Nasal Cannula Weight: 177 lb 0.499 oz Body Mass Index (BMI) 25.7 Finger Stick Blood Glucose 147 Intake and Output for Last 24 Hours 10/30/18 10/31/18 11/01/18 23:59 23:59 23:59 Intake Total 1772 / 1772 1103 / 1103 625 / 625 Output Total 1025 / 1025 Balance 747 / 747 1103 / 1103 625 / 625 Microbiology Past 72 Hours 10/25/18 18:26 Blood Culture - Final Blood Culture (Wb) #2 - Anticubital Right No growth in 5 days. 10/25/18 18:06 Blood Culture - Final Blood Culture (Wb) - Anticubital Left No growth in 5 days. Laboratory Tests Past 24 Hrs 11/01/18 11/01/18 11/01/18 05:58 05:58 05:58 WBC 7.7 RBC 4.44 L Hgb 13.8 Hct 42.9 MCV 96.6 H MCH 31.1 MCHC 32.2 RDW 14.0 RDW Differential 47.5 H Plt Count 254 MPV 10.2 Immature Gran % (Auto) 1.800 H Neut % (Auto) 63.2 Lymph % (Auto) 18.0 L [place] % (Auto) 13.9 H Eos % (Auto) 2.7 Baso % (Auto) 0.4 Absolute Neuts (auto) 4.8 Absolute Lymphs (auto) 1.38 Total Counted Not Reportable PT 15.7 H INR 1.3 APTT 66.6 H Sodium 139 Potassium 4.6 Chloride 104 Carbon Dioxide 24.0 Anion Gap 11 BUN 13 Creatinine 1.02 Estim Creat Clear Calc 63.62 Est GFR (MDRD) Af Amer 91 Est GFR (MDRD) Non-Af 75 BUN/Creatinine Ratio 12.7 Glucose 126 H Calcium 9.7 Assessment/Plan Patient seen by Godfrey Garrett PA-C under my supervision Patient seen and examined. He does complain of some mild back pain and spasms. This likely to be musculoskeletal. INR today is 1.3. Has mild tenderness over abdominal hematoma area. Review of systems otherwise negative. o/e: Vital Signs Height 5 ft 10 in Weight: 177 lb 0.499 oz Weight in Pounds 177.0 lbs Pulse Ox 94 Temperature 98.4 F Pulse Rate 97 Respiratory Rate 18 Blood Pressure [BP] 127/78 Blood Pressure 122/73 Blood Pressure Position [BP] Sitting Blood Pressure Position Sitting General: Alert, Oriented x3, Cooperative, No apparent distress HEENT: Atraumatic, PERRLA, EOMI, Normocephalic Oral: Moist Mucosa Neck: Supple, No JVD, Negative Carotid Bruits Lungs: Clear to auscultation, Normal air movement, No rhonchi, No wheeze, No rales, - - on 2L of oxygen Cardiovascular: Regular rate, Regular Rhythm, Normal S1, Normal S2, No murmurs Abdomen: Bowel Sounds Present, Soft, mild tenderness over abdomen at site of abdominal wall hematoma Non-Distended, No Hepato-splenomegaly Extremities: No clubbing, No cyanosis, No edema, Capillary Refill Less than 3 Seconds Skin: No rashes, No breakdown Musculoskeletal: No Tenderness to Palpation of Joints or Extremities Lymphatic: No Cervical, Supraclavicular, or Inguinal Adenopathy Neurological: Cranial nerves II-XII grossly intact, Neuro grossly intact, Motor Exam 5/5 strength throughout Psych/Mental Status: Normal Affect, Appropriate, Alert and oriented to time, place, person, mood and affect Plan is to continue him with heparin. Give Coumadin 10 mg today and monitor INR. Monitor CBC as well. rest of management as per Godfrey Garrett PA-c's note which I have reviewed and agree with. Code Visit Inpatient E&M: 69941 Subs Hosp L2
[2018-11-01] MEDS: BENZOCAINE/MENTHOL 1 LOZENGE MUCOUS MEM (21:10)
[2018-11-02] VITALS (16 sets, daily range): BP systolic 122–139; BP diastolic 68–74; PULSE 83–105; RESP 16–20; TEMP 36.4–36.9; O2SAT 92–96
[2018-11-02] MEDS: HEPARIN/D5w 25,000 UNITS 25,000 UNITS/250 ML IV.SOLN. 10 UNITS IV ×2 (03:26→17:45)
[2018-11-02 05:55] LABS: International Normalized Ratio 1.3; Prothrombin Time (Protime)PT. 16.1 SECONDS (11.7-14.9)
[2018-11-02 05:57] LABS: Partial Thromboplast Time 81.8 Seconds (24.1-36.2)
[2018-11-02] MEDS: Ipratropium/Albuterol Sulfate 3 ML AMPUL.NEB INHALATION ×3 (06:50→19:08)
[2018-11-02] MEDS: BENZOCAINE/MENTHOL 1 LOZENGE MUCOUS MEM (09:51)
[2018-11-02 13:24] LABS: Partial Thromboplast Time 64.2 Seconds (24.1-36.2)
--- NOTE | 2018-11-02 14:40 | PN_ITS ---
<Godfrey Garrett - Last Filed: 11/02/18 14:36> Patient Problems: Active and Suspected Problems (Last Reviewed 10/25/18 @ 19:51 by Omega Ann MD) Bilateral pulmonary embolism (Acute) Subjective: Ongoing productive cough with thick white mucus. No CP. No hemoptysis. No fever chills. Pt ambulatory. Waiting for therapeutic INR. - Physical Exam General: Alert, Oriented x3, Cooperative HEENT: Atraumatic, PERRLA, EOMI, Normocephalic Neck: Supple, No JVD, Negative Carotid Bruits Lungs: Diminished Cardiovascular: Regular rate, No murmurs Abdomen: Bowel Sounds Present, Soft, Non Tender Extremities: No edema, Capillary Refill Less than 3 Seconds Skin: No rashes, No breakdown Musculoskeletal: No Tenderness to Palpation of Joints or Extremities Neurological: Cranial nerves II-XII grossly intact Psych/Mental Status: Normal Affect, Appropriate, Alert and oriented to time, place, person, mood and affect Vital Signs Temp Pulse Resp BP Pulse Ox 97.9 F 98 16 133/74 H 92 11/02/18 14:09 11/02/18 14:09 11/02/18 14:09 11/02/18 14:09 11/02/18 14:09 Oxygen Flow Rate (L/min) 2 Oxygen Delivery Method Nasal Cannula Weight: 177 lb 0.499 oz Body Mass Index (BMI) 25.7 Finger Stick Blood Glucose 147 Intake and Output for Last 24 Hours 10/31/18 11/01/18 11/02/18 23:59 23:59 23:59 Intake Total 1103 / 1103 1528 / 1528 324.3 / 324.3 Balance 1103 / 1103 1528 / 1528 324.3 / 324.3 Microbiology Past 72 Hours 10/25/18 18:26 Blood Culture - Final Blood Culture (Wb) #2 - Anticubital Right No growth in 5 days. 10/25/18 18:06 Blood Culture - Final Blood Culture (Wb) - Anticubital Left No growth in 5 days. Laboratory Tests Past 24 Hrs 11/02/18 11/02/18 05:25 12:41 PT 16.1 H INR 1.3 APTT 81.8 H 64.2 H Medical Necessity - Tobacco Use Smoking Status: Former smoker Tobacco Use: Cigarettes, Cigars Assessment/Plan All Active Problems (Last Reviewed 10/25/18 @ 19:51 by Omega Ann MD) Positive colorectal cancer screening using DNA-based stool test (Acute) Hematoma of rectus sheath (Acute) Coagulopathy (Acute) Bilateral pulmonary embolism (Acute) 1. 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 Continue heparin bridge to coumadin. daily INR. Warfarin inc. to 12.5. 2. Back pain - describes muscle spasm sensation and worse with coughing, also when standing - nontender to palp along musculature and no spasms with palp. Likely pleurisy and musculoskeletal. Continue same therapy + Kpad. 3. Abdominal hematoma appears to be healing 4. LA resolved 5. COPD with chronic hypoxic resp failure - baseline 3 lpm. stable no wheezing. 6. HTN - stable DVT ppx: as per #1 DC planning: home when INR therapeutic. This patient was seen by Godfrey Garrett PA-C under the supervision of Doctor Klarissa. <Sheryl Cyr - Last Filed: 11/02/18 16:15> - Physical Exam Vital Signs Temp Pulse Resp BP Pulse Ox 97.9 F 98 16 133/74 H 92 11/02/18 14:09 11/02/18 14:09 11/02/18 14:09 11/02/18 14:09 11/02/18 14:09 Oxygen Flow Rate (L/min) 2 Oxygen Delivery Method Nasal Cannula Weight: 177 lb 0.499 oz Body Mass Index (BMI) 25.7 Finger Stick Blood Glucose 147 Intake and Output for Last 24 Hours 10/31/18 11/01/18 11/02/18 23:59 23:59 23:59 Intake Total 1103 / 1103 1528 / 1528 324.3 / 324.3 Balance 1103 / 1103 1528 / 1528 324.3 / 324.3 Microbiology Past 72 Hours 10/25/18 18:26 Blood Culture - Final Blood Culture (Wb) #2 - Anticubital Right No growth in 5 days. 10/25/18 18:06 Blood Culture - Final Blood Culture (Wb) - Anticubital Left No growth in 5 days. Laboratory Tests Past 24 Hrs 11/02/18 11/02/18 05:25 12:41 PT 16.1 H INR 1.3 APTT 81.8 H 64.2 H Assessment/Plan Patient seen by Godfrey Garrett PA-C under my supervision Patient seen and examined. Has no complaints. Review of systems otherwise negative. Labs and vitals reviewed. INR still 1.3 today. o/e: Vital Signs Height 5 ft 10 in Weight: 177 lb 0.499 oz Weight in Pounds 177.0 lbs Pulse Ox 92 Temperature 97.9 F Pulse Rate 98 Respiratory Rate 16 Blood Pressure [BP] 127/78 Blood Pressure 133/74 Blood Pressure Position [BP] Sitting Blood Pressure Position Sitting General: Alert, Oriented x3, Cooperative, No apparent distress HEENT: Atraumatic, PERRLA, EOMI, Normocephalic Oral: Moist Mucosa Neck: Supple, No JVD, Negative Carotid Bruits Lungs: Clear to auscultation, Normal air movement, No rhonchi, No wheeze, No rales, - - on 2L of oxygen Cardiovascular: Regular rate, Regular Rhythm, Normal S1, Normal S2, No murmurs Abdomen: Bowel Sounds Present, Soft, minimal tenderness over abdomen at site of abdominal wall hematoma Non-Distended, No Hepato-splenomegaly Extremities: No clubbing, No cyanosis, No edema, Capillary Refill Less than 3 Seconds Skin: No rashes, No breakdown Musculoskeletal: No Tenderness to Palpation of Joints or Extremities Lymphatic: No Cervical, Supraclavicular, or Inguinal Adenopathy Neurological: Cranial nerves II-XII grossly intact, Neuro grossly intact, Motor Exam 5/5 strength throughout Psych/Mental Status: Normal Affect, Appropriate, Alert and oriented to time, place, person, mood and affect Plan is to continue him with heparin. Give Coumadin 12.5 mg today and monitor I NR. Continue heparin drip Rest of management as per Godfrey Garrett PA-c's note which I have reviewed and agree with. Code Visit Inpatient E&M: 62866 Subs Hosp L2
[2018-11-02] MEDS: Acetaminophen 325 MG Tablet 650 MG PO (21:34)
[2018-11-03] VITALS (14 sets, daily range): BP systolic 108–151; BP diastolic 69–76; PULSE 84–102; RESP 16–23; TEMP 36.6–37; O2SAT 93–96
[2018-11-03 06:50] LABS: International Normalized Ratio 1.5
[2018-11-03 06:52] LABS: Partial Thromboplast Time 79.4 Seconds (24.1-36.2)
[2018-11-03] MEDS: Ipratropium/Albuterol Sulfate 3 ML AMPUL.NEB INHALATION ×3 (07:16→18:48)
[2018-11-03] MEDS: HEPARIN/D5w 25,000 UNITS 25,000 UNITS/250 ML IV.SOLN. 10 UNITS IV (08:41)
[2018-11-03 13:11] LABS: Partial Thromboplast Time 70.1 Seconds (24.1-36.2)
--- NOTE | 2018-11-03 14:05 | PCM.PN.HOSP ---
Patient Problems: Active and Suspected Problems (Last Reviewed 10/25/18 @ 19:51 by Omega Ann MD) Bilateral pulmonary embolism (Acute) Subjective: Patient seen and examined. He has no complaints and feels well. Review of systems otherwise negative. INR is 1.5 today. Labs and vitals reviewed. He remains on heparin drip. Vitals/I&O's: Vital Signs Temp Pulse Resp BP Pulse Ox 98.1 F 99 16 118/75 94 11/03/18 08:42 11/03/18 13:33 11/03/18 13:33 11/03/18 08:42 11/03/18 08:42 Oxygen Flow Rate (L/min) 2 Oxygen Delivery Method Nasal Cannula Weight: 174 lb 6.17 oz Body Mass Index (BMI) 25.7 Finger Stick Blood Glucose 147 Intake and Output for Last 24 Hours 11/01/18 11/02/18 11/03/18 23:59 23:59 23:59 Intake Total 1528 / 1528 1100.3 / 1100.3 314.1 / 314.1 Balance 1528 / 1528 1100.3 / 1100.3 314.1 / 314.1 General: Alert, Oriented x3, Cooperative, No apparent distress HEENT: Atraumatic, PERRLA, EOMI, Normocephalic Oral: Moist Mucosa Neck: Supple, No JVD, Negative Carotid Bruits Lungs: Clear to auscultation, Normal air movement, No rhonchi, No wheeze, No rales, - - on 2L of oxygen Cardiovascular: Regular rate, Regular Rhythm, Normal S1, Normal S2, No murmurs Abdomen: Bowel Sounds Present, Soft, minimal tenderness over abdomen at site of abdominal wall hematoma Non-Distended, No Hepato-splenomegaly Extremities: No clubbing, No cyanosis, No edema, Capillary Refill Less than 3 Seconds Skin: No rashes, No breakdown Musculoskeletal: No Tenderness to Palpation of Joints or Extremities Lymphatic: No Cervical, Supraclavicular, or Inguinal Adenopathy Neurological: Cranial nerves II-XII grossly intact, Neuro grossly intact, Motor Exam 5/5 strength throughout Psych/Mental Status: Normal Affect, Appropriate, Alert and oriented to time, place, person, mood and affect Microbiology Past 72 Hours 10/25/18 18:26 Blood Culture (Wb) #2 - Anticubital Right Blood Culture - Final No growth in 5 days. 10/25/18 18:06 Blood Culture (Wb) - Anticubital Left Blood Culture - Final No growth in 5 days. Laboratory Results 11/03/18 06:00: PT 18.0 H, INR 1.5, APTT 79.4 H 11/03/18 12:50: APTT 70.1 H Current Medications Acetaminophen (Tylenol) 650 mg PO Q6H PRN PRN PRN Reason: Non-cardiac pain (mod-severe) Last Admin: 11/02/18 21:34 Dose: 650 mg Albuterol Sulfate (Ventolin Aerosols) 2.5 mg INHALATION Q2H PRN PRN Reason: SHORTNESS OF BREATH/WHEEZING Albuterol/Ipratropium (Duoneb) 3 ml INHALATION Q6HWA.[facility] Last Admin: 11/03/18 13:33 Dose: 3 ml Bisacodyl (Dulcolax) 5 mg PO DAILY PRN PRN PRN Reason: Constipation Cyclobenzaprine HCl (Flexeril) 10 mg PO TID PRN PRN Reason: PAIN Last Admin: 11/02/18 21:35 Dose: 10 mg Guaifenesin (Robitussin Dm) 10 ml PO Q6H PRN PRN PRN Reason: COUGH Haloperidol Lactate (Haldol) 5 mg IV Q6H PRN PRN PRN Reason: ANXIETY Last Admin: 10/26/18 13:30 Dose: 5 mg Heparin Sodium (Porcine) (Heparin Na) 0 unit IV UD PRN; Protocol Sodium Chloride () 250 mls @ 15 mls/hr IV .[id number] PRN PRN Reason: SALINE FLUSH Heparin Sodium/Dextrose () 25,000 units in 250 mls @ 10 mls/hr IV .Q25H ASI; Protocol Last Admin: 11/03/18 08:41 Dose: 10 mls/hr Magnesium Hydroxide (Milk Of Magnesia) 30 ml PO DAILY PRN PRN Reason: Constipation Menthol (Bengay Vanishing Scent) 1 applic TOPICAL TID PRN PRN PRN Reason: PAIN Last Admin: 11/02/18 21:35 Dose: 1 applic Nutritional Formula (Lactose Free) (Ensure Enlive) 120 ml PO 4X/DAY [facility] Last Admin: 11/03/18 08:42 Dose: 120 ml Ondansetron HCl (Zofran) 4 mg IV Q8H PRN PRN PRN Reason: NAUSEA Sodium Chloride () 5 - 15 ml IV UD PRN PRN Reason: SALINE FLUSH Last Admin: 10/29/18 21:25 Dose: 10 ml Throat Lozenges (Cepacol Sore Throat Lozenge) 1 lozenge MUCOUS MEM Q2H PRN PRN PRN Reason: COUGH Last Admin: 11/02/18 09:51 Dose: 1 lozenge Warfarin Sodium (Coumadin (Pbkc)) 7.5 mg PO DAILY@1700 SAI Last Admin: 11/02/18 17:00 Dose: 7.5 mg Zolpidem Tartrate (Ambien (Generic)) 5 mg PO QHS PRN PRN PRN Reason: INSOMNIA Medical Necessity - Tobacco Use Smoking Status: Former smoker Tobacco Use: Cigarettes, Cigars Assessment/Plan All Active Problems (Last Reviewed 10/25/18 @ 19:51 by Omega Ann MD) Positive colorectal cancer screening using DNA-based stool test (Acute) Hematoma of rectus sheath (Acute) Coagulopathy (Acute) Bilateral pulmonary embolism (Acute) 1. Massive PE with Acute bilateral PE and saddle embolus INR is 1.5 today. Received 12.5mg of coumadin will give 15mg of coumadin today. continue heparin drip 2. history of protein C and S deficiency: management as under 1. 2. Acute on chronic hypoxic respiratory failure resolving. On 2L of oxygen now; 3. Acute DVT of left peroneal vein: as under 1. 4. History of rectus sheath hematoma stable. hematoma is nontender and not enlarging. on coumadin and heparin drip Currently on Coumadin and heparin drip 5. Lactic acidosis: Resolved 6. 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 COPD: On breathing treatments and incentive spirometer. 8. Hypertension: stable. Still off meds which were held on admission o/a of hypotension. continue to monitor 9. DVT prophylaxis: On heparin drip and Coumadin Code status: DNRCCA Code Visit Inpatient E&M: [id number] Subs Hosp L2
--- NOTE | 2018-11-03 14:09 | PN_ITS ---
Patient Problems: Active and Suspected Problems (Last Reviewed 10/25/18 @ 19:51 by Omega Ann MD) Bilateral pulmonary embolism (Acute) Subjective: Patient seen and examined. He has no complaints and feels well. Review of systems otherwise negative. INR is 1.5 today. Labs and vitals reviewed. He remains on heparin drip. Vitals/I&O's: Vital Signs Temp Pulse Resp BP Pulse Ox 98.1 F 99 16 118/75 94 11/03/18 08:42 11/03/18 13:33 11/03/18 13:33 11/03/18 08:42 11/03/18 08:42 Oxygen Flow Rate (L/min) 2 Oxygen Delivery Method Nasal Cannula Weight: 174 lb 6.17 oz Body Mass Index (BMI) 25.7 Finger Stick Blood Glucose 147 Intake and Output for Last 24 Hours 11/01/18 11/02/18 11/03/18 23:59 23:59 23:59 Intake Total 1528 / 1528 1100.3 / 1100.3 314.1 / 314.1 Balance 1528 / 1528 1100.3 / 1100.3 314.1 / 314.1 General: Alert, Oriented x3, Cooperative, No apparent distress HEENT: Atraumatic, PERRLA, EOMI, Normocephalic Oral: Moist Mucosa Neck: Supple, No JVD, Negative Carotid Bruits Lungs: Clear to auscultation, Normal air movement, No rhonchi, No wheeze, No rales, - - on 2L of oxygen Cardiovascular: Regular rate, Regular Rhythm, Normal S1, Normal S2, No murmurs Abdomen: Bowel Sounds Present, Soft, minimal tenderness over abdomen at site of abdominal wall hematoma Non-Distended, No Hepato-splenomegaly Extremities: No clubbing, No cyanosis, No edema, Capillary Refill Less than 3 Seconds Skin: No rashes, No breakdown Musculoskeletal: No Tenderness to Palpation of Joints or Extremities Lymphatic: No Cervical, Supraclavicular, or Inguinal Adenopathy Neurological: Cranial nerves II-XII grossly intact, Neuro grossly intact, Motor Exam 5/5 strength throughout Psych/Mental Status: Normal Affect, Appropriate, Alert and oriented to time, place, person, mood and affect Microbiology Past 72 Hours 10/25/18 18:26 Blood Culture (Wb) #2 - Anticubital Right Blood Culture - Final No growth in 5 days. 10/25/18 18:06 Blood Culture (Wb) - Anticubital Left Blood Culture - Final No growth in 5 days. Laboratory Results 11/03/18 06:00: PT 18.0 H, INR 1.5, APTT 79.4 H 11/03/18 12:50: APTT 70.1 H Current Medications Acetaminophen (Tylenol) 650 mg PO Q6H PRN PRN PRN Reason: Non-cardiac pain (mod-severe) Last Admin: 11/02/18 21:34 Dose: 650 mg Albuterol Sulfate (Ventolin Aerosols) 2.5 mg INHALATION Q2H PRN PRN Reason: SHORTNESS OF BREATH/WHEEZING Albuterol/Ipratropium (Duoneb) 3 ml INHALATION Q6HWA.RT [facility] Last Admin: 11/03/18 13:33 Dose: 3 ml Bisacodyl (Dulcolax) 5 mg PO DAILY PRN PRN PRN Reason: Constipation Cyclobenzaprine HCl (Flexeril) 10 mg PO TID PRN PRN Reason: PAIN Last Admin: 11/02/18 21:35 Dose: 10 mg Guaifenesin (Robitussin Dm) 10 ml PO Q6H PRN PRN PRN Reason: COUGH Haloperidol Lactate (Haldol) 5 mg IV Q6H PRN PRN PRN Reason: ANXIETY Last Admin: 10/26/18 13:30 Dose: 5 mg Heparin Sodium (Porcine) (Heparin Na) 0 unit IV UD PRN; Protocol Sodium Chloride () 250 mls @ 15 mls/hr IV .[id number] PRN PRN Reason: SALINE FLUSH Heparin Sodium/Dextrose () 25,000 units in 250 mls @ 10 mls/hr IV .Q25H SAI; Protocol Last Admin: 11/03/18 08:41 Dose: 10 mls/hr Magnesium Hydroxide (Milk Of Magnesia) 30 ml PO DAILY PRN PRN Reason: Constipation Menthol (Bengay Vanishing Scent) 1 applic TOPICAL TID PRN PRN PRN Reason: PAIN Last Admin: 11/02/18 21:35 Dose: 1 applic Nutritional Formula (Lactose Free) (Ensure Enlive) 120 ml PO 4X/DAY [facility] Last Admin: 11/03/18 08:42 Dose: 120 ml Ondansetron HCl (Zofran) 4 mg IV Q8H PRN PRN PRN Reason: NAUSEA Sodium Chloride () 5 - 15 ml IV UD PRN PRN Reason: SALINE FLUSH Last Admin: 10/29/18 21:25 Dose: 10 ml Throat Lozenges (Cepacol Sore Throat Lozenge) 1 lozenge MUCOUS MEM Q2H PRN PRN PRN Reason: COUGH Last Admin: 11/02/18 09:51 Dose: 1 lozenge Warfarin Sodium (Coumadin (Pbkc)) 7.5 mg PO DAILY@1700 SAI Last Admin: 11/02/18 17:00 Dose: 7.5 mg Zolpidem Tartrate (Ambien (Generic)) 5 mg PO QHS PRN PRN PRN Reason: INSOMNIA Medical Necessity - Tobacco Use Smoking Status: Former smoker Tobacco Use: Cigarettes, Cigars Assessment/Plan All Active Problems (Last Reviewed 10/25/18 @ 19:51 by Omega Ann MD) Positive colorectal cancer screening using DNA-based stool test (Acute) Hematoma of rectus sheath (Acute) Coagulopathy (Acute) Bilateral pulmonary embolism (Acute) 1. Massive PE with Acute bilateral PE and saddle embolus * INR is 1.5 today. Received 12.5mg of coumadin * will give 15mg of coumadin today. * continue heparin drip 2. history of protein C and S deficiency: management as under 1. * 2. Acute on chronic hypoxic respiratory failure * resolving. On 2L of oxygen now; * 3. Acute DVT of left peroneal vein: as under 1. 4. History of rectus sheath hematoma * stable. * hematoma is nontender and not enlarging. * on coumadin and heparin drip * Currently on Coumadin and heparin drip * 5. Lactic acidosis: Resolved 6. Protein DRIVER GUARD deficiency: As under 1. 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 COPD: On breathing treatments and incentive spirometer. 8. Hypertension: stable. Still off meds which were held on admission o/a of hypotension. continue to monitor 9. DVT prophylaxis: On heparin drip and Coumadin Code status: DNRCCA Code Visit Inpatient E&M: 05078 Subs Hosp L2
[2018-11-04] VITALS (16 sets, daily range): BP systolic 108–121; BP diastolic 63–75; PULSE 88–102; RESP 15–22; TEMP 36.6–37.1; O2SAT 93–96
[2018-11-04] MEDS: HEPARIN/D5w 25,000 UNITS 25,000 UNITS/250 ML IV.SOLN. 10 UNITS IV ×2 (01:15→22:27)
[2018-11-04 02:04] LABS: Partial Thromboplast Time 72.9 Seconds (24.1-36.2)
[2018-11-04] MEDS: Ipratropium/Albuterol Sulfate 3 ML AMPUL.NEB INHALATION ×3 (07:10→19:20)
[2018-11-04 08:15] LABS: International Normalized Ratio 1.9; Prothrombin Time (Protime)PT. 21.6 SECONDS (11.7-14.9)
[2018-11-04 08:16] LABS: Partial Thromboplast Time 67.6 Seconds (24.1-36.2)
--- NOTE | 2018-11-04 10:22 | CASEMGMT ---
Addendum entered by Guerita Green 11/04/18 10:30: Call to [facility] and they state that pt's order is for 2liters continuous with a conserving device. Gita BARON aware at this time to test pt on 2liters for walking to verify will not need more than that. Livia BARON CM Original Note: Therapy is recommending further skilled therapy for pt at this time. This RN CM to room to speak with pt regarding discharge plan at this time. Pt is agreeable and feels the need for HH at this time. Pt states no preference. Call to Gita at [facility] and she is aware that pt has order for RN, PT/OT at this time and she states that they will be able to take pt at this time. Gita BARON is aware to do ambulatory pulse ox for pt at this time. Pt states does have prn oxygen at home. Livia BARON CM
--- NOTE | 2018-11-04 15:01 | PCM.PN.HOSP ---
Patient Problems: Active and Suspected Problems (Last Reviewed 10/25/18 @ 19:51 by Omega Ann MD) Bilateral pulmonary embolism (Acute) Subjective: Patient seen and examined. He has no complaints and feels well. Review of systems otherwise negative. Labs and vitals reviewed. Vitals/I&O's: Vital Signs Temp Pulse Resp BP Pulse Ox 98.1 F 98 22 H 119/70 94 11/04/18 11:30 11/04/18 12:59 11/04/18 12:59 11/04/18 11:30 11/04/18 11:30 Oxygen Flow Rate (L/min) 2 Oxygen Delivery Method Nasal Cannula Weight: 178 lb 2.136 oz Body Mass Index (BMI) 25.7 Finger Stick Blood Glucose 147 Intake and Output for Last 24 Hours 11/02/18 11/03/18 11/04/18 23:59 23:59 23:59 Intake Total 1100.3 / 1100.3 788.1 / 788.1 545.5 / 545.5 Balance 1100.3 / 1100.3 788.1 / 788.1 545.5 / 545.5 General: Alert, Oriented x3, Cooperative, No apparent distress HEENT: Atraumatic, PERRLA, EOMI, Normocephalic Oral: Moist Mucosa Neck: Supple, No JVD, Negative Carotid Bruits Lungs: Clear to auscultation, Normal air movement, No rhonchi, No wheeze, No rales, - - on 2L of oxygen Cardiovascular: Regular rate, Regular Rhythm, Normal S1, Normal S2, No murmurs Abdomen: Bowel Sounds Present, Soft, minimal tenderness over abdomen at site of abdominal wall hematoma Non-Distended, No Hepato-splenomegaly Extremities: No clubbing, No cyanosis, No edema, Capillary Refill Less than 3 Seconds Skin: No rashes, No breakdown Musculoskeletal: No Tenderness to Palpation of Joints or Extremities Lymphatic: No Cervical, Supraclavicular, or Inguinal Adenopathy Neurological: Cranial nerves II-XII grossly intact, Neuro grossly intact, Motor Exam 5/5 strength throughout Psych/Mental Status: Normal Affect, Appropriate, Alert and oriented to time, place, person, mood and affect Laboratory Results 11/03/18 19:35: APTT 67.0 H 11/04/18 01:42: APTT 72.9 H 11/04/18 07:25: PT 21.6 H, INR 1.9, APTT 67.6 H Current Medications Acetaminophen (Tylenol) 650 mg PO Q6H PRN PRN PRN Reason: Non-cardiac pain (mod-severe) Last Admin: 11/02/18 21:34 Dose: 650 mg Albuterol Sulfate (Ventolin Aerosols) 2.5 mg INHALATION Q2H PRN PRN Reason: SHORTNESS OF BREATH/WHEEZING Albuterol/Ipratropium (Duoneb) 3 ml INHALATION Q6HWA.RT [facility] Last Admin: 11/04/18 12:32 Dose: 3 ml Bisacodyl (Dulcolax) 5 mg PO DAILY PRN PRN PRN Reason: Constipation Cyclobenzaprine HCl (Flexeril) 10 mg PO TID PRN PRN Reason: PAIN Last Admin: 11/03/18 20:53 Dose: 10 mg Guaifenesin (Robitussin Dm) 10 ml PO Q6H PRN PRN PRN Reason: COUGH Haloperidol Lactate (Haldol) 5 mg IV Q6H PRN PRN PRN Reason: ANXIETY Last Admin: 10/26/18 13:30 Dose: 5 mg Heparin Sodium (Porcine) (Heparin Na) 0 unit IV UD PRN; Protocol Sodium Chloride () 250 mls @ 15 mls/hr IV .[id number] PRN PRN Reason: SALINE FLUSH Heparin Sodium/Dextrose () 25,000 units in 250 mls @ 10 mls/hr IV .Q25H [facility]; Protocol Last Admin: 11/04/18 01:15 Dose: 10 mls/hr Magnesium Hydroxide (Milk Of Magnesia) 30 ml PO DAILY PRN PRN Reason: Constipation Menthol (Bengay Vanishing Scent) 1 applic TOPICAL TID PRN PRN PRN Reason: PAIN Last Admin: 11/03/18 20:53 Dose: 1 applic Nutritional Formula (Lactose Free) (Ensure Enlive) 120 ml PO 4X/DAY [facility] Last Admin: 11/04/18 09:53 Dose: 120 ml Ondansetron HCl (Zofran) 4 mg IV Q8H PRN PRN PRN Reason: NAUSEA Sodium Chloride () 5 - 15 ml IV UD PRN PRN Reason: SALINE FLUSH Last Admin: 10/29/18 21:25 Dose: 10 ml Throat Lozenges (Cepacol Sore Throat Lozenge) 1 lozenge MUCOUS MEM Q2H PRN PRN PRN Reason: COUGH Last Admin: 11/02/18 09:51 Dose: 1 lozenge Warfarin Sodium (Coumadin (Pbkc)) 7.5 mg PO DAILY@1700 [facility] Last Admin: 11/03/18 18:10 Dose: 7.5 mg Zolpidem Tartrate (Ambien (Generic)) 5 mg PO QHS PRN PRN PRN Reason: INSOMNIA Medical Necessity - Tobacco Use Smoking Status: Former smoker Tobacco Use: Cigarettes, Cigars Assessment/Plan All Active Problems (Last Reviewed 10/25/18 @ 19:51 by Omega Ann MD) Positive colorectal cancer screening using DNA-based stool test (Acute) Hematoma of rectus sheath (Acute) Coagulopathy (Acute) Bilateral pulmonary embolism (Acute) 1. Massive PE with Acute bilateral PE and saddle embolus INR is 1.9 today. Received 50 mg of Coumadin yesterday. We will give 10 mg of Coumadin today. Heparin drip 2. history of protein C and S deficiency: management as under 1. 2. Acute on chronic hypoxic respiratory failure resolving. On 2L of oxygen now; 3. Acute DVT of left peroneal vein: as under 1. 4. History of rectus sheath hematoma stable. hematoma is nontender and stable on coumadin and heparin drip Currently on Coumadin and heparin drip 5. Lactic acidosis: Resolved 6. 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 COPD: On breathing treatments and incentive spirometer. 8. Hypertension: stable. Still off meds which were held on admission o/a of hypotension. continue to monitor 9. DVT prophylaxis: On heparin drip and Coumadin Code status: DNRCCA Code Visit Inpatient E&M: 51820 Subs Hosp L2
--- NOTE | 2018-11-04 15:04 | PN_ITS ---
Patient Problems: Active and Suspected Problems (Last Reviewed 10/25/18 @ 19:51 by Omega Ann MD) Bilateral pulmonary embolism (Acute) Subjective: Patient seen and examined. He has no complaints and feels well. Review of systems otherwise negative. Labs and vitals reviewed. Vitals/I&O's: Vital Signs Temp Pulse Resp BP Pulse Ox 98.1 F 98 22 H 119/70 94 11/04/18 11:30 11/04/18 12:59 11/04/18 12:59 11/04/18 11:30 11/04/18 11:30 Oxygen Flow Rate (L/min) 2 Oxygen Delivery Method Nasal Cannula Weight: 178 lb 2.136 oz Body Mass Index (BMI) 25.7 Finger Stick Blood Glucose 147 Intake and Output for Last 24 Hours 11/02/18 11/03/18 11/04/18 23:59 23:59 23:59 Intake Total 1100.3 / 1100.3 788.1 / 788.1 545.5 / 545.5 Balance 1100.3 / 1100.3 788.1 / 788.1 545.5 / 545.5 General: Alert, Oriented x3, Cooperative, No apparent distress HEENT: Atraumatic, PERRLA, EOMI, Normocephalic Oral: Moist Mucosa Neck: Supple, No JVD, Negative Carotid Bruits Lungs: Clear to auscultation, Normal air movement, No rhonchi, No wheeze, No rales, - - on 2L of oxygen Cardiovascular: Regular rate, Regular Rhythm, Normal S1, Normal S2, No murmurs Abdomen: Bowel Sounds Present, Soft, minimal tenderness over abdomen at site of abdominal wall hematoma Non-Distended, No Hepato-splenomegaly Extremities: No clubbing, No cyanosis, No edema, Capillary Refill Less than 3 Seconds Skin: No rashes, No breakdown Musculoskeletal: No Tenderness to Palpation of Joints or Extremities Lymphatic: No Cervical, Supraclavicular, or Inguinal Adenopathy Neurological: Cranial nerves II-XII grossly intact, Neuro grossly intact, Motor Exam 5/5 strength throughout Psych/Mental Status: Normal Affect, Appropriate, Alert and oriented to time, place, person, mood and affect Laboratory Results 11/03/18 19:35: APTT 67.0 H 11/04/18 01:42: APTT 72.9 H 11/04/18 07:25: PT 21.6 H, INR 1.9, APTT 67.6 H Current Medications Acetaminophen (Tylenol) 650 mg PO Q6H PRN PRN PRN Reason: Non-cardiac pain (mod-severe) Last Admin: 11/02/18 21:34 Dose: 650 mg Albuterol Sulfate (Ventolin Aerosols) 2.5 mg INHALATION Q2H PRN PRN Reason: SHORTNESS OF BREATH/WHEEZING Albuterol/Ipratropium (Duoneb) 3 ml INHALATION Q6HWA.RT [facility] Last Admin: 11/04/18 12:32 Dose: 3 ml Bisacodyl (Dulcolax) 5 mg PO DAILY PRN PRN PRN Reason: Constipation Cyclobenzaprine HCl (Flexeril) 10 mg PO TID PRN PRN Reason: PAIN Last Admin: 11/03/18 20:53 Dose: 10 mg Guaifenesin (Robitussin Dm) 10 ml PO Q6H PRN PRN PRN Reason: COUGH Haloperidol Lactate (Haldol) 5 mg IV Q6H PRN PRN PRN Reason: ANXIETY Last Admin: 10/26/18 13:30 Dose: 5 mg Heparin Sodium (Porcine) (Heparin Na) 0 unit IV UD PRN; Protocol Sodium Chloride () 250 mls @ 15 mls/hr IV .[id number] PRN PRN Reason: SALINE FLUSH Heparin Sodium/Dextrose () 25,000 units in 250 mls @ 10 mls/hr IV .Q25H [facility]; Protocol Last Admin: 11/04/18 01:15 Dose: 10 mls/hr Magnesium Hydroxide (Milk Of Magnesia) 30 ml PO DAILY PRN PRN Reason: Constipation Menthol (Bengay Vanishing Scent) 1 applic TOPICAL TID PRN PRN PRN Reason: PAIN Last Admin: 11/03/18 20:53 Dose: 1 applic Nutritional Formula (Lactose Free) (Ensure Enlive) 120 ml PO 4X/DAY [facility] Last Admin: 11/04/18 09:53 Dose: 120 ml Ondansetron HCl (Zofran) 4 mg IV Q8H PRN PRN PRN Reason: NAUSEA Sodium Chloride () 5 - 15 ml IV UD PRN PRN Reason: SALINE FLUSH Last Admin: 10/29/18 21:25 Dose: 10 ml Throat Lozenges (Cepacol Sore Throat Lozenge) 1 lozenge MUCOUS MEM Q2H PRN PRN PRN Reason: COUGH Last Admin: 11/02/18 09:51 Dose: 1 lozenge Warfarin Sodium (Coumadin (Pbkc)) 7.5 mg PO DAILY@1700 [facility] Last Admin: 11/03/18 18:10 Dose: 7.5 mg Zolpidem Tartrate (Ambien (Generic)) 5 mg PO QHS PRN PRN PRN Reason: INSOMNIA Medical Necessity - Tobacco Use Smoking Status: Former smoker Tobacco Use: Cigarettes, Cigars Assessment/Plan All Active Problems (Last Reviewed 10/25/18 @ 19:51 by Omega Ann MD) Positive colorectal cancer screening using DNA-based stool test (Acute) Hematoma of rectus sheath (Acute) Coagulopathy (Acute) Bilateral pulmonary embolism (Acute) 1. Massive PE with Acute bilateral PE and saddle embolus * INR is 1.9 today. Received 50 mg of Coumadin yesterday. We will give 10 mg of Coumadin today. * Heparin drip 2. history of protein C and S deficiency: management as under 1. * 2. Acute on chronic hypoxic respiratory failure * resolving. On 2L of oxygen now; * 3. Acute DVT of left peroneal vein: as under 1. 4. History of rectus sheath hematoma * stable. * hematoma is nontender and stable * on coumadin and heparin drip * Currently on Coumadin and heparin drip * 5. Lactic acidosis: Resolved 6. 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 COPD: On breathing treatments and incentive spirometer. 8. Hypertension: stable. Still off meds which were held on admission o/a of hypotension. continue to monitor 9. DVT prophylaxis: On heparin drip and Coumadin Code status: DNRCCA Code Visit Inpatient E&M: 32752 Subs Hosp L2
[2018-11-04 16:32] LABS: Absolute Lymphocyte Count 1.47 X10^3/ul (0.83-4.51); Absolute Neutrophil Count 4.6 X10^3/uL (2.0-7.7); Basophil# 0.03 X10^3/uL; Basophil% 0.4 % (0-1); Eosinophil# 0.16 X10^3/uL; Eosinophils% 2.1 % (0-5); Hemoglobin 14.6 g/dl (13.0-16.5); Lymphocyte # 1.47 X10^3/ul (4.0); Lymphocyte % 19.6 % (19-41); Mean Corp Hgb Conc 31.7 g/gl (32-36); Mean Corpuscular Hgb 30.5 pg (27.0-32.0); Mean Platelet Vol. 10.1 fl (6.2-12.0); Monocyte# 1.03 X10^3/uL; Monocyte% 13.8 % (0-10); Neutrophil # 4.64 X10^3/uL (2.7-7.7); Platelet Count 278 K/mm3 (150-450); RBC Distribution Width CV 13.8 % (11.6-14.6); RBC Distribution Width SD 48.5 fl (35.1-43.9); Red Blood Count 4.79 M/mm3 (4.6-6.2); White Blood Count 7.5 K/mm3 (4.4-11.0)
[2018-11-04 16:35] LABS: POSITIVE COUNT YES; POSITIVE DIFFERENTIAL NO; POSITIVE MORPHOLOGY YES
[2018-11-04 16:38] LABS: Partial Thromboplast Time 60.3 Seconds (24.1-36.2)
[2018-11-05] VITALS (14 sets, daily range): BP systolic 102–146; BP diastolic 54–84; PULSE 82–105; RESP 16–20; TEMP 36.4–37.2; O2SAT 93–95
[2018-11-05] MEDS: BENZOCAINE/MENTHOL 1 LOZENGE MUCOUS MEM (02:49)
[2018-11-05 06:52] LABS: International Normalized Ratio 1.9; Prothrombin Time (Protime)PT. 21.7 SECONDS (11.7-14.9)
[2018-11-05 06:53] LABS: Partial Thromboplast Time 64.6 Seconds (24.1-36.2)
[2018-11-05] MEDS: Ipratropium/Albuterol Sulfate 3 ML AMPUL.NEB INHALATION ×3 (06:56→18:45)
--- NOTE | 2018-11-05 10:55 | PCM.PN.HOSP ---
Patient Problems: Active and Suspected Problems (Last Reviewed 10/25/18 @ 19:51 by Omega Ann MD) Bilateral pulmonary embolism (Acute) Subjective: Patient seen and examined. He has no complaints and feels well. Review of systems otherwise negative. Labs and vitals reviewed. INR today is 1.9. Vitals/I&O's: Vital Signs Temp Pulse Resp BP Pulse Ox 97.8 F 82 18 130/76 H 93 11/05/18 09:35 11/05/18 09:35 11/05/18 09:35 11/05/18 09:35 11/05/18 09:35 Oxygen Flow Rate (L/min) 2 Oxygen Delivery Method Nasal Cannula Weight: 178 lb 9.191 oz Body Mass Index (BMI) 25.7 Finger Stick Blood Glucose 147 Intake and Output for Last 24 Hours 11/03/18 11/04/18 11/05/18 23:59 23:59 23:59 Intake Total 788.1 / 788.1 810.5 / 810.5 137 / 137 Balance 788.1 / 788.1 810.5 / 810.5 137 / 137 General: Alert, Oriented x3, Cooperative, No apparent distress HEENT: Atraumatic, PERRLA, EOMI, Normocephalic Oral: Moist Mucosa Neck: Supple, No JVD, Negative Carotid Bruits Lungs: Clear to auscultation, Normal air movement, No rhonchi, No wheeze, No rales, - - on 2L of oxygen Cardiovascular: Regular rate, Regular Rhythm, Normal S1, Normal S2, No murmurs Abdomen: Bowel Sounds Present, Soft, minimal tenderness over abdomen at site of abdominal wall hematoma Non-Distended, No Hepato-splenomegaly Extremities: No clubbing, No cyanosis, No edema, Capillary Refill Less than 3 Seconds Skin: No rashes, No breakdown Musculoskeletal: No Tenderness to Palpation of Joints or Extremities Lymphatic: No Cervical, Supraclavicular, or Inguinal Adenopathy Neurological: Cranial nerves II-XII grossly intact, Neuro grossly intact, Motor Exam 5/5 strength throughout Psych/Mental Status: Normal Affect, Appropriate, Alert and oriented to time, place, person, mood and affect Laboratory Results 11/04/18 16:05: APTT 60.3 H 11/04/18 16:05: WBC 7.5, RBC 4.79, Hgb 14.6, Hct 46.0, MCV 96.0 H, MCH 30.5, MCHC 31.7 L, RDW 13.8, RDW Differential 48.5 H, Plt Count 278, MPV 10.1, Immature Gran % (Auto) 2.100 H, Neut % (Auto) 62.0, Lymph % (Auto) 19.6, [place] % (Auto) 13.8 H, Eos % (Auto) 2.1, Baso % (Auto) 0.4, Absolute Neuts (auto) 4.6, Absolute Lymphs (auto) 1.47, Total Counted Not Reportable, Diff Path Review January11/05/18 05:36: PT 21.7 H, INR 1.9, APTT 64.6 H Current Medications Acetaminophen (Tylenol) 650 mg PO Q6H PRN PRN PRN Reason: Non-cardiac pain (mod-severe) Last Admin: 11/02/18 21:34 Dose: 650 mg Albuterol Sulfate (Ventolin Aerosols) 2.5 mg INHALATION Q2H PRN PRN Reason: SHORTNESS OF BREATH/WHEEZING Albuterol/Ipratropium (Duoneb) 3 ml INHALATION Q6HWA.RT [facility] Last Admin: 11/05/18 06:56 Dose: 3 ml Bisacodyl (Dulcolax) 5 mg PO DAILY PRN PRN PRN Reason: Constipation Cyclobenzaprine HCl (Flexeril) 10 mg PO TID PRN PRN Reason: PAIN Last Admin: 11/04/18 21:51 Dose: 10 mg Guaifenesin (Robitussin Dm) 10 ml PO Q6H PRN PRN PRN Reason: COUGH Haloperidol Lactate (Haldol) 5 mg IV Q6H PRN PRN PRN Reason: ANXIETY Last Admin: 10/26/18 13:30 Dose: 5 mg Heparin Sodium (Porcine) (Heparin Na) 0 unit IV UD PRN; Protocol Sodium Chloride () 250 mls @ 15 mls/hr IV .[id number] PRN PRN Reason: SALINE FLUSH Heparin Sodium/Dextrose () 25,000 units in 250 mls @ 10 mls/hr IV .Q25H [facility]; Protocol Last Admin: 11/04/18 22:27 Dose: 10 mls/hr Magnesium Hydroxide (Milk Of Magnesia) 30 ml PO DAILY PRN PRN Reason: Constipation Menthol (Bengay Vanishing Scent) 1 applic TOPICAL TID PRN PRN PRN Reason: PAIN Last Admin: 11/04/18 21:52 Dose: 1 applic Nutritional Formula (Lactose Free) (Ensure Enlive) 120 ml PO 4X/DAY [facility] Last Admin: 11/05/18 09:57 Dose: 120 ml Ondansetron HCl (Zofran) 4 mg IV Q8H PRN PRN PRN Reason: NAUSEA Sodium Chloride () 5 - 15 ml IV UD PRN PRN Reason: SALINE FLUSH Last Admin: 10/29/18 21:25 Dose: 10 ml Throat Lozenges (Cepacol Sore Throat Lozenge) 1 lozenge MUCOUS MEM Q2H PRN PRN PRN Reason: COUGH Last Admin: 11/05/18 02:49 Dose: 1 lozenge Warfarin Sodium (Coumadin (Pbkc)) 7.5 mg PO DAILY@1700 [facility] Last Admin: 11/04/18 18:54 Dose: 7.5 mg Zolpidem Tartrate (Ambien (Generic)) 5 mg PO QHS PRN PRN PRN Reason: INSOMNIA Medical Necessity - Tobacco Use Smoking Status: Former smoker Tobacco Use: Cigarettes, Cigars Assessment/Plan All Active Problems (Last Reviewed 10/25/18 @ 19:51 by Omega Ann MD) Positive colorectal cancer screening using DNA-based stool test (Acute) Hematoma of rectus sheath (Acute) Coagulopathy (Acute) Bilateral pulmonary embolism (Acute) 1. Massive PE with Acute bilateral PE and saddle embolus INR is still 1.9 today. Received 15mg of coumadin 2 days ago, and 10mg yesterday patient not comfortable going home when INR is not therapeutic, due to him being worried about comint back with new clots. Will give 15 mg of Coumadin today and hopefully INR will be therapeutic tomorrow. continue Heparin drip 2. history of protein C and S deficiency: management as under 1. 3. Acute on chronic hypoxic respiratory failure resolving. still on 2L of oxygen, which is his baseline at home. 4. Acute DVT of left peroneal vein: as under 1. 5. History of rectus sheath hematoma stable. hematoma is nontender and stable on coumadin and heparin drip 6. Lactic acidosis: Resolved 7. 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 To be on lifelong Coumadin 8. COPD: On breathing treatments and incentive spirometer. 9. Hypertension: stable. Systolic blood pressure has been in the 110s and is 130 today. Still off meds which were held on admission o/a of hypotension. continue to monitor 9. DVT prophylaxis: On heparin drip and Coumadin Code status: DNRCCA Disposition: for discharge home when INR is in therapeutic range. Code Visit Inpatient E&M: 08580 Subs Hosp L2
--- NOTE | 2018-11-05 11:02 | PN_ITS ---
Patient Problems: Active and Suspected Problems (Last Reviewed 10/25/18 @ 19:51 by Omega Ann MD) Bilateral pulmonary embolism (Acute) Subjective: Patient seen and examined. He has no complaints and feels well. Review of systems otherwise negative. Labs and vitals reviewed. INR today is 1.9. Vitals/I&O's: Vital Signs Temp Pulse Resp BP Pulse Ox 97.8 F 82 18 130/76 H 93 11/05/18 09:35 11/05/18 09:35 11/05/18 09:35 11/05/18 09:35 11/05/18 09:35 Oxygen Flow Rate (L/min) 2 Oxygen Delivery Method Nasal Cannula Weight: 178 lb 9.191 oz Body Mass Index (BMI) 25.7 Finger Stick Blood Glucose 147 Intake and Output for Last 24 Hours 11/03/18 11/04/18 11/05/18 23:59 23:59 23:59 Intake Total 788.1 / 788.1 810.5 / 810.5 137 / 137 Balance 788.1 / 788.1 810.5 / 810.5 137 / 137 General: Alert, Oriented x3, Cooperative, No apparent distress HEENT: Atraumatic, PERRLA, EOMI, Normocephalic Oral: Moist Mucosa Neck: Supple, No JVD, Negative Carotid Bruits Lungs: Clear to auscultation, Normal air movement, No rhonchi, No wheeze, No rales, - - on 2L of oxygen Cardiovascular: Regular rate, Regular Rhythm, Normal S1, Normal S2, No murmurs Abdomen: Bowel Sounds Present, Soft, minimal tenderness over abdomen at site of abdominal wall hematoma Non-Distended, No Hepato-splenomegaly Extremities: No clubbing, No cyanosis, No edema, Capillary Refill Less than 3 Seconds Skin: No rashes, No breakdown Musculoskeletal: No Tenderness to Palpation of Joints or Extremities Lymphatic: No Cervical, Supraclavicular, or Inguinal Adenopathy Neurological: Cranial nerves II-XII grossly intact, Neuro grossly intact, Motor Exam 5/5 strength throughout Psych/Mental Status: Normal Affect, Appropriate, Alert and oriented to time, place, person, mood and affect Laboratory Results 11/04/18 16:05: APTT 60.3 H 11/04/18 16:05: WBC 7.5, RBC 4.79, Hgb 14.6, Hct 46.0, MCV 96.0 H, MCH 30.5, MCHC 31.7 L, RDW 13.8, RDW Differential 48.5 H, Plt Count 278, MPV 10.1, Immature Gran % (Auto) 2.100 H, Neut % (Auto) 62.0, Lymph % (Auto) 19.6, [place] % (Auto) 13.8 H, Eos % (Auto) 2.1, Baso % (Auto) 0.4, Absolute Neuts (auto) 4.6, Absolute Lymphs (auto) 1.47, Total Counted Not Reportable, Diff Path Review January11/05/18 05:36: PT 21.7 H, INR 1.9, APTT 64.6 H Current Medications Acetaminophen (Tylenol) 650 mg PO Q6H PRN PRN PRN Reason: Non-cardiac pain (mod-severe) Last Admin: 11/02/18 21:34 Dose: 650 mg Albuterol Sulfate (Ventolin Aerosols) 2.5 mg INHALATION Q2H PRN PRN Reason: SHORTNESS OF BREATH/WHEEZING Albuterol/Ipratropium (Duoneb) 3 ml INHALATION Q6HWA.RT [facility] Last Admin: 11/05/18 06:56 Dose: 3 ml Bisacodyl (Dulcolax) 5 mg PO DAILY PRN PRN PRN Reason: Constipation Cyclobenzaprine HCl (Flexeril) 10 mg PO TID PRN PRN Reason: PAIN Last Admin: 11/04/18 21:51 Dose: 10 mg Guaifenesin (Robitussin Dm) 10 ml PO Q6H PRN PRN PRN Reason: COUGH Haloperidol Lactate (Haldol) 5 mg IV Q6H PRN PRN PRN Reason: ANXIETY Last Admin: 10/26/18 13:30 Dose: 5 mg Heparin Sodium (Porcine) (Heparin Na) 0 unit IV UD PRN; Protocol Sodium Chloride () 250 mls @ 15 mls/hr IV .[id number] PRN PRN Reason: SALINE FLUSH Heparin Sodium/Dextrose () 25,000 units in 250 mls @ 10 mls/hr IV .Q25H [facility]; Protocol Last Admin: 11/04/18 22:27 Dose: 10 mls/hr Magnesium Hydroxide (Milk Of Magnesia) 30 ml PO DAILY PRN PRN Reason: Constipation Menthol (Bengay Vanishing Scent) 1 applic TOPICAL TID PRN PRN PRN Reason: PAIN Last Admin: 11/04/18 21:52 Dose: 1 applic Nutritional Formula (Lactose Free) (Ensure Enlive) 120 ml PO 4X/DAY [facility] Last Admin: 11/05/18 09:57 Dose: 120 ml Ondansetron HCl (Zofran) 4 mg IV Q8H PRN PRN PRN Reason: NAUSEA Sodium Chloride () 5 - 15 ml IV UD PRN PRN Reason: SALINE FLUSH Last Admin: 10/29/18 21:25 Dose: 10 ml Throat Lozenges (Cepacol Sore Throat Lozenge) 1 lozenge MUCOUS MEM Q2H PRN PRN PRN Reason: COUGH Last Admin: 11/05/18 02:49 Dose: 1 lozenge Warfarin Sodium (Coumadin (Pbkc)) 7.5 mg PO DAILY@1700 [facility] Last Admin: 11/04/18 18:54 Dose: 7.5 mg Zolpidem Tartrate (Ambien (Generic)) 5 mg PO QHS PRN PRN PRN Reason: INSOMNIA Medical Necessity - Tobacco Use Smoking Status: Former smoker Tobacco Use: Cigarettes, Cigars Assessment/Plan All Active Problems (Last Reviewed 10/25/18 @ 19:51 by Omega Ann MD) Positive colorectal cancer screening using DNA-based stool test (Acute) Hematoma of rectus sheath (Acute) Coagulopathy (Acute) Bilateral pulmonary embolism (Acute) 1. Massive PE with Acute bilateral PE and saddle embolus * INR is still 1.9 today. Received 15mg of coumadin 2 days ago, and 10mg yesterday * patient not comfortable going home when INR is not therapeutic, due to him being worried about comint back with new clots. * Will give 15 mg of Coumadin today and hopefully INR will be therapeutic tomorrow. * continue Heparin drip 2. history of protein C and S deficiency: management as under 1. * 3. Acute on chronic hypoxic respiratory failure * resolving. still on 2L of oxygen, which is his baseline at home. * 4. Acute DVT of left peroneal vein: as under 1. 5. History of rectus sheath hematoma * stable. * hematoma is nontender and stable * on coumadin and heparin drip * 6. Lactic acidosis: Resolved 7. 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 To be on lifelong Coumadin 8. COPD: On breathing treatments and incentive spirometer. 9. Hypertension: * stable. * Systolic blood pressure has been in the 110s and is 130 today. * Still off meds which were held on admission o/a of hypotension. continue to monitor 9. DVT prophylaxis: On heparin drip and Coumadin Code status: DNRCCA Disposition: for discharge home when INR is in therapeutic range. Code Visit Inpatient E&M: 41889 Subs Hosp L2
[2018-11-05] MEDS: Acetaminophen 325 MG Tablet 650 MG PO (19:55)
[2018-11-05] MEDS: HEPARIN/D5w 25,000 UNITS 25,000 UNITS/250 ML IV.SOLN. 10 UNITS IV (19:56)
[2018-11-06] VITALS (7 sets, daily range): BP systolic 112–131; BP diastolic 69–74; PULSE 83–97; RESP 16–19; TEMP 36.6–37.1; O2SAT 93–98
[2018-11-06 05:21] LABS: International Normalized Ratio 2.2; Prothrombin Time (Protime)PT. 24.2 SECONDS (11.7-14.9)
[2018-11-06 05:22] LABS: Partial Thromboplast Time 66.9 Seconds (24.1-36.2)
[2018-11-06 05:29] LABS: Hematocrit 44.6 % (40-54); Hemoglobin 14.5 g/dl (13.0-16.5); Mean Corp Hgb Conc 32.5 g/gl (32-36); Mean Corpuscular Hgb 31.3 pg (27.0-32.0); Mean Corpuscular Volume 96.3 fL (80-94); Mean Platelet Vol. 9.9 fl (6.2-12.0); Platelet Count 312 K/mm3 (150-450); RBC Distribution Width CV 13.9 % (11.6-14.6); RBC Distribution Width SD 47.5 fl (35.1-43.9); Red Blood Count 4.63 M/mm3 (4.6-6.2); White Blood Count 7.2 K/mm3 (4.4-11.0)
[2018-11-06 05:34] LABS: POSITIVE DIFFERENTIAL NO
[2018-11-06 05:35] LABS: Differential Indicated MANUAL DIFF; POSITIVE COUNT YES; POSITIVE MORPHOLOGY YES
[2018-11-06] MEDS: Ipratropium/Albuterol Sulfate 3 ML AMPUL.NEB INHALATION (06:39)
[2018-11-06 07:16] LABS: Eosinophil 2 % (0-5); Lymphocyte 22 % (19-41); Monocyte 15 % (0-10); Neutrophil-Segmented 61 % (47-70); Red Cell Morphology NORM C+C NORMAL (NORM C&C); Total Cells Counted 100 (MANUAL DIFF)
[2018-11-06 07:17] LABS: Platelet Estimate ADEQUATE (ADEQ)
[2018-11-06 07:18] LABS: Absolute Lymphocyte Count 1.58 X10^3/ul (0.83-4.51); Absolute Neutrophil Count 4.4 X10^3/uL (2.0-7.7)
--- NOTE | 2018-11-06 10:16 | DS.PCM_ITS ---
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 Chronic interstitial emphysematous changes Electronically Signed: Tripp Chen MD at 19:02 EST , Service support , ADDENDUM: 10/25/18 1914 IMPRESSION: Extensive bilateral pulmonary emboli including saddle embolus. Chronic interstitial emphysematous changes N.B. : The above information has been verbally conveyed by Tripp Chen MD to Mandy Gan MD, on 10/25/2018 19:06:29 (ET). Electronically Signed: Tripp Chen MD at 19:02 EST , Service support , Abdomen/Pelvis CT 10/25/18 17:23 IMPRESSION: 1. Atherosclerotic vascular calcifications. 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 No luminal stenosis, however. 2. Slight decreased size of hematoma in the right rectus abdominis muscle. 3. Fatty metamorphosis of the liver again noted. 4. Gallstones. No CT sign of acute cholecystitis. 5. Small, nonobstructing right renal stones again noted. No hydronephrosis. 6. Colonic diverticulosis without acute diverticulitis. No sign of bowel obstruction. The appendix is normal. 7. Stable fat-containing left inguinal hernia. 8. Stable degenerative changes of the spine as well as chronic central depression of the superior L2 and L3 vertebral endplates. Chronic bilateral L5 pars defects and grade 1 L5-S1 anterolisthesis again noted. Electronically Signed: William Dobbins MD at 18:36 EST , Service support , Brain CT 10/25/18 17:23 IMPRESSION: Chronic involutional changes without evidence of acute intracranial or calvarial abnormality. Electronically Signed: Agustin Zuniga DO at 18:23 EST Tel [phone], Service support , Interpretation Summary The estimated ejection fraction is 65 %. Stage 1 diastolic dysfunction. Severely dilated right ventricle. Moderately severe global right ventricular systolic dysfunction. D shaped septum in diastole. Apical RV strain pattern c/w acute pulmonary embolism. The right atrium is severely enlarged. Trivial tricuspid valve insufficiency. Right ventricular systolic pressure estimated to be 40 mmHg. At least mild pulmonary hypertension; may be underestimated. Compared to echo report dated 05/30/2014, LV function has remained the same, but RV is now severely enlarged. Operations: None Procedures: 2-D Echocardiogram Summary of Care Provided: The patient is a 78 year old M with a past medical history of COPD, protein C deficiency with a recurrent history of DVTs and PEs and a recent rectus sheath hematoma. He was admitted with syncope on 10/25/2018 with a stiff shortening of breath which worsened. He also had left lower extremity pain with ambulation. EMS was called and he was brought into the ED by the EMS on CPAP. On 4 L of nasal cannula oxygen his was saturating between 88 and 92%. Of note patient had recently been diagnosed with an abdominal wall rectus sheath hematoma after his Coumadin which he had been on was stopped and he was transitioned to therapeutic Lovenox as bridging in preparation for screening colonoscopy. On account of the hematoma, he was transferred to [facility] where all his anticoagulation was stopped. Colonoscopy was not done. After discharge, his Coumadin was resumed. INR was 1.[address] of [address] of the chest done showed extensive bilateral pulmonary emboli with saddle embolus. He was admitted and managed for massive PE on account of syncopal episode and bilateral pulmonary embolism. He was started on a heparin drip and Coumadin was resumed. 2D echo done showed stage I diastolic dysfunction with severely dilated right ventricle and moderate to severe global right ventricular systolic function with apical right ventricular strain pattern and RVSP of 40 mmHg. EF was 65%. Duplex of his lower extremity showed acute deep vein thrombosis of the left peroneal vein but no evidence of DVT in the right lower extremity. Patient was continued on Coumadin and heparin drip. He required increasing amounts of Coumadin up to 15 mg. Attaining a therapeutic INR was very difficult as patient required increasing amounts of Coumadin. Coumadin trended up slowly from 1.[address] to 2.2 after he received 15 mg of Coumadin. Heparin drip was stopped and patient was discharged on 09/21/1718 after receiving a 15 mg dose of Coumadin. He is continue on 10 mg of Coumadin and is check his INR in 2 days. He is follow-up with his PCP within 1 week for Coumadin dose to be adjusted as needed. Of note, INR checked by home health nurse at home is to be sent to his primary care doctor for coumadin dose adjustment as needed. He is to follow up with a [employer] Worker/oncologist on account of protein C deficiency. He was referred to Dr. Knowles and will be need to be assessed for possible Coumadin resistance on account of him requiring increasing amounts of Coumadin. Patient seen and examined prior to discharge. He had no complaints and felt well. Review of systems otherwise negative. Labs and vitals reviewed. Home medication reviewed and reconciled. o/e: Vital Signs Height 5 ft 10 in Weight: 179 lb 0.246 oz Weight in Pounds 179.0 lbs Pulse Ox [AMBULATION with 93 Oxygen] Pulse Ox 94 Temperature 98.8 F Pulse Rate 97 Respiratory Rate 19 Blood Pressure [BP] 127/78 Blood Pressure 131/74 Blood Pressure Position [BP] Sitting Blood Pressure Position Semi-Fowlers General: Alert, Oriented x3, Cooperative, No apparent distress HEENT: Atraumatic, PERRLA, EOMI, Normocephalic Oral: Moist Mucosa Neck: Supple, No JVD, Negative Carotid Bruits Lungs: Clear to auscultation, Normal air movement, No rhonchi, No wheeze, No rales, - - on 2L of oxygen Cardiovascular: Regular rate, Regular Rhythm, Normal S1, Normal S2, No murmurs Abdomen: Bowel Sounds Present, Soft, minimal tenderness over abdomen at site of abdominal wall hematoma Non-Distended, No Hepato-splenomegaly Extremities: No clubbing, No cyanosis, No edema, Capillary Refill Less than 3 Seconds Skin: No rashes, No breakdown Musculoskeletal: No Tenderness to Palpation of Joints or Extremities Lymphatic: No Cervical, Supraclavicular, or Inguinal Adenopathy Neurological: Cranial nerves II-XII grossly intact, Neuro grossly intact, Motor Exam 5/5 strength throughout Psych/Mental Status: Normal Affect, Appropriate, Alert and oriented to time, place, person, mood and affect Plan as described above. - Physical Exam Vital Signs Temp Pulse Resp BP Pulse Ox 98.8 F 91 19 H 131/74 H 94 11/06/18 08:30 11/06/18 08:30 11/06/18 08:30 11/06/18 08:30 11/06/18 08:30 Oxygen Flow Rate (L/min) 2 Oxygen Delivery Method Nasal Cannula Weight: 179 lb 0.246 oz Body Mass Index (BMI) 25.7 Finger Stick Blood Glucose 147 Intake and Output for Last 24 Hours 11/04/18 11/05/18 11/06/18 23:59 23:59 23:59 Intake Total 810.5 / 810.5 1047 / 1047 374 / 374 Balance 810.5 / 810.5 1047 / 1047 374 / 374 Laboratory Tests Past 24 Hrs 11/06/18 11/06/18 04:16 04:36 WBC 7.2 RBC 4.63 Hgb 14.5 Hct 44.6 MCV 96.3 H MCH 31.3 MCHC 32.5 RDW 13.9 RDW Differential 47.5 H Plt Count 312 MPV 9.9 Neut % (Auto) Not Reportable Absolute Neuts (auto) 4.4 Absolute Lymphs (auto) 1.58 Total Counted 100 Neutrophils % (Manual) 61 Lymphocytes % (Manual) 22 Monocytes % (Manual) 15 H Eosinophils % (Manual) 2 Diff Path Review May foll Platelet Estimate ADEQUATE RBC Morphology NORM C+C PT 24.2 H INR 2.2 APTT 66.9 H Discharge Diet: Low fat/ Low Cholesterol Discharge Activity: Return to Normal Activity Weight Bearing Status: Weight bearing as tolerated Call your doctor if you observe: Fever of 101 or Higher, Shortness of breath, Chest pain, Calf discomfort Home Medications: Medications to take at Discharge Albuterol Aerosols [Ventolin Aerosols] 1 inh INHALATION BID 08/10/16 Acetaminophen [Tylenol Arthritis] 650 mg PO Q6H PRN PRN 09/26/16 cyclobenzaprine 10 mg tablet 10 mg PO TID PRN 09/09/18 Lisinopril/Hydrochlorothiazide [Lisinopril-Hctz 20-12.5 mg Tab] 1 tab PO BID 10/06/18 Warfarin Sodium [Coumadin] 10 mg PO DAILY #30 tablet 11/06/18 Following Prescrptions Were Given to Patient: Warfarin Sodium [Coumadin] 10 mg PO DAILY #30 tablet Primary Care Physician: Gaston Betts Chi, MD [Primary Care Provider] - Please follow up with your Primary Care Physician in: 3 days Please Follow Up With: Omega Knowles MD When: 1 week for protein C and S deficiency Please Follow Up With: Remi Blanco MD When: 1-2 weeks Patient Instructions: Complications of Deep Vein Thrombosis, Pulmonary Embolism, Taking?Coumadin, Discharge Instructions for Pulmonary Embolism Disposition: Home Minutes spent on discharge:: 45 Patient Condition:: Stable Medical Necessity - Tobacco Use Smoking Status: Former smoker Tobacco Use: Cigarettes, Cigars Meaningful Use Info Meaningful Use Diagnoses (Choose all that apply): VTE - VTE Anticoag overlap given w/in hospital stay or rx'd at dc?: Yes Pt receive overlap for 5 days?: Yes Code Visit Inpatient E&M: 80358 Disch Hosp
--- NOTE | 2018-11-06 10:16 | DCINST_ITS ---
- Discharge Diagnoses Current Active Problems: Current Active and Chronic Problems (Last Reviewed 10/25/18 @ 19:51 by Omega Ann MD) Bilateral pulmonary embolism (Acute) You will use the following diet at home:: Cardiac Your food should be the consistency of: Regular Your liquids should be the consistency of: Regular/Thin Discharge Activity: Return to Normal Activity Weight Bearing Status: Weight bearing as tolerated Call your doctor if you observe: Fever of 101 or Higher, Shortness of breath, Chest pain, Calf discomfort Instructions: Complications of Deep Vein Thrombosis, Discharge Instructions for Pulmonary Embolism, Taking?Coumadin, Pulmonary Embolism Additional Instructions: to have INR In 2 days. Results to be sent to Dr Betts, for coumadin dose to be adjusted as needed. continue oxygen use by nasal canula as needed for shortness of breath Allergies/Adverse Reactions: Allergies Penicillins Allergy (Verified 10/25/18 16:55) Hives propoxyphene HCl [From Darvon] Adverse Reaction (Verified 10/25/18 16:55) Upset Stomach propoxyphene napsylate [From Darvocet-N 100] Adverse Reaction (Verified 10/25/18 16:55) Vomiting Medications to take at Discharge Albuterol Aerosols [Ventolin Aerosols] 1 inh INHALATION BID 08/10/16 Acetaminophen [Tylenol Arthritis] 650 mg PO Q6H PRN PRN 09/26/16 cyclobenzaprine 10 mg tablet 10 mg PO TID PRN 09/09/18 Lisinopril/Hydrochlorothiazide [Lisinopril-Hctz 20-12.5 mg Tab] 1 tab PO BID 10/06/18 Warfarin Sodium [Coumadin] 10 mg PO DAILY #30 tablet 11/06/18 The following prescriptions were given: Warfarin Sodium [Coumadin] 10 mg PO DAILY #30 tablet Primary Care Physician: Gaston Betts Chi, MD [Primary Care Provider] - Please follow up with your Primary Care Physician in: 3 days Test Results: Test results from this visit will be discussed in further detail at your follow- up appointment, if applicable. Please Follow Up With: Omega Knowles MD When: 1 week for protein C and S deficiency Proposed Discharge Date: 11/06/18
[2018-11-07 13:32] LABS: Pathologist Review Reviewed
[2018-11-07 13:41] LABS: Pathologist Review Reviewed
--- NOTE | 2018-11-07 15:12 | CASEMGMT ---
TOD PEARSON Phone call DC Date: 11/06/18 DC Disposition: Home with HH PT/OT, RN AMAURY/STRATA: 01/01 Message left with call back information if questions re: dc instructions, prescriptions or f/u appointments. Jose L Crowley RNCM
== END 2018-11-06 13:40 | disposition home or self-care (01) | DRG 175 ==
LOC: ED 17:37 → PCU 19:48 → ICU 10-26 09:24 → PCU 10-28 23:55
PROVIDERS: Hospitalist; Internal Medicine; Internal Medicine Critical Care Medicine; Physician Assistant; Admitting Provider Hospitalist; Emergency Provider Emergency Medicine; Family Provider Family Medicine Geriatric Medicine; PCP Family Medicine Geriatric Medicine; Referring Provider Hospitalist; Visit Provider Student in an Organized Health Care Education/Training Program
DX: I26.92 Saddle embolus of pulmonary artery without acute cor pulmonale (principal); J96.21 Acute and chronic respiratory failure with hypoxia; E87.2 Acidosis; D68.59 Other primary thrombophilia; I82.492 Acute embolism and thrombosis of other specified deep vein of left lower extremity; R09.02 Hypoxemia; I71.4 Abdominal aortic aneurysm, without rupture; M17.0 Bilateral primary osteoarthritis of knee; I10 Essential (primary) hypertension; J43.9 Emphysema, unspecified; Z87.891 Personal history of nicotine dependence; Z79.01 Long term (current) use of anticoagulants; Z86.718 Personal history of other venous thrombosis and embolism; Z86.711 Personal history of pulmonary embolism; Z66 Do not resuscitate; M79.81 Nontraumatic hematoma of soft tissue; Z99.81 Dependence on supplemental oxygen
CPT/HCPCS: 36415; 70450; 71275; 74177; 80048; 83605; 83735; 83880; 84100; 84484; 85014; 85018; 85025; 85610; 85730; 87040; 87070; 87205; 87804; 93005; 93306; 93970; 94640; 97110; 97162; 97165; 97530; 97535; 97802; 99251; 99285; J7030; Q9967; A4216; G0463

== ENCOUNTER → 2018-11-08 15:13 | Outpatient (CLI) | payer MEDICARE, SELFPAY ==
[2018-10-25 20:21] VITALS: BMI 25.7
[2018-11-08 15:45] LABS: International Normalized Ratio 2.8; Prothrombin Time (Protime)PT. 29.5 SECONDS (11.7-14.9)
[2018-11-08 15:46] LABS: Partial Thromboplast Time 34.3 Seconds (24.1-36.2)
== END ==
PROVIDERS: Family Provider Family Medicine Geriatric Medicine; PCP Family Medicine Geriatric Medicine; Visit Provider Family Medicine Geriatric Medicine
DX: D68.59 Other primary thrombophilia (principal)
CPT/HCPCS: 36415; 85610; 85730

== ENCOUNTER → 2018-11-14 09:12 | Outpatient (CLI) | payer MEDICARE, SELFPAY ==
[2018-10-25 20:21] VITALS: BMI 25.7
[2018-11-15 11:21] LABS: International Normalized Ratio 3.3; Prothrombin Time (Protime)PT. 33.9 SECONDS (11.7-14.9)
== END ==
LOC: POLAB3 09:13 → LAB.FUTURE 09:16
PROVIDERS: Family Provider Family Medicine Geriatric Medicine; PCP Family Medicine Geriatric Medicine; Visit Provider Family Medicine Geriatric Medicine
DX: D68.59 Other primary thrombophilia (principal)
CPT/HCPCS: 36415; 85610

== ENCOUNTER 2018-12-15 15:59 | Outpatient (RCR) | payer MEDICARE, OTHER, SELFPAY ==
[2018-10-25 20:21] VITALS: BMI 25.7
[2018-11-15 15:30] VITALS: BMI 26.4
[2018-11-18 09:30] LABS: International Normalized Ratio 3.2; Prothrombin Time (Protime)PT. 32.6 SECONDS (11.7-14.9)
[2018-11-25 14:08] LABS: International Normalized Ratio 2.3
[2018-12-01 12:43] LABS: International Normalized Ratio 1.9
[2018-12-15 16:41] LABS: International Normalized Ratio 2.1; Prothrombin Time (Protime)PT. 23.6 SECONDS (11.7-14.9)
== END 2018-12-18 23:59 ==
LOC: HHLAB 15:59
PROVIDERS: Family Provider Family Medicine Geriatric Medicine; PCP Family Medicine Geriatric Medicine; Referring Provider Family Medicine Geriatric Medicine; Visit Provider Family Medicine Geriatric Medicine
DX: D68.59 Other primary thrombophilia (principal)
CPT/HCPCS: 36415; 85610

== ENCOUNTER 2018-12-16 09:20 | Day surgery (SDC) | payer MEDICARE, OTHER, SELFPAY ==
[2018-11-24 13:39] VITALS: BMI 26.6
--- NOTE | 2018-12-16 | COLBX_PTH ---
PATIENT: TAYLOR HUMMEL LOC: EN U#:[id number] AGE/SX: 78/M ROOM: RE12/16/[address]: Dr. Abdullahi Bishop MD : 1940 BED: DIS: 12/16/2018 SPEC #: [id number] RECD: 12/16/18 14:23 STATUS: RM BARON #: [id number] MANISHA: 12/16/18 00:[address]: Abdullahi Bishop DEPT: SURGICAL PATHOLOGY RECD BY: Arnol Ross ENTERED: 12/16/18 14:24 SP TYPE: COLON BX OTHR DR: Dr. Gaston Betts MD Tissues: A - Descending colon B - Cecum, NOS C - Descending colon D - Transverse colon E - Transverse colon F - Ascending colon Procedures: Surgery Specimen Level IV HEADER OPERATION: Colonoscopy PRE-OP DIAGNOSIS: Positive colorectal screening TISSUE SUBMITTED: A - Proximal descending colon polyp, B - Cecum polyp, C - Mid descending polyp, D - Distal transverse polyp, E - Proximal transverse colon polyp, F - Mid ascending colon polyp MICROSCOPIC DIAGNOSIS A. Proximal descending colon polyp, biopsy: Fragments of tubular adenoma. B. Cecum polyp, biopsy: Tubular adenoma. C. Mid descending colon polyp, biopsy: Fragments of tubular adenoma. D. Distal transverse colon polyp, biopsy: Hyperplastic polyp. E. Proximal transverse colon polyp, biopsy: Fragments of tubular adenoma. F. Mid ascending colon polyp, biopsy: Fragments of tubular adenoma. Hyperplastic polyp. SJ:garland 12/19/18 MICROSCOPIC DESCRIPTION Slides are reviewed. GROSS DESCRIPTION A - Received in fixative is one container labeled with the patient's name and designated proximal descending colon polyp. The specimen consists of multiple irregular fragments of hanson soft tissue that in aggregate measure 1 x 1 x 0.3 cm. The specimen is totally submitted in one cassette. B - Received in fixative is one container labeled with the patient's name and designated cecum polyp. The specimen consists of one irregular fragment of light hanson soft tissue that measures 0.2 x 0.2 x 0.1 cm. The specimen is totally submitted in one cassette. C - Received in fixative is one container labeled with the patient's name and designated mid descending polyp. The specimen consists of two pieces of hanson-pink polyp measuring 0.7 x 0.7 x 0.4 cm and 0.3 x 0.3 x 0.1 cm. The larger polyp is bisected. The entire specimen is submitted in one cassette. D - Received in fixative is one container labeled with the patient's name and designated distal transverse polyp. The specimen consists of a piece of hanson-pink polyp measuring 0.4 x 0.4 x 0.3 cm. The specimen is totally submitted in one cassette. E - Received in fixative is one container labeled with the patient's name and designated proximal transverse colon polyp. The specimen consists of multiple irregular fragments of hanson-pink soft tissue that in aggregate measure 1.5 x 1 x 0.3 cm. The specimen is totally submitted in one cassette. F - Received in fixative is one container labeled with the patient's name and designated mid ascending colon polyp. The specimen consists of multiple irregular fragments of light hanson soft tissue that in aggregate measure 1.5 x 0.3 x 0.1 cm. The specimen is totally submitted in one cassette. / SJ:rg 12/16/18 TC:1 CPT: 27850 x6
[2018-12-16 09:46] VITALS: BP 139/86; PULSE 87; RESP 16; TEMP 36.8; O2SAT 97; BMI 25.5
[2018-12-16 10:20] LABS: Bedside Glucose 119 mg/dL (70-110)
[2018-12-16 11:45] VITALS: BP 111/78; BP 139/86; PULSE 75; RESP 18; TEMP 36.3; O2SAT 94
--- NOTE | 2018-12-16 11:48 | OP.ENDO_ITS ---
12/16/2018 Gaston Betts MD [address] [place] [address] Re : Colonoscopy procedure for Uli Alcantara Dear Dr. Betts This procedure was performed on Sunday, December 16, 2018. My impressions and recommendations are as follows: Impressions : - Six polyps in the proximal descending colon, in the mid descending colon, in the proximal transverse colon, in the distal transverse colon, in the ascending colon and in the cecum, removed with a hot snare. Resected and retrieved. Clips were placed. - The examination was otherwise normal on direct and retroflexion views. Recommendations : - Discharge patient to home. - Resume previous diet. - Continue present medications. - Physician's office will call you with pathology results and recommendations for when to repeat colonoscopy. - Repeat colonoscopy is recommended. The colonoscopy date will be determined after pathology results from today's exam become available for review. My findings are described in the full procedure note, which is enclosed. If I can be of further assistance, please feel free to contact me at Doctor phone number(s): , Work: . Sincerely, Abdullahi Bishop MD 12/16/2018 11:48:28 AM This report has been signed electronically.
[2018-12-16 11:50] VITALS: BP 113/77; BP 139/86; PULSE 75; RESP 18; O2SAT 92
[2018-12-16 11:55] VITALS: BP 121/85; BP 139/86; PULSE 73; RESP 18; O2SAT 93
[2018-12-16 12:00] VITALS: BP 134/80; BP 139/86; PULSE 76; RESP 18; TEMP 36.9; O2SAT 93
[2018-12-16 12:20] VITALS: BP 139/86
== END 2018-12-16 13:00 | disposition home or self-care (01) ==
LOC: EN 09:22 → AC 09:22
PROVIDERS: Family Provider Family Medicine Geriatric Medicine; PCP Family Medicine Geriatric Medicine; Referring Provider Surgery; Visit Provider Surgery
PROC: 0DJD8ZZ Inspection of Lower Intestinal Tract, Via Natural or Artificial Opening Endoscopic (ICD-10-PCS; CPT 45378; principal; 2018-12-16 10:25)
DX: D12.4 Benign neoplasm of descending colon (principal); D12.0 Benign neoplasm of cecum; D12.3 Benign neoplasm of transverse colon; D12.2 Benign neoplasm of ascending colon; K63.5 Polyp of colon; R19.5 Other fecal abnormalities; I11.0 Hypertensive heart disease with heart failure; I50.810 Right heart failure, unspecified; I27.20 Pulmonary hypertension, unspecified; E78.00 Pure hypercholesterolemia, unspecified; J43.9 Emphysema, unspecified; M17.0 Bilateral primary osteoarthritis of knee; R73.03 Prediabetes; Z86.711 Personal history of pulmonary embolism; Z99.81 Dependence on supplemental oxygen; Z79.01 Long term (current) use of anticoagulants; Z79.899 Other long term (current) drug therapy; Z87.891 Personal history of nicotine dependence
CPT/HCPCS: 45385; 82962; 88305; J7120

== ENCOUNTER → 2018-12-27 | Outpatient (CLI) | payer MEDICARE, OTHER, SELFPAY ==
--- NOTE | 2018-12-27 | IMM_PTH ---
PATIENT: TAYLOR HUMMEL LOC: [facility] U#:[id number] AGE/SX: 78/M ROOM: RE12/27/[address]: Dr. Gaston Betts MD : 1940 BED: DIS: 12/27/2018 SPEC #: [id number] RECD: 12/29/18 12:22 STATUS: RM REQ #: [id number] MANISHA: 12/27/18 00:[address]: Gaston Betts Chi DEPT: IMMUNOHISTOCHEMISTRY RECD BY: Flakita Montes Tissues: A - Skin of back, NOS Procedures: SMA (add) CK5-6 (add) CK8 (add) DESMIN (add) Pankeratin (add) MELAN-A (add) P40 (add) Vimentin (initial) S-100 (add) PHYSICIAN & INSTITUTION [place] [id number] SPECIMEN INFORMATION: Tissue Source: A - Left back skin lesion Clinical Info: Skin lesion Specimen Number: [id number] CPT code: 11019, 97395 x8 METHODOLOGY: Deparaffinized sections of prefer/formalin-fixed tissue or PAP/DQ stained slides are incubated with monoclonal/polyclonal antibodies/oligonucleotide probes. Localization is made via biotin free immunoperoxidase method. Appropriate controls are performed and reacted as expected. Results on target cell population are indicated in the following table: RESULTS: ANTIBODY / CLONE RESULT Block A Vimentin (V9) positive Desmin (CE-R-11) negative S-100 (4C4.9) positive Melan A (A103) positive AE1-3 (AE1/AE3/PCK26) negative CK8 (88mhtaC48) negative CK5-6 (D5 & 1684) negative Actin (1A4) negative P40 (BC28) negative These tests were developed and their performance characteristics determined by [facility]. They may not have been cleared or approved by the U.S. Food and Drug Administration. The FDA has determined that such clearance or approval is not necessary. INTERPRETATION: A. Left back skin lesion, biopsy: Consistent with invasive malignant melanoma. ANA CRISTINA:garland 01/04/19 The specimen was sent to [facility] for expert opinion and reviewed by Dr. Chao and above diagnosis is rendered. Case has been reviewed in consultation with Dr. Arceo who concurs with the above diagnosis. IDC:AM
--- NOTE | 2018-12-27 09:10 | LES_PTH ---
PATIENT: TAYLOR HUMMEL LOC: [facility] U#:[id number] AGE/SX: 78/M ROOM: RE12/27/[address]: Dr. Gaston Betts MD : 1940 BED: DIS: 12/27/2018 SPEC #: [id number] RECD: 12/27/18 15:58 STATUS: RM BARON #: [id number] MANISHA: 12/27/18 09:[address]: Gaston Betts Chi DEPT: SURGICAL PATHOLOGY RECD BY: Maira Horta Tissues: A - Skin of back, NOS B - Skin of upper extremity, NOS C - Skin of upper extremity, NOS Procedures: [facility] Consultation (on slides) Surgery Specimen Level IV HEADER OPERATION: Not noted PRE-OP DIAGNOSIS: Skin lesion x3 TISSUE SUBMITTED: A. Left back, B. Left clavicle, C. Right clavicle MICROSCOPIC DIAGNOSIS A. Left back skin lesion, biopsy: Malignant melanoma, invasive and ulcerated, extending to the base and peripheral margins. See synoptic report and note. See comment. B. Left clavicle, shave biopsy: Verrucous keratosis. Negative for malignancy. C. Right clavicle, shave biopsy: Inflamed verrucous keratosis with seborrheic keratosis like features.. SJ:rg 01/04/19 COMMENT SYNOPTIC REPORT: Histologic type: Nodular type. Breslow thickness: At least 4.1 mm. Ulceration: Present. Dermal mitotic rate: 6 / mm2 Precursor nevus: Absent. Tumor infiltrating lymphocytes: Present, nonbrisk. Regression: Absent. Perineural invasion: Absent. Vascular invasion: Foci suspicious for vascular invasion identified. Tumor distance to nearest margin: Deep: Positive. Lateral: Positive. NOTE: A complete excision of the lesion with an appropriate margin is recommended. A consideration might also be given to sentinel lymph node biopsy. The specimen was sent to [facility] for expert opinion and reviewed by Dr. Chao and above diagnosis is rendered. Immunohistochemistry ([id number]) supports the above diagnosis. Case has been reviewed in consultation with Dr. Arceo who concurs with the above diagnosis. IDC:AM MICROSCOPIC DESCRIPTION Slides are reviewed. GROSS DESCRIPTION A - Received in fixative is one container labeled with the patient's name and designated left back. The specimen consists of a piece of hanson-brown skin measuring 1.5 x 1 x 0.3 cm. The specimen is inked, serially sectioned and submitted entirely in one cassette. B - Received in fixative is one container labeled with the patient's name and designated left clavicle. The specimen consists of a piece of hanson-brown skin measuring 0.6 x 0.3 x 0.2 cm. The specimen is inked and submitted entirely in one cassette. It will be bisected at the time of embedding. C - Received in fixative is one container labeled with the patient's name and designated right clavicle. The specimen consists of a shave biopsy of hanson-white skin measuring 0.5 x 0.5 x 0.1 cm. The specimen is inked and submitted entirely in one cassette. / SJ:rg 12/28/18 TC:0 [facility]: [id number] x3 ADDENDUM ADDENDUM ADDENDUM ADDENDUM ADDENDUM ADDENDUM ADDENDUM ADDENDUM ADDENDUM ADDENDUM ADDENDUM ADDENDUM ADDENDUM ADDENDUM ADDENDUM ADDENDUM ADDENDUM ADDENDUM ADDENDUM ADDENDUM ADDENDUM ADDENDUM ADDENDUM ADDENDUM ADDENDUM ADDENDUM ADDENDUM ADDENDUM ADDENDUM 02/22/2019 10:53 ADDENDUM 02/22/2019 10:53 ADDENDUM 02/22/2019 10:53 ADDENDUM 02/22/2019 10:53 ADDENDUM 02/22/2019 10:53 This addendum is added to incorporate an outside pathology consultation report. The case was examined at [facility] (#[id number]) and the following diagnosis was rendered. A. Left back: Invasive melanoma. Synoptic report: Procedure, biopsy, shave Specimen laterality and tumor site: Left back Histology type: Nodular melanoma Breslow's depth: At least 4.1 mm Ulceration: Present Ton level: At least level IV Mitotic rate: 4-5 mm squared Microsatellitosis: Not identified Lymphovascular invasion: Present Tumor infiltrating lymphocytes: Present, non-brisk Regression: Not identified Precursor lesion: Indeterminate Peripheral and deep margins: Both peripheral and deep margins are involved. Stage: At least pT4b B. Left clavicle: Compatible with a seborrheic keratosis, chronically inflamed. C. Right clavicle: Compatible with a seborrheic keratosis with lichenoid inflammation. Please see complete above mentioned consultation report in EMR
[2018-12-27 15:46] VITALS: BMI 25.5
== END | disposition home or self-care (01) ==
PROVIDERS: Family Provider Family Medicine Geriatric Medicine; PCP Family Medicine Geriatric Medicine; Visit Provider Family Medicine Geriatric Medicine
DX: L91.8 Other hypertrophic disorders of the skin (principal)
CPT/HCPCS: 88305; 88325; 88341; 88342

== ENCOUNTER → 2018-12-29 | Outpatient (CLI) | payer MEDICARE, OTHER, SELFPAY ==
[2018-11-22 13:04] VITALS: BMI 26.6
[2018-12-27 15:46] VITALS: BMI 25.5
--- NOTE | 2018-12-29 09:47 | ECHOL_ITS ---
Reason For Study: PULMONARY EMBOLISM WITH RIGHT HEART STRAIN Procedure This was a limited 2D transthoracic echocardiogram. Exam performed in department. Left Ventricle Normal size and thickness. The estimated ejection fraction is 65 %. Septal motion consistent with IVCD. No regional wall motion abnormalities noted. Right Ventricle Moderately dilated right ventricle. Normal systolic function. Atria Normal left atrium. The right atrium is mildly enlarged. Normal atrial septum. Mitral Valve The mitral valve is structurally normal. No prolapse or stenosis seen. Tricuspid Valve Normal tricuspid valve. Trivial tricuspid valve insufficiency. Right ventricular systolic pressure estimated to be 37 mmHg. Mild pulmonary hypertension. Aortic Valve Trisinus/trileaflet aortic valve. Mild focal aortic valve thickening. There is no aortic stenosis. Pulmonic Valve Normal pulmonic valve. Great Vessels Normal aortic root. Normal arch. Normal inferior vena cava. Inferior vena cava collapse with sniff. Pericardium/Pleural No pericardial effusion. MMode/2D Measurements & Calculations RVDd: 4.3 cm LAV(MOD-sp4): 39.4 ml LVAd ap4: 35.6 cm2 EDV(MOD-sp4): 120.9 ml EDV(sp4-el): 127.5 ml LVAs ap4: 23.1 cm2 ESV(MOD-sp4): 59.9 ml ESV(sp4-el): 61.4 ml EF(MOD-sp4): 50.4 % EF(sp4-el): 51.8 % SV(MOD-sp4): 61.0 ml SV(sp4-el): 66.1 ml LA A4 area: 15.6 cm2 RA A4 area: 19.5 cm2 Doppler Measurements & Calculations Lat Peak E' Nino: 6.9 cm/sec Med Peak E' Nino: 5.2 cm/sec PA V2 max: 117.5 cm/sec TR max nino: 277.4 cm/sec TR max P.8 mmHg Interpretation Summary The estimated ejection fraction is 65 %. Moderately dilated right ventricle. The right atrium is mildly enlarged. Trivial tricuspid valve insufficiency. Right ventricular systolic pressure estimated to be 37 mmHg. Mild pulmonary hypertension. Compared to echo report dated 10/26/2018, LV function has remained the same, and RV size has improved to moderately dilated. No evidence of RV strain. RVSP has remained about the same. The study was technically difficult. Ordering Physician: Rhianna Smalls Referring Physician: KEKE NÚÑEZ Performed By: Nerissa Soto RDCS
== END | disposition home or self-care (01) ==
LOC: CVS 09:47
PROVIDERS: Family Provider Family Medicine Geriatric Medicine; PCP Family Medicine Geriatric Medicine; Referring Provider Nurse Practitioner Acute Care; Visit Provider Nurse Practitioner Acute Care
DX: I26.99 Other pulmonary embolism without acute cor pulmonale (principal)
CPT/HCPCS: 93308

== ENCOUNTER 2019-01-08 | Emergency (ER) | payer MEDICARE, OTHER, SELFPAY ==
[2018-12-27 15:46] VITALS: BMI 25.5
[2019-01-08 00:04] VITALS: BP 162/88; PULSE 73; RESP 17; TEMP 36.9; O2SAT 90; BMI 25.6
[2019-01-08 00:09] VITALS: O2SAT 95
--- NOTE | 2019-01-08 00:37 | CT_ITS ---
STUDY: CT SOFT TISSUE NECK WITH CONTRAST REASON FOR EXAM: Male, 78 years old. Right-sided neck pain and difficulty swallowing since Wednesday. History of COPD and hypertension. RADIATION DOSAGE (If Supplied By Facility): CTDIvol = ( 19.70 ) mGy, DLP = ( 575.55 ) mGycm TECHNIQUE: The patient was scanned in a multi-detector CT scanner. High resolution transaxial imaging was performed following intravenous administration of 75ML IV Isovue 300. Sagittal and coronal images were reconstructed. Individualized dose optimization techniques were used for this CT. COMPARISON: CT scan soft tissue neck 04/26/2015. CTA chest 10/25/2018. FINDINGS: Normal bilateral parotid glands. Normal bilateral auth specialist spaces. Normal bilateral parapharyngeal spaces. Normal bilateral carotid spaces. Normal bilateral sublingual and submandibular glands and spaces. Normal visualized nasopharynx. Normal retropharyngeal space. Normal perivertebral space. Normal visualized bilateral faucial tonsils. The visualized tongue, tongue base and oropharynx are normal. The visualized cervical lymph nodes (levels I-) are within normal size limits, and maintain normal morphology. There is no demonstrated solid or cystic mass lesion. There is no abnormal contrast enhancement. Normal epiglottis, bilateral vallecula and hypopharynx. The pre-epiglottic and paraglottic adipose spaces are normal. Normal visualized bilateral piriform sinuses, aryepiglottic folds, vocal cords, and arytenoid-cricoid articulations. There is seen on axial images 18-22, there is a 1.4 x 0.6 x 0.5 cm soft tissue density within the left posterior lumen of the upper thoracic trachea, at the level of the clavicular heads. On the October CT scan, a 0.7 x 0.6 x 0.4 cm density is seen in this region, suggesting that the finding represents a true space-occupying lesion rather than retained proteinaceous secretions.. Normal bilateral lobes of the thyroid gland. Normal visualized pulmonary apices. Normal visualized paranasal sinuses. There is multilevel degenerative changes of the cervical spine. CT/Soft Tissue Neck WITH Contrast IMPRESSION: Incidental finding of a soft tissue density in the left posterior lumen of the upper thoracic trachea, with increase in size from the October 2018 exam. Suggest bronchoscopy for further evaluation. Otherwise normal enhanced CT examination of the soft tissues of the neck. Electronically Signed: Vidal Gonzalez MD at 2:27 EDT , Service support ,
[2019-01-08 00:54] LABS: Absolute Lymphocyte Count 1.57 X10^3/ul (0.83-4.51); Absolute Neutrophil Count 3.9 X10^3/uL (2.0-7.7); Basophil# 0.02 X10^3/uL; Basophil% 0.3 % (0-1); Eosinophil# 0.07 X10^3/uL; Eosinophils% 1.1 % (0-5); Hematocrit 47.3 % (40-54); Hemoglobin 15.8 g/dl (13.0-16.5); Lymphocyte # 1.57 X10^3/ul (4.0); Lymphocyte % 23.8 % (19-41); Mean Corp Hgb Conc 33.4 g/gl (32-36); Mean Corpuscular Hgb 30.2 pg (27.0-32.0); Mean Corpuscular Volume 90.4 fL (80-94); Mean Platelet Vol. 9.3 fl (6.2-12.0); Monocyte# 1.05 X10^3/uL; Monocyte% 15.9 % (0-10); Neutrophil # 3.88 X10^3/uL (2.7-7.7); Neutrophil % 58.6 % (47-70); Platelet Count 241 K/mm3 (150-450); RBC Distribution Width CV 13.4 % (11.6-14.6); RBC Distribution Width SD 44.2 fl (35.1-43.9); Red Blood Count 5.23 M/mm3 (4.6-6.2); White Blood Count 6.6 K/mm3 (4.4-11.0)
[2019-01-08 00:57] LABS: POSITIVE COUNT NO; POSITIVE DIFFERENTIAL NO; POSITIVE MORPHOLOGY NO
[2019-01-08 01:02] LABS: International Normalized Ratio 2.1; Prothrombin Time (Protime)PT. 23.8 SECONDS (11.7-14.9)
[2019-01-08 01:07] LABS: Anion Gap 7 (5-15); BUN 18 mg/dL (7-18); BUN/Creat Ratio 15.7 RATIO (10-20); Calcium,Total 9.6 mg/dL (8.5-10.1); Chloride 110 mmol/L (98-107); Creatinine, Serum 1.15 mg/dL (0.70-1.30); EST Glomerular Filtration Rate 66 mL/min (>60); Est Glom Filt Rate - Afr Amer 79 mL/min (>60); Glucose 211 mg/dL (74-106); Potassium 3.9 mmol/L (3.5-5.1); Sodium Level 142 mmol/L (136-145)
[2019-01-08 02:09] VITALS: BP 158/87; PULSE 87; RESP 18; O2SAT 95
[2019-01-08 02:37] VITALS: BP 155/82; PULSE 85; RESP 16; O2SAT 96
--- NOTE | 2019-01-08 02:39 | ED.DCSUM_ITS ---
- ER Visit Summary Date of Service: 01/08/19 Chief Complaint: Pain with swallowing History of Present Illness: The patient is a 78 M who presents with odynophagia. This is been present for 5 days. He complains of pain on the right side of his neck which is worse when he swallows. He does have pain that radiates up towards his ear. He has also begun to develop some sinus congestion and drainage. He uses home oxygen as needed. He had initially stated he was short of breath but now states that he thinks this is just because he was anxious. He is currently breathing at baseline. No fevers. No chest pain. Physical Examination: Pulse ox 90% on 2 L nasal cannula vitals otherwise unremarkable except blood pressure 162/88, afebrile Oropharynx is clear, uvula is midline, speech is clear, no trismus TMs are normal Patient does have some anterior cervical lymphadenopathy I do not appreciate any masses No stridor Heart regular rate and rhythm Lungs are clear Alert Test Results: CBC BMP unremarkable, INR 2.1. Rapid strep negative. CT of the soft tissue of the neck shows incidental soft tissue density in the left posterior upper thoracic trachea Emergency Department Course and Treatment: Due to patient's pain a CT was obtained to rule out any deep space neck infection. CT of the neck is unremarkable except incidental finding of a soft tissue density in the trachea. Patient advised to follow-up with pulmonology. He was advised on supportive care for his throat pain. He understands to return for new or worsening symptoms and was discharged home. Treatment Plan: [] Disposition: Discharge Impression: Odynophagia This note was generated with [employer] dictation software. It may contain incorrect words, spelling, and punctuation that were not noted in review of the chart prior to signing ED Disposition - Plan for ED Patient: Referrals: Gaston Betts Chi, MD [Primary Care Provider] -
--- NOTE | 2019-01-08 02:43 | ED.DEP ---
ED Disposition - Plan for ED Patient: Instructions: ED Pharyngitis Viral Referrals: Gaston Betts Chi, MD [Primary Care Provider] -
[2019-01-08] MEDS: Acetaminophen 500 MG Tablet 1000 MG PO (02:53)
== END 2019-01-08 02:53 | disposition home or self-care (01) ==
PROVIDERS: Emergency Provider Emergency Medicine; Family Provider Family Medicine Geriatric Medicine; PCP Family Medicine Geriatric Medicine
DX: R13.10 Dysphagia, unspecified (principal); M54.2 Cervicalgia; I10 Essential (primary) hypertension; J44.9 Chronic obstructive pulmonary disease, unspecified; Z86.718 Personal history of other venous thrombosis and embolism; Z86.711 Personal history of pulmonary embolism; Z79.01 Long term (current) use of anticoagulants; Z79.899 Other long term (current) drug therapy
CPT/HCPCS: 70491; 80048; 85025; 85610; 87880; 99285; Q9967; A4216

== ENCOUNTER → 2019-02-02 11:18 | Outpatient (CLI) | payer MEDICARE, OTHER, SELFPAY ==
[2019-01-08 00:04] VITALS: BMI 25.6
[2019-02-02 12:46] LABS: Absolute Lymphocyte Count 1.13 X10^3/ul (0.83-4.51); Absolute Neutrophil Count 3.6 X10^3/uL (2.0-7.7); Basophil# 0.01 X10^3/uL; Basophil% 0.2 % (0-1); Eosinophil# 0.04 X10^3/uL; Eosinophils% 0.7 % (0-5); Hematocrit 49.1 % (40-54); Hemoglobin 16.4 g/dl (13.0-16.5); Lymphocyte # 1.13 X10^3/ul (4.0); Lymphocyte % 20.9 % (19-41); Mean Corp Hgb Conc 33.4 g/gl (32-36); Mean Corpuscular Hgb 29.8 pg (27.0-32.0); Mean Corpuscular Volume 89.3 fL (80-94); Mean Platelet Vol. 10.4 fl (6.2-12.0); Monocyte# 0.65 X10^3/uL; Neutrophil # 3.56 X10^3/uL (2.7-7.7); Neutrophil % 65.8 % (47-70); Platelet Count 236 K/mm3 (150-450); RBC Distribution Width SD 45.7 fl (35.1-43.9); White Blood Count 5.4 K/mm3 (4.4-11.0)
[2019-02-02 12:47] LABS: POSITIVE COUNT NO; POSITIVE DIFFERENTIAL NO; POSITIVE MORPHOLOGY NO
[2019-02-02 13:02] LABS: Vitamin D,25 Hydroxy 16.5 ng/mL (29.95-100.01)
[2019-02-02 13:11] LABS: AST(SGOT) 60 U/L (15-37); Alanine Aminotransfer ALT/SGPT 66 U/L (16-61); Albumin, Serum 3.8 g/dL (3.2-5.0); Alkaline Phosphatase 94 U/L (45-117); Anion Gap 7 (5-15); BUN 18 mg/dL (7-18); BUN/Creat Ratio 14.5 RATIO (10-20); Calcium,Total 9.1 mg/dL (8.5-10.1); Chloride 105 mmol/L (98-107); Creatinine, Serum 1.24 mg/dL (0.70-1.30); EST Glomerular Filtration Rate 60 mL/min (>60); Est Glom Filt Rate - Afr Amer 73 mL/min (>60); Globulin 3.7 g/dL (2.2-4.2); Glucose 301 mg/dL (74-106); Protein, Total 7.5 g/dL (6.4-8.2); Sodium Level 136 mmol/L (136-145); Thyroid Stim Hormone (TSH) 2.02 uIU/mL (0.358-3.74)
== END ==
PROVIDERS: Family Provider Family Medicine Geriatric Medicine; PCP Family Medicine Geriatric Medicine; Visit Provider Family Medicine Geriatric Medicine
DX: E11.9 Type 2 diabetes mellitus without complications (principal); E55.9 Vitamin D deficiency, unspecified; I10 Essential (primary) hypertension
CPT/HCPCS: 36415; 80053; 82306; 84443; 85025

== ENCOUNTER → 2019-03-27 07:48 | Outpatient (CLI) | payer MEDICARE, OTHER, SELFPAY ==
[2019-02-09 10:41] VITALS: BMI 26.5
--- NOTE | 2019-03-27 08:30 | PET_ITS ---
EXAMINATION: FDG PET/CT ? Head to Pelvis INDICATIONS: A 78-year-old male with reported history of malignant melanoma presenting for initial staging examination. COMPARISON EXAMINATION: CT of the neck report dated 01/08/19, CT of the chest, abdomen and pelvis reports dated 10/25/18 NON-INDEX LESION SIZE SUV INTERPRETATION Left mid posterolateral chest wall, subcutaneous fat 0.9 Quantitative criteria for viable neoplasm are not fulfilled TECHNIQUE: Following the intravenous administration of 13.21 mCi of F-18 deoxyglucose via the left antecubital fossa, multiplanar image acquisitions of the head, neck, chest, abdomen and pelvis to level of mid thigh, obtained at one hour post radiopharmaceutical administration contemporaneously interpreted with the current CT of the head, neck, chest, abdomen and pelvis to level of mid thigh, dated 03/27/[address] of the neck report dated 01/08/19, CT of the chest, abdomen and pelvis reports dated 10/25/18 reveal: SERUM GLUCOSE LEVEL: 148 mg/dl. HEIGHT: 67 inches. WEIGHT: 181 lbs. FINDINGS: 1. Subtle increased glucose metabolism is defined in the left mid-lower posterolateral chest wall localized to the subcutaneous fat, generating a calculated maximal standard uptake value of 0.9. 2. Normal physiologic distribution of the radiopharmaceutical is apparent in the hepatic (3.5) and splenic parenchyma, both renal units, bladder and visualized intestinal tract. Symmetric glucose metabolism is evident in the occipital, frontal, parietal and temporal lobes of the cerebral cortex, as well as normal visualization of the basal ganglia and cerebellar hemispheres. Diffuse radiopharmaceutical concentration is noted in all four quadrants of the abdomen and pelvis. Prominent glucose metabolism is defined in the ascending and descending thoracic, as well as abdominal aorta commensurate with activated leukocytes associated with atherosclerotic plaque formation. (Rhonda et al, Clinical Nuclear Medicine 29:93, 2004). Pertinent CT findings are as follows: CHEST: Emphysematous change is noted in the bilateral upper lung zones. There are no parenchymal densities-nodules defined in the right and left hemithorax demonstrating discernible increased glucose metabolism. A nodular density noted in the right post basilar lung field, right lower lobe, reveals no evidence of facilitated FDG uptake. There is atherosclerotic calcification defined in the thoracic aorta without evidence of dilatation-aneurysm formation. Coronary arterial calcification is observed. Right axillary and scattered mediastinal soft tissue is ametabolic. Surgical clips are demonstrated in the left axillary region. ABDOMEN AND PELVIS: There is borderline fatty metamorphosis-steatosis defined in the hepatic parenchyma. Cholelithiasis is defined. There is atherosclerotic calcification defined in the abdominal aorta without evidence of dilatation-aneurysm formation. Calcification is demonstrated in the bilateral kidneys. Cortical cyst formation is visualized in the left kidney. Bilateral inguinal soft tissue densities with fatty hilus formation are ametabolic. Dystrophic calcification manifest within the prostate gland and seminal vesicles reveal no evidence of increased FDG concentration. SKELETAL: Degenerative changes are noted in the cervical, thoracic and lumbar spine. Sclerotic changes noted in several thoracic and lumbar vertebrae demonstrate no evidence of facilitated FDG uptake. PET/PET/CT Tumor Base -Thigh Init IMPRESSION: 1. NEGATIVE EXAMINATION. There is no definitive quantitative scintigraphic evidence of residual-metastatic/viable neoplasm. 2. Increased glucose concentration subtly apparent in the left mid posterolateral chest wall does not fulfill quantitative criteria for viable neoplasm. Electronic Signature Christiano Magana D.O. Electronically Signed: Christiano Magana DO at 23:04 EDT Tel , Service support ,
== END ==
PROVIDERS: Family Provider Family Medicine Geriatric Medicine; PCP Family Medicine Geriatric Medicine; Referring Provider Internal Medicine Hematology & Oncology; Visit Provider Internal Medicine Hematology & Oncology
DX: C43.59 Malignant melanoma of other part of trunk (principal); C77.3 Secondary and unspecified malignant neoplasm of axilla and upper limb lymph nodes
CPT/HCPCS: 78815; A9552

== ENCOUNTER → 2019-08-04 11:24 | Outpatient (CLI) | payer MEDICARE, OTHER, SELFPAY ==
[2019-02-09 10:41] VITALS: BMI 26.5
[2019-08-04 12:48] LABS: Absolute Lymphocyte Count 1.02 X10^3/uL (0.83-4.51); Absolute Neutrophil Count 6.3 X10^3/uL (2.0-7.7); Basophil# 0.04 X10^3/uL; Basophil% 0.5 % (0-1); Eosinophil# 0.02 X10^3/uL; Eosinophils% 0.2 % (0-5); Hemoglobin 16.8 g/dL (13.0-16.5); Lymphocyte # 1.02 X10^3/ul (4.0); Lymphocyte % 12.1 % (19-41); Mean Corp Hgb Conc 32.9 g/dL (32-36); Mean Corpuscular Hgb 30.5 pg (27.0-32.0); Mean Corpuscular Volume 92.7 fL (80-94); Mean Platelet Vol. 9.9 fl (6.2-12.0); Monocyte% 11.8 % (0-10); NRBC Flagged by Analyzer 0 % (0-5); Neutrophil % 74.5 % (47-70); Platelet Count 231 K/mm3 (150-450); RBC Distribution Width CV 13.2 % (11.6-14.6); RBC Distribution Width SD 45.1 fl (35.1-43.9); White Blood Count 8.5 K/mm3 (4.4-11.0)
[2019-08-04 13:02] LABS: Vitamin D,25 Hydroxy 18.3 ng/mL (29.95-100.01)
[2019-08-04 13:08] LABS: AST(SGOT) 40 U/L (15-37); Alanine Aminotransfer ALT/SGPT 56 U/L (16-61); Albumin, Serum 3.9 g/dL (3.2-5.0); Alkaline Phosphatase 86 U/L (45-117); Anion Gap 7 (5-15); BUN 16 mg/dL (7-18); BUN/Creat Ratio 15.1 RATIO (10-20); Calcium,Total 10.2 mg/dL (8.5-10.1); Chloride 103 mmol/L (98-107); Creatinine, Serum 1.06 mg/dL (0.70-1.30); EST Glomerular Filtration Rate 72 mL/min (>60); Est Glom Filt Rate - Afr Amer 87 mL/min (>60); Glucose 137 mg/dL (74-106); Potassium 4.5 mmol/L (3.5-5.1); Protein, Total 7.9 g/dL (6.4-8.2); Sodium Level 137 mmol/L (136-145); Thyroid Stim Hormone (TSH) 2.96 uIU/mL (0.358-3.74)
== END ==
PROVIDERS: Family Provider Family Medicine Geriatric Medicine; PCP Family Medicine Geriatric Medicine; Visit Provider Family Medicine Geriatric Medicine
DX: E11.9 Type 2 diabetes mellitus without complications (principal); E55.9 Vitamin D deficiency, unspecified; I10 Essential (primary) hypertension
CPT/HCPCS: 36415; 80053; 82306; 84443; 85025

== ENCOUNTER → 2019-09-18 16:41 | Outpatient (CLI) | payer MEDICARE, OTHER, SELFPAY ==
[2019-02-09 10:41] VITALS: BMI 26.5
== END ==
PROVIDERS: Family Provider Family Medicine Geriatric Medicine; PCP Family Medicine Geriatric Medicine; Referring Provider Family Medicine Geriatric Medicine; Visit Provider Family Medicine Geriatric Medicine
DX: R69 Illness, unspecified (principal)
CPT/HCPCS: 87633

== ENCOUNTER → 2019-11-03 09:02 | Outpatient (CLI) | payer MEDICARE, OTHER, SELFPAY ==
[2019-02-09 10:41] VITALS: BMI 26.5
[2019-11-03 12:25] LABS: Absolute Lymphocyte Count 1.11 X10^3/uL (0.83-4.51); Basophil# 0.05 X10^3/uL; Basophil% 0.7 % (0-1); Eosinophil# 0.04 X10^3/uL; Eosinophils% 0.5 % (0-5); Hematocrit 48.3 % (40-54); Hemoglobin 16.3 g/dL (13.0-16.5); Lymphocyte # 1.11 X10^3/ul (4.0); Lymphocyte % 14.9 % (19-41); Mean Corp Hgb Conc 33.7 g/dL (32-36); Mean Corpuscular Hgb 30.6 pg (27.0-32.0); Mean Corpuscular Volume 90.8 fL (80-94); Mean Platelet Vol. 9.9 fl (6.2-12.0); Monocyte# 1.03 X10^3/uL; Monocyte% 13.8 % (0-10); NRBC Flagged by Analyzer 0 % (0-5); Neutrophil # 5.03 X10^3/uL (2.7-7.7); Neutrophil % 67.4 % (47-70); Platelet Count 204 K/mm3 (150-450); RBC Distribution Width SD 42.3 fl (35.1-43.9); Red Blood Count 5.32 M/mm3 (4.6-6.2); White Blood Count 7.5 K/mm3 (4.4-11.0)
[2019-11-03 12:46] LABS: Vitamin D,25 Hydroxy 19.9 ng/mL (29.95-100.01)
[2019-11-03 12:59] LABS: ALB/GLOB Ratio 1.1 RATIO (0.9-2.4); AST(SGOT) 32 U/L (15-37); Alanine Aminotransfer ALT/SGPT 56 U/L (16-61); Alkaline Phosphatase 76 U/L (45-117); Anion Gap 9 (5-15); BUN 16 mg/dL (7-18); BUN/Creat Ratio 15.5 RATIO (10-20); Chloride 106 mmol/L (98-107); Creatinine, Serum 1.03 mg/dL (0.70-1.30); EST Glomerular Filtration Rate 74 mL/min (>60); Est Glom Filt Rate - Afr Amer 90 mL/min (>60); Globulin 3.8 g/dL (2.2-4.2); Glucose 119 mg/dL (74-106); Potassium 3.8 mmol/L (3.5-5.1); Protein, Total 7.8 g/dL (6.4-8.2); Sodium Level 139 mmol/L (136-145); Thyroid Stim Hormone (TSH) 2.54 uIU/mL (0.358-3.74)
== END ==
PROVIDERS: PCP Family Medicine Geriatric Medicine; Visit Provider Family Medicine Geriatric Medicine
DX: E11.9 Type 2 diabetes mellitus without complications (principal); E55.9 Vitamin D deficiency, unspecified; I10 Essential (primary) hypertension
CPT/HCPCS: 36415; 80053; 82306; 84443; 85025

== ENCOUNTER → 2019-11-20 09:40 | Outpatient (CLI) | payer MEDICARE, OTHER, SELFPAY ==
[2019-02-09 10:41] VITALS: BMI 26.5
--- NOTE | 2019-11-20 10:30 | PET_ITS ---
EXAMINATION: FDG PET-CT ? Head to Toe INDICATIONS: A 79-year-old male with history of malignant melanoma presenting for restaging examination. COMPARISON EXAMINATION: FDG PET study dated 03/27/2019 INDEX LESION SIZE SUV INTERPRETATION NEW: left lower posterolateral chest, upper abdominal wall 17.9-mm (largest) (frame 183) 3.7 (max) Fulfills quantitative criteria for viable neoplasm NEW: left femoral neck 3.4 May warrant further investigation with magnetic resonance imaging secondary to quantitative degree of uptake NON-INDEX LESION SIZE SUV INTERPRETATION NEW: mediastinum, left thoracic perihilum 2.6 (max) Quantitative criteria for viable neoplasm are not fulfilled TECHNIQUE: Following the intravenous administration of 18.04 mCi of F-18 deoxyglucose via the left antecubital fossa, multiplanar image acquisitions of the head, neck, chest, abdomen and pelvis, lower extremities to the level of the bilateral feet, obtained at one hour post radiopharmaceutical administration contemporaneously interpreted with the current CT of the head, neck, chest, abdomen and pelvis, lower extremities to the level of the bilateral feet, dated 11/20/2019 via coregistration and prior FDG PET study dated 03/27/2019 reveals: BLOOD GLUCOSE LEVEL:?? 157 mg/dl?HEIGHT:?70 inches?WEIGHT: 177 lbs. FINDINGS: 1. Newly identified increased glucose metabolism is manifest in the left lower posterolateral chest, upper abdominal wall corresponding to soft tissue nodularity localized to the subcutaneous fat on review of CT of the chest and abdomen dated 11/20/2019. The calculated maximal standard uptake value is 3.7. The maximal axial diameter of the largest, most conspicuous hypermetabolic soft tissue density on review of CT of the chest and abdomen dated 11/20/2019 is 17.9-mm. 2. Facilitated radiopharmaceutical concentration is noted in the left hemipelvis which appears contiguous and/or adjacent to the left femoral neck rendering a calculated maximal standard uptake value of 3.4. 3. Enhanced tracer concentration is observed in the carinal level mediastinum and left thoracic perihilum generating a calculated maximal standard uptake value of 2.6. Quantitative criteria for centrally located thoracic/mediastinal viable neoplasm are not fulfilled. 4. Normal physiologic distribution of the radiopharmaceutical is apparent in the hepatic (3.0/3.5) and splenic parenchyma, both renal units, bladder and visualized intestinal tract. Symmetric glucose metabolism is evident in the occipital, frontal, parietal and temporal lobes of the cerebral cortex, as well as normal visualization of the basal ganglia and cerebellar hemispheres. Diffuse radiopharmaceutical concentration is noted in all four quadrants of the abdomen and pelvis. Previously defined morphologic-anatomic changes noted on review of CT of the neck, chest, abdomen and pelvis on the FDG PET-CT report dated 03/27/2019, are essentially unchanged on the current examination. PET/PET/CT Tumor Base -Thigh Subs IMPRESSION: 1. ABNORMAL EXAMINATION INDICATIVE OF MALIGNANT VIABLE NEOPLASM. 2. Increased glucose concentration currently identified in the left lower posterolateral chest, upper abdominal wall fulfills quantitative criteria for viable neoplasm. 3. Enhanced tracer concentration noted contiguous and/or adjacent to the left femoral neck may be further investigated with magnetic resonance imaging secondary to the quantitative degree of uptake. (Courtney et al, Clinical Nuclear Medicine, 29:161, 2004). 4. The mediastinal and left thoracic perihilar increase in fluorine labeled glucose uptake do not fulfill quantitative criteria for viable neoplasm. (Stephen et al, Journal of Clinical Oncology 16:2142, 1998 Tolu et al, Journal of Nuclear Medicine 43:155P, 2002). 5. Overall, compared to the prior FDG PET study dated 03/27/2019, there is interim development of defined viable neoplastic disease. Electronic Signature Christiano Magana D.O. Electronically Signed: Christiano Magana DO at 15:44 EST Tel , Service support ,
== END ==
PROVIDERS: PCP Family Medicine Geriatric Medicine; Referring Provider Internal Medicine Hematology & Oncology; Visit Provider Internal Medicine Hematology & Oncology
DX: C43.59 Malignant melanoma of other part of trunk (principal); C77.3 Secondary and unspecified malignant neoplasm of axilla and upper limb lymph nodes; C79.2 Secondary malignant neoplasm of skin
CPT/HCPCS: 78815; A9552

== ENCOUNTER 2019-11-30 06:48 | Observation (INO) | payer MEDICARE, OTHER, SELFPAY ==
[2019-02-09 10:41] VITALS: BMI 26.5
[2019-11-30] VITALS (8 sets, daily range): BP systolic 130–158; BP diastolic 66–99; PULSE 78–108; RESP 10–19; TEMP 36.4–36.6; O2SAT 94–98; BMI 25.2; BMI 25.4
--- NOTE | 2019-11-30 06:57 | RAD_ITS ---
STUDY: X-RAY CHEST REASON FOR EXAM: Male, 79 years old. C/O DISORIENTATION ON STANDING AND WEAKNESS FOR A COUPLE DAYS. -- CHRONIC SOB -- HX OF COPD TECHNIQUE: Single AP portable view of the chest. COMPARISON: 04/21/2017. FINDINGS: There is mild fibrosis or atelectasis left lung base. There is no demonstrated acute pulmonary infiltrate. There is no demonstrated pleural abnormality. Normal size heart. Normal mediastinum and neeta. Normal visualized pulmonary arteries. There is atherosclerotic calcification of the aortic arch with tortuosity. There are diffuse degenerative changes of the visualized thoracic spine. There is degenerative osteoarthritis of the bilateral shoulders. There is no demonstrated abnormality of the visualized soft tissue structures of the upper abdomen. RAD/Chest 1 View (Portable) IMPRESSION: No evidence for acute cardiopulmonary pathology. Electronically Signed: Vidal Gonzalez MD at 7:25 EDT , Service support ,
--- NOTE | 2019-11-30 06:57 | EKG12_ITS ---
Test Reason : WEAKNESS Blood Pressure : / mmHG Vent. Rate : 073 BPM Atrial Rate : 073 BPM P-R Int : 166 ms QRS Dur : 092 ms QT Int : 390 ms P-R-T Axes : 021 -64 019 degrees QTc Int : 429 ms Normal sinus rhythm Left anterior fascicular block Abnormal ECG Confirmed by MINDI DURANT, VINH ([id number]), photographic editor LINDA LEDEZMA ([id number]) on 12/01/2019 1:03:30 PM Referred By: Marty Mccray Confirmed By:SVETA OBREGON MD
--- NOTE | 2019-11-30 06:57 | CT_ITS ---
STUDY: CT BRAIN WITHOUT CONTRAST REASON FOR EXAM: Male, 79 years old. CONFUSION,WEAKNESS, DISORIENTED RADIATION DOSAGE (If Supplied By Facility): CTDIvol = ( 44.99 ) mGy, DLP = ( 762.36 ) mGycm TECHNIQUE: Transaxial CT imaging of the brain was performed without administration of intravenous contrast material. Individualized dose optimization techniques were used for this CT. COMPARISON: 10/25/2018. FINDINGS: Normal soft tissue structures. Normal calvarium. There is a cavum septum pellucidum and a cavum septum vergae, a minor developmental anomaly. There is mild cerebral atrophy with widening of the extra-axial spaces and ventricular dilatation. There are areas of decreased attenuation within the white matter tracts of the supratentorial brain, consistent with microvascular disease changes. There are small punctate calcifications of the basal ganglia which are seen in the aging brain as a normal variant. Normal brainstem. There is mild cerebellar atrophy. There is atherosclerotic calcification of the vertebral and cavernous carotid arteries. There is no intracranial hemorrhage. There are no findings of an acute ischemic infarction. Normal visualized paranasal sinuses. CT/Brain/Head without Contrast IMPRESSION: Chronic involutional changes of the brain. No demonstrated acute intracranial process. Electronically Signed: Vidal Gonzalez MD at 7:40 EDT , Service support ,
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
[2019-11-30 07:06] LABS: Absolute Lymphocyte Count 1.68 X10^3/uL (0.83-4.51); Absolute Neutrophil Count 5.2 X10^3/uL (2.0-7.7); Basophil# 0.05 X10^3/uL; Basophil% 0.6 % (0-1); Eosinophil# 0.01 X10^3/uL; Eosinophils% 0.1 % (0-5); Hematocrit 49.4 % (40-54); Hemoglobin 17.1 g/dL (13.0-16.5); Lymphocyte # 1.68 X10^3/ul (4.0); Lymphocyte % 19.8 % (19-41); Mean Corp Hgb Conc 34.6 g/dL (32-36); Mean Corpuscular Hgb 31.3 pg (27.0-32.0); Mean Corpuscular Volume 90.3 fL (80-94); Mean Platelet Vol. 9.4 fl (6.2-12.0); Monocyte# 1.46 X10^3/uL; Monocyte% 17.2 % (0-10); NRBC Flagged by Analyzer 0 % (0-5); Neutrophil # 5.16 X10^3/uL (2.7-7.7); Platelet Count 233 K/mm3 (150-450); RBC Distribution Width CV 13.3 % (11.6-14.6); Red Blood Count 5.47 M/mm3 (4.6-6.2); White Blood Count 8.5 K/mm3 (4.4-11.0)
[2019-11-30] MEDS: 0.9% Normal Saline 1,000 ML 1000 ML IV (07:07)
[2019-11-30] MEDS: Ondansetron 4 MG/2 ML Vial IV (07:08)
[2019-11-30 07:17] LABS: International Normalized Ratio 1.3; Prothrombin Time (Protime)PT. 15.6 SECONDS (11.7-14.9)
[2019-11-30 07:28] LABS: ALB/GLOB Ratio 0.9 RATIO (0.9-2.4); AST(SGOT) 43 U/L (15-37); Alanine Aminotransfer ALT/SGPT 51 U/L (16-61); Albumin, Serum 3.8 g/dL (3.2-5.0); Alkaline Phosphatase 109 U/L (45-117); Anion Gap 4 (5-15); BUN 19 mg/dL (7-18); BUN/Creat Ratio 17.4 RATIO (10-20); Chloride 104 mmol/L (98-107); Creatinine, Serum 1.09 mg/dL (0.70-1.30); EST Glomerular Filtration Rate 70 mL/min (>60); Est Glom Filt Rate - Afr Amer 84 mL/min (>60); Globulin 4.1 g/dL (2.2-4.2); Glucose 151 mg/dL (74-106); Potassium 4.2 mmol/L (3.5-5.1); Protein, Total 7.9 g/dL (6.4-8.2); Sodium Level 135 mmol/L (136-145)
--- NOTE | 2019-11-30 07:33 | CT_ITS ---
STUDY: CTA CHEST REASON FOR EXAM: Male, 79 years old. Dyspnea, weakness, subtherapeutic INR. RADIATION DOSAGE (If Supplied By Facility): CTDIvol = ( 11.89 ) mGy, DLP = ( 511.60 ) mGycm TECHNIQUE: The examination was performed with the intravenous administration of 100mL Isovue 370. Post-processing of the angiographic images was performed, with multiplanar reformation and 3D reconstruction. Individualized dose optimization techniques were used for this CT. COMPARISON: Comparison is made with prior examination dated October 25, 2018. FINDINGS: Normal enhancement of the main pulmonary artery and right and left pulmonary arteries. Normal enhancement of the bilateral peripheral pulmonary arteries. There is no demonstrated pulmonary embolism. Normal thoracic aorta and visualized great vessels. There is no demonstrated aortic dissection. There are calcifications of the coronary arteries. There are visualized mediastinal lymph nodes, which are within normal size limits, and with normal morphology. Normal hilar regions. Normal visualized trachea and bronchi. The lungs are well expanded. Mild degree of increased linear markings at the lung bases worse on the right side with evidence of small bullous changes in the right lower lobe. Normal pleura. Normal chest wall structures. There are degenerative changes of thoracic spine. 7.3 mm nodule in the crux of the left adrenal gland suggestive of an adenoma. Small hiatal hernia. CT/CTA Chest W/WO Contrast IMPRESSION: No evidence of pulmonary embolism. Stable scarring and bullous changes at the lung bases slightly more prominent on the right side. Findings suggestive of a subcentimeter adenoma in the left adrenal gland. Electronically Signed: Jose L Shelton, at 8:26 EDT , Service support ,
[2019-11-30 08:28] LABS: Bacteria 0 SEEN /hpf (None Seen); Mucous, Urine 0 SEEN /hpf (<or=2+); Red Blood Cells-Urine 0 SEEN /hpf (0-5); Squamous Epithelial Cells - UA 0 SEEN /hpf (0-5); White Blood Cells 0 SEEN /hpf (0-5)
[2019-11-30 08:55] LABS: Color, Urine Yellow (Yellow); Glucose, Dipstick Normal (Normal); Ketone-Dipstick 5 mg/dl (Negative); Leukocyte Esterase-Dipstick Negative /ul (Negative); Nitrite-Dipstick Negative (Negative); Occult Blood-Urine Negative /ul (Negative); Protein-Dipstick Negative (Negative); Specific Gravity, Urine 1.005 (1.002-1.030); Urine Bilirubin Dipstick Negative (Negative); Urine Clarity Clear (Clear); Urine Urobilinogen Normal (Normal)
--- NOTE | 2019-11-30 09:39 | MRI_ITS ---
STUDY: MRI BRAIN WITH AND WITHOUT CONTRAST REASON FOR EXAM: Male, 79 years old. Ataxia, hx melanoma TECHNIQUE: Standardized multiplanar fat and water weighted pulse sequences were obtained. 15 mL of IV DOTAREM was administered for the contrast portion of the examination. COMPARISON: CT head without contrast 11/30/2019. FINDINGS: No restricted diffusion to suspect acute or subacute ischemic infarct. Normal size of the ventricles and extra-axial spaces for the patient''s age. Small and few white matter T2 FLAIR hyperintensity foci in the cerebral hemispheres are presumably chronic white matter ischemic changes. No midline shift and no mass effects. Normal bilateral basal ganglia. Normal thalami. There is no extra-axial fluid accumulation. Normal flow voids within the major intracranial circulation suggesting patency by spin echo criteria. Normal venous enhancement. There is no enhancing intra-axial or extra-axial abnormality. Normal sella turcica, pituitary gland, infundibular stalk, optic chiasm and hypothalamus. Normal tectal plate and pineal gland. Normal midbrain, anton and medulla. Normal cerebellum. Normal basal cisterns. Normal bilateral temporal bones. Normal bilateral internal auditory canals. No demonstrated orbital abnormality, within the constraints of a routine brain study. Normal visualized paranasal sinuses. Normal calvarium and skull base. Normal visualized soft tissue structures. Normal visualized upper cervical spine. MRI/Brain W/WO Contrast IMPRESSION: 1. No MRI evidence of acute or subacute ischemic infarct or acute intracranial abnormality. 2. No MRI evidence of intracranial metastatic disease. 3. Few chronic white matter ischemic changes in both cerebral hemispheres. Electronically Signed: Jose Alfredo Gooden MD at 11:47 EDT , Service support ,
[2019-11-30] MEDS: proMETHazine 25 MG/ML Syringe 6.25 MG IV (11:58)
[2019-11-30] MEDS: Enoxaparin 120 MG/0.8 ML Syringe SC (14:14)
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
[2019-11-30] MEDS: Ipratropium/Albuterol Sulfate 3 ML AMPUL.NEB INHALATION (21:00)
[2019-11-30] MEDS: Gabapentin 300 MG Capsule PO (22:00)
[2019-11-30] MEDS: diazePAM 2 MG Tablet 4 MG PO (22:00)
[2019-12-01 02:24] VITALS: BP 131/82; PULSE 95; RESP 18; TEMP 38.1; O2SAT 93
[2019-12-01] MEDS: Acetaminophen 325 MG Tablet 650 MG PO (02:38)
[2019-12-01] MEDS: diazePAM 2 MG Tablet 4 MG PO (06:40)
[2019-12-01 06:42] VITALS: TEMP 37.1
[2019-12-01 07:56] VITALS: PULSE 81; RESP 16
[2019-12-01] MEDS: Ipratropium/Albuterol Sulfate 3 ML AMPUL.NEB INHALATION (07:56)
[2019-12-01 08:34] VITALS: BP 126/76; PULSE 84; RESP 18; TEMP 36.7; O2SAT 98
[2019-12-01] MEDS: hydroCHLOROthiazide 12.5mg 12.5 MG PO (09:16)
[2019-12-01] MEDS: Lisinopril 20 MG Tablet PO (09:16)
[2019-12-01 09:38] LABS: International Normalized Ratio 1.2; Prothrombin Time (Protime)PT. 15.3 SECONDS (11.7-14.9)
--- NOTE | 2019-12-01 11:15 | CCN.REFER ---
RN CM Note: per Phys Therapist- pt did well with activity. Ok home with cane, no needs. Bg SHETTYN RN ACM
--- NOTE | 2019-12-01 11:43 | DCINST_ITS ---
- Discharge Diagnoses Current Active Problems: Current Active and Chronic Problems (Last Reviewed 02/09/19 @ 10:41 by Cristela Hu) Ataxia (Acute) Dizziness of unknown cause (Acute) You will use the following diet at home:: No restrictions Your food should be the consistency of: Regular Your liquids should be the consistency of: Regular/Thin Discharge Activity: Return to Normal Activity Weight Bearing Status: Full weight bearing Allergies/Adverse Reactions: Allergies Penicillins Adverse Reaction (Severe, Verified 11/30/19 06:49) Hives propoxyphene HCl [From Darvon] Adverse Reaction (Severe, Verified 11/30/19 06:49) Vomiting propoxyphene napsylate [From Darvocet-N 100] Adverse Reaction (Severe, Verified 11/30/19 06:49) Vomiting Medications to take at Discharge Albuterol Aerosols [Ventolin Aerosols] 1 inh INHALATION BID 08/10/16 cyclobenzaprine 10 mg tablet 10 mg PO TID PRN 09/09/18 Lisinopril/Hydrochlorothiazide [Lisinopril-Hctz 20-12.5 mg Tab] 1 tab PO DAILY 10/06/18 Warfarin Sodium [Coumadin] 7.5 mg PO DAILY 12/13/18 Baclofen [Lioresal] 1 tab PO QHS 11/30/19 Dabrafenib Mesylate [Tafinlar] 2 tab PO BID 11/30/19 Gabapentin [Neurontin] 300 mg PO QHS 11/30/19 Trametinib Dimethyl Sulfoxide [Mekinist] 1 tab PO DAILY 11/30/19 Diazepam [Valium] 2 mg PO TID #10 tablet 12/01/19 The following prescriptions were given: Diazepam [Valium] 2 mg PO TID #10 tablet Transmission Status: Sent to [id number] Primary Care Physician: Gaston Betts Chi, MD [Primary Care Provider] - Please follow up with your Primary Care Physician in: on 12/04/19- get your INR rechecked then Test Results: Test results from this visit will be discussed in further detail at your follow- up appointment, if applicable.
--- NOTE | 2019-12-03 15:36 | PCM.DC.SUM ---
Discharge Date and Diagnosis - Problem List Patient Problems: Active and Suspected Problems (Last Reviewed 02/09/19 @ 10:41 by Cristela Hu) Weakness (Acute) Vertigo (Acute) Date of Admission: 11/30/19 Date of Discharge: 12/01/19 - Primary Discharge Diagnosis Active and Suspected Problems (Last Reviewed 02/09/19 @ 10:41 by Cristela Hu) #1 ataxia and dizziness-etiology unclear #2 malignant melanoma #3 chronic obstructive pulmonary disease #4 protein C deficiency #5 essential hypertension #6 type 2 diabetes #7 past history of pulmonary embolism 10/25/2018 - Secondary Discharge Diagnosis Chronic Problems (Last Reviewed 02/09/19 @ 10:41 by Cristela Hu) Malignant melanoma (Chronic) Cor pulmonale (Chronic) Emphysema (Chronic) Hematoma of rectus sheath (Chronic) Hypercoagulable state (Chronic) Osteoarthritis of knees, bilateral (Chronic) Emphysema (Chronic) HTN (hypertension) (Chronic) DDD (degenerative disc disease) (Chronic) 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) COPD (chronic obstructive pulmonary disease) (Chronic) Hospital Course and Treatment Operations: None Procedures: None Summary of Care Provided: The patient is a 79 year old M who was seen in the emergency room at [facility] with a chief complaint of dizziness and ataxia. Patient is being treated for malignant melanoma, he had a MRI of the brain done in October 2018 which showed a questionable metastatic lesion in the brain. Patient underwent work-up in the emergency room including a CT of the brain which was unremarkable, he then underwent an MRI of the brain with contrast that showed no evidence of metastatic disease. [facility] he was seen by PT and OT, and he was placed on Valium for symptomatic treatment of his dizziness and ataxia. Patient improved overnight and it was felt he was stable for discharge. On 12/01/2019, patient was seen and examined: On examination he appeared in good health and spirits. Vital signs as documented. Skin warm and dry and without overt rashes. Neck without JVD. Lungs clear. Heart exam notable for regular rhythm, normal sounds and absence of murmurs, rubs or gallops. Abdomen unremarkable and without evidence of organomegaly, masses, or abdominal aortic enlargement. Extremities nonedematous. Neuro: Cranial nerves II through XII are grossly intact, no focal motor deficits were noted, sensation to light touch and pinprick intact. Psych: Patient is alert and oriented x3, he does not appear anxious or depressed Patient was discharged to home on 12/01/2019-patient's INR was subtherapeutic, he was given the choice of going home on Lovenox until his INR was therapeutic but he stated he would rather get his INR checked early next week and increase his Coumadin dosage. Patient was given extra dose of Coumadin in the hospital before his discharge. Patient Problems: Active and Suspected Problems (Last Reviewed 02/09/19 @ 10:41 by Cristela Hu) Weakness (Acute) Vertigo (Acute) - Physical Exam Vitals/I&O's: Vital Signs Temp Pulse Resp BP Pulse Ox 98.0 F 84 18 126/76 H 98 12/01/19 08:34 12/01/19 08:34 12/01/19 08:34 12/01/19 08:34 12/01/19 08:34 Oxygen Delivery Method Room Air Weight: 78.018 kg Body Mass Index (BMI) 25.4 Finger Stick Blood Glucose 147 Intake and Output for Last 24 Hours 12/01/19 12/02/19 12/03/19 23:59 23:59 23:59 Intake Total 450 / 450 Balance 450 / 450 Discharge Activity: Return to Normal Activity Weight Bearing Status: Full weight bearing Home Medications: Medications to take at Discharge Albuterol Aerosols [Ventolin Aerosols] 1 inh INHALATION BID 08/10/16 cyclobenzaprine 10 mg tablet 10 mg PO TID PRN 09/09/18 Lisinopril/Hydrochlorothiazide [Lisinopril-Hctz 20-12.5 mg Tab] 1 tab PO DAILY 10/06/18 Warfarin Sodium [Coumadin] 7.5 mg PO DAILY 12/13/18 Baclofen [Lioresal] 1 tab PO QHS 11/30/19 Dabrafenib Mesylate [Tafinlar] 2 tab PO BID 11/30/19 Gabapentin [Neurontin] 300 mg PO QHS 11/30/19 Trametinib Dimethyl Sulfoxide [Mekinist] 1 tab PO DAILY 11/30/19 Diazepam [Valium] 2 mg PO TID #10 tab 12/01/19 Following Prescrptions Were Given to Patient: Diazepam [Valium] 2 mg PO TID #10 tab Transmission Status: Received by [id number] Primary Care Physician: Gaston Betts Chi, MD [Primary Care Provider] - Please follow up with your Primary Care Physician in: on 12/04/19- get your INR rechecked then Disposition: Home Minutes spent on discharge:: 30 Patient Condition:: Stable Medical Necessity - Tobacco Use Smoking Status: Former smoker Tobacco Use: Non-smoker Meaningful Use Info Meaningful Use Diagnoses (Choose all that apply): None applicable OBSV E&M: 60593 Observation care discharge
== END 2019-12-01 13:18 | disposition home or self-care (01) ==
LOC: ED 07:22 → MS2 13:04
PROVIDERS: Admitting Provider Internal Medicine; Emergency Provider Emergency Medicine; PCP Family Medicine Geriatric Medicine; Referring Provider Internal Medicine; Visit Provider Internal Medicine
DX: R27.0 Ataxia, unspecified (principal); R53.1 Weakness; E11.9 Type 2 diabetes mellitus without complications; I10 Essential (primary) hypertension; J44.9 Chronic obstructive pulmonary disease, unspecified; D68.59 Other primary thrombophilia; C43.9 Malignant melanoma of skin, unspecified; Z79.899 Other long term (current) drug therapy; Z86.11 Personal history of tuberculosis; Z79.01 Long term (current) use of anticoagulants; Z87.891 Personal history of nicotine dependence
CPT/HCPCS: 36415; 70450; 70553; 71045; 71275; 80053; 81001; 85025; 85610; 93005; 94640; 97162; 99285; A9575; J7030; Q9967; A4216; J2405

== ENCOUNTER 2019-12-02 00:20 | Inpatient (IN) | payer MEDICARE, OTHER, SELFPAY ==
[2019-11-30 13:27] VITALS: BMI 25.4
[2019-12-02] VITALS (17 sets, daily range): BP systolic 93–120; BP diastolic 62–79; PULSE 73–100; RESP 15–21; TEMP 36.8–37.9; O2SAT 88–98; BMI 25.7; BMI 24.7
--- NOTE | 2019-12-02 00:55 | EKG12_ITS ---
Test Reason : DYSRHYTHMIA Blood Pressure : / mmHG Vent. Rate : 096 BPM Atrial Rate : 096 BPM P-R Int : 156 ms QRS Dur : 092 ms QT Int : 364 ms P-R-T Axes : 046 -68 012 degrees QTc Int : 459 ms Normal sinus rhythm Left axis deviation Abnormal ECG Confirmed by MINDI DURANT, VINH ([id number]), assignment desk editor LINDA LEDEZMA ([id number]) on 12/04/2019 1:52:51 PM Referred By: MONAE Confirmed By:SVETA OBREGON MD
--- NOTE | 2019-12-02 00:55 | RAD_ITS ---
STUDY: X-RAY CHEST REASON FOR EXAM: Male, 79 years old. WEAKNESS TECHNIQUE: PA and lateral views of the chest. COMPARISON: 11/30/2019 FINDINGS: The lungs are underexpanded with mild bilateral basilar atelectasis, otherwise clear. There is no demonstrated pleural abnormality. Normal size heart. Normal mediastinum and neeta. Normal visualized pulmonary arteries. There is atherosclerotic calcification of the aortic arch with tortuosity. There are diffuse degenerative changes of the visualized thoracic spine. There is degenerative osteoarthritis of the bilateral shoulders. There is no demonstrated abnormality of the visualized soft tissue structures of the upper abdomen. RAD/Chest PA and Lateral IMPRESSION: Bilateral atelectasis as described, otherwise no acute cardiopulmonary disease. Electronically Signed: Kika Gomes MD at 1:31 EDT , Service support ,
[2019-12-02 01:11] LABS: Absolute Lymphocyte Count 0.67 X10^3/uL (0.83-4.51); Absolute Neutrophil Count 9.1 X10^3/uL (2.0-7.7); Basophil# 0.04 X10^3/uL; Basophil% 0.4 % (0-1); Eosinophil# 0.06 X10^3/uL; Eosinophils% 0.5 % (0-5); Hematocrit 45.9 % (40-54); Hemoglobin 15.7 g/dL (13.0-16.5); Lymphocyte # 0.67 X10^3/ul (4.0); Lymphocyte % 5.9 % (19-41); Mean Corp Hgb Conc 34.2 g/dL (32-36); Mean Corpuscular Hgb 30.7 pg (27.0-32.0); Mean Corpuscular Volume 89.6 fL (80-94); Mean Platelet Vol. 9.4 fl (6.2-12.0); Monocyte# 1.34 X10^3/uL; Monocyte% 11.9 % (0-10); NRBC Flagged by Analyzer 0 % (0-5); Neutrophil # 9.07 X10^3/uL (2.7-7.7); Neutrophil % 80.3 % (47-70); Platelet Count 177 K/mm3 (150-450); RBC Distribution Width CV 13.7 % (11.6-14.6); RBC Distribution Width SD 44.9 fl (35.1-43.9); Red Blood Count 5.12 M/mm3 (4.6-6.2); White Blood Count 11.3 K/mm3 (4.4-11.0)
[2019-12-02 01:21] LABS: Anion Gap 8 (5-15); BUN 20 mg/dL (7-18); BUN/Creat Ratio 16.8 RATIO (10-20); Calcium,Total 9.4 mg/dL (8.5-10.1); Chloride 98 mmol/L (98-107); Creatinine, Serum 1.19 mg/dL (0.70-1.30); EST Glomerular Filtration Rate 63 mL/min (>60); Est Glom Filt Rate - Afr Amer 76 mL/min (>60); Estimated Creatinine Clearance 51.99 ml/min; Glucose 226 mg/dL (74-106); Potassium 4.2 mmol/L (3.5-5.1); Sodium Level 131 mmol/L (136-145)
[2019-12-02] MEDS: Meclizine HCl 25 MG Tablet PO (01:33)
[2019-12-02 01:49] LABS: Bacteria 0 SEEN /hpf (None Seen); Mucous, Urine 0 SEEN /hpf (<or=2+); White Blood Cells 0 SEEN /hpf (0-5)
[2019-12-02 01:50] LABS: Color, Urine Yellow (Yellow); Glucose, Dipstick 50 mg/dl (Normal); Ketone-Dipstick 5 mg/dl (Negative); Leukocyte Esterase-Dipstick Negative /ul (Negative); Nitrite-Dipstick Negative (Negative); Occult Blood-Urine 10 /ul (Negative); Protein-Dipstick 30 mg/dl (Negative); Specific Gravity, Urine 1.025 (1.002-1.030); Urine Bilirubin Dipstick Negative (Negative); Urine Clarity Sl. Cloudy (Clear); Urine Urobilinogen Normal (Normal)
[2019-12-02 02:01] LABS: Red Blood Cells-Urine 0-5 SEEN /hpf (0-5); Squamous Epithelial Cells - UA 0-5 SEEN /hpf (0-5)
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
[2019-12-02 04:12] LABS: International Normalized Ratio 1.3; Prothrombin Time (Protime)PT. 15.7 SECONDS (11.7-14.9)
[2019-12-02] MEDS: 0.9% Normal Saline 1,000 ML 125 ML IV ×3 (04:36→21:22)
[2019-12-02] MEDS: Meclizine 12.5 MG Tablet PO ×3 (07:06→21:22)
[2019-12-02 07:12] LABS: Absolute Lymphocyte Count 0.64 X10^3/uL (0.83-4.51); Absolute Neutrophil Count 5.7 X10^3/uL (2.0-7.7); Basophil# 0.02 X10^3/uL; Basophil% 0.3 % (0-1); Eosinophil# 0.01 X10^3/uL; Eosinophils% 0.1 % (0-5); Hematocrit 43.5 % (40-54); Hemoglobin 14.8 g/dL (13.0-16.5); Lymphocyte # 0.64 X10^3/ul (4.0); Lymphocyte % 8.8 % (19-41); Mean Corpuscular Hgb 30.8 pg (27.0-32.0); Mean Corpuscular Volume 90.4 fL (80-94); Mean Platelet Vol. 9.4 fl (6.2-12.0); Monocyte# 0.84 X10^3/uL; Monocyte% 11.6 % (0-10); NRBC Flagged by Analyzer 0 % (0-5); Neutrophil # 5.68 X10^3/uL (2.7-7.7); Neutrophil % 78.1 % (47-70); Platelet Count 159 K/mm3 (150-450); RBC Distribution Width CV 13.9 % (11.6-14.6); RBC Distribution Width SD 46.5 fl (35.1-43.9); Red Blood Count 4.81 M/mm3 (4.6-6.2); White Blood Count 7.3 K/mm3 (4.4-11.0)
[2019-12-02 07:16] LABS: Bedside Glucose 178 mg/dL (70-110)
[2019-12-02 07:22] LABS: International Normalized Ratio 1.3
[2019-12-02] MEDS: Ipratropium/Albuterol Sulfate 3 ML AMPUL.NEB INHALATION ×3 (07:30→19:40)
[2019-12-02 07:38] LABS: Anion Gap 7 (5-15); BUN 20 mg/dL (7-18); BUN/Creat Ratio 19.6 RATIO (10-20); Calcium,Total 8.6 mg/dL (8.5-10.1); Chloride 101 mmol/L (98-107); Creatinine, Serum 1.02 mg/dL (0.70-1.30); EST Glomerular Filtration Rate 75 mL/min (>60); Est Glom Filt Rate - Afr Amer 91 mL/min (>60); Estimated Creatinine Clearance 62.62 ml/min; Glucose 160 mg/dL (74-106); Magnesium 1.9 mg/dL (1.6-2.6); Potassium 4.1 mmol/L (3.5-5.1); Sodium Level 133 mmol/L (136-145)
--- NOTE | 2019-12-02 10:32 | PN_ITS ---
<Emelia Carranza - Last Filed: 12/02/19 10:51> Patient Problems: Active and Suspected Problems (Last Reviewed 02/09/19 @ 10:41 by Cristela Hu) Weakness (Acute) Vertigo (Acute) Subjective: Patient seen and examined. Complains of generalized weakness and malaise. Denies further dizziness/lightheadedness. Denies fever, chills. - Physical Exam Vitals/I&O's: Vital Signs Temp Pulse Resp BP Pulse Ox 98.7 F 74 19 H 98/65 93 12/02/19 06:20 12/02/19 07:30 12/02/19 07:30 12/02/19 06:20 12/02/19 07:30 Oxygen Flow Rate (L/min) 2 Oxygen Delivery Method Nasal Cannula Weight: 172 lb 2.896 oz Body Mass Index (BMI) 24.7 Finger Stick Blood Glucose 147 Intake and Output for Last 24 Hours 11/30/19 12/01/19 12/02/19 23:59 23:59 23:59 Intake Total 50 / 50 Output Total 300 / 300 Balance -250 / -250 General: Alert, Oriented x3, Cooperative HEENT: Atraumatic, PERRLA, EOMI, Normocephalic Neck: Supple, No JVD, Negative Carotid Bruits Lungs: Clear to auscultation, Normal air movement Cardiovascular: Regular rate, Regular Rhythm, Normal S1, Normal S2, No murmurs Abdomen: Bowel Sounds Present, Soft, Non Tender, Non-Distended Extremities: No clubbing, No cyanosis, No edema, Capillary Refill Less than 3 Se conds Skin: No rashes, No breakdown Musculoskeletal: No Tenderness to Palpation of Joints or Extremities Neurological: Cranial nerves II-XII grossly intact, Neuro grossly intact, - - Mild right upper extremity weakness compared to left Psych/Mental Status: Normal Affect, Appropriate Microbiology Past 72 Hours 12/02/19 04:50 Mucosa - Nose Respiratory Panel (PCR) - Final Laboratory Results 12/02/19 00:10: WBC 11.3 H, RBC 5.12, Hgb 15.7, Hct 45.9, MCV 89.6, MCH 30.7, MCHC 34.2, RDW Std Deviation 44.9 H, RDW Coeff of Zaid 13.7, Plt Count 177, MPV 9.4, Immature Gran % (Auto) 1.000 H, Neut % (Auto) 80.3 H, Lymph % (Auto) 5.9 L, [place] % (Auto) 11.9 H, Eos % (Auto) 0.5, Baso % (Auto) 0.4, Absolute Neuts (auto) 9.1 H, Absolute Lymphs (auto) 0.67 L, Nucleated RBC % 0 12/02/19 00:10: Sodium 131 L, Potassium 4.2, Chloride 98, Carbon Dioxide 25.0, Anion Gap 8, BUN 20 H, Creatinine 1.19, Estim Creat Clear Calc 51.99, Est GFR (MDRD) Af Amer 76, Est GFR (MDRD) Non-Af 63, BUN/Creatinine Ratio 16.8, Glucose 226 H, Calcium 9.4 12/02/19 00:30: PT 15.7 H, INR 1.3 12/02/19 01:44: Urine Color Yellow, Urine Clarity Sl. Cloudy, Urine pH 5.0, Ur Specific [place] 1.025, Urine Protein 30 H, Urine Glucose (UA) 50 H, Urine Ketones 5 H, Urine Occult Blood 10 H, Urine Nitrite Negative, Urine Bilirubin Negative, Urine Urobilinogen Normal, Ur Leukocyte Esterase Negative, Urine RBC 0-5 SEEN, Urine WBC 0 SEEN, Ur Squamous Epith Cells 0-5 SEEN, Urine Bacteria 0 SEEN, Urine Mucus 0 SEEN 12/02/19 06:19: WBC 7.3, RBC 4.81, Hgb 14.8, Hct 43.5, MCV 90.4, MCH 30.8, MCHC 34.0, RDW Std Deviation 46.5 H, RDW Coeff of Zaid 13.9, Plt Count 159, MPV 9.4, Immature Gran % (Auto) 1.100 H, Neut % (Auto) 78.1 H, Lymph % (Auto) 8.8 L, [place] % (Auto) 11.6 H, Eos % (Auto) 0.1, Baso % (Auto) 0.3, Absolute Neuts (auto) 5.7, Absolute Lymphs (auto) 0.64 L, Nucleated RBC % 0 12/02/19 06:19: PT 16.0 H, INR 1.3 12/02/19 06:19: Sodium 133 L, Potassium 4.1, Chloride 101, Carbon Dioxide 25.0, Anion Gap 7, BUN 20 H, Creatinine 1.02, Estim Creat Clear Calc 62.62, Est GFR (MDRD) Af Amer 91, Est GFR (MDRD) Non-Af 75, BUN/Creatinine Ratio 19.6, Glucose 160 H, Calcium 8.6, Magnesium 1.9 12/02/19 07:04: POC Glucose 178 H Current Medications Acetaminophen (Tylenol) 650 mg PO Q6H PRN PRN PRN Reason: Pain Score 1-10/Temp > 100.7 F Al Hydroxide/Mg Hydroxide (Mylanta Ii) 30 ml PO Q6H PRN PRN PRN Reason: Gastric Burning Albuterol Sulfate (Ventolin Aerosols) 2.5 mg INHALATION Q2H PRN PRN PRN Reason: dyspnea, wheezing Albuterol/Ipratropium (Duoneb) 3 ml INHALATION Q6HWA.RT [facility] Last Admin: 12/02/19 07:30 Dose: 3 ml Documented by: Baclofen (Lioresal) 10 mg PO QHS SAI Cyclobenzaprine HCl (Flexeril) 10 mg PO TID PRN PRN PRN Reason: Pain Score 1-10/10 Famotidine (Pepcid) 20 mg PO BID [facility]I Gabapentin (Neurontin) 300 mg PO QHS SAI Glucagon () 1 mg IM .X1 PRN PRN Reason: Hypoglycemia Guaifenesin (Robitussin) 20 ml PO Q4H PRN PRN PRN Reason: COUGH Hydralazine HCl (Apresoline Iv) 10 mg IV Q4H PRN PRN PRN Reason: SBP > 160 Sodium Chloride () 1,000 mls @ 125 mls/hr IV .Q8H [facility] Last Admin: 12/02/19 04:36 Dose: 125 mls/hr Documented by: Dextrose (Dextrose 10%-Water) 250 mls @ 999 mls/hr IV .Q16M PRN; Protocol PRN Reason: HYPOGLYCEMIA Ibuprofen (Motrin) 400 mg PO Q4H PRN PRN PRN Reason: Pain Score 1-10/Temp > 100.7 F Insulin Human Lispro (Humalog Kwikpen (Bkc)) 0 unit SC ACHS [facility]; Protocol Last Admin: 12/02/19 07:06 Dose: Not Given Documented by: Lisinopril (Zestril) 20 mg PO DAILY [facility] Magnesium Hydroxide (Milk Of Magnesia) 30 ml PO DAILY PRN PRN PRN Reason: Constipation Meclizine HCl (Antivert) 12.5 mg PO TID [facility] Last Admin: 12/02/19 07:06 Dose: 12.5 mg Documented by: Melatonin (Melatonin) 3 mg PO QHS PRN PRN PRN Reason: INSOMNIA Morphine Sulfate () 2 mg IV Q3H PRN PRN PRN Reason: Pain Score 6-10/10 Ondansetron HCl (Zofran) 4 mg IV Q8H PRN PRN PRN Reason: NAUSEA/VOMITING Oxycodone HCl (Oxyir) 5 mg PO Q4H PRN PRN PRN Reason: Pain Score 4-5/10 Prochlorperazine Edisylate (Compazine Iv) 5 mg IV Q4H PRN PRN PRN Reason: Breakthrough nausea/vomiting Psyllium Hydrophilic Mucilloid (Metamucil) 1 packet PO DAILY PRN PRN PRN Reason: Constipation Senna/Docusate Sodium (Senokot-S, Sidra-Colace) 2 tablet PO BID PRN PRN PRN Reason: Constipation Sodium Chloride () 10 - 40 ml IV UD PRN PRN Reason: SALINE FLUSH Throat Lozenges (Cepacol Sore Throat Lozenge) 1 lozenge MUCOUS MEM Q2H PRN PRN PRN Reason: SORE THROAT Warfarin Sodium (Coumadin (Pbkc)) 7.5 mg PO DAILY@1700 [facility] Medical Necessity - Tobacco Use Smoking Status: Former smoker Tobacco Use: Non-smoker Assessment/Plan All Active Problems (Last Reviewed 02/09/19 @ 10:41 by Cristela Hu) Weakness (Acute) Vertigo (Acute) Ataxia (Acute) Dizziness of unknown cause (Acute) Bilateral pulmonary embolism (Resolved) Positive colorectal cancer screening using DNA-based stool test (Resolved) Coagulopathy (Resolved) 1. Generalized weakness, malaise, fever, BPPV-respiratory panel negative. Recent MRI of brain 11/30/2019 showed no evidence of ischemic infarct or acute abnormality. Continue low-dose scheduled meclizine. PT/OT. UA and chest x-ray unremarkable. Suspect ongoing symptoms are related to treatment for malignant melanoma. Will consult oncology. Further disposition pending PT eval and oncology input. 2. Malignant melanoma- following with Dr. Knapp. Tafinlar, Mekinist regimen on hold as this may me contributing to above. 3. Type 2 diabetes mellitus with [id number] with sliding scale insulin. Continue gabapentin regimen. 4. Hypertension-stable, continue lisinopril/HCTZ regimen. 5. 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 Trend INR. 6. Chronic COPD-no acute exacerbation. As needed albuterol aerosol. 7. Chronic back pain-continue home PRN Flexeril regimen. DVT prophylaxis- Coumadin This patient was seen by CHRISTELLE Stewart under the supervision of Dr. Hampton. <Navid Hampton - Last Filed: 12/02/19 14:31> Subjective: Patient is admitted with generalized weakness and malaise. Denies dizziness, vertigo. No fever or chills. During previous admission couple days ago, acute stroke was ruled out. Patient still has right upper extremity weakness. Denies slurring speech, aphasia, dysphagia, dysarthria suggestive of bulbar palsy - Physical Exam Vitals/I&O's: Vital Signs Temp Pulse Resp BP Pulse Ox 98.6 F 81 18 114/75 91 12/02/19 10:59 12/02/19 13:21 12/02/19 13:21 12/02/19 10:59 12/02/19 13:21 Oxygen Flow Rate (L/min) 2 Oxygen Delivery Method Room Air Weight: 172 lb 2.896 oz Body Mass Index (BMI) 24.7 Finger Stick Blood Glucose 147 Intake and Output for Last 24 Hours 11/30/19 12/01/19 12/02/19 23:59 23:59 23:59 Intake Total 1050 / 1050 Output Total 300 / 300 Balance 750 / 750 General: Alert, Oriented x3, Cooperative HEENT: Atraumatic, PERRLA, EOMI, Normocephalic Neck: Supple, No JVD, Negative Carotid Bruits Lungs: Clear to auscultation, No rhonchi, No wheeze, No rales, Diminished, - - Patient on ambulatory and night oxygen Cardiovascular: Regular rate, No murmurs Abdomen: Bowel Sounds Present, Soft, Non Tender, Non-Distended Extremities: No edema, Capillary Refill Less than 3 Seconds Skin: No rashes, No breakdown Musculoskeletal: No Tenderness to Palpation of Joints or Extremities, Arthritic Changes Lymphatic: No Cervical, Supraclavicular, or Inguinal Adenopathy Neurological: Cranial nerves II-XII grossly intact, Deep Tendon Reflexes 2+/4 and Symmetrical, Neuro grossly intact Psych/Mental Status: Normal Affect, Appropriate Microbiology Past 72 Hours 12/02/19 04:50 Mucosa - Nose Respiratory Panel (PCR) - Final Laboratory Results 12/02/19 00:10: WBC 11.3 H, RBC 5.12, Hgb 15.7, Hct 45.9, MCV 89.6, MCH 30.7, MCHC 34.2, RDW Std Deviation 44.9 H, RDW Coeff of Zaid 13.7, Plt Count 177, MPV 9.4, Immature Gran % (Auto) 1.000 H, Neut % (Auto) 80.3 H, Lymph % (Auto) 5.9 L, [place] % (Auto) 11.9 H, Eos % (Auto) 0.5, Baso % (Auto) 0.4, Absolute Neuts (auto) 9.1 H, Absolute Lymphs (auto) 0.67 L, Nucleated RBC % 0 12/02/19 00:10: Sodium 131 L, Potassium 4.2, Chloride 98, Carbon Dioxide 25.0, Anion Gap 8, BUN 20 H, Creatinine 1.19, Estim Creat Clear Calc 51.99, Est GFR (MDRD) Af Amer 76, Est GFR (MDRD) Non-Af 63, BUN/Creatinine Ratio 16.8, Glucose 226 H, Calcium 9.4 12/02/19 00:30: PT 15.7 H, INR 1.3 12/02/19 01:44: Urine Color Yellow, Urine Clarity Sl. Cloudy, Urine pH 5.0, Ur Specific [place] 1.025, Urine Protein 30 H, Urine Glucose (UA) 50 H, Urine Ketones 5 H, Urine Occult Blood 10 H, Urine Nitrite Negative, Urine Bilirubin Negative, Urine Urobilinogen Normal, Ur Leukocyte Esterase Negative, Urine RBC 0-5 SEEN, Urine WBC 0 SEEN, Ur Squamous Epith Cells 0-5 SEEN, Urine Bacteria 0 SEEN, Urine Mucus 0 SEEN 12/02/19 06:19: WBC 7.3, RBC 4.81, Hgb 14.8, Hct 43.5, MCV 90.4, MCH 30.8, MCHC 34.0, RDW Std Deviation 46.5 H, RDW Coeff of Zaid 13.9, Plt Count 159, MPV 9.4, Immature Gran % (Auto) 1.100 H, Neut % (Auto) 78.1 H, Lymph % (Auto) 8.8 L, [place] % (Auto) 11.6 H, Eos % (Auto) 0.1, Baso % (Auto) 0.3, Absolute Neuts (auto) 5.7, Absolute Lymphs (auto) 0.64 L, Nucleated RBC % 0 12/02/19 06:19: PT 16.0 H, INR 1.3 12/02/19 06:19: Sodium 133 L, Potassium 4.1, Chloride 101, Carbon Dioxide 25.0, Anion Gap 7, BUN 20 H, Creatinine 1.02, Estim Creat Clear Calc 62.62, Est GFR (MDRD) Af Amer 91, Est GFR (MDRD) Non-Af 75, BUN/Creatinine Ratio 19.6, Glucose 160 H, Calcium 8.6, Magnesium 1.9 12/02/19 07:04: POC Glucose 178 H 12/02/19 11:16: POC Glucose 205 H Current Medications Acetaminophen (Tylenol) 650 mg PO Q6H PRN PRN PRN Reason: Pain Score 1-10/Temp > 100.7 F Al Hydroxide/Mg Hydroxide (Mylanta Ii) 30 ml PO Q6H PRN PRN PRN Reason: Gastric Burning Albuterol Sulfate (Ventolin Aerosols) 2.5 mg INHALATION Q2H PRN PRN PRN Reason: dyspnea, wheezing Albuterol/Ipratropium (Duoneb) 3 ml INHALATION Q6HWA.RT [facility] Last Admin: 12/02/19 13:21 Dose: 3 ml Documented by: Baclofen (Lioresal) 10 mg PO QHS SAI Famotidine (Pepcid) 20 mg PO BID [facility] Last Admin: 12/02/19 11:07 Dose: 20 mg Documented by: Gabapentin (Neurontin) 300 mg PO QHS SAI Glucagon () 1 mg IM .X1 PRN PRN Reason: Hypoglycemia Guaifenesin (Robitussin) 20 ml PO Q4H PRN PRN PRN Reason: COUGH Hydralazine HCl (Apresoline Iv) 10 mg IV Q4H PRN PRN PRN Reason: SBP > 160 Sodium Chloride () 1,000 mls @ 125 mls/hr IV .Q8H [facility] Last Admin: 12/02/19 13:43 Dose: 125 mls/hr Documented by: Dextrose (Dextrose 10%-Water) 250 mls @ 999 mls/hr IV .Q16M PRN; Protocol PRN Reason: HYPOGLYCEMIA Ibuprofen (Motrin) 400 mg PO Q4H PRN PRN PRN Reason: Pain Score 1-10/Temp > 100.7 F Insulin Human Lispro (Humalog Kwikpen (Bkc)) 0 unit SC ACHS [facility]; Protocol Last Admin: 12/02/19 11:18 Dose: Not Given Documented by: Lisinopril (Zestril) 20 mg PO DAILY [facility] Last Admin: 12/02/19 11:02 Dose: Not Given Documented by: Magnesium Hydroxide (Milk Of Magnesia) 30 ml PO DAILY PRN PRN PRN Reason: Constipation Meclizine HCl (Antivert) 12.5 mg PO TID [facility] Last Admin: 12/02/19 07:06 Dose: 12.5 mg Documented by: Melatonin (Melatonin) 3 mg PO QHS PRN PRN PRN Reason: INSOMNIA Morphine Sulfate () 2 mg IV Q3H PRN PRN PRN Reason: Pain Score 6-10/10 Nutritional Formula (Lactose Free) (Glucerna Shake) 120 ml PO 4X/DAY [facility] Ondansetron HCl (Zofran) 4 mg IV Q8H PRN PRN PRN Reason: NAUSEA/VOMITING Oxycodone HCl (Oxyir) 5 mg PO Q4H PRN PRN PRN Reason: Pain Score 4-5/10 Prochlorperazine Edisylate (Compazine Iv) 5 mg IV Q4H PRN PRN PRN Reason: Breakthrough nausea/vomiting Psyllium Hydrophilic Mucilloid (Metamucil) 1 packet PO DAILY PRN PRN PRN Reason: Constipation Senna/Docusate Sodium (Senokot-S, Sidra-Colace) 2 tablet PO BID PRN PRN PRN Reason: Constipation Sodium Chloride () 10 - 40 ml IV UD PRN PRN Reason: SALINE FLUSH Throat Lozenges (Cepacol Sore Throat Lozenge) 1 lozenge MUCOUS MEM Q2H PRN PRN PRN Reason: SORE THROAT Warfarin Sodium (Coumadin (Pbkc)) 7.5 mg PO DAILY@1700 [facility] Assessment/Plan This patient was seen in conjunction with [facility] [employer]. I have independently interviewed and examined the patient and reviewed pertinent history, examination findings, laboratory and plan of management. I have reviewed the note and agree with the documented findings with the few additional points. In brief, patient is 79-year-old gentleman was admitted with generalized weakness, malaise fever BPV. Respiratory panel negative. Patient recent MRI of 11/30 2019 was negative for ischemic infarction or acute intracranial abnormality. On low blood misleading. Patient still has right upper extremity mild weakness possible secondary to chemotherapy effect. Patient follows Dr. Dwyer and oncologist has been consulted. Currently chemotherapeutic medications as mentioned above is on hold. Patient also has COPD with chronic hypoxic respiratory failure, uses oxygen during the night. No exacerbation. Other comorbidities as mentioned above including protein C 70 and C with history of VTE on Coumadin. I have discussed my assessment with [facility]ELOP[facility] and orders have been reviewed. Microbiology Past 72 Hours 12/02/19 04:50 Mucosa - Nose Respiratory Panel (PCR) - Final Laboratory Results 12/02/19 00:10: WBC 11.3 H, RBC 5.12, Hgb 15.7, Hct 45.9, MCV 89.6, MCH 30.7, MCHC 34.2, RDW Std Deviation 44.9 H, RDW Coeff of Zaid 13.7, Plt Count 177, MPV 9.4, Immature Gran % (Auto) 1.000 H, Neut % (Auto) 80.3 H, Lymph % (Auto) 5.9 L, [place] % (Auto) 11.9 H, Eos % (Auto) 0.5, Baso % (Auto) 0.4, Absolute Neuts (auto) 9.1 H, Absolute Lymphs (auto) 0.67 L, Nucleated RBC % 0 12/02/19 00:10: Sodium 131 L, Potassium 4.2, Chloride 98, Carbon Dioxide 25.0, Anion Gap 8, BUN 20 H, Creatinine 1.19, Estim Creat Clear Calc 51.99, Est GFR (MDRD) Af Amer 76, Est GFR (MDRD) Non-Af 63, BUN/Creatinine Ratio 16.8, Glucose 226 H, Calcium 9.4 12/02/19 00:30: PT 15.7 H, INR 1.3 12/02/19 01:44: Urine Color Yellow, Urine Clarity Sl. Cloudy, Urine pH 5.0, Ur Specific [place] 1.025, Urine Protein 30 H, Urine Glucose (UA) 50 H, Urine Ketones 5 H, Urine Occult Blood 10 H, Urine Nitrite Negative, Urine Bilirubin Negative, Urine Urobilinogen Normal, Ur Leukocyte Esterase Negative, Urine RBC 0-5 SEEN, Urine WBC 0 SEEN, Ur Squamous Epith Cells 0-5 SEEN, Urine Bacteria 0 SEEN, Urine Mucus 0 SEEN 12/02/19 06:19: WBC 7.3, RBC 4.81, Hgb 14.8, Hct 43.5, MCV 90.4, MCH 30.8, MCHC 34.0, RDW Std Deviation 46.5 H, RDW Coeff of Zaid 13.9, Plt Count 159, MPV 9.4, Immature Gran % (Auto) 1.100 H, Neut % (Auto) 78.1 H, Lymph % (Auto) 8.8 L, [place] % (Auto) 11.6 H, Eos % (Auto) 0.1, Baso % (Auto) 0.3, Absolute Neuts (auto) 5.7, Absolute Lymphs (auto) 0.64 L, Nucleated RBC % 0 12/02/19 06:19: PT 16.0 H, INR 1.3 12/02/19 06:19: Sodium 133 L, Potassium 4.1, Chloride 101, Carbon Dioxide 25.0, Anion Gap 7, BUN 20 H, Creatinine 1.02, Estim Creat Clear Calc 62.62, Est GFR (MDRD) Af Amer 91, Est GFR (MDRD) Non-Af 75, BUN/Creatinine Ratio 19.6, Glucose 160 H, Calcium 8.6, Magnesium 1.9 12/02/19 07:04: POC Glucose 178 H 12/02/19 11:16: POC Glucose 205 H Clinical Impression(s) from Imaging Studies Chest X-Ray 12/02/19 00:55 IMPRESSION: Bilateral atelectasis as described, otherwise no acute cardiopulmonary disease.
[2019-12-02] MEDS: Famotidine 20 MG Tablet PO ×2 (11:07→21:23)
[2019-12-02 11:26] LABS: Bedside Glucose 205 mg/dL (70-110)
--- NOTE | 2019-12-02 12:40 | CM.UR ---
Patient was obs 11/29-12/01. Physical therapy saw patient and determine no skilled needs. Patient discharged home with ERIN. Francisco Ye RN, CCM.
[2019-12-02] MEDS: Glucerna Shake 120 ML LIQUID PO (15:24)
[2019-12-02] MEDS: BENZOCAINE/MENTHOL 1 LOZENGE MUCOUS MEM (15:29)
[2019-12-02 16:46] LABS: CPK Total, Creatine Kinase 871 U/L (39-308)
--- NOTE | 2019-12-02 18:11 | NURSING ---
Pt has been refusing insulin all day. pt does not want to start taking insulin. My doctor said that if my blood sugar was under 200 then I was fine. Pt also offered another ensure, his 2nd one for the day and pt wants to take it later b/c he just got done eating dinner. Will have another one at 2200.
[2019-12-02 18:36] LABS: Bedside Glucose 199 mg/dL (70-110)
[2019-12-02] MEDS: Menthol/Lanolin/Calamine/Znox 113 GM Tube 1 APPLIC TOPICAL (21:22)
[2019-12-02] MEDS: Acetaminophen 325 MG Tablet 650 MG PO (21:23)
[2019-12-02] MEDS: Gabapentin 300 MG Capsule PO (21:23)
[2019-12-02] MEDS: Baclofen 10 MG Tablet PO (21:23)
[2019-12-03] VITALS (9 sets, daily range): BP systolic 116–157; BP diastolic 59–81; PULSE 84–96; RESP 16–20; TEMP 36.2–37.5; O2SAT 88–95
[2019-12-03 00:35] LABS: Bedside Glucose 166 mg/dL (70-110)
[2019-12-03] MEDS: Ibuprofen 400 MG Tablet PO (03:13)
[2019-12-03] MEDS: 0.9% Normal Saline 1,000 ML 125 ML IV ×3 (05:34→21:52)
[2019-12-03] MEDS: Meclizine 12.5 MG Tablet PO ×3 (05:39→21:51)
[2019-12-03] MEDS: Ipratropium/Albuterol Sulfate 3 ML AMPUL.NEB INHALATION ×3 (07:23→18:57)
[2019-12-03 07:41] LABS: Bedside Glucose 123 mg/dL (70-110)
--- NOTE | 2019-12-03 09:10 | RAD_ITS ---
STUDY: X-RAY - CERVICAL SPINE REASON FOR EXAM: Male, 79 years old. RIGHT UPPER ARM WEAKNESS AND PARATHESIA; -- MALIGNANT MELANOMA TECHNIQUE: 2 view(s) of the cervical spine were obtained. COMPARISON: None FINDINGS: Normal anterior atlantoaxial articulation. Normal odontoid process. Normal cervical lordosis. Multilevel endplate degenerative changes with decreased disc space at C3-C7 with early anterior osteophyte formation. Multilevel facet arthropathy and uncovertebral joint arthropathy is present. The soft tissue structures are unremarkable. RAD/Cerv Spine 2 or 3 Views IMPRESSION: Diffuse degenerative changes as above with no evidence of significant malalignment. Electronically Signed: Flo Jenkins DO at 9:52 EDT , Service support ,
--- NOTE | 2019-12-03 09:16 | RAD_ITS ---
STUDY: X-RAY - RIGHT SHOULDER REASON FOR EXAM: Male, 79 years old. RIGHT UPPER ARM WEAKNESS AND PARATHESIA; -- MALIGNANT MELANOMA TECHNIQUE: 4 view(s) of the shoulder. COMPARISON: None. FINDINGS: There is moderate degenerative arthrosis of the glenohumeral articulation. There is degenerative arthrosis of the acromioclavicular joint without inferior osseous spur formation. Normal acromion. There is demineralization of the humerus and visualized osseous structures. The soft tissue structures are unremarkable. Normal visualized pulmonary apex. RAD/Shoulder min 2 Views IMPRESSION: Degenerative changes with no evidence of acute osseous abnormality. Electronically Signed: Flo Jenkins DO at 9:50 EDT , Service support ,
[2019-12-03] MEDS: Lisinopril 20 MG Tablet PO (09:56)
[2019-12-03] MEDS: Famotidine 20 MG Tablet PO ×2 (09:56→21:51)
[2019-12-03] MEDS: Menthol/Lanolin/Calamine/Znox 113 GM Tube 1 APPLIC TOPICAL (09:56)
[2019-12-03] MEDS: 0.9% Saline Lock 10 ML Syringe IV (10:02)
--- NOTE | 2019-12-03 12:02 | PCM.PROGNOTE ---
<Emelia Carranza - Last Filed: 12/03/19 12:12> Patient Problems: Active and Suspected Problems (Last Reviewed 02/09/19 @ 10:41 by Cristela Hu) Weakness (Acute) Vertigo (Acute) Subjective: Patient seen and examined. Complains of right shoulder pain. Also states he feels unsteady on his feet and continues to have generalized weakness. - Physical Exam Vitals/I&O's: Vital Signs Temp Pulse Resp BP Pulse Ox 98.8 F 88 16 116/66 93 12/03/19 09:59 12/03/19 10:30 12/03/19 09:59 12/03/19 09:59 12/03/19 09:59 Oxygen Flow Rate (L/min) 2 Oxygen Delivery Method Room Air Weight: 172 lb 2.896 oz Body Mass Index (BMI) 24.7 Finger Stick Blood Glucose 147 Intake and Output for Last 24 Hours 12/01/19 12/02/19 12/03/19 23:59 23:59 23:59 Intake Total 2366.25 / 2766.25 1400 / 1400 Output Total 850 / 850 Balance 1516.25 / 1916.25 1400 / 1400 General: Alert, Oriented x3, Cooperative HEENT: Atraumatic, PERRLA, EOMI, Normocephalic Neck: Supple, No JVD, Negative Carotid Bruits Lungs: Clear to auscultation, Normal air movement Cardiovascular: Regular rate, Regular Rhythm, Normal S1, Normal S2, No murmurs Abdomen: Bowel Sounds Present, Soft, Non Tender, Non-Distended Extremities: No clubbing, No cyanosis, No edema, Capillary Refill Less than 3 Seconds Skin: No rashes, No breakdown Musculoskeletal: No Tenderness to Palpation of Joints or Extremities Neurological: Cranial nerves II-XII grossly intact, Neuro grossly intact, - - Right upper extremity with mild weakness compared to left. Psych/Mental Status: Normal Affect, Appropriate Microbiology Past 72 Hours 12/02/19 04:50 Mucosa - Nose Respiratory Panel (PCR) - Final Laboratory Results 12/02/19 06:19: Total Creatine Kinase 871 H, C-React Prot Ext Range 19.70 H 12/02/19 17:59: POC Glucose 199 H 12/02/19 21:42: POC Glucose 166 H 12/03/19 05:40: Aldolase Pending 12/03/19 07:35: POC Glucose 123 H Current Medications Acetaminophen (Tylenol) 650 mg PO Q6H PRN PRN PRN Reason: Pain Score 1-10/Temp > 100.7 F Last Admin: 12/02/19 21:23 Dose: 650 mg Documented by: Al Hydroxide/Mg Hydroxide (Mylanta Ii) 30 ml PO Q6H PRN PRN PRN Reason: Gastric Burning Albuterol Sulfate (Ventolin Aerosols) 2.5 mg INHALATION Q2H PRN PRN PRN Reason: dyspnea, wheezing Albuterol/Ipratropium (Duoneb) 3 ml INHALATION Q6HWA.RT [facility] [place] Last Admin: 12/03/19 07:23 Dose: 3 ml Documented by: Baclofen (Lioresal) 10 mg PO QHS [facility] [place] Last Admin: 12/02/19 21:23 Dose: 10 mg Documented by: Calamine/Phenol (Calmoseptine Ointment) 1 applic TOPICAL BID [facility] [place]; Protocol Last Admin: 12/03/19 09:56 Dose: 1 applicatio Documented by: Famotidine (Pepcid) 20 mg PO BID [facility] [place] Last Admin: 12/03/19 09:56 Dose: 20 mg Documented by: Gabapentin (Neurontin) 300 mg PO QHS [facility] [place] Last Admin: 12/02/19 21:23 Dose: 300 mg Documented by: Guaifenesin (Robitussin) 20 ml PO Q4H PRN PRN PRN Reason: COUGH Hydralazine HCl (Apresoline Iv) 10 mg IV Q4H PRN PRN PRN Reason: SBP > 160 Sodium Chloride () 1,000 mls @ 125 mls/hr IV .Q8H [facility] [place] Last Admin: 12/03/19 05:34 Dose: 125 mls/hr Documented by: Dextrose (Dextrose 10%-Water) 250 mls @ 999 mls/hr IV .Q16M PRN; Protocol PRN Reason: HYPOGLYCEMIA Ibuprofen (Motrin) 400 mg PO Q4H PRN PRN PRN Reason: Pain Score 1-10/Temp > 100.7 F Last Admin: 12/03/19 03:13 Dose: 400 mg Documented by: Lisinopril (Zestril) 20 mg PO DAILY [facility] [place] Last Admin: 12/03/19 09:56 Dose: 20 mg Documented by: Magnesium Hydroxide (Milk Of Magnesia) 30 ml PO DAILY PRN PRN PRN Reason: Constipation Meclizine HCl (Antivert) 12.5 mg PO TID [facility] [place] Last Admin: 12/03/19 05:39 Dose: 12.5 mg Documented by: Melatonin (Melatonin) 3 mg PO QHS PRN PRN PRN Reason: INSOMNIA Morphine Sulfate () 2 mg IV Q3H PRN PRN PRN Reason: Pain Score 6-10/10 Ondansetron HCl (Zofran) 4 mg IV Q8H PRN PRN PRN Reason: NAUSEA/VOMITING Oxycodone HCl (Oxyir) 5 mg PO Q4H PRN PRN PRN Reason: Pain Score 4-5/10 Prochlorperazine Edisylate (Compazine Iv) 5 mg IV Q4H PRN PRN PRN Reason: Breakthrough nausea/vomiting Psyllium Hydrophilic Mucilloid (Metamucil) 1 packet PO DAILY PRN PRN PRN Reason: Constipation Senna/Docusate Sodium (Senokot-S, Sidra-Colace) 2 tablet PO BID PRN PRN PRN Reason: Constipation Sodium Chloride () 10 - 40 ml IV UD PRN PRN Reason: SALINE FLUSH Last Admin: 12/03/19 10:02 Dose: 10 ml Documented by: Throat Lozenges (Cepacol Sore Throat Lozenge) 1 lozenge MUCOUS MEM Q2H PRN PRN PRN Reason: SORE THROAT Last Admin: 12/02/19 15:29 Dose: 1 lozenge Documented by: Warfarin Sodium (Coumadin (Pbkc)) 7.5 mg PO DAILY@1700 [facility] [place] Last Admin: 12/02/19 18:26 Dose: 7.5 mg Documented by: Medical Necessity - Tobacco Use Smoking Status: Former smoker Tobacco Use: Non-smoker Assessment/Plan All Active Problems (Last Reviewed 02/09/19 @ 10:41 by Cristela Hu) Weakness (Acute) Vertigo (Acute) Ataxia (Acute) Dizziness of unknown cause (Acute) Bilateral pulmonary embolism (Resolved) Positive colorectal cancer screening using DNA-based stool test (Resolved) Coagulopathy (Resolved) 1. Generalized weakness, malaise, fever, BPPV-respiratory panel negative. Recent MRI of brain 11/30/2019 showed no evidence of ischemic infarct or acute abnormality. Continue low-dose scheduled meclizine. PT/OT. UA and chest x-ray unremarkable. Discussed with oncology, plan to hold chemotherapy regimen given this may be contributing to current symptoms. Patient quickly readmitted following recent discharge for similar symptoms. Patient continues to feel unsteady on his feet and generally weak. Follow PT eval, anticipate SNF at discharge for further rehab. 2. Malignant melanoma- following with Dr. Knapp. Tafinlar, Mekinist regimen on hold as this may me contributing to above. 3. Right upper extremity weakness-recent normal MRI of brain as noted above. Cervical spine x-ray shows diffuse degenerative changes with no significant malalignment. Right shoulder x-ray shows degenerative changes with no evidence of acute osseous abnormality. Recommended MRI of C-spine however patient declines to have this done at this time. Patient states if symptoms worsen, he will consider as an outpatient. PT/OT. 4. Type 2 diabetes mellitus with [id number] with sliding scale insulin. Continue gabapentin regimen. 5. Hypertension-stable, continue lisinopril/HCTZ regimen. 6. 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 Trend INR. 7. Chronic COPD-no acute exacerbation. As needed albuterol aerosol. 8. Chronic back pain-home Flexeril regimen held. As needed Tylenol. DVT prophylaxis- Coumadin This patient was seen by CHRISTELLE Stewart under the supervision of Dr. Hampton. <Navid Hampton - Last Filed: 12/03/19 13:31> Subjective: Seen and examined. Patient still complaining of unsteady on walking and generalized weakness. High risk of fall. Complaining of right shoulder pain and weakness. Cannot overhead right upper extremity abduction Objective: Patient also complained of paresthesia of right upper extremity, chronic more than 1 month. Sometimes shoulder pain can radiate to right neck. On exam General: Alert, Oriented x3, Cooperative HEENT: Atraumatic, PERRLA, EOMI, Normocephalic Neck: Supple, No JVD, Negative Carotid Bruits Lungs: Clear to auscultation, No rhonchi, No wheeze, No rales, Diminished, - - Patient on ambulatory and night oxygen Cardiovascular: Regular rate, No murmurs Abdomen: Bowel Sounds Present, Soft, Non Tender, Non-Distended Extremities: No edema, Capillary Refill Less than 3 Seconds Skin: No rashes, No breakdown Musculoskeletal: No Tenderness to Palpation of Joints or Extremities, Arthritic Changes. Mild tenderness over superior and posterior aspect of right shoulder. Range of motion limited up to 70 degrees abduction. Lymphatic: No Cervical, Supraclavicular, or Inguinal Adenopathy Neurological: Cranial nerves II-XII grossly intact, Deep Tendon Reflexes 2+/4 and Symmetrical, Neuro grossly intact Psych/Mental Status: Normal Affect, Appropriate - Physical Exam Vitals/I&O's: Vital Signs Temp Pulse Resp BP Pulse Ox 98.8 F 86 19 H 116/66 93 12/03/19 09:59 12/03/19 13:11 12/03/19 13:11 12/03/19 09:59 12/03/19 09:59 Oxygen Flow Rate (L/min) 2 Oxygen Delivery Method Room Air Weight: 172 lb 2.896 oz Body Mass Index (BMI) 24.7 Finger Stick Blood Glucose 147 Intake and Output for Last 24 Hours 12/01/19 12/02/19 12/03/19 23:59 23:59 23:59 Intake Total 2366.25 / 2766.25 1620 / 1620 Output Total 850 / 850 Balance 1516.25 / 1916.25 1620 / 1620 Microbiology Past 72 Hours 12/02/19 04:50 Mucosa - Nose Respiratory Panel (PCR) - Final Laboratory Results 12/02/19 06:19: Total Creatine Kinase 871 H, C-React Prot Ext Range 19.70 H 12/02/19 17:59: POC Glucose 199 H 12/02/19 21:42: POC Glucose 166 H 12/03/19 05:40: Aldolase Pending 12/03/19 07:35: POC Glucose 123 H Current Medications Acetaminophen (Tylenol) 650 mg PO Q6H PRN PRN PRN Reason: Pain Score 1-10/Temp > 100.7 F Last Admin: 12/02/19 21:23 Dose: 650 mg Documented by: Al Hydroxide/Mg Hydroxide (Mylanta Ii) 30 ml PO Q6H PRN PRN PRN Reason: Gastric Burning Albuterol Sulfate (Ventolin Aerosols) 2.5 mg INHALATION Q2H PRN PRN PRN Reason: dyspnea, wheezing Albuterol/Ipratropium (Duoneb) 3 ml INHALATION Q6HWA.RT [facility] Last Admin: 12/03/19 13:11 Dose: 3 ml Documented by: Baclofen (Lioresal) 10 mg PO QHS [facility] [place] Last Admin: 12/02/19 21:23 Dose: 10 mg Documented by: Calamine/Phenol (Calmoseptine Ointment) 1 applic TOPICAL BID [facility] [place]; Protocol Last Admin: 12/03/19 09:56 Dose: 1 applicatio Documented by: Famotidine (Pepcid) 20 mg PO BID [facility] [place] Last Admin: 12/03/19 09:56 Dose: 20 mg Documented by: Gabapentin (Neurontin) 300 mg PO QHS [facility] [place] Last Admin: 12/02/19 21:23 Dose: 300 mg Documented by: Guaifenesin (Robitussin) 20 ml PO Q4H PRN PRN PRN Reason: COUGH Hydralazine HCl (Apresoline Iv) 10 mg IV Q4H PRN PRN PRN Reason: SBP > 160 Sodium Chloride () 1,000 mls @ 125 mls/hr IV .Q8H [facility] [place] Last Admin: 12/03/19 05:34 Dose: 125 mls/hr Documented by: Dextrose (Dextrose 10%-Water) 250 mls @ 999 mls/hr IV .Q16M PRN; Protocol PRN Reason: HYPOGLYCEMIA Ibuprofen (Motrin) 400 mg PO Q4H PRN PRN PRN Reason: Pain Score 1-10/Temp > 100.7 F Last Admin: 12/03/19 03:13 Dose: 400 mg Documented by: Lisinopril (Zestril) 20 mg PO DAILY [facility] [place] Last Admin: 12/03/19 09:56 Dose: 20 mg Documented by: Magnesium Hydroxide (Milk Of Magnesia) 30 ml PO DAILY PRN PRN PRN Reason: Constipation Meclizine HCl (Antivert) 12.5 mg PO TID [facility] [place] Last Admin: 12/03/19 05:39 Dose: 12.5 mg Documented by: Melatonin (Melatonin) 3 mg PO QHS PRN PRN PRN Reason: INSOMNIA Morphine Sulfate () 2 mg IV Q3H PRN PRN PRN Reason: Pain Score 6-10/10 Ondansetron HCl (Zofran) 4 mg IV Q8H PRN PRN PRN Reason: NAUSEA/VOMITING Oxycodone HCl (Oxyir) 5 mg PO Q4H PRN PRN PRN Reason: Pain Score 4-5/10 Prochlorperazine Edisylate (Compazine Iv) 5 mg IV Q4H PRN PRN PRN Reason: Breakthrough nausea/vomiting Psyllium Hydrophilic Mucilloid (Metamucil) 1 packet PO DAILY PRN PRN PRN Reason: Constipation Senna/Docusate Sodium (Senokot-S, Sidra-Colace) 2 tablet PO BID PRN PRN PRN Reason: Constipation Sodium Chloride () 10 - 40 ml IV UD PRN PRN Reason: SALINE FLUSH Last Admin: 12/03/19 10:02 Dose: 10 ml Documented by: Throat Lozenges (Cepacol Sore Throat Lozenge) 1 lozenge MUCOUS MEM Q2H PRN PRN PRN Reason: SORE THROAT Last Admin: 12/02/19 15:29 Dose: 1 lozenge Documented by: Warfarin Sodium (Coumadin (Pbkc)) 7.5 mg PO DAILY@1700 [facility] Last Admin: 12/02/19 18:26 Dose: 7.5 mg Documented by: Assessment/Plan This patient was seen in conjunction with [employer]USER TENDER, Emelia. I have independently interviewed and examined the patient and reviewed pertinent history, examination findings, laboratory and plan of management. I have reviewed the note and agree with the documented findings with the few additional points. In brief, patient is 79-year-old gentleman was admitted with generalized weakness, malaise fever BPV. Respiratory panel negative. Patient recent MRI of 11/30 2019 was negative for ischemic infarction or acute intracranial abnormality. On low blood misleading. Patient still has right upper extremity mild weakness possible secondary to chemotherapy effect. Patient follows Dr. Knapp and Dr. PRICE was consulted. Currently chemotherapeutic medications as mentioned above is on hold. Patient also complained of right upper extremity weakness, 4/5 intensity, with paresthesia for about 1 month. Right shoulder x-ray and C-spine x-ray shows diffuse degenerative changes with no evidence of significant malalignment. Patient was advised outpatient MRI C-spine and right shoulder with brachial plexus imaging and follow-up with the orthopedics surgeon. Patient also has COPD with chronic hypoxic respiratory failure, uses oxygen during the night. No exacerbation. Other comorbidities as mentioned above including protein C 70 and C with history of VTE on Coumadin. Discussed with oncologist Dr. Price on 12/02/2019; he is further suggested to follow-up with Dr. Knapp on Wednesday if he stays. Continue PT and OT. I have discussed my assessment with Emelia JOHN and orders have been reviewed. Discharge plan: Discharge tomorrow a.m. if patient safely can walk home or SNF. Continue PT and OT Clinical Impression(s) from Imaging Studies Chest X-Ray 12/02/19 00:55 IMPRESSION: Bilateral atelectasis as described, otherwise no acute cardiopulmonary disease. Electronically Signed: Kika Gomes MD at 1:31 EDT , Service support , Cervical Spine X-Ray 12/03/19 09:10 IMPRESSION: Diffuse degenerative changes as above with no evidence of significant malalignment. Shoulder X-Ray 12/03/19 09:16 IMPRESSION: Degenerative changes with no evidence of acute osseous abnormality. PET scan November 20, 2019. IMPRESSION: 1. ABNORMAL EXAMINATION INDICATIVE OF MALIGNANT VIABLE NEOPLASM. 2. Increased glucose concentration currently identified in the left lower posterolateral chest, upper abdominal wall fulfills quantitative criteria for viable neoplasm. 3. Enhanced tracer concentration noted contiguous and/or adjacent to the left femoral neck may be further investigated with magnetic resonance imaging secondary to the quantitative degree of uptake. (Courtney et al, Clinical Nuclear Medicine, 29:161, 2004). 4. The mediastinal and left thoracic perihilar increase in fluorine labeled glucose uptake do not fulfill quantitative criteria for viable neoplasm. (Stephen et al, Journal of Clinical Oncology 16:2142, 1998 Tolu et al, Journal of Nuclear Medicine 43:155P, 2002). 5. Overall, compared to the prior FDG PET study dated 03/27/2019, there is interim development of defined viable neoplastic disease. Inpatient E&M: 72789 Subs Hosp L2
[2019-12-03] MEDS: Magnesium Hydroxide 30 ML UDC PO (16:38)
[2019-12-03] MEDS: BENZOCAINE/MENTHOL 1 LOZENGE MUCOUS MEM (20:26)
[2019-12-03] MEDS: Gabapentin 300 MG Capsule PO (21:51)
[2019-12-03] MEDS: Acetaminophen 325 MG Tablet 650 MG PO (21:51)
[2019-12-03] MEDS: MELATONIN 3 MG TABLET PO (21:51)
[2019-12-03] MEDS: Baclofen 10 MG Tablet PO (21:51)
[2019-12-04] VITALS (7 sets, daily range): BP systolic 110–143; BP diastolic 62–78; PULSE 61–89; RESP 15–20; TEMP 36.4–36.9; O2SAT 93–96
[2019-12-04] MEDS: 0.9% Normal Saline 1,000 ML 125 ML IV (06:04)
[2019-12-04] MEDS: Meclizine 12.5 MG Tablet PO (06:04)
[2019-12-04] MEDS: Ipratropium/Albuterol Sulfate 3 ML AMPUL.NEB INHALATION ×3 (06:59→19:39)
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
[2019-12-04 09:08] LABS: Erythrocyte Sedimentation Rate 10 mm/hr (0-20)
[2019-12-04 09:44] LABS: LDH 343 U/L (87-241)
[2019-12-04] MEDS: Menthol/Lanolin/Calamine/Znox 113 GM Tube 1 APPLIC TOPICAL (10:51)
[2019-12-04] MEDS: Lisinopril 20 MG Tablet PO (10:51)
[2019-12-04] MEDS: Famotidine 20 MG Tablet PO ×2 (10:57→20:14)
--- NOTE | 2019-12-04 12:58 | PN_ITS ---
<Emelia Carranza - Last Filed: 12/04/19 13:03> Patient Problems: Active and Suspected Problems (Last Reviewed 02/09/19 @ 10:41 by Cristela Hu) Physical debility (Acute) Myalgia (Acute) Arthralgia (Acute) Subjective: Patient seen and examined. Reports right upper extremity weakness improved. Continues to complain of generalized weakness. Denies other current complaints. - Physical Exam Vitals/I&O's: Vital Signs Temp Pulse Resp BP Pulse Ox 97.6 F L 64 16 140/68 H 96 12/04/19 08:40 12/04/19 08:40 12/04/19 08:40 12/04/19 08:40 12/04/19 08:40 Oxygen Flow Rate (L/min) 2 Oxygen Delivery Method Room Air Weight: 172 lb 2.896 oz Body Mass Index (BMI) 24.7 Finger Stick Blood Glucose 147 Intake and Output for Last 24 Hours 12/02/19 12/03/19 12/04/19 23:59 23:59 23:59 Intake Total 2366.25 / 2766.25 4273.33 / 4273.33 1000 / 1000 Output Total 850 / 850 Balance 1516.25 / 1916.25 4273.33 / 4273.33 1000 / 1000 General: Alert, Oriented x3, Cooperative HEENT: Atraumatic, PERRLA, EOMI, Normocephalic Neck: Supple, No JVD, Negative Carotid Bruits Lungs: Clear to auscultation, Normal air movement Cardiovascular: Regular rate, Regular Rhythm, Normal S1, Normal S2, No murmurs Abdomen: Bowel Sounds Present, Soft, Non Tender, Non-Distended Extremities: No clubbing, No cyanosis, No edema, Capillary Refill Less than 3 Seconds Skin: No rashes, No breakdown Musculoskeletal: No Tenderness to Palpation of Joints or Extremities Neurological: Cranial nerves II-XII grossly intact, Neuro grossly intact, - - Mild right upper extremity weakness compared to left Psych/Mental Status: Normal Affect, Appropriate Microbiology Past 72 Hours 12/02/19 04:50 Mucosa - Nose Respiratory Panel (PCR) - Final Laboratory Results 12/04/19 08:50: CK Isoenzymes Pending, CK-MM (CK-3) Pending, CK-MB (CK-2) Pending, CK-BB (CK-1) Pending 12/04/19 08:50: ESR 10 12/04/19 08:50: Lactate Dehydrogenase 343 H Current Medications Acetaminophen (Tylenol) 650 mg PO Q6H PRN PRN PRN Reason: Pain Score 1-10/Temp > 100.7 F Last Admin: 12/03/19 21:51 Dose: 650 mg Documented by: Al Hydroxide/Mg Hydroxide (Mylanta Ii) 30 ml PO Q6H PRN PRN PRN Reason: Gastric Burning Albuterol Sulfate (Ventolin Aerosols) 2.5 mg INHALATION Q2H PRN PRN PRN Reason: dyspnea, wheezing Albuterol/Ipratropium (Duoneb) 3 ml INHALATION Q6HWA.RT [facility] Last Admin: 12/04/19 06:59 Dose: 3 ml Documented by: Baclofen (Lioresal) 10 mg PO QHS [facility] Last Admin: 12/03/19 21:51 Dose: 10 mg Documented by: Calamine/Phenol (Calmoseptine Ointment) 1 applic TOPICAL BID [facility]; Protocol Last Admin: 12/04/19 10:51 Dose: 1 applicatio Documented by: Enoxaparin Sodium (Lovenox) 80 mg SC Q12@0600,1800 [facility] Famotidine (Pepcid) 20 mg PO BID [facility] Last Admin: 12/04/19 10:57 Dose: 20 mg Documented by: Gabapentin (Neurontin) 300 mg PO QHS [facility] Last Admin: 12/03/19 21:51 Dose: 300 mg Documented by: Guaifenesin (Robitussin) 20 ml PO Q4H PRN PRN PRN Reason: COUGH Hydralazine HCl (Apresoline Iv) 10 mg IV Q4H PRN PRN PRN Reason: SBP > 160 Dextrose (Dextrose 10%-Water) 250 mls @ 999 mls/hr IV .Q16M PRN; Protocol PRN Reason: HYPOGLYCEMIA Ibuprofen (Motrin) 400 mg PO Q4H PRN PRN PRN Reason: Pain Score 1-10/Temp > 100.7 F Last Admin: 12/03/19 03:13 Dose: 400 mg Documented by: Lisinopril (Zestril) 20 mg PO DAILY [facility] Last Admin: 12/04/19 10:51 Dose: 20 mg Documented by: Magnesium Hydroxide (Milk Of Magnesia) 30 ml PO DAILY PRN PRN PRN Reason: Constipation Last Admin: 12/03/19 16:38 Dose: 30 ml Documented by: Meclizine HCl (Antivert) 12.5 mg PO TID [facility] Last Admin: 12/04/19 06:04 Dose: 12.5 mg Documented by: Melatonin (Melatonin) 3 mg PO QHS PRN PRN PRN Reason: INSOMNIA Last Admin: 12/03/19 21:51 Dose: 3 mg Documented by: Morphine Sulfate () 2 mg IV Q3H PRN PRN PRN Reason: Pain Score 6-10/10 Ondansetron HCl (Zofran) 4 mg IV Q8H PRN PRN PRN Reason: NAUSEA/VOMITING Oxycodone HCl (Oxyir) 5 mg PO Q4H PRN PRN PRN Reason: Pain Score 4-5/10 Prednisone () 40 mg PO DAILY@0800 [facility] Prochlorperazine Edisylate (Compazine Iv) 5 mg IV Q4H PRN PRN PRN Reason: Breakthrough nausea/vomiting Psyllium Hydrophilic Mucilloid (Metamucil) 1 packet PO DAILY PRN PRN PRN Reason: Constipation Senna/Docusate Sodium (Senokot-S, Sidra-Colace) 2 tablet PO BID PRN PRN PRN Reason: Constipation Sodium Chloride () 10 - 40 ml IV UD PRN PRN Reason: SALINE FLUSH Last Admin: 12/03/19 10:02 Dose: 10 ml Documented by: Throat Lozenges (Cepacol Sore Throat Lozenge) 1 lozenge MUCOUS MEM Q2H PRN PRN PRN Reason: SORE THROAT Last Admin: 12/03/19 20:26 Dose: 1 lozenge Documented by: Warfarin Sodium (Coumadin (Pbkc)) 7.5 mg PO DAILY@1700 [facility] Last Admin: 12/03/19 18:06 Dose: 7.5 mg Documented by: Medical Necessity - Tobacco Use Smoking Status: Former smoker Tobacco Use: Non-smoker Assessment/Plan All Active Problems (Last Reviewed 02/09/19 @ 10:41 by Cristela Hu) Physical debility (Acute) Myalgia (Acute) Arthralgia (Acute) 1. Myalgias, debility-respiratory panel negative. Recent MRI of brain 11/30/2019 showed no evidence of ischemic infarct or acute abnormality. PT/OT. UA and chest x-ray unremarkable. PRN meclizine for vertigo. Discussed with oncology, plan to hold chemotherapy regimen given this may be contributing to current symptoms. Patient quickly readmitted following recent discharge for similar symptoms. Patient continues to feel unsteady on his feet and generally weak. Follow PT eval, anticipate SNF at discharge for further rehab. Dr. Leung consulted who recommends repeating CPK, LDH and sed rate today which is pending. Also recommended initiating prednisone. 2. Malignant melanoma- following with Dr. Knapp. Tafinrahul, Mekinist regimen on hold as this may me contributing to above. 3. Right upper extremity weakness-recent normal MRI of brain as noted above. Cervical spine x-ray shows diffuse degenerative changes with no significant malalignment. Right shoulder x-ray shows degenerative changes with no evidence of acute osseous abnormality. Recommended MRI of C-spine however patient declines to have this done at this time. Patient states if symptoms worsen, he will consider as an outpatient. PT/OT. 4. Type 2 diabetes mellitus with byvppvnner-Dcpi-Crdth with sliding scale insulin. Continue gabapentin regimen. 5. Hypertension-stable, continue lisinopril/HCTZ regimen. 6. 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 Trend INR. Therapeutic Lovenox pending therapeutic INR. 7. Chronic COPD-no acute exacerbation. As needed albuterol aerosol. 8. Chronic back pain-home Flexeril regimen held. As needed Tylenol. DVT prophylaxis- Coumadin, lovenox This patient was seen by CHRISTELLE Stewart under the supervision of Dr. Root. <Amos Root E - Last Filed: 12/04/19 13:18> - Physical Exam Vitals/I&O's: Vital Signs Temp Pulse Resp BP Pulse Ox 97.6 F L 64 16 140/68 H 96 12/04/19 08:40 12/04/19 08:40 12/04/19 08:40 12/04/19 08:40 12/04/19 08:40 Oxygen Flow Rate (L/min) 2 Oxygen Delivery Method Room Air Weight: 172 lb 2.896 oz Body Mass Index (BMI) 24.7 Finger Stick Blood Glucose 147 Intake and Output for Last 24 Hours 12/02/19 12/03/19 12/04/19 23:59 23:59 23:59 Intake Total 2366.25 / 2766.25 4273.33 / 4273.33 1000 / 1000 Output Total 850 / 850 Balance 1516.25 / 1916.25 4273.33 / 4273.33 1000 / 1000 Microbiology Past 72 Hours 12/02/19 04:50 Mucosa - Nose Respiratory Panel (PCR) - Final Laboratory Results 12/04/19 08:50: CK Isoenzymes Pending, CK-MM (CK-3) Pending, CK-MB (CK-2) Pending, CK-BB (CK-1) Pending 12/04/19 08:50: ESR 10 12/04/19 08:50: Lactate Dehydrogenase 343 H Current Medications Acetaminophen (Tylenol) 650 mg PO Q6H PRN PRN PRN Reason: Pain Score 1-10/Temp > 100.7 F Last Admin: 12/03/19 21:51 Dose: 650 mg Documented by: Al Hydroxide/Mg Hydroxide (Mylanta Ii) 30 ml PO Q6H PRN PRN PRN Reason: Gastric Burning Albuterol Sulfate (Ventolin Aerosols) 2.5 mg INHALATION Q2H PRN PRN PRN Reason: dyspnea, wheezing Albuterol/Ipratropium (Duoneb) 3 ml INHALATION Q6HWA.RT [facility] Last Admin: 12/04/19 13:07 Dose: 3 ml Documented by: Baclofen (Lioresal) 10 mg PO QHS [facility] Last Admin: 12/03/19 21:51 Dose: 10 mg Documented by: Calamine/Phenol (Calmoseptine Ointment) 1 applic TOPICAL BID [facility]; Protocol Last Admin: 12/04/19 10:51 Dose: 1 applicatio Documented by: Enoxaparin Sodium (Lovenox) 80 mg SC Q12@0600,1800 [facility] Famotidine (Pepcid) 20 mg PO BID [facility] Last Admin: 12/04/19 10:57 Dose: 20 mg Documented by: Gabapentin (Neurontin) 300 mg PO QHS [facility] Last Admin: 12/03/19 21:51 Dose: 300 mg Documented by: Guaifenesin (Robitussin) 20 ml PO Q4H PRN PRN PRN Reason: COUGH Hydralazine HCl (Apresoline Iv) 10 mg IV Q4H PRN PRN PRN Reason: SBP > 160 Dextrose (Dextrose 10%-Water) 250 mls @ 999 mls/hr IV .Q16M PRN; Protocol PRN Reason: HYPOGLYCEMIA Ibuprofen (Motrin) 400 mg PO Q4H PRN PRN PRN Reason: Pain Score 1-10/Temp > 100.7 F Last Admin: 12/03/19 03:13 Dose: 400 mg Documented by: Lisinopril (Zestril) 20 mg PO DAILY [facility] Last Admin: 12/04/19 10:51 Dose: 20 mg Documented by: Magnesium Hydroxide (Milk Of Magnesia) 30 ml PO DAILY PRN PRN PRN Reason: Constipation Last Admin: 12/03/19 16:38 Dose: 30 ml Documented by: Meclizine HCl (Antivert) 12.5 mg PO TID PRN PRN Reason: Vertigo Melatonin (Melatonin) 3 mg PO QHS PRN PRN PRN Reason: INSOMNIA Last Admin: 12/03/19 21:51 Dose: 3 mg Documented by: Morphine Sulfate () 2 mg IV Q3H PRN PRN PRN Reason: Pain Score 6-10/10 Ondansetron HCl (Zofran) 4 mg IV Q8H PRN PRN PRN Reason: NAUSEA/VOMITING Oxycodone HCl (Oxyir) 5 mg PO Q4H PRN PRN PRN Reason: Pain Score 4-5/10 Prednisone () 40 mg PO DAILY@0800 [facility] Prochlorperazine Edisylate (Compazine Iv) 5 mg IV Q4H PRN PRN PRN Reason: Breakthrough nausea/vomiting Psyllium Hydrophilic Mucilloid (Metamucil) 1 packet PO DAILY PRN PRN PRN Reason: Constipation Senna/Docusate Sodium (Senokot-S, Sidra-Colace) 2 tablet PO BID PRN PRN PRN Reason: Constipation Sodium Chloride () 10 - 40 ml IV UD PRN PRN Reason: SALINE FLUSH Last Admin: 12/03/19 10:02 Dose: 10 ml Documented by: Throat Lozenges (Cepacol Sore Throat Lozenge) 1 lozenge MUCOUS MEM Q2H PRN PRN PRN Reason: SORE THROAT Last Admin: 12/03/19 20:26 Dose: 1 lozenge Documented by: Warfarin Sodium (Coumadin (Pbkc)) 7.5 mg PO DAILY@1700 [facility] Last Admin: 12/03/19 18:06 Dose: 7.5 mg Documented by: Assessment/Plan Hospitalist note: I am seeing this patient in conjunction with Emelia Carranza. I independently seen and examined the patient. Progress note above, laboratory data and imaging studies reviewed and I concur with above treatment plan. Today, patient mentioned that the weakness of the upper extremities which is mainly on the right side improved. Still complaining of generalized weakness and fatigue. Denies fever chills. No chest pain or shortness of breath. His vital signs are stable. - Physical Exam General: Alert, Oriented x3, Cooperative, No apparent distress. HEENT: Atraumatic, PERRLA, EOMI. Neck: Supple, No JVD, Negative Carotid Bruits, Trachea Midline, Thyroid Normal. Lungs: Clear to auscultation, Normal air movement, No rhonchi, No wheeze, No rales. Cardiovascular: Regular rate, Regular Rhythm, Normal S1, Normal S2, PMI Normal. Abdomen: Bowel Sounds Present, Soft, Non Tender, Non-Distended, No Hepato- splenomegaly. Extremities: No clubbing, No cyanosis, No edema Skin: No rashes, No breakdown Neurological: Cranial nerves are intact, neuro grossly intact Vital Signs are stable. Assessment and plan: #1 myalgia/arthralgia/muscle weakness: Seemed to be multifactorial secondary to chemotherapy side effects as well as arthritis of the shoulders. Possible dermatomyositis or paraneoplastic syndrome or other possibilities. Oncology on the case, recommended to repeat CPK, LDH and ESR. Patient was started on prednisone. Patient had recent MRI brain that showed no acute findings. Plan to continue same treatment, follow-up blood work ordered. #2 generalized weakness, functional decline/debility: Secondary to above in addition to history of melanoma being on chemotherapy. Plan for PT OT evaluation and treatment, patient may need placement to group home facility. #3 malignant melanoma: He has been following up with Dr. Knapp. Oncology on the case, plan as above. #4 other chronic medical problems: Stable, continue current medications as above. This note was generated with [employer] software. It may contain incorrect words, spelling, and punctuation that were not noted in checking the note before signing. Inpatient E&M: 51823 Subs Hosp L2
[2019-12-04 13:55] LABS: International Normalized Ratio 1.4; Prothrombin Time (Protime)PT. 16.5 SECONDS (11.7-14.9)
--- NOTE | 2019-12-04 14:14 | CASEMGMT ---
TOD KATHLEEN reviewed therapy notes and discussed discharge planning with patient. Patient is agreeable to going home with [facility]. TOD KATHLEEN provided list of [facility] agencies. Patient would like [facility] as he has had them in the past. TOD KATHLEEN sent referral to [facility] and they are able to accept the patient.
--- NOTE | 2019-12-04 14:25 | CASEMGMT ---
RN FRANNIE Face to Face with patient for initial transition planning/care coordination assessment. RN CM introduced self and role at [facility]. Patient lying in bed, alert and oriented. Patient willing to participate in assessment and is able to answer all questions appropriately. Care providers, pharmacy, and demographics verified. Patient wishes to discharge home, will monitor for need for home health care pending therapy. Patient states he has no further needs or concerns at this time. CM to follow for discharge planning needs that may arise. PCP: Alpesh Specialists: Ra, oncology; Jose Miguel chiro; yolande Rocha [facility]erred Pharmacy[facility] Insurance: [facility] Prescription Benefit: yes, [employer] Living Will/HPOA: none LNOK: Living Arrangements: Patient lives with in 1 story home with 1 step and grab bar to enter the home. Patient independent at home. Transportation: self, brother DME/HHC: Patient states he has cane, walker, shower chair, grab bars, nebulizer, oxygen concentrator for at through [facility]. Patient has had [facility] in the past Disposition Plan: Patient to discharge home pending progress with therapy, possible HHC. Guerita LEE, RN, CM
[2019-12-04] MEDS: predniSONE 20 MG Tablet 40 MG PO (16:35)
[2019-12-04] MEDS: Baclofen 10 MG Tablet PO (20:13)
[2019-12-04] MEDS: Gabapentin 300 MG Capsule PO (20:14)
[2019-12-05 02:59] VITALS: BP 151/86; PULSE 59; RESP 18; TEMP 36.8; O2SAT 93
[2019-12-05 06:11] LABS: Hematocrit 38.2 % (40-54); Hemoglobin 13.1 g/dL (13.0-16.5); Mean Corp Hgb Conc 34.3 g/dL (32-36); Mean Corpuscular Hgb 30.7 pg (27.0-32.0); Mean Corpuscular Volume 89.5 fL (80-94); Mean Platelet Vol. 9.4 fl (6.2-12.0); Platelet Count 152 K/mm3 (150-450); RBC Distribution Width CV 13.6 % (11.6-14.6); RBC Distribution Width SD 44.6 fl (35.1-43.9); Red Blood Count 4.27 M/mm3 (4.6-6.2); White Blood Count 4.2 K/mm3 (4.4-11.0)
[2019-12-05 06:17] LABS: International Normalized Ratio 1.3; Prothrombin Time (Protime)PT. 16.3 SECONDS (11.7-14.9)
[2019-12-05 06:36] LABS: Anion Gap 9 (5-15); BUN 15 mg/dL (7-18); BUN/Creat Ratio 14.6 RATIO (10-20); Calcium,Total 8.8 mg/dL (8.5-10.1); Chloride 108 mmol/L (98-107); Creatinine, Serum 1.03 mg/dL (0.70-1.30); EST Glomerular Filtration Rate 74 mL/min (>60); Est Glom Filt Rate - Afr Amer 90 mL/min (>60); Estimated Creatinine Clearance 62.01 ml/min; Glucose 192 mg/dL (74-106); Potassium 4.1 mmol/L (3.5-5.1); Sodium Level 140 mmol/L (136-145)
[2019-12-05 06:56] VITALS: PULSE 80; RESP 18; O2SAT 93
[2019-12-05] MEDS: Ipratropium/Albuterol Sulfate 3 ML AMPUL.NEB INHALATION (06:56)
[2019-12-05 08:45] VITALS: BP 128/76; PULSE 96; RESP 16; TEMP 36.6; O2SAT 95
[2019-12-05] MEDS: Famotidine 20 MG Tablet PO (08:48)
[2019-12-05] MEDS: Menthol/Lanolin/Calamine/Znox 113 GM Tube 1 APPLIC TOPICAL (08:48)
[2019-12-05] MEDS: predniSONE 20 MG Tablet 40 MG PO (08:48)
[2019-12-05] MEDS: Lisinopril 20 MG Tablet PO (08:48)
--- NOTE | 2019-12-05 10:47 | PCM.DC ---
- Discharge Diagnoses Current Active Problems: Current Active and Chronic Problems (Last Reviewed 02/09/19 @ 10:41 by Cristela Hu) Arthralgia (Acute) You will use the following diet at home:: No restrictions Discharge Activity: Return to Normal Activity Call your doctor if you observe: Fever of 101 or Higher, Shortness of breath, Dizziness, Fainting spells, Chest pain Additional Instructions: Continue to HOLD Tafinlar, Mekinist regimen pending further follow up with Dr. Knapp. Allergies/Adverse Reactions: Allergies Penicillins Adverse Reaction (Severe, Verified 12/02/19 03:56) Hives propoxyphene HCl [From Darvon] Adverse Reaction (Severe, Verified 12/02/19 03:56) Vomiting propoxyphene napsylate [From Darvocet-N 100] Adverse Reaction (Severe, Verified 12/02/19 03:56) Vomiting Medications to take at Discharge Albuterol Aerosols [Ventolin Aerosols] 1 inh INHALATION BID 08/10/16 Lisinopril/Hydrochlorothiazide [Lisinopril-Hctz 20-12.5 mg Tab] 1 tab PO DAILY 10/06/18 Warfarin Sodium [Coumadin] 7.5 mg PO DAILY 12/13/18 Baclofen [Lioresal] 1 tab PO QHS 11/30/19 Dabrafenib Mesylate [Tafinlar] 2 tab PO BID 11/30/19 Gabapentin [Neurontin] 300 mg PO QHS 11/30/19 Trametinib Dimethyl Sulfoxide [Mekinist] 1 tab PO DAILY 11/30/19 Enoxaparin [Lovenox] 80 mg SUBCUT Q12@0600,1800 #14 syringe 12/05/19 Prednisone See Taper PO DAILY #39 tab 12/05/19 The following prescriptions were given: Enoxaparin [Lovenox] 80 mg SUBCUT Q12@0600,1800 #14 syringe Transmission Status: Pending to [facility] Prednisone See Taper PO DAILY #39 tab Transmission Status: P[facility] to [facility] Primary Care Physician: Gaston Betts Chi, MD [Primary Care Provider] - Please follow up with your Primary Care Physician in: 1 Week Test Results: Test results from this visit will be discussed in further detail at your follow-up appointment, if applicable. Please Follow Up With: Jaren Knapp DO When: 3-5 Days Proposed Discharge Date: 12/05/19
--- NOTE | 2019-12-05 11:01 | PCM.DC.SUM ---
<Emelia Carranza - Last Filed: 12/05/19 11:23> Discharge Date and Diagnosis Date of Admission: 11/30/19 Date of Discharge: 12/05/19 - Primary Discharge Diagnosis Active and Suspected Problems (Last Reviewed 02/09/19 @ 10:41 by Cristela Hu) 1. Myalgias, debility-suspected chemotherapy side effect. 2. Malignant melanoma 3. Right upper extremity weakness- CVA ruled out. Secondary to arthritis. 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 Hypertension 6. 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 Chronic COPD 8. Chronic back pain - Secondary Discharge Diagnosis Chronic Problems (Last Reviewed 02/09/19 @ 10:41 by Cristela Hu) Malignant melanoma (Chronic) Cor pulmonale (Chronic) Emphysema (Chronic) Bilateral pulmonary embolism (Chronic) Hematoma of rectus sheath (Chronic) Hypercoagulable state (Chronic) Osteoarthritis of knees, bilateral (Chronic) Emphysema (Chronic) HTN (hypertension) (Chronic) DDD (degenerative disc disease) (Chronic) 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) COPD (chronic obstructive pulmonary disease) (Chronic) Hospital Course and Treatment Imaging Results: Diagnostic Data Chest X-Ray 12/02/19 00:55 IMPRESSION: Bilateral atelectasis as described, otherwise no acute cardiopulmonary disease. Electronically Signed: Kika Gomes MD at 1:31 EDT , Service support , Cervical Spine X-Ray 12/03/19 09:10 IMPRESSION: Diffuse degenerative changes as above with no evidence of significant malalignment. Electronically Signed: Flo Jenkins DO at 9:52 EDT , Service support , Shoulder X-Ray 12/03/19 09:16 IMPRESSION: Degenerative changes with no evidence of acute osseous abnormality. Electronically Signed: Flo Jenkins DO at 9:50 EDT , Service support , Dr. Leung- Oncology Operations: None Procedures: None Summary of Care Provided: The patient is a 79 year old M admitted 12/02/2019 due to weakness, vertigo and dizziness. 1. Myalgias, debility-respiratory panel negative. Recent MRI of brain 11/30/2019 showed no evidence of ischemic infarct or acute abnormality. UA and chest x-ray unremarkable. Discussed with oncology, plan to hold chemotherapy regimen given this may be contributing to current symptoms. Dr. Leung consulted who recommends ordered CPK, LDH and sed rate, to rule out dermatomyositis or paraneoplastic syndrome. Also recommended initiating prednisone. Continue prednisone taper at discharge. Patient declined SNF and will return home at discharge with home health services. Follow-up with oncology in 3 to 5 days. 2. Malignant melanoma- following with Dr. Knapp. Jewel, Mekinist regimen on hold as this may me contributing to above. Follow up with oncology as noted above. 3. Right upper extremity weakness-recent normal MRI of brain as noted above. Cervical spine x-ray shows diffuse degenerative changes with no significant malalignment. Right shoulder x-ray shows degenerative changes with no evidence of acute osseous abnormality. Recommended MRI of C-spine however patient declines to have this done at this time. Patient states if symptoms worsen, he will consider as an outpatient. Outpatient PT at discharge and follow up with PCP. 4. Type 2 diabetes mellitus with neuropathy-Diet controlled. Continue gabapentin regimen. 5. Hypertension-stable, continue lisinopril/HCTZ regimen. 6. 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 INR subtherapeutic. Will discharge on therapeutic Lovenox pending repeat outpatient INR. Patient had PE with saddle embolus October 2018. 7. Chronic COPD-no acute exacerbation. As needed albuterol aerosol. 8. Chronic back pain-home Flexeril regimen discontinued. As needed Tylenol. General: Alert, Oriented x3, Cooperative HEENT: Atraumatic, PERRLA, EOMI, Normocephalic Neck: Supple, No JVD, Negative Carotid Bruits Lungs: Clear to auscultation, Normal air movement Cardiovascular: Regular rate, Regular Rhythm, Normal S1, Normal S2, No murmurs Abdomen: Bowel Sounds Present, Soft, Non Tender, Non-Distended Extremities: No clubbing, No cyanosis, No edema, Capillary Refill Less than 3 Seconds Skin: No rashes, No breakdown Musculoskeletal: No Tenderness to Palpation of Joints or Extremities Neurological: Cranial nerves II-XII grossly intact, Neuro grossly intact, minimal right upper extremity weakness compared to left Psych/Mental Status: Normal Affect, Appropriate Patient seen and examined prior to discharge. Physical assessment as noted above. Patient is stable for discharge with follow up recommendations as noted above. This patient was seen by CHRISTELLE Stewart under the supervision of Dr. Root. - Physical Exam Vitals/I&O's: Vital Signs Temp Pulse Resp BP Pulse Ox 97.8 F 96 16 128/76 H 95 12/05/19 08:45 12/05/19 08:45 12/05/19 08:45 12/05/19 08:45 12/05/19 08:45 Oxygen Flow Rate (L/min) 2 Oxygen Delivery Method Room Air Weight: 172 lb 2.896 oz Body Mass Index (BMI) 24.7 Finger Stick Blood Glucose 147 Intake and Output for Last 24 Hours 12/03/19 12/04/19 12/05/19 23:59 23:59 23:59 Intake Total 4273.33 / 4273.33 2735.42 / 3035.42 300 / 300 Balance 4273.33 / 4273.33 2735.42 / 3035.42 300 / 300 Microbiology Past 72 Hours 12/02/19 04:50 Mucosa - Nose Respiratory Panel (PCR) - Final Laboratory Results 12/04/19 13:25: PT 16.5 H, INR 1.4 12/05/19 05:24: WBC 4.2 L, RBC 4.27 L, Hgb 13.1, Hct 38.2 L, MCV 89.5, MCH 30.7, MCHC 34.3, RDW Std Deviation 44.6 H, RDW Coeff of Zaid 13.6, Plt Count 152, MPV 9.4 12/05/19 05:24: PT 16.3 H, INR 1.3 12/05/19 05:24: Sodium 140, Potassium 4.1, Chloride 108 H, Carbon Dioxide 23.0, Anion Gap 9, BUN 15, Creatinine 1.03, Estim Creat Clear Calc 62.01, Est GFR (MDRD) Af Amer 90, Est GFR (MDRD) Non-Af 74, BUN/Creatinine Ratio 14.6, Glucose 192 H, Calcium 8.8 Current Medications Acetaminophen (Tylenol) 650 mg PO Q6H PRN PRN PRN Reason: Pain Score 1-10/Temp > 100.7 F Last Admin: 12/03/19 21:51 Dose: 650 mg Documented by: Al Hydroxide/Mg Hydroxide (Mylanta Ii) 30 ml PO Q6H PRN PRN PRN Reason: Gastric Burning Albuterol Sulfate (Ventolin Aerosols) 2.5 mg INHALATION Q2H PRN PRN PRN Reason: dyspnea, wheezing Albuterol/Ipratropium (Duoneb) 3 ml INHALATION Q6HWA.RT [facility] Last Admin: 12/05/19 06:56 Dose: 3 ml Documented by: Baclofen (Lioresal) 10 mg PO QHS [facility] Last Admin: 12/04/19 20:13 Dose: 10 mg Documented by: Calamine/Phenol (Calmoseptine Ointment) 1 applic TOPICAL BID [facility]; Protocol Last Admin: 12/05/19 08:48 Dose: 1 applicatio Documented by: Enoxaparin Sodium (Lovenox) 80 mg SC Q12@0600,1800 [facility] Last Admin: 12/05/19 06:01 Dose: Not Given Documented by: Famotidine (Pepcid) 20 mg PO BID [facility] Last Admin: 12/05/19 08:48 Dose: 20 mg Documented by: Gabapentin (Neurontin) 300 mg PO QHS [facility] Last Admin: 12/04/19 20:14 Dose: 300 mg Documented by: Guaifenesin (Robitussin) 20 ml PO Q4H PRN PRN PRN Reason: COUGH Hydralazine HCl (Apresoline Iv) 10 mg IV Q4H PRN PRN PRN Reason: SBP > 160 Dextrose (Dextrose 10%-Water) 250 mls @ 999 mls/hr IV .Q16M PRN; Protocol PRN Reason: HYPOGLYCEMIA Ibuprofen (Motrin) 400 mg PO Q4H PRN PRN PRN Reason: Pain Score 1-10/Temp > 100.7 F Last Admin: 12/03/19 03:13 Dose: 400 mg Documented by: Lisinopril (Zestril) 20 mg PO DAILY [facility] Last Admin: 12/05/19 08:48 Dose: 20 mg Documented by: Magnesium Hydroxide (Milk Of Magnesia) 30 ml PO DAILY PRN PRN PRN Reason: Constipation Last Admin: 12/03/19 16:38 Dose: 30 ml Documented by: Meclizine HCl (Antivert) 12.5 mg PO TID PRN PRN Reason: Vertigo Melatonin (Melatonin) 3 mg PO QHS PRN PRN PRN Reason: INSOMNIA Last Admin: 12/03/19 21:51 Dose: 3 mg Documented by: Morphine Sulfate () 2 mg IV Q3H PRN PRN PRN Reason: Pain Score 6-10/10 Ondansetron HCl (Zofran) 4 mg IV Q8H PRN PRN PRN Reason: NAUSEA/VOMITING Oxycodone HCl (Oxyir) 5 mg PO Q4H PRN PRN PRN Reason: Pain Score 4-5/10 Prednisone () 40 mg PO DAILY@0800 [facility] Last Admin: 12/05/19 08:48 Dose: 40 mg Documented by: Prochlorperazine Edisylate (Compazine Iv) 5 mg IV Q4H PRN PRN PRN Reason: Breakthrough nausea/vomiting Psyllium Hydrophilic Mucilloid (Metamucil) 1 packet PO DAILY PRN PRN PRN Reason: Constipation Senna/Docusate Sodium (Senokot-S, Sidra-Colace) 2 tablet PO BID PRN PRN PRN Reason: Constipation Sodium Chloride () 10 - 40 ml IV UD PRN PRN Reason: SALINE FLUSH Last Admin: 12/03/19 10:02 Dose: 10 ml Documented by: Throat Lozenges (Cepacol Sore Throat Lozenge) 1 lozenge MUCOUS MEM Q2H PRN PRN PRN Reason: SORE THROAT Last Admin: 12/03/19 20:26 Dose: 1 lozenge Documented by: Warfarin Sodium (Coumadin (Pbkc)) 8 mg PO DAILY@1700 [facility] Discharge Diet: No Restrictions Discharge Activity: Return to Normal Activity Call your doctor if you observe: Fever of 101 or Higher, Shortness of breath, Dizziness, Fainting spells, Chest pain Home Medications: Medications to take at Discharge Albuterol Aerosols [Ventolin Aerosols] 1 inh INHALATION BID 08/10/16 Lisinopril/Hydrochlorothiazide [Lisinopril-Hctz 20-12.5 mg Tab] 1 tab PO DAILY 10/06/18 Warfarin Sodium [Coumadin] 7.5 mg PO DAILY 12/13/18 Baclofen [Lioresal] 1 tab PO QHS 11/30/19 Dabrafenib Mesylate [Tafinlar] 2 tab PO BID 11/30/19 Gabapentin [Neurontin] 300 mg PO QHS 11/30/19 Trametinib Dimethyl Sulfoxide [Mekinist] 1 tab PO DAILY 11/30/19 Enoxaparin [Lovenox] 80 mg SUBCUT Q12@0600,1800 #14 syringe 12/05/19 Prednisone See Taper PO DAILY #39 tab 12/05/19 Following Prescrptions Were Given to Patient: Enoxaparin [Lovenox] 80 mg SUBCUT Q12@0600,1800 #14 syringe Transmission Status: Received by [facility] Prednisone See Taper PO DAILY #39 tab Transmission Status: Received by [facility] Primary Care Physician: Gaston Betts Chi, MD [Primary Care Provider] - Please follow up with your Primary Care Physician in: 1 Week Please Follow Up With: Jaren Knapp DO When: 3-5 Days Disposition: Home with Home Health Minutes spent on discharge:: 35 Patient Condition:: Stable Medical Necessity - Tobacco Use Smoking Status: Former smoker Tobacco Use: Non-smoker Meaningful Use Info Meaningful Use Diagnoses (Choose all that apply): None applicable <Amos Root E - Last Filed: 12/05/19 14:39> Discharge Date and Diagnosis - Secondary Discharge Diagnosis Chronic Problems (Last Reviewed 02/09/19 @ 10:41 by Cristela Hu) Malignant melanoma (Chronic) Cor pulmonale (Chronic) Emphysema (Chronic) Bilateral pulmonary embolism (Chronic) Hematoma of rectus sheath (Chronic) Hypercoagulable state (Chronic) Osteoarthritis of knees, bilateral (Chronic) Emphysema (Chronic) HTN (hypertension) (Chronic) DDD (degenerative disc disease) (Chronic) 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) COPD (chronic obstructive pulmonary disease) (Chronic) Hospital Course and Treatment Summary of Care Provided: Hospitalist note: Discharge summary above reviewed and I concur with the above discharge and treatment plan. Patient was admitted because of weakness, dizziness, muscle pain, myalgias and upper extremity weakness. Myalgias, arthralgias and upper extremity weakness attributed to possibly side effects of chemotherapy. Patient had MRI brain on November 30, 2019 that revealed no evidence of acute or subacute infarct or acute intracranial abnormality and there was no evidence of metastatic disease in the brain. Acute stroke ruled out. Patient has been on chemotherapy for malignant melanoma. The differential diagnosis was possibly dermatomyositis, or paraneoplastic syndrome or chemotherapy side effects. Oncology consulted and recommended to start patient on prednisone. Routine blood work was unremarkable. LDH was slightly elevated. CK-MB and aldolase sent and it was pending at the time of discharge. Chest x-ray and urinalysis showed no evidence of infection. Patient started on steroids, he started feeling better, muscle pains and aches improved as well as the upper extremity weakness. He was seen by PT OT and he did very well ambulating without any problems. Patient discharged home in a stable medical condition, discharged on prednisone taper, discharged on Lovenox twice daily for bridging and he was continued on Coumadin, recommended follow-up with PCP in 1 week, follow-up with oncology in 3 to 5 days. - Physical Exam General: Alert, Oriented x3, Cooperative, No apparent distress. HEENT: Atraumatic, PERRLA, EOMI. Neck: Supple, No JVD, Negative Carotid Bruits, Trachea Midline, Thyroid Normal. Lungs: Clear to auscultation, Normal air movement, No rhonchi, No wheeze, No rales. Cardiovascular: Regular rate, Regular Rhythm, Normal S1, Normal S2, PMI Normal. Abdomen: Bowel Sounds Present, Soft, Non Tender, Non-Distended, No Hepato-splenomegaly. Extremities: No clubbing, No cyanosis, No edema Skin: No rashes, No breakdown Neurological: Cranial nerves are intact, neuro grossly intact Vital Signs are stable. This note was generated with [employer] dictation software. It may contain incorrect words, spelling, and punctuation that were not noted in checking the note before signing. - Physical Exam Vitals/I&O's: Vital Signs Temp Pulse Resp BP Pulse Ox 97.8 F 96 16 128/76 H 95 12/05/19 08:45 12/05/19 08:45 12/05/19 08:45 12/05/19 08:45 12/05/19 08:45 Oxygen Flow Rate (L/min) 2 Oxygen Delivery Method Room Air Weight: 172 lb 2.896 oz Body Mass Index (BMI) 24.7 Finger Stick Blood Glucose 147 Intake and Output for Last 24 Hours 12/03/19 12/04/19 12/05/19 23:59 23:59 23:59 Intake Total 4273.33 / 4273.33 2735.42 / 3035.42 300 / 300 Balance 4273.33 / 4273.33 2735.42 / 3035.42 300 / 300 Laboratory Results 12/04/19 13:25: PT 16.5 H, INR 1.4 12/05/19 05:24: WBC 4.2 L, RBC 4.27 L, Hgb 13.1, Hct 38.2 L, MCV 89.5, MCH 30.7, MCHC 34.3, RDW Std Deviation 44.6 H, RDW Coeff of Zaid 13.6, Plt Count 152, MPV 9.4 12/05/19 05:24: PT 16.3 H, INR 1.3 12/05/19 05:24: Sodium 140, Potassium 4.1, Chloride 108 H, Carbon Dioxide 23.0, Anion Gap 9, BUN 15, Creatinine 1.03, Estim Creat Clear Calc 62.01, Est GFR (MDRD) Af Amer 90, Est GFR (MDRD) Non-Af 74, BUN/Creatinine Ratio 14.6, Glucose 192 H, Calcium 8.8 Current Medications Acetaminophen (Tylenol) 650 mg PO Q6H PRN PRN PRN Reason: Pain Score 1-10/Temp > 100.7 F Last Admin: 12/03/19 21:51 Dose: 650 mg Documented by: Al Hydroxide/Mg Hydroxide (Mylanta Ii) 30 ml PO Q6H PRN PRN PRN Reason: Gastric Burning Albuterol Sulfate (Ventolin Aerosols) 2.5 mg INHALATION Q2H PRN PRN PRN Reason: dyspnea, wheezing Albuterol/Ipratropium (Duoneb) 3 ml INHALATION Q6HWA.RT [facility] Last Admin: 12/05/19 06:56 Dose: 3 ml Documented by: Baclofen (Lioresal) 10 mg PO QHS [facility] Last Admin: 12/04/19 20:13 Dose: 10 mg Documented by: Calamine/Phenol (Calmoseptine Ointment) 1 applic TOPICAL BID [facility]; Protocol Last Admin: 12/05/19 08:48 Dose: 1 applicatio Documented by: Enoxaparin Sodium (Lovenox) 80 mg SC Q12@0600,1800 [facility] Last Admin: 12/05/19 06:01 Dose: Not Given Documented by: Famotidine (Pepcid) 20 mg PO BID [facility] Last Admin: 12/05/19 08:48 Dose: 20 mg Documented by: Gabapentin (Neurontin) 300 mg PO QHS [facility] Last Admin: 12/04/19 20:14 Dose: 300 mg Documented by: Guaifenesin (Robitussin) 20 ml PO Q4H PRN PRN PRN Reason: COUGH Hydralazine HCl (Apresoline Iv) 10 mg IV Q4H PRN PRN PRN Reason: SBP > 160 Dextrose (Dextrose 10%-Water) 250 mls @ 999 mls/hr IV .Q16M PRN; Protocol PRN Reason: HYPOGLYCEMIA Ibuprofen (Motrin) 400 mg PO Q4H PRN PRN PRN Reason: Pain Score 1-10/Temp > 100.7 F Last Admin: 12/03/19 03:13 Dose: 400 mg Documented by: Lisinopril (Zestril) 20 mg PO DAILY [facility] Last Admin: 12/05/19 08:48 Dose: 20 mg Documented by: Magnesium Hydroxide (Milk Of Magnesia) 30 ml PO DAILY PRN PRN PRN Reason: Constipation Last Admin: 12/03/19 16:38 Dose: 30 ml Documented by: Meclizine HCl (Antivert) 12.5 mg PO TID PRN PRN Reason: Vertigo Melatonin (Melatonin) 3 mg PO QHS PRN PRN PRN Reason: INSOMNIA Last Admin: 12/03/19 21:51 Dose: 3 mg Documented by: Morphine Sulfate () 2 mg IV Q3H PRN PRN PRN Reason: Pain Score 6-10/10 Ondansetron HCl (Zofran) 4 mg IV Q8H PRN PRN PRN Reason: NAUSEA/VOMITING Oxycodone HCl (Oxyir) 5 mg PO Q4H PRN PRN PRN Reason: Pain Score 4-5/10 Prednisone () 40 mg PO DAILY@0800 [facility] Last Admin: 12/05/19 08:48 Dose: 40 mg Documented by: Prochlorperazine Edisylate (Compazine Iv) 5 mg IV Q4H PRN PRN PRN Reason: Breakthrough nausea/vomiting Psyllium Hydrophilic Mucilloid (Metamucil) 1 packet PO DAILY PRN PRN PRN Reason: Constipation Senna/Docusate Sodium (Senokot-S, Sidra-Colace) 2 tablet PO BID PRN PRN PRN Reason: Constipation Sodium Chloride () 10 - 40 ml IV UD PRN PRN Reason: SALINE FLUSH Last Admin: 12/03/19 10:02 Dose: 10 ml Documented by: Throat Lozenges (Cepacol Sore Throat Lozenge) 1 lozenge MUCOUS MEM Q2H PRN PRN PRN Reason: SORE THROAT Last Admin: 12/05/19 13:16 Dose: 1 lozenge Documented by: Warfarin Sodium (Coumadin (Pbkc)) 8 mg PO DAILY@1700 [facility] Disposition: Home with Home Health Minutes spent on discharge:: 32 Patient Condition:: Stable Meaningful Use Info Meaningful Use Diagnoses (Choose all that apply): None applicable Inpatient E&M: 75615 Disch Hosp
[2019-12-05] MEDS: BENZOCAINE/MENTHOL 1 LOZENGE MUCOUS MEM (13:16)
[2019-12-05 14:08] LABS: Creatine Kinase MB 0 % (0-3); Creatine Kinase MM 98 % (97-100); Creatine Kinase,Total,Serum 594 U/L (24-204); Macro II 0 % (Not Observed)
[2019-12-05 16:12] LABS: Aldolase 5.1 U/L (3.3-10.3)
[2019-12-05 16:20] LABS: Creatine Kinase BB 1 % (0); Macro I 1 % (Not Observed)
--- NOTE | 2019-12-06 14:54 | CASEMGMT ---
TOD KATHLEEN Discharge Follow-Up Phone Call. Lace: 10 Strata: 3 Discharge Date: 12/05/19 Adm Dx: Weakness, Dizziness, FTT Attempted discharge follow-up phone call. No answer. Message left for pt to return call if he has any questions/concerns/needs. MS3 RN FRANNIE, Guerita Chavez's phone number provided. Maggy LEE RN CM
== END 2019-12-05 14:09 | disposition home or self-care (01) | DRG 556 ==
LOC: ED 00:45 → MS3 02:37
PROVIDERS: Internal Medicine; Internal Medicine Hematology & Oncology; Nurse Practitioner Family; Admitting Provider Family Medicine; Emergency Provider Emergency Medicine; PCP Family Medicine Geriatric Medicine; Visit Provider Hospitalist
DX: M62.81 Muscle weakness (generalized) (principal); D68.59 Other primary thrombophilia; J96.11 Chronic respiratory failure with hypoxia; R53.81 Other malaise; R42 Dizziness and giddiness; T45.1X5A Adverse effect of antineoplastic and immunosuppressive drugs, initial encounter; C43.59 Malignant melanoma of other part of trunk; E11.40 Type 2 diabetes mellitus with diabetic neuropathy, unspecified; I10 Essential (primary) hypertension; J43.2 Centrilobular emphysema; I27.81 Cor pulmonale (chronic); M17.0 Bilateral primary osteoarthritis of knee; M19.011 Primary osteoarthritis, right shoulder; M50.31 Other cervical disc degeneration, high cervical region; G89.29 Other chronic pain; Z66 Do not resuscitate; Z79.01 Long term (current) use of anticoagulants; Z86.711 Personal history of pulmonary embolism; Z86.718 Personal history of other venous thrombosis and embolism; Z86.11 Personal history of tuberculosis; Z79.899 Other long term (current) drug therapy; Z87.891 Personal history of nicotine dependence
CPT/HCPCS: 36415; 70450; 70553; 71045; 71046; 71275; 72040; 73030; 80048; 80053; 81001; 82085; 82550; 82552; 82962; 83615; 83735; 85025; 85027; 85610; 85652; 86140; 87633; 93005; 94640; 96372; 96374; 96375; 97110; 97116; 97162; 97166; 97530; 97535; 97802; 99218; 99251; 99285; A9575; J7030; Q9967; A4216; G0378; G0463; J2405

== ENCOUNTER → 2019-12-13 10:14 | Outpatient (CLI) | payer MEDICARE, OTHER, SELFPAY ==
[2019-02-09 10:41] VITALS: BMI 26.5
[2019-12-02 03:41] VITALS: BMI 24.7
--- NOTE | 2019-12-13 12:46 | NEURO_ITS ---
NCS and/or EMG Patient Report Ordering Doctor: Gaston Betts Chi DATE OF SERVICE: 12/13/19 Uli Alcantara presents for electrodiagnostic testing of the right upper limb. He has weakness and shooting pains in the right arm with intermittent numbness. Electrodiagnostic findings: Right median motor nerve demonstrates prolonged la tency with normal amplitude and reduced conduction velocity. Right ulnar motor response demonstrates normal distal latency and amplitude with no reduction of conduction across the elbow. Median sensory latency at the wrist and palm are prolonged. On needle EMG, 1+ fibrillations are noted in the right first dorsal interosseous with a decreased recruitment pattern. Electrodiagnostic impression: This is an abnormal study in the right upper limb 1. Electrodiagnostic findings demonstrate right-sided median mononeuropathy. This is consistent with a moderate right-sided carpal tunnel syndrome. If there are any further questions, please not hesitate to contact me.
== END ==
PROVIDERS: Family Provider Family Medicine Geriatric Medicine; PCP Family Medicine Geriatric Medicine; Referring Provider Family Medicine Geriatric Medicine; Visit Provider Family Medicine Geriatric Medicine
DX: M79.601 Pain in right arm (principal); M79.602 Pain in left arm
CPT/HCPCS: 95886; 95909

== ENCOUNTER → 2020-01-03 11:49 | Outpatient (CLI) | payer MEDICARE, OTHER, SELFPAY ==
[2019-12-02 03:41] VITALS: BMI 24.7
[2020-01-03 15:30] LABS: Hemoglobin 15.2 g/dL (13.0-16.5); Mean Corp Hgb Conc 33.8 g/dL (32-36); Mean Corpuscular Hgb 31.4 pg (27.0-32.0); Mean Platelet Vol. 10.4 fl (6.2-12.0); POSITIVE COUNT YES; POSITIVE MORPHOLOGY YES; Platelet Count 183 K/mm3 (150-450); RBC Distribution Width CV 13.5 % (11.6-14.6); RBC Distribution Width SD 45.5 fl (35.1-43.9); Red Blood Count 4.84 M/mm3 (4.6-6.2); White Blood Count 11.2 K/mm3 (4.4-11.0)
[2020-01-03 15:31] LABS: Differential Indicated MANUAL DIFF
[2020-01-03 15:50] LABS: Eosinophil 1 % (0-5); Lymphocyte 9 % (19-41); Monocyte 4 % (0-10); Myelocyte 1 (0-0); Neutrophil-Segmented 85 % (47-70); Total Cells Counted 100 (MANUAL DIFF)
[2020-01-03 15:51] LABS: Absolute Neutrophil Count 9.5 X10^3/uL (2.0-7.7); Platelet Estimate ADEQUATE (ADEQ); Red Cell Morphology NORM C+C NORMAL (NORM C&C)
[2020-01-03 15:53] LABS: AST(SGOT) 51 U/L (15-37); Alanine Aminotransfer ALT/SGPT 95 U/L (16-61); Albumin, Serum 3.7 g/dL (3.2-5.0); Alkaline Phosphatase 93 U/L (45-117); Anion Gap 11 (5-15); BUN 18 mg/dL (7-18); BUN/Creat Ratio 16.2 RATIO (10-20); Chloride 100 mmol/L (98-107); Creatinine, Serum 1.11 mg/dL (0.70-1.30); EST Glomerular Filtration Rate 68 mL/min (>60); Est Glom Filt Rate - Afr Amer 83 mL/min (>60); Globulin 3.7 g/dL (2.2-4.2); Glucose 249 mg/dL (74-106); Potassium 4.4 mmol/L (3.5-5.1); Protein, Total 7.4 g/dL (6.4-8.2); Sodium Level 132 mmol/L (136-145); Thyroid Stim Hormone (TSH) 2.36 uIU/mL (0.358-3.74)
[2020-01-04 09:45] LABS: Pathologist Review Reviewed
== END ==
PROVIDERS: PCP Family Medicine Geriatric Medicine; Visit Provider Family Medicine Geriatric Medicine
DX: R53.83 Other fatigue (principal)
CPT/HCPCS: 36415; 80053; 84443; 85025

== ENCOUNTER → 2020-01-26 11:02 | Outpatient (CLI) | payer MEDICARE, OTHER, SELFPAY ==
[2019-12-02 03:41] VITALS: BMI 24.7
[2020-01-26 11:54] LABS: Absolute Lymphocyte Count 1.34 X10^3/uL (0.83-4.51); Absolute Neutrophil Count 4.2 X10^3/uL (2.0-7.7); Basophil# 0.04 X10^3/uL; Basophil% 0.6 % (0-1); Eosinophil# 0.03 X10^3/uL; Eosinophils% 0.5 % (0-5); Hematocrit 42.3 % (40-54); Hemoglobin 14.4 g/dL (13.0-16.5); Lymphocyte # 1.34 X10^3/ul (4.0); Lymphocyte % 20.3 % (19-41); Mean Corpuscular Hgb 32.3 pg (27.0-32.0); Mean Corpuscular Volume 94.8 fL (80-94); Mean Platelet Vol. 9.6 fl (6.2-12.0); Monocyte# 0.96 X10^3/uL; Monocyte% 14.5 % (0-10); NRBC Flagged by Analyzer 0 % (0-5); Neutrophil # 4.16 X10^3/uL (2.7-7.7); Platelet Count 208 K/mm3 (150-450); RBC Distribution Width CV 13.4 % (11.6-14.6); RBC Distribution Width SD 46.3 fl (35.1-43.9); Red Blood Count 4.46 M/mm3 (4.6-6.2); White Blood Count 6.6 K/mm3 (4.4-11.0)
[2020-01-26 12:12] LABS: Anion Gap 9 (5-15); BUN 11 mg/dL (7-18); BUN/Creat Ratio 12.3 RATIO (10-20); Calcium,Total 9.1 mg/dL (8.5-10.1); Chloride 105 mmol/L (98-107); EST Glomerular Filtration Rate 87 mL/min (>60); Est Glom Filt Rate - Afr Amer 106 mL/min (>60); Glucose 256 mg/dL (74-106); Potassium 4.2 mmol/L (3.5-5.1); Sodium Level 137 mmol/L (136-145); Thyroid Stim Hormone (TSH) 1.83 uIU/mL (0.358-3.74)
== END ==
PROVIDERS: PCP Family Medicine Geriatric Medicine; Referring Provider Family Medicine Geriatric Medicine; Visit Provider Family Medicine Geriatric Medicine
DX: S51.801A Unspecified open wound of right forearm, initial encounter (principal); X58.XXXA Exposure to other specified factors, initial encounter; B95.62 Methicillin resistant Staphylococcus aureus infection as the cause of diseases classified elsewhere; R53.83 Other fatigue; Z78.9 Other specified health status
CPT/HCPCS: 36415; 80048; 84443; 85025; 87070; 87186; 87205

== ENCOUNTER → 2020-02-01 14:41 | Outpatient (CLI) | payer MEDICARE, OTHER, SELFPAY ==
[2019-12-02 03:41] VITALS: BMI 24.7
[2020-02-01 16:30] LABS: Absolute Lymphocyte Count 1.36 X10^3/uL (0.83-4.51); Absolute Neutrophil Count 4.2 X10^3/uL (2.0-7.7); Basophil# 0.04 X10^3/uL; Basophil% 0.6 % (0-1); Eosinophil# 0.05 X10^3/uL; Eosinophils% 0.8 % (0-5); Hematocrit 38.6 % (40-54); Lymphocyte # 1.36 X10^3/ul (4.0); Lymphocyte % 20.4 % (19-41); Mean Corp Hgb Conc 33.7 g/dL (32-36); Mean Corpuscular Hgb 31.9 pg (27.0-32.0); Mean Corpuscular Volume 94.6 fL (80-94); Monocyte# 0.99 X10^3/uL; Monocyte% 14.9 % (0-10); NRBC Flagged by Analyzer 0 % (0-5); Neutrophil # 4.15 X10^3/uL (2.7-7.7); Neutrophil % 62.2 % (47-70); Platelet Count 209 K/mm3 (150-450); RBC Distribution Width CV 13.2 % (11.6-14.6); RBC Distribution Width SD 45.1 fl (35.1-43.9); Red Blood Count 4.08 M/mm3 (4.6-6.2); White Blood Count 6.7 K/mm3 (4.4-11.0)
[2020-02-01 16:37] LABS: Vitamin D,25 Hydroxy 12.2 ng/mL
[2020-02-01 16:45] LABS: AST(SGOT) 48 U/L (15-37); Alanine Aminotransfer ALT/SGPT 63 U/L (16-61); Albumin, Serum 3.3 g/dL (3.2-5.0); Alkaline Phosphatase 86 U/L (45-117); Anion Gap 9 (5-15); BUN 13 mg/dL (7-18); BUN/Creat Ratio 12.6 RATIO (10-20); Calcium,Total 9.5 mg/dL (8.5-10.1); Chloride 103 mmol/L (98-107); Creatinine, Serum 1.03 mg/dL (0.70-1.30); EST Glomerular Filtration Rate 74 mL/min (>60); Est Glom Filt Rate - Afr Amer 90 mL/min (>60); Globulin 3.4 g/dL (2.2-4.2); Glucose 240 mg/dL (74-106); Potassium 3.9 mmol/L (3.5-5.1); Protein, Total 6.7 g/dL (6.4-8.2); Sodium Level 138 mmol/L (136-145); Thyroid Stim Hormone (TSH) 1.82 uIU/mL (0.358-3.74)
== END ==
PROVIDERS: PCP Family Medicine Geriatric Medicine; Visit Provider Family Medicine Geriatric Medicine
DX: I10 Essential (primary) hypertension (principal); E55.9 Vitamin D deficiency, unspecified
CPT/HCPCS: 36415; 80053; 82306; 84443; 85025

== ENCOUNTER → 2020-02-13 15:48 | Outpatient (CLI) | payer MEDICARE, OTHER, SELFPAY ==
[2019-12-02 03:41] VITALS: BMI 24.7
--- NOTE | 2020-02-13 16:01 | RAD_ITS ---
STUDY: X-RAY - ABDOMEN/PELVIS REASON FOR EXAM: Male, 79 years old. abdominal pain TECHNIQUE: Single AP view of the abdomen / pelvis. COMPARISON: None. FINDINGS: Normal visualized lung bases. There is an unremarkable bowel gas pattern. The visualized liver, spleen and kidneys are grossly normal in size and morphology. Normal soft tissue structures. Normal visualized osseous structures. RAD/Abdomen Single View IMPRESSION: Normal x-ray examination of the abdomen and pelvis. Electronically Signed: Christiano Marie MD at 8:56 EDT Tel , Service support ,
== END ==
PROVIDERS: PCP Family Medicine Geriatric Medicine; Referring Provider Family Medicine Geriatric Medicine; Visit Provider Family Medicine Geriatric Medicine
DX: R10.9 Unspecified abdominal pain (principal); R11.0 Nausea
CPT/HCPCS: 74018

== ENCOUNTER → 2020-05-01 13:36 | Outpatient (CLI) | payer MEDICARE, OTHER, SELFPAY ==
[2019-12-02 03:41] VITALS: BMI 24.7
[2020-05-01 15:43] LABS: Absolute Neutrophil Count 4.5 X10^3/uL (2.0-7.7); Basophil# 0.03 X10^3/uL; Basophil% 0.4 % (0-1); Eosinophil# 0.08 X10^3/uL; Eosinophils% 1.1 % (0-5); Hematocrit 49.1 % (40-54); Hemoglobin 16.1 g/dL (13.0-16.5); Lymphocyte % 23.1 % (19-41); Mean Corp Hgb Conc 32.8 g/dL (32-36); Mean Corpuscular Hgb 30.4 pg (27.0-32.0); Mean Corpuscular Volume 92.6 fL (80-94); Mean Platelet Vol. 9.9 fl (6.2-12.0); Monocyte% 13.6 % (0-10); NRBC Flagged by Analyzer 0 % (0-5); Neutrophil # 4.52 X10^3/uL (2.7-7.7); Neutrophil % 61.3 % (47-70); Platelet Count 241 K/mm3 (150-450); RBC Distribution Width CV 12.4 % (11.6-14.6); RBC Distribution Width SD 42.1 fl (35.1-43.9); White Blood Count 7.4 K/mm3 (4.4-11.0)
[2020-05-01 15:54] LABS: Vitamin D,25 Hydroxy 24.8 ng/mL
[2020-05-01 16:02] LABS: ALB/GLOB Ratio 1.1 RATIO (0.9-2.4); AST(SGOT) 41 U/L (15-37); Alanine Aminotransfer ALT/SGPT 58 U/L (16-61); Albumin, Serum 3.8 g/dL (3.2-5.0); Alkaline Phosphatase 92 U/L (45-117); Anion Gap 7 (5-15); BUN 18 mg/dL (7-18); BUN/Creat Ratio 18.3 RATIO (10-20); Calcium,Total 9.4 mg/dL (8.5-10.1); Chloride 108 mmol/L (98-107); Creatinine, Serum 0.99 mg/dL (0.70-1.30); EST Glomerular Filtration Rate 78 mL/min (>60); Est Glom Filt Rate - Afr Amer 95 mL/min (>60); Globulin 3.6 g/dL (2.2-4.2); Glucose 140 mg/dL (74-106); Potassium 4.2 mmol/L (3.5-5.1); Protein, Total 7.4 g/dL (6.4-8.2); Sodium Level 141 mmol/L (136-145); Thyroid Stim Hormone (TSH) 2.51 uIU/mL (0.358-3.74)
== END ==
PROVIDERS: PCP Family Medicine Geriatric Medicine; Visit Provider Family Medicine Geriatric Medicine
DX: E55.9 Vitamin D deficiency, unspecified (principal); R74.8 Abnormal levels of other serum enzymes; E11.9 Type 2 diabetes mellitus without complications; I10 Essential (primary) hypertension
CPT/HCPCS: 36415; 80053; 82306; 84443; 85025

== ENCOUNTER → 2020-05-11 11:23 | Outpatient (CLI) | payer MEDICARE, OTHER, SELFPAY ==
[2019-12-02 03:41] VITALS: BMI 24.7
--- NOTE | 2020-05-11 13:40 | NEURO ---
NCS and/or EMG Patient Report Ordering Doctor: Gaston Betts Chi DATE OF SERVICE: 05/11/20 Indication: Bilateral hand weakness and sensory changes. Right upper extremity electrodiagnostic testing was performed on 12/13/2019. Patient returns today for examination of the left upper extremity. Findings: The left median motor study recording the abductor pollicis brevis showed a normal amplitude, prolonged distal latency and slowed conduction velocity. The left ulnar motor study recording the abductor digiti minimi showed a normal amplitude, normal distal latency and slowed conduction velocity. No conduction block or focal slowing was present across the elbow. The median minimum F wave latency was absent. The ulnar F wave was mildly prolonged. The left median sensory response recording digit two showed a reduced amplitude, prolonged latency and markedly slowed conduction velocity. The left ulnar sensory response recording digit five showed a reduced amplitude, normal latency and load conduction velocity. The left radial sensory response recording over the extensor snuff box showed a reduced amplitude, normal latency and mildly slowed conduction velocity. Left median palmar latencies showed a reduced amplitude, prolonged latency and markedly slowed conduction velocity. Needle EMG of the left upper extremity muscles was performed. The cervical paraspinal muscles were not sampled as the patient is on therapeutic anticoagulation. No denervation was seen in any muscle, torsional activity was mildly increased in the abductor pollicis brevis. The triceps and flexor carpi radialis muscles revealed large amplitude, long duration, mildly polyphasic motor units with slightly reduced recruitment patterns. The deltoid muscle revealed normal motor unit morphology, activation and recruitment patterns. Impression: This is an abnormal study. 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 In addition, there is electrophysiologic evidence suggestive of a chronic left C7 radiculopathy. Thus, the patient has a double crush, two separate conditions that may result in upper extremity pain and similar sensory symptoms. Clinical correlation is needed in helping to determine the relative contributions of the two conditions to the patients symptoms. Please note: because of the two co-existent conditions, this study would be theoretically insensitive in detecting an additional superimposed brachial plexopathy. Finally, the diffuse slowed conduction velocities and low sensory amplitudes may represent an underlying peripheral polyneuropathy. This was not fully investigated as it was not the indication of the current study. Archie Wagoner D.O.
== END ==
PROVIDERS: PCP Family Medicine Geriatric Medicine; Referring Provider Family Medicine Geriatric Medicine; Visit Provider Family Medicine Geriatric Medicine
DX: R20.2 Paresthesia of skin (principal)
CPT/HCPCS: 95885; 95909

== ENCOUNTER → 2020-06-17 12:32 | Outpatient (CLI) | payer MEDICARE, OTHER, SELFPAY ==
[2019-12-02 03:41] VITALS: BMI 24.7
--- NOTE | 2020-06-17 12:36 | RAD_ITS ---
STUDY: X-RAY - PELVIS AND RIGHT HIP REASON FOR EXAM: Male, 80 years old. RT SIDED HIP PAIN STARTED ON WEDNESDAY, LAURIE DAWN TECHNIQUE: 3 views of the pelvis and hip. COMPARISON: None. FINDINGS: There is a non-specific bowel gas pattern. Normal visualized soft tissue structures. Normal bilateral iliac wings, sacroiliac joints and visualized sacrum. Normal bilateral superior and inferior pubic rami. Normal pubic symphysis. Normal bilateral ischial tuberosities. Normal visualized femoral head. Normal acetabulum. There is mild articular joint space narrowing of the hip. RAD/HIP, UNI W/ Pelvis 2-3 Views IMPRESSION: Mild degenerative changes of both hip joints. Electronically Signed: Jose L Shelton, at 13:16 EDT , Service support ,
== END ==
PROVIDERS: PCP Family Medicine Geriatric Medicine; Referring Provider Family Medicine Geriatric Medicine; Visit Provider Family Medicine Geriatric Medicine
DX: M25.551 Pain in right hip (principal)
CPT/HCPCS: 73502

== ENCOUNTER 2020-07-16 22:20 | Observation (INO) | payer MEDICARE, OTHER, SELFPAY ==
[2019-12-02 03:41] VITALS: BMI 24.7
[2020-07-16 22:20] VITALS: BP 143/75; PULSE 98; RESP 20; TEMP 38.1; O2SAT 91; BMI 28.2
[2020-07-16 22:44] VITALS: O2SAT 92
--- NOTE | 2020-07-16 22:49 | EKG12_ITS ---
Test Reason : SOB Blood Pressure : / mmHG Vent. Rate : 100 BPM Atrial Rate : 100 BPM P-R Int : 142 ms QRS Dur : 098 ms QT Int : 350 ms P-R-T Axes : 046 -66 067 degrees QTc Int : 451 ms Normal sinus rhythm Left anterior fascicular block Poor R wave progression Abnormal ECG Confirmed by ALEXA DURANT, JUSTIN ([id number]), news editor SARAH HERNANDEZ ([id number]) on 07/18/2020 9:17:46 AM Referred By: NATHAN Confirmed By:JUSTIN LIU MD
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
[2020-07-16 23:07] LABS: International Normalized Ratio 1.4; Prothrombin Time (Protime)PT. 17.1 SECONDS (11.7-14.9)
[2020-07-16 23:08] LABS: Partial Thromboplast Time 27.5 Seconds (24.1-36.2)
[2020-07-16 23:15] LABS: Absolute Lymphocyte Count 0.91 X10^3/uL (0.83-4.51); Absolute Neutrophil Count 3.7 X10^3/uL (2.0-7.7); Basophil# 0.03 X10^3/uL; Basophil% 0.5 % (0-1); Eosinophil# 0.03 X10^3/uL; Eosinophils% 0.5 % (0-5); Hemoglobin 14.9 g/dL (13.0-16.5); Lymphocyte # 0.91 X10^3/ul (4.0); Lymphocyte % 14.9 % (19-41); Mean Corp Hgb Conc 33.1 g/dL (32-36); Mean Corpuscular Hgb 30.8 pg (27.0-32.0); Mean Platelet Vol. 9.9 fl (6.2-12.0); Monocyte# 1.22 X10^3/uL; NRBC Flagged by Analyzer 0 % (0-5); Neutrophil # 3.71 X10^3/uL (2.7-7.7); Platelet Count 253 K/mm3 (150-450); RBC Distribution Width CV 13.1 % (11.6-14.6); RBC Distribution Width SD 44.7 fl (35.1-43.9); Red Blood Count 4.84 M/mm3 (4.6-6.2); White Blood Count 6.1 K/mm3 (4.4-11.0)
[2020-07-16 23:19] LABS: Bacteria 0 SEEN /hpf (None Seen); Mucous, Urine 0 SEEN /hpf (<or=2+); Red Blood Cells-Urine 0 SEEN /hpf (0-5); White Blood Cells 0 SEEN /hpf (0-5)
[2020-07-16 23:23] LABS: Color, Urine Yellow (Yellow); Glucose, Dipstick Normal (Normal); Ketone-Dipstick Negative (Negative); Leukocyte Esterase-Dipstick Negative /ul (Negative); Nitrite-Dipstick Negative (Negative); Occult Blood-Urine Negative /ul (Negative); Protein-Dipstick Negative (Negative); Urine Bilirubin Dipstick Negative (Negative); Urine Clarity Clear (Clear); Urine Urobilinogen Normal (Normal)
[2020-07-16 23:25] VITALS: TEMP 38
--- NOTE | 2020-07-16 23:29 | RAD_ITS ---
STUDY: X-RAY CHEST REASON FOR EXAM: Male, 80 years old. Shortness of breath, COPD. TECHNIQUE: AP portable chest. COMPARISON: PA and lateral chest December 02, 2019. FINDINGS: Lungs are hyperinflated. Blunting left costophrenic angle compatible with pleural scar. No focal infiltrates or effusions. No pneumothorax. Normal size heart. Normal mediastinum and neeta. Normal visualized pulmonary arteries. There is chronic obscuration of the aortic arch. Normal visualized thoracic spine. Normal visualized ribs, clavicles, and shoulders. There is no demonstrated abnormality of the visualized soft tissue structures of the upper abdomen. RAD/Chest 1 View (Portable) IMPRESSION: No acute cardiopulmonary disease. COPD. Electronically Signed: Rolf Cherry MD at 0:05 EDT , Service support ,
[2020-07-16 23:31] LABS: Squamous Epithelial Cells - UA 0-5 SEEN /hpf (0-5)
[2020-07-16] MEDS: Acetaminophen 500 MG Tablet 1000 MG PO (23:35)
[2020-07-16] MEDS: Ondansetron 4 MG/2 ML Vial IV (23:35)
[2020-07-16 23:37] VITALS: BP 127/70; PULSE 95; RESP 24; TEMP 37.7; O2SAT 95
[2020-07-16 23:37] LABS: Lactic Acid 1.8 mmol/L (0.4-1.9)
[2020-07-16 23:38] VITALS: BP 127/70; PULSE 95; RESP 16; TEMP 37.7; O2SAT 95
[2020-07-16 23:50] LABS: ALB/GLOB Ratio 0.9 RATIO (0.9-2.4); AST(SGOT) 30 U/L (15-37); Alanine Aminotransfer ALT/SGPT 49 U/L (16-61); Albumin, Serum 3.6 g/dL (3.2-5.0); Alkaline Phosphatase 92 U/L (45-117); Anion Gap 8 (5-15); BUN 16 mg/dL (7-18); BUN/Creat Ratio 13.6 RATIO (10-20); Calcium,Total 9.9 mg/dL (8.5-10.1); Chloride 103 mmol/L (98-107); Creatinine, Serum 1.18 mg/dL (0.70-1.30); EST Glomerular Filtration Rate 63 mL/min (>60); Est Glom Filt Rate - Afr Amer 77 mL/min (>60); Estimated Creatinine Clearance 51.59 ml/min; Globulin 4.1 g/dL (2.2-4.2); Glucose 163 mg/dL (74-106); Protein, Total 7.7 g/dL (6.4-8.2); Sodium Level 135 mmol/L (136-145)
[2020-07-16 23:58] LABS: Procalcitonin 0.12 ng/mL (0.00-0.09)
[2020-07-17] VITALS (10 sets, daily range): BP systolic 105–126; BP diastolic 55–80; PULSE 26–92; RESP 18–26; TEMP 36.6–37.7; O2SAT 91–97; BMI 25.7
--- NOTE | 2020-07-17 00:53 | CT_ITS ---
STUDY: CTA CHEST REASON FOR EXAM: Male, 80 years old. Shortness of breath, chills, positive Covid test, melanoma on chemotherapy. RADIATION DOSAGE (If Supplied By Facility): CTDIvol = ( 11.40 ) mGy, DLP = ( 476.95 ) mGycm TECHNIQUE: The examination was performed with the intravenous administration of IV 100mL [id number]. Post-processing of the angiographic images was performed, with multiplanar reformation and 3D reconstruction. Maximum intensity projections. Individualized dose optimization techniques were used for this CT. COMPARISON: CTA chest November 30, 2019. Chest x-ray July 16, 2020. FINDINGS: Normal enhancement of the main pulmonary artery and right and left pulmonary arteries. Normal enhancement of the bilateral peripheral pulmonary arteries. There is no demonstrated pulmonary embolism. Scattered atherosclerotic calcification of the thoracic aorta. There is no demonstrated aortic dissection. The heart is not enlarged. Coronary artery calcifications. No pericardial effusion. Small mediastinal lymph nodes largest precarinal measuring 1.3 x 1.1 cm unchanged. Normal hilar regions. Normal visualized trachea and bronchi. Emphysematous changes. No focal infiltrates or effusions. No pneumothorax. Normal chest wall structures. Nodular densities within the subcutaneous soft tissue left posterior inferior back, largest measuring 1.4 cm not significantly changed axial images 74 through 85 series 2. Normal osseous structures. Normal visualized upper abdomen. CT/CTA Chest W/WO Contrast IMPRESSION: No pulmonary embolus or thoracic aortic dissection. Nodular densities subcutaneous soft tissue left inferior back at approximately T11, not significantly changed. Emphysematous changes. Stable mildly enlarged mediastinal lymph node. Coronary artery calcifications. Electronically Signed: Rolf Cherry MD at 3:07 EDT , Service support ,
[2020-07-17 03:23] LABS: D-Dimer Quantitative (DVT/PE) 0.58 FEU/ug/m (0.27-0.49)
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
[2020-07-17] MEDS: dexAMETHasone 10 MG/ML Vial 6 MG PO.IVFORM (04:42)
[2020-07-17 07:31] LABS: Bedside Glucose 158 mg/dL (70-110)
[2020-07-17] MEDS: Lisinopril 20 MG Tablet PO (09:23)
[2020-07-17] MEDS: Enoxaparin 80 MG/0.8 ML Syringe SC (09:23)
[2020-07-17] MEDS: hydroCHLOROthiazide 12.5mg 12.5 MG PO (09:23)
[2020-07-17] MEDS: Loratadine 10 MG Tablet 5 MG PO (09:24)
[2020-07-17] MEDS: guaiFENesin 1,200 MG Tablet 1200 MG PO (09:24)
[2020-07-17] MEDS: dexAMETHasone 4 MG Tablet 6 MG PO (09:24)
[2020-07-17] MEDS: Insulin Lispro 100 UNIT/ML INSULN.PEN SC (12:07)
[2020-07-17 12:31] LABS: Bedside Glucose 211 mg/dL (70-110)
--- NOTE | 2020-07-17 12:45 | PCM.DC ---
- Discharge Diagnoses Current Active Problems: Current Active and Chronic Problems (Last Reviewed 07/17/20 @ 05:[address] Omega Ann MD) COVID-19 virus infection (Acute) SARS (severe acute respiratory syndrome) (Acute) Malignant melanoma (Chronic) Cor pulmonale (Chronic) Emphysema (Chronic) Bilateral pulmonary embolism (Chronic) Hematoma of rectus sheath (Chronic) Hypercoagulable state (Chronic) Osteoarthritis of knees, bilateral (Chronic) Emphysema (Chronic) HTN (hypertension) (Chronic) DDD (degenerative disc disease) (Chronic) 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) COPD (chronic obstructive pulmonary disease) (Chronic) You will use the following diet at home:: No restrictions Call your doctor if you observe: Fever of 101 or Higher, Shortness of breath Allergies/Adverse Reactions: Allergies Penicillins Adverse Reaction (Severe, Verified 12/02/19 03:56) Hives propoxyphene HCl [From Darvon] Adverse Reaction (Severe, Verified 12/02/19 03:56) Vomiting propoxyphene napsylate [From Darvocet-N 100] Adverse Reaction (Severe, Verified 12/02/19 03:56) Vomiting Medications to take at Discharge Albuterol Aerosols [Ventolin Aerosols] 1 inh INHALATION BID 08/10/16 Lisinopril/Hydrochlorothiazide [Lisinopril-Hctz 20-12.5 mg Tab] 1 tab PO BID 10/06/18 Dabrafenib Mesylate [Tafinlar] 50 mg PO BID 11/30/19 Levocetirizine Dihydrochloride 5 mg PO DAILY 07/16/20 Dexamethasone [Decadron] 6 mg PO DAILY #8 tab 07/17/20 Enoxaparin [Lovenox] 80 mg SC Q12@0600,1800 #10 syringe 07/17/20 Warfarin [Coumadin] 3 mg PO DAILY 07/17/20 Warfarin [Coumadin] 4 mg PO DAILY 07/17/20 The following prescriptions were given: Dexamethasone [Decadron] 6 mg PO DAILY #8 tab [facility] Enoxaparin [Lovenox] 80 mg SC Q12@0600,1800 #10 syringe Transmission Status: Pending to [facility] Primary Care Physician: Alpesh,Gaston Chi, MD [Primary Care Provider] - Within 1 Week Test Results: Test results from this visit will be discussed in further detail at your follow-up appointment, if applicable. Please Follow Up With: Jaren Knapp DO When: 2-3 weeks Proposed Discharge Date: 07/17/20
--- NOTE | 2020-07-17 12:46 | DS.PCM_ITS ---
Discharge Date and Diagnosis - Problem List Patient Problems: Active and Suspected Problems (Last Reviewed 07/17/20 @ 05:[address] Omega Ann MD) COVID-19 virus infection (Acute) SARS (severe acute respiratory syndrome) (Acute) Date of Admission: 07/17/20 Date of Discharge: 07/17/20 - Primary Discharge Diagnosis Acute Problems: Active Problems (Last Reviewed 07/17/20 @ 05:[address] Omega Ann MD) COVID-19 virus infection (Acute) SARS (severe acute respiratory syndrome) (Acute) - Secondary Discharge Diagnosis Chronic Problems: Chronic Problems (Last Reviewed 07/17/20 @ 05:[address] 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) COPD (chronic obstructive pulmonary disease) (Chronic) Hospital Course and Treatment Imaging Results: Clinical Impression(s) from Imaging Studies Chest X-Ray 07/16/20 23:29 IMPRESSION: No acute cardiopulmonary disease. COPD. Electronically Signed: Rolf Cherry MD at 0:05 EDT , Service support , Chest CTA 07/17/20 00:53 IMPRESSION: No pulmonary embolus or thoracic aortic dissection. Nodular densities subcutaneous soft tissue left inferior back at approximately T11, not significantly changed. Emphysematous changes. Stable mildly enlarged mediastinal lymph node. Coronary artery calcifications. Electronically Signed: Rolf Cherry MD at 3:07 EDT , Service support , Operations: None Procedures: None Summary of Care Provided: The patient is a 80 year old M shortness of breath. Patient was tested positive for COVID-19. Patient's vital signs are stable. Patient's oncologist on-call physician, Dr. Restrepo, recommended admission because of his history of melanoma. In the hospital, patient was stable, though he did have some low-grade temperatures. Patient was initiated on dexamethasone and is remained stable during this hospitalization. Had a conversation with the patient about though he has Covid he sees me pretty stable from that understanding his underlying malignancy and treatment. And he has been up ambulating to the restroom without any respiratory difficulties. I feel the patient can be discharged safely home and would continue with the remainder of his 10 days of dexamethasone which will be 8 more doses. Patient also has a history of venous thromboembolic disease and protein C deficiency. Patient's INR was subtherapeutic at 1.4. Patient will receive a prescription for enoxaparin to bridge him until his INR is therapeutic. Patient advised to follow-up with his primary care doctor as well as his oncologist. Patient advised that he could potentially get worse before he does ultimately get better from the COVID-19 if he does have increasing respiratory issues come back into the hospital. [] Patient Problems: Active and Suspected Problems (Last Reviewed 07/17/20 @ 05:[address] Omega Ann MD) COVID-19 virus infection (Acute) SARS (severe acute respiratory syndrome) (Acute) - Physical Exam Vitals/I&O's: Vital Signs Temp Pulse Resp BP Pulse Ox 37.6 C H 81 20 H 126/80 H 94 07/17/20 09:19 07/17/20 09:19 07/17/20 09:19 07/17/20 09:19 07/17/20 09:19 Oxygen Flow Rate (L/min) 2 Oxygen Delivery Method Room Air Weight: 79 kg Body Mass Index (BMI) 25.7 Finger Stick Blood Glucose 147 Intake and Output for Last 24 Hours 07/15/20 07/16/20 07/17/20 23:59 23:59 23:59 Intake Total 500 / 500 Balance 500 / 500 General: Alert, Cooperative, No apparent distress HEENT: Atraumatic, Normocephalic Oral: Moist Mucosa, No Gingival or Mucosal Lesions/ Ulcerations Neck: No Nodes, Thyroid Normal Size and Texture Lungs: Clear to auscultation, Normal air movement, No rhonchi, No wheeze, No rales Cardiovascular: Regular rate, Regular Rhythm, Normal S1, Normal S2, No murmurs Abdomen: Bowel Sounds Present, Soft, Non Tender, Non-Distended, No Hepato- splenomegaly Extremities: No edema, No Calf Tenderness Microbiology Past 72 Hours 07/16/20 22:52 Mucosa - Nasopharyngeal Respiratory Panel (PCR) - Final Laboratory Results 07/16/20 22:13: WBC 6.1, RBC 4.84, Hgb 14.9, Hct 45.0, MCV 93.0, MCH 30.8, MCHC 33.1, RDW Std Deviation 44.7 H, RDW Coeff of Zaid 13.1, Plt Count 253, MPV 9.9, Immature Gran % (Auto) 3.100 H, Neut % (Auto) 61.0, Lymph % (Auto) 14.9 L, [place] % (Auto) 20.0 H, Eos % (Auto) 0.5, Baso % (Auto) 0.5, Absolute Neuts (auto) 3.7, Absolute Lymphs (auto) 0.91, Nucleated RBC % 0 07/16/20 22:13: PT 17.1 H, INR 1.4, APTT 27.5 07/16/20 22:13: Sodium 135 L, Potassium 4.0, Chloride 103, Carbon Dioxide 24.0, Anion Gap 8, BUN 16, Creatinine 1.18, Estim Creat Clear Calc 51.59, Est GFR (MDRD) Af Amer 77, Est GFR (MDRD) Non-Af 63, BUN/Creatinine Ratio 13.6, Glucose 163 H, Calcium 9.9, Total Bilirubin 0.30, AST 30, ALT 49, Alkaline Phosphatase 92, Troponin I < 0.015, Total Protein 7.7, Albumin 3.6, Globulin 4.1, Albumin/Globulin Ratio 0.9 07/16/20 22:13: Lactic Acid 1.8 07/16/20 23:00: COVID-19 ([place]) Detected 07/16/20 23:05: Procalcitonin 0.12 H 07/16/20 23:05: Urine Color Yellow, Urine Clarity Clear, Urine pH 5.0, Ur Specific [place] 1.020, Urine Protein Negative, Urine Glucose (UA) Normal, Urine Ketones Negative, Urine Occult Blood Negative, Urine Nitrite Negative, Urine Bilirubin Negative, Urine Urobilinogen Normal, Ur Leukocyte Esterase Negative, Urine RBC 0 SEEN, Urine WBC 0 SEEN, Ur Squamous Epith Cells 0-5 SEEN, Urine Bacteria 0 SEEN, Urine Mucus 0 SEEN 07/16/20 23:05: D-Dimer Quant (PE/DVT) 0.58 H* 07/17/20 07:09: POC Glucose 158 H 07/17/20 11:57: POC Glucose 211 H Current Medications Acetaminophen (Acetaminophen 325 Mg Tablet) 650 mg PO Q6H PRN PRN PRN Reason: Pain Score 1-10/Temp > 100.7 F Al Hydroxide/Mg Hydroxide (Mag Hydrox/Al Hydrox/Simeth 30 Ml Udc) 30 ml PO Q6H PRN PRN PRN Reason: Gastric Burning Albuterol Sulfate (Albuterol Ih 8.5 Gm (Proair) Inhaler (200 Puffs)) 1 puff INHALATION Q4H PRN PRN PRN Reason: SOB/WHEEZING Dexamethasone (Dexamethasone 4 Mg Tablet) 6 mg PO DAILY [facility] Last Admin: 07/17/20 09:24 Dose: 6 mg Documented by: Dextrose (Dextrose 50%-Water 25 Gm/50 Ml Disp.Syrin) 0 gm IV X1 PRN; Protocol PRN Reason: Hypoglycemia Enoxaparin Sodium (Enoxaparin 80 Mg/0.8 Ml Syringe) 80 mg SC Q12 [facility] Last Admin: 07/17/20 09:23 Dose: 80 mg Documented by: Glucagon (Glucagon 1 Mg/Ml Syringe) 1 mg IM .X1 PRN PRN Reason: Hypoglycemia Guaifenesin (Guaifenesin 1,200 Mg Tablet) 1,200 mg PO BID [facility] Last Admin: 07/17/20 09:24 Dose: 1,200 mg Documented by: Hydrochlorothiazide (Hydrochlorothiazide 12.5mg) 12.5 mg PO BID [facility] Last Admin: 07/17/20 09:23 Dose: 12.5 mg Documented by: Sodium Chloride () 250 mls @ 15 mls/hr IV .[id number] PRN PRN Reason: Saline Flush Sodium Chloride () 250 mls @ 15 mls/hr IV .[id number] PRN PRN Reason: Additional IVPB Infusion Insulin Glargine (Insulin Glargine 100 Units/Ml Pen) 35 units SC QHS [facility] Insulin Human Lispro (Insulin Lispro 100 Unit/Ml Insuln.Pen) 0 unit SC ACHS [facility]; Protocol Last Admin: 07/17/20 12:07 Dose: 1 units Documented by: Lisinopril (Lisinopril 20 Mg Tablet) 20 mg PO BID [facility] Last Admin: 07/17/20 09:23 Dose: 20 mg Documented by: Loratadine (Loratadine 10 Mg Tablet) 5 mg PO DAILY [facility] Last Admin: 07/17/20 09:24 Dose: 5 mg Documented by: Melatonin (Melatonin 3 Mg Tablet) 3 mg PO QHS PRN PRN PRN Reason: INSOMNIA Non-Formulary Medication (Dabrafenib Mesylate [Tafinlar]) 2 tab PO BID [facility] Nutritional Formula (Lactose Free) (Glucerna Shake 120 Ml Liquid) 120 ml PO 4X/DAY [facility] Last Admin: 07/17/20 11:58 Dose: Not Given Documented by: Ondansetron HCl (Ondansetron 4 Mg/2 Ml Vial) 4 mg IV Q8H PRN PRN PRN Reason: NAUSEA/VOMITING Sodium Chloride (0.9% Saline Lock 10 Ml Syringe) 10 - 40 ml IV UD PRN PRN Reason: SALINE FLUSH Warfarin Sodium (Warfarin 5 Mg Tablet) 10 mg PO DAILY@1700 [facility] Discharge Diet: No Restrictions Discharge Activity: Return to Normal Activity Call your doctor if you observe: Fever of 101 or Higher, Shortness of breath Home Medications: Medications to take at Discharge Albuterol Aerosols [Ventolin Aerosols] 1 inh INHALATION BID 08/10/16 Lisinopril/Hydrochlorothiazide [Lisinopril-Hctz 20-12.5 mg Tab] 1 tab PO BID 10/06/18 Dabrafenib Mesylate [Tafinlar] 50 mg PO BID 11/30/19 Levocetirizine Dihydrochloride 5 mg PO DAILY 07/16/20 Dexamethasone [Decadron] 6 mg PO DAILY #8 tab 07/17/20 Enoxaparin [Lovenox] 80 mg SC Q12@0600,1800 #10 syringe 07/17/20 Warfarin [Coumadin] 3 mg PO DAILY 07/17/20 Warfarin [Coumadin] 4 mg PO DAILY 07/17/20 Following Prescriptions Were Given to Patient: Dexamethasone [Decadron] 6 mg PO DAILY #8 tab Transmission Status: Pending to [facility] Enoxaparin [Lovenox] 80 mg SC Q12@0600,1800 #10 syringe Transmission Status: Pending to [facility] Primary Care Physician: Gaston Betts Chi, MD [Primary Care Provider] - Within 1 Week Please Follow Up With: Jaren Knapp DO When: 2-3 weeks Disposition: Home Minutes spent on discharge:: 32 Patient Condition:: Good Medical Necessity - Tobacco Use Smoking Status: Former smoker Meaningful Use Info Meaningful Use Diagnoses (Choose all that apply): None applicable OBSV E&M: 67108 Observation care discharge
--- NOTE | 2020-07-17 15:00 | CASEMGMT ---
RN CM ASSESSMENT Pt COVID-19 positive and is isolation precautions. RN CM to pt's room and assessment completed via phone. Pt is A/O at this time and answers all questions appropriately. Care providers, pharmacy, and demographics verified/updated at this time. PCP: Dr Betts Specialists: Dr Knapp/Xochitl-oncology, Dr Sharp--pulmonology, Dr Robles--podiatry Preferred Pharmacy: Pt usually uses [facility] pharmacy. Meds (Decadron and Lovenox) have been e-scribed there. Pt states would like to have only the Decadron transferred to [facility] so he can take it home w/him. He states he will not take the Lovenox as he has had a large hematoma from it in the past. Per TOD Da Silva, she has notified Dr Garcia of this and reports pt is to just take his Coumadin. Pt inquired if he could have another INR checked before discharge. Dr Garcia made aware of pt request. Per Jose, no further INR draws here. Pt to f/u with his PCP. Pt made aware. Insurance: [employer] Prescription Benefit: Yes, [employer] Living Will/HPOA: Pt has both LW and Healthcare POA. Sister, Moriah, is listed as POA. Brother, Rodrigo is 1st alternative. Copies of both are on e-chart @ [facility] LNOK: , Eri Living Arrangements: Lives w/his in one-story home. One step to enter. Independent w/ADL's. /pt share home mgmt tasks. Transportation: Pt states drives self and states no transportation concerns at this time. will take him home @ discharge DME: States has the following DME: shower chair, cane, grab bars, walker, nebulizer. O2 @ 2 L/M through [employer]. Pt states as as needed. Pt states no need for further DME at this time. HHC/SNF: No history of either. Denies need for HHC. Pt states he has Palliative Care Ambulatory oxygen testing has been completed and pt does not qualify for additional home O2. Pt wishes to return home and states has no concerns with going home at time of discharge. CM to follow for any further discharge planning/needs. Pt voices no further concerns/needs at this time. Advised pt to ask for CM if any further questions/concerns/needs arise. Voices understanding. PLAN: Home w/ and discharge plans in place. Maggy SHETTYN RN CM
--- NOTE | 2020-07-18 14:04 | CASEMGMT ---
TOD CM DC PHONE CALL DC DATE: 07/17/2020 DC DISPOSITION: HOme with DC DIAGNOSIS: SARS COVID 2 Attempted call. No answer and no message no name identifier on messaging. Bg Alicea RN ACM
== END 2020-07-17 15:45 | disposition home or self-care (01) ==
LOC: ED 23:18 → MS2 07-17 06:33
PROVIDERS: Admitting Provider Hospitalist; Emergency Provider Student in an Organized Health Care Education/Training Program; PCP Family Medicine Geriatric Medicine
DX: U07.1 COVID-19 (principal); J12.89 Other viral pneumonia; J44.0 Chronic obstructive pulmonary disease with (acute) lower respiratory infection; I10 Essential (primary) hypertension; E11.65 Type 2 diabetes mellitus with hyperglycemia; I27.81 Cor pulmonale (chronic); M17.0 Bilateral primary osteoarthritis of knee; M50.320 Other cervical disc degeneration, mid-cervical region, unspecified level; S30.1XXA Contusion of abdominal wall, initial encounter; X58.XXXA Exposure to other specified factors, initial encounter; D68.59 Other primary thrombophilia; Z87.891 Personal history of nicotine dependence; Z86.711 Personal history of pulmonary embolism; Z86.718 Personal history of other venous thrombosis and embolism; Z79.899 Other long term (current) drug therapy; Z79.01 Long term (current) use of anticoagulants; Z85.820 Personal history of malignant melanoma of skin
CPT/HCPCS: 71045; 71275; 80053; 81001; 82962; 83605; 84145; 84484; 85025; 85379; 85610; 85730; 87040; 87086; 87633; 87635; 93005; 97802; 99285; J7030; Q9967; A4216; J2405; U0002

== ENCOUNTER 2020-07-18 09:30 | Inpatient (IN) | payer MEDICARE, OTHER, SELFPAY ==
[2020-07-17 04:58] VITALS: BMI 25.7
[2020-07-18] VITALS (11 sets, daily range): BP systolic 92–138; BP diastolic 48–75; PULSE 76–101; RESP 18–26; TEMP 37.5–39.6; O2SAT 94–100; BMI 29.5; BMI 26.2
--- NOTE | 2020-07-18 09:42 | EKG12_ITS ---
Test Reason : SSOB Blood Pressure : / mmHG Vent. Rate : 098 BPM Atrial Rate : 098 BPM P-R Int : 138 ms QRS Dur : 090 ms QT Int : 330 ms P-R-T Axes : 036 -66 061 degrees QTc Int : 421 ms Normal sinus rhythm Left anterior fascicular block Abnormal ECG Confirmed by JOSE DURANT, NATHAN ([id number]), graphic editor SARAH HERNANDEZ ([id number]) on 07/19/2020 9:31:54 AM Referred By: TL Confirmed By:NATHAN GARCIA MD
--- NOTE | 2020-07-18 09:42 | RAD_ITS ---
STUDY: X-RAY CHEST REASON FOR EXAM: Male, 80 years old. COUGH, POSITIVE FOR COVID, FEVER, SOB TECHNIQUE: Single AP portable view of the chest. COMPARISON: Comparison is made with prior study date 07/16/2020. FINDINGS: EKG electrodes are seen. Hyperinflation. Since prior study, there has been progressive infiltrate in the left lower lobe with blunting of the left costophrenic angle. Normal size heart. Normal mediastinum and neeta. Normal visualized pulmonary arteries. There is atherosclerotic calcification of the aortic arch with tortuosity. There are degenerative changes of the visualized thoracic spine. Normal visualized ribs, clavicles, and shoulders. There is no demonstrated abnormality of the visualized soft tissue structures of the upper abdomen. RAD/Chest 1 View (Portable) IMPRESSION: Progressive left lower lobe infiltrate with blunting of the left costophrenic angle. Electronically Signed: Jose L Shelton, at 10:30 EDT , Service support ,
--- NOTE | 2020-07-18 09:48 | ED.RN ---
PT IS SUPPOSED TO BE TAKING LOVENOX BUT REFUSES
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
[2020-07-18 10:05] LABS: Absolute Lymphocyte Count 0.68 X10^3/uL (0.83-4.51); Absolute Neutrophil Count 7.6 X10^3/uL (2.0-7.7); Basophil# 0.01 X10^3/uL; Basophil% 0.1 % (0-1); Hematocrit 44.3 % (40-54); Hemoglobin 14.4 g/dL (13.0-16.5); Lymphocyte # 0.68 X10^3/ul (4.0); Lymphocyte % 7.4 % (19-41); Mean Corp Hgb Conc 32.5 g/dL (32-36); Mean Corpuscular Hgb 30.6 pg (27.0-32.0); Mean Corpuscular Volume 94.3 fL (80-94); Mean Platelet Vol. 9.7 fl (6.2-12.0); Monocyte# 0.75 X10^3/uL; Monocyte% 8.2 % (0-10); NRBC Flagged by Analyzer 0 % (0-5); Neutrophil # 7.61 X10^3/uL (2.7-7.7); Neutrophil % 83.3 % (47-70); Platelet Count 255 K/mm3 (150-450); RBC Distribution Width SD 45.4 fl (35.1-43.9); White Blood Count 9.1 K/mm3 (4.4-11.0)
[2020-07-18] MEDS: Acetaminophen 500 MG Tablet 1000 MG PO (10:06)
[2020-07-18 10:22] LABS: ALB/GLOB Ratio 0.8 RATIO (0.9-2.4); AST(SGOT) 30 U/L (15-37); Alanine Aminotransfer ALT/SGPT 46 U/L (16-61); Albumin, Serum 3.4 g/dL (3.2-5.0); Alkaline Phosphatase 79 U/L (45-117); Anion Gap 8 (5-15); BUN 22 mg/dL (7-18); BUN/Creat Ratio 17.1 RATIO (10-20); Calcium,Total 9.6 mg/dL (8.5-10.1); Chloride 102 mmol/L (98-107); Creatinine, Serum 1.29 mg/dL (0.70-1.30); EST Glomerular Filtration Rate 57 mL/min (>60); Est Glom Filt Rate - Afr Amer 69 mL/min (>60); Estimated Creatinine Clearance 47.19 ml/min; Glucose 122 mg/dL (74-106); Lactic Acid 2.2 mmol/L (0.4-1.9); Potassium 4.1 mmol/L (3.5-5.1); Protein, Total 7.4 g/dL (6.4-8.2); Sodium Level 135 mmol/L (136-145)
[2020-07-18] MEDS: dexAMETHasone 4 MG Tablet 6 MG PO (10:43)
[2020-07-18 10:46] LABS: Color, Urine Yellow (Yellow); Glucose, Dipstick Normal (Normal); Ketone-Dipstick Negative (Negative); Leukocyte Esterase-Dipstick 25 /ul (Negative); Nitrite-Dipstick Negative (Negative); Occult Blood-Urine 250 /ul (Negative); Protein-Dipstick 30 mg/dl (Negative); Urine Bilirubin Dipstick Negative (Negative); Urine Clarity Sl. Cloudy (Clear); Urine Urobilinogen Normal (Normal)
[2020-07-18 10:52] LABS: International Normalized Ratio 1.3; Prothrombin Time (Protime)PT. 15.7 SECONDS (11.7-14.9)
[2020-07-18 10:53] LABS: Partial Thromboplast Time 26.2 Seconds (24.1-36.2)
[2020-07-18 10:54] LABS: Bacteria 1+ /hpf (None Seen); Red Blood Cells-Urine 5-10 SEEN /hpf (0-5); Squamous Epithelial Cells - UA 0-5 SEEN /hpf (0-5); White Blood Cells 0-5 SEEN /hpf (0-5)
[2020-07-18 10:55] LABS: Mucous, Urine RARE /hpf (<or=2+)
[2020-07-18] MEDS: Ondansetron ODT 4 MG Tablet PO (11:43)
--- NOTE | 2020-07-18 13:21 | CON.PCM_ITS ---
Problem List (1) COVID-19 virus infection Status: Acute Reason for Consult: covid Consulted by: Dr. Garcia History of Present Illness: The patient is a 80 year old M with metastatic melanoma, admitted 07/16 with fever, cough, not feeling well. Dx with covid. Discharged the next morning on dexamethasone, came back today with worsening symptoms. Reports about 2 weeks of increased cough, intermittent headache, fatigue. Possible mild aches. No change in taste/smell. has also been sick for about 2 weeks. No known sick contacts or covid exposures. Is on home O2 as needed. Came back this AM due to worse nausea, dyspnea, fever, and cough with frothy sputum. CXR with concern for pneumonia, admitted on dex, azithro, and ceftriaxone. Full ROS performed and neg except as noted above. - Medical History Past Medical History (Chronic Problems): Chronic Problems (Last Reviewed 07/17/20 @ 05:[address] 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) COPD (chronic obstructive pulmonary disease) (Chronic) Allergies/Adverse Reactions: Allergies Penicillins Adverse Reaction (Severe, Verified 07/18/20 09:38) Hives propoxyphene HCl [From Darvon] Adverse Reaction (Severe, Verified 07/18/20 09: 38) Vomiting propoxyphene napsylate [From Darvocet-N 100] Adverse Reaction (Severe, Verified 07/18/20 09:38) Vomiting Home Medications: Ambulatory Orders Medication Instructions Recorded Albuterol Aerosols [Ventolin 1 inh INHALATION BID 08/10/16 Aerosols] Lisinopril/Hydrochlorothiazide 1 tab PO BID 10/06/18 [Lisinopril-Hctz 20-12.5 mg Tab] Dabrafenib Mesylate [Tafinlar] 50 mg PO BID 11/30/19 Dexamethasone [Decadron] 6 mg PO DAILY #8 tab 07/17/20 Warfarin [Coumadin] 3 mg PO DAILY 07/17/20 Warfarin [Coumadin] 4 mg PO DAILY 07/17/20 - Social History SMOKING STATUS:: Former smoker Vital Signs Temp Pulse Resp BP Pulse Ox 99.5 F H 90 18 110/65 99 07/18/20 12:08 07/18/20 12:08 07/18/20 12:08 07/18/20 12:08 07/18/20 12:08 Oxygen Flow Rate (L/min) 2 Oxygen Delivery Method Nasal Cannula Weight: 80.513 kg Body Mass Index (BMI) 26.2 Finger Stick Blood Glucose 147 Microbiology Past 72 Hours 07/18/20 10:35 Legionella Antigen - Final Urine, Clean Catch Streptococcus pneumoniae Antigen (M - Final Laboratory Tests Past 24 Hrs 07/18/20 07/18/20 07/18/20 09:42 09:42 09:42 WBC 9.1 RBC 4.70 Hgb 14.4 Hct 44.3 MCV 94.3 H MCH 30.6 MCHC 32.5 RDW Std Deviation 45.4 H RDW Coeff of Zaid 13.0 Plt Count 255 MPV 9.7 Immature Gran % (Auto) 1.000 H Neut % (Auto) 83.3 H Lymph % (Auto) 7.4 L Granite % (Auto) 8.2 Eos % (Auto) 0.0 Baso % (Auto) 0.1 Absolute Neuts (auto) 7.6 Absolute Lymphs (auto) 0.68 L Nucleated RBC % 0 PT Cancelled INR Cancelled APTT Cancelled Sodium 135 L Potassium 4.1 Chloride 102 Carbon Dioxide 25.0 Anion Gap 8 BUN 22 H Creatinine 1.29 Estim Creat Clear Calc 47.19 Est GFR (MDRD) Af Amer 69 Est GFR (MDRD) Non-Af 57 L BUN/Creatinine Ratio 17.1 Glucose 122 H Lactic Acid Calcium 9.6 Total Bilirubin 0.40 AST 30 ALT 46 Alkaline Phosphatase 79 Total Protein 7.4 Albumin 3.4 Globulin 4.0 Albumin/Globulin Ratio 0.8 L Urine Color Urine Clarity Urine pH Ur Specific [place] Urine Protein Urine Glucose (UA) Urine Ketones Urine Occult Blood Urine Nitrite Urine Bilirubin Urine Urobilinogen Ur Leukocyte Esterase Urine RBC Urine WBC Ur Squamous Epith Cells Urine Bacteria Urine Mucus 07/18/20 07/18/20 07/18/20 09:42 09:55 10:35 WBC RBC Hgb Hct MCV MCH MCHC RDW Std Deviation RDW Coeff of Zaid Plt Count MPV Immature Gran % (Auto) Neut % (Auto) Lymph % (Auto) Granite % (Auto) Eos % (Auto) Baso % (Auto) Absolute Neuts (auto) Absolute Lymphs (auto) Nucleated RBC % PT 15.7 H INR 1.3 APTT 26.2 Sodium Potassium Chloride Carbon Dioxide Anion Gap BUN Creatinine Estim Creat Clear Calc Est GFR (MDRD) Af Amer Est GFR (MDRD) Non-Af BUN/Creatinine Ratio Glucose Lactic Acid 2.2 H* Calcium Total Bilirubin AST ALT Alkaline Phosphatase Total Protein Albumin Globulin Albumin/Globulin Ratio Urine Color Yellow Urine Clarity Sl. Cloudy Urine pH 5.0 Ur Specific [place] 1.020 Urine Protein 30 H Urine Glucose (UA) Normal Urine Ketones Negative Urine Occult Blood 250 H Urine Nitrite Negative Urine Bilirubin Negative Urine Urobilinogen Normal Ur Leukocyte Esterase 25 H Urine RBC 5-10 SEEN Urine WBC 0-5 SEEN Ur Squamous Epith Cells 0-5 SEEN Urine Bacteria 1+ Urine Mucus RARE 07/18/20 15:00 WBC RBC Hgb Hct MCV MCH MCHC RDW Std Deviation RDW Coeff of Zaid Plt Count MPV Immature Gran % (Auto) Neut % (Auto) Lymph % (Auto) Granite % (Auto) Eos % (Auto) Baso % (Auto) Absolute Neuts (auto) Absolute Lymphs (auto) Nucleated RBC % PT INR APTT Sodium Potassium Chloride Carbon Dioxide Anion Gap BUN Creatinine Estim Creat Clear Calc Est GFR (MDRD) Af Amer Est GFR (MDRD) Non-Af BUN/Creatinine Ratio Glucose Lactic Acid Pending Calcium Total Bilirubin AST ALT Alkaline Phosphatase Total Protein Albumin Globulin Albumin/Globulin Ratio Urine Color Urine Clarity Urine pH Ur Specific [place] Urine Protein Urine Glucose (UA) Urine Ketones Urine Occult Blood Urine Nitrite Urine Bilirubin Urine Urobilinogen Ur Leukocyte Esterase Urine RBC Urine WBC Ur Squamous Epith Cells Urine Bacteria Urine Mucus - Other Studies Radiology: [] reviewed cxr images, L base infiltrate Other Studies: [] Route of nutrition/ use of supplements: [] Nutritional Intake: [] IV Site: [] Rincon Catheter: [] - Physical Exam General: Alert, Oriented x3, Cooperative, No apparent distress HEENT: Atraumatic, PERRLA, EOMI Neck: Supple, No Nodes Lungs: Diminished - L base., Rhonchi - some scattered rhonchi Cardiovascular: Regular rate, Regular Rhythm Abdomen: Soft, Non Tender, Non-Distended Extremities: No edema Skin: No rashes IV Site: Peripheral, without redness Musculoskeletal: No Tenderness to Palpation of Joints or Extremities Neurological: Cranial nerves II-XII grossly intact - Assessment/Plan Antibiotics: [] Assessment/Plan: [] Active and Suspected Problems (Last Reviewed 07/17/20 @ 05:[address] Omega Ann MD) COVID-19 virus infection (Acute) Severe sepsis (Acute) CAP (community acquired pneumonia) (Acute) Fever, hypoxia, lactic acidosis, recent covid diagnosis, and new focal L base infiltrate on cxr. Recent CTA neg for PE. H/o metastatic melanoma and copd. It's not clear when he came down with covid, but it could have been present up to 2 weeks ago. has also been sick during that time frame, encouraged her to get tested as well. Given acute worsening and appearance on cxr, this does seem most consistent with a new bacterial pneumonia. UAgs neg. Sputum cx pending. Agree with azithro, ceftriaxone, and dex for now. Will not do remdesivir and plasma at this time, and he is in agreement. Will follow, thank you
[2020-07-18 14:02] LABS: Reflex Lactate? Y
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
[2020-07-18 15:55] LABS: Lactic Acid 1.9 mmol/L (0.4-1.9)
[2020-07-18] MEDS: 0.9% Saline Lock 10 ML Syringe IV (17:07)
[2020-07-18] MEDS: Enoxaparin 80 MG/0.8 ML Syringe SC ×2 (17:07→22:19)
[2020-07-18] MEDS: Lisinopril 20 MG Tablet PO (22:20)
[2020-07-18] MEDS: hydroCHLOROthiazide 12.5mg 12.5 MG PO (22:20)
[2020-07-18] MEDS: Acetaminophen 325 MG Tablet 650 MG PO (22:20)
[2020-07-19] VITALS (9 sets, daily range): BP systolic 81–105; BP diastolic 50–66; PULSE 73–97; RESP 18–20; TEMP 36.6–38.4; O2SAT 92–97
[2020-07-19 06:06] LABS: Absolute Lymphocyte Count 0.41 X10^3/uL (0.83-4.51); Absolute Neutrophil Count 6.8 X10^3/uL (2.0-7.7); Basophil# 0.01 X10^3/uL; Basophil% 0.1 % (0-1); Eosinophil# 0.13 X10^3/uL; Eosinophils% 1.6 % (0-5); Hematocrit 43.5 % (40-54); Hemoglobin 13.9 g/dL (13.0-16.5); Lymphocyte # 0.41 X10^3/ul (4.0); Mean Corpuscular Hgb 30.3 pg (27.0-32.0); Mean Platelet Vol. 9.8 fl (6.2-12.0); Monocyte# 0.72 X10^3/uL; Monocyte% 8.9 % (0-10); NRBC Flagged by Analyzer 0 % (0-5); Neutrophil # 6.82 X10^3/uL (2.7-7.7); Neutrophil % 83.9 % (47-70); POSITIVE DIFFERENTIAL YES; Platelet Count 237 K/mm3 (150-450); RBC Distribution Width CV 13.2 % (11.6-14.6); RBC Distribution Width SD 46.6 fl (35.1-43.9); Red Blood Count 4.58 M/mm3 (4.6-6.2); White Blood Count 8.1 K/mm3 (4.4-11.0)
[2020-07-19 06:15] LABS: International Normalized Ratio 1.3; Prothrombin Time (Protime)PT. 16.1 SECONDS (11.7-14.9)
[2020-07-19 06:17] LABS: Differential Indicated SCAN CRITERIA MET
[2020-07-19 06:33] LABS: Anion Gap 9 (5-15); BUN 28 mg/dL (7-18); BUN/Creat Ratio 23.7 RATIO (10-20); Calcium,Total 8.7 mg/dL (8.5-10.1); Chloride 102 mmol/L (98-107); Creatinine, Serum 1.18 mg/dL (0.70-1.30); EST Glomerular Filtration Rate 63 mL/min (>60); Est Glom Filt Rate - Afr Amer 77 mL/min (>60); Estimated Creatinine Clearance 51.59 ml/min; Glucose 126 mg/dL (74-106); Potassium 4.5 mmol/L (3.5-5.1); Sodium Level 136 mmol/L (136-145)
[2020-07-19 06:46] LABS: Differential Comment SCANNED
[2020-07-19] MEDS: Acetaminophen 325 MG Tablet 650 MG PO ×2 (08:27→22:39)
[2020-07-19] MEDS: Enoxaparin 80 MG/0.8 ML Syringe SC ×2 (08:27→22:36)
[2020-07-19] MEDS: hydroCHLOROthiazide 12.5mg 12.5 MG PO (08:27)
[2020-07-19] MEDS: Lisinopril 20 MG Tablet PO (08:27)
[2020-07-19] MEDS: dexAMETHasone 4 MG Tablet 6 MG PO (08:27)
[2020-07-19] MEDS: Ondansetron 4 MG/2 ML Vial IV (08:27)
[2020-07-19] MEDS: 0.9% Saline Lock 10 ML Syringe IV ×2 (08:28→10:28)
--- NOTE | 2020-07-19 09:03 | CASEMGMT ---
RN CM Assessment Note Introduced role of CM to patient. Demographics, PCP verified. Patient states he is feeling very weak, but able to speak for a short conversation. Patient was agreeable to have RN CM call his . Call to - she states the patient does have home oxygen through [facility]. She is very concerned re: his prognosis as he has a history of cancer and COPD. states they don't really have anybody to bring groceries or supplies. Patient has a brother in [place]. TOD KATHLEEN discussed on line shopping with delivery, however they do not have an internet accessible computer. RN FRANNIE encouraged to consider contacting friends, neighbors for assistance as she is also under quarantine. She has contacted her physician in [place], however has not heard from physician yet. Presentation: shortness of breath Diagnosis: COVID-19 PCP: Dr. Betts Insurance: [facility] Preferred Pharmacy: [id number] Prescription Benefit: yes LNOK: , Eri Mace Living Arrangements: Lives independently with his , Eri. Tranportation: patient and drive DME: walker, cane. Pt has oxygen through [facility] at home- concentrator and portability. HHC: none SNF: none Patient DC Goals: Home on discharge DC Plan: anticipate home with home oxygen. Will follow PT/OT for recommendations if patient continues to feel weak. Has home oxygen. CM available for discharge planning coordination. Contact CM for any concerns/needs that may arise. Bg LEE RN ACM
[2020-07-19] MEDS: 0.9% Normal Saline 1,000 ML 150 ML IV (11:50)
--- NOTE | 2020-07-19 15:01 | PCM.PN.HOSP ---
Patient Problems: Active and Suspected Problems (Last Reviewed 07/18/20 @ 15:[address] Manoj Garcia, DO) COVID-19 virus infection (Acute) Severe sepsis (Acute) CAP (community acquired pneumonia) (Acute) Reason for Visit: COVID Subjective: Breathing well. Notes that his BP is low chronically. Vitals/I&O's: Vital Signs Temp Pulse Resp BP Pulse Ox 36.9 C 77 20 H 93/55 L 96 07/19/20 13:47 07/19/20 13:47 07/19/20 13:47 07/19/20 13:47 07/19/20 13:47 Oxygen Flow Rate (L/min) 5 Oxygen Delivery Method Nasal Cannula Weight: 80.513 kg Body Mass Index (BMI) 26.2 Finger Stick Blood Glucose 147 Intake and Output for Last 24 Hours 07/17/20 07/18/20 07/19/20 23:59 23:59 23:59 Intake Total 658.75 / 658.75 412.75 / 412.75 Output Total 475 / 475 325 / 325 Balance 183.75 / 183.75 87.75 / 87.75 General: Alert, No apparent distress HEENT: Atraumatic, Normocephalic Oral: Moist Mucosa, No Gingival or Mucosal Lesions/ Ulcerations Neck: No Nodes, Thyroid Normal Size and Texture Lungs: Clear to auscultation, Normal air movement, No rhonchi, No wheeze Cardiovascular: Regular rate, Regular Rhythm, Normal S1, Normal S2, No murmurs Abdomen: Bowel Sounds Present, Soft, Non Tender, Non-Distended, No Hepato-splenomegaly Extremities: No edema, No Calf Tenderness Microbiology Past 72 Hours 07/18/20 10:35 Urine, Clean Catch Urine Culture - Preliminary Mixed Gram Positive Organisms 07/18/20 10:35 Urine, Clean Catch Legionella Antigen - Final 07/18/20 10:35 Urine, Clean Catch Streptococcus pneumoniae Antigen (M - Final Laboratory Results 07/18/20 15:00: Lactic Acid 1.9 07/19/20 04:50: WBC 8.1, RBC 4.58 L, Hgb 13.9, Hct 43.5, MCV 95.0 H, MCH 30.3, MCHC 32.0, RDW Std Deviation 46.6 H, RDW Coeff of Zaid 13.2, Plt Count 237, MPV 9.8, Immature Gran % (Auto) 0.500, Neut % (Auto) 83.9 H, Lymph % (Auto) 5.0 L, [facility] % (Auto) 8.9, Eos % (Auto) 1.6, Baso % (Auto) 0.1, Absolute Neuts (auto) 6.8, Absolute Lymphs (auto) 0.41 L, Nucleated RBC % 0, Differential Comment SCANNED 07/19/20 04:50: PT 16.1 H, INR 1.3 07/19/20 04:50: Sodium 136, Potassium 4.5, Chloride 102, Carbon Dioxide 25.0, Anion Gap 9, BUN 28 H, Creatinine 1.18, Estim Creat Clear Calc 51.59, Est GFR (MDRD) Af Amer 77, Est GFR (MDRD) Non-Af 63, BUN/Creatinine Ratio 23.7 H, Glucose 126 H, Calcium 8.7 Current Medications Acetaminophen (Acetaminophen 325 Mg Tablet) 650 mg PO Q6H PRN PRN PRN Reason: Pain Score 1-10/Temp > 100.7 F Last Admin: 07/19/20 08:27 Dose: 650 mg Documented by: Albuterol Sulfate (Albuterol Ih 8.5 Gm (Proair) Inhaler (200 Puffs)) 2 puff INHALATION BID.RT [facility] Last Admin: 07/19/20 08:28 Dose: 2 puff Documented by: Dexamethasone (Dexamethasone 4 Mg Tablet) 6 mg PO DAILY [facility] Last Admin: 07/19/20 08:27 Dose: 6 mg Documented by: Enoxaparin Sodium (Enoxaparin 80 Mg/0.8 Ml Syringe) 80 mg SC Q12 [facility] Last Admin: 07/19/20 08:27 Dose: 80 mg Documented by: Ceftriaxone Sodium 2 gm/ (Sodium Chloride) 50 mls @ 100 mls/hr IV Q24 [facility] Stop: 07/26/20 10:01 Last Infusion: 07/19/20 12:18 Dose: Infused Documented by: Azithromycin 500 mg/ Dextrose 255 mls @ 250 mls/hr IV Q24 [facility] Stop: 07/24/20 10:01 Last Infusion: 07/19/20 11:29 Dose: Infused Documented by: Sodium Chloride () 500 mls @ 15 mls/hr IV PRN PRN PRN Reason: Blood Transfusion Sodium Chloride () 250 mls @ 15 mls/hr IV .[id number] PRN PRN Reason: Saline Flush Last Infusion: 07/19/20 11:50 Dose: Infused Documented by: Sodium Chloride () 250 mls @ 15 mls/hr IV .[id number] PRN PRN Reason: Additional IVPB Infusion Ondansetron HCl (Ondansetron 4 Mg/2 Ml Vial) 4 mg IV Q6H PRN PRN PRN Reason: NAUSEA/VOMITING Last Admin: 07/19/20 08:27 Dose: 4 mg Documented by: Senna/Docusate Sodium (Senna/Docusate Sodium 1 Tablet) 2 tablet PO DAILY PRN PRN PRN Reason: CONSTIPATION Sodium Chloride (0.9% Saline Lock 10 Ml Syringe) 10 - 40 ml IV UD PRN PRN Reason: SALINE FLUSH Last Admin: 07/19/20 10:28 Dose: 10 ml Documented by: Warfarin Sodium (Warfarin 3 Mg Tablet) 3 mg PO DAILY@2200 [facility] Last Admin: 07/18/20 22:19 Dose: 3 mg Documented by: Warfarin Sodium (Warfarin 4 Mg Tablet) 4 mg PO DAILY@2200 [facility] Last Admin: 07/18/20 22:20 Dose: 4 mg Documented by: STROKE Vital Signs/Narrative: Vital Signs Temp Pulse Resp BP Pulse Ox 07/19/20 13:47 36.9 C 77 20 H 93/55 L 96 07/19/20 11:51 37.2 C 75 20 H 81/50 L 96 Medical Necessity - Tobacco Use Smoking Status: Former smoker Assessment/Plan All Active Problems (Last Reviewed 07/18/20 @ 15:[address] Manoj Garcia, DO) COVID-19 virus infection (Acute) SARS (severe acute respiratory syndrome) (Acute) Severe sepsis (Acute) CAP (community acquired pneumonia) (Acute) 1. Acute Covid pneumonia: Continue with dexamethasone. Consultation to infectious disease. Infectious disease concern for new bacterial pneumonia. Patient going to receive remdesivir nor plasma at this time. 2. Suspected pneumococcal pneumonia: Could be secondary pneumonia related with Covid. Patient on azithromycin and ceftriaxone. 3. Severe sepsis: POA. 2/2 COVID and PNA 4. Malignant melanoma: Follow-up with oncology as outpatient. Complicates overall care. 5. COPD: Chronic. Complicates his his respiratory status. 6. Venous thromboembolic disease: Patient on warfarin chronically. Patient was on enoxaparin while he was in the hospital. He declined enoxaparin as outpatient given history of hematoma. Will continue with enoxaparin until his INR is therapeutic between 2 and 3. 7. Advanced care planning: Discussed with the patient. Patient stated initially wanted CPR but did not want to be intubated. Discussed with them further that that would not be feasible if he were to undergo cardiac arrest and potentially survive that he would require life support. I told him that if he does not want to be intubated that he should not have CPR. He was in agreement therefore, patient is DNR Comfort Care arrest no intubation. 8. Hypotension: hold lisinopril and HCTZ. monitor. Pt states that it is chronic. Inpatient E&M: [id number] Subs Hosp L2
--- NOTE | 2020-07-19 15:33 | PN.ID_ITS ---
Patient Problems: Active and Suspected Problems (Last Reviewed 07/18/20 @ 15:[address] Manoj Garcia, DO) COVID-19 virus infection (Acute) Severe sepsis (Acute) CAP (community acquired pneumonia) (Acute) Subjective: Feeling better today, breathing better, more energy, fever much improved. - Physical Exam Vitals/I&O's: Vital Signs Temp Pulse Resp BP Pulse Ox 98.5 F 77 20 H 93/55 L 96 07/19/20 13:47 07/19/20 13:47 07/19/20 13:47 07/19/20 13:47 07/19/20 13:47 Oxygen Flow Rate (L/min) 5 Oxygen Delivery Method Nasal Cannula Weight: 80.513 kg Body Mass Index (BMI) 26.2 Finger Stick Blood Glucose 147 Intake and Output for Last 24 Hours 07/17/20 07/18/20 07/19/20 23:59 23:59 23:59 Intake Total 658.75 / 658.75 412.75 / 412.75 Output Total 475 / 475 325 / 325 Balance 183.75 / 183.75 87.75 / 87.75 General: Alert, Cooperative, No apparent distress Lungs: Diminished Cardiovascular: Regular rate, Regular Rhythm Abdomen: Soft, Non Tender, Non-Distended Skin: No rashes Microbiology Past 72 Hours 07/18/20 10:35 Urine, Clean Catch Urine Culture - Preliminary Mixed Gram Positive Organisms 07/18/20 10:35 Urine, Clean Catch Legionella Antigen - Final 07/18/20 10:35 Urine, Clean Catch Streptococcus pneumoniae Antigen (M - Final Laboratory Results 07/18/20 15:00: Lactic Acid 1.9 07/19/20 04:50: WBC 8.1, RBC 4.58 L, Hgb 13.9, Hct 43.5, MCV 95.0 H, MCH 30.3, MCHC 32.0, RDW Std Deviation 46.6 H, RDW Coeff of Zaid 13.2, Plt Count 237, MPV 9.8, Immature Gran % (Auto) 0.500, Neut % (Auto) 83.9 H, Lymph % (Auto) 5.0 L, [place] % (Auto) 8.9, Eos % (Auto) 1.6, Baso % (Auto) 0.1, Absolute Neuts (auto) 6.8, Absolute Lymphs (auto) 0.41 L, Nucleated RBC % 0, Differential Comment SCANNED 07/19/20 04:50: PT 16.1 H, INR 1.3 07/19/20 04:50: Sodium 136, Potassium 4.5, Chloride 102, Carbon Dioxide 25.0, Anion Gap 9, BUN 28 H, Creatinine 1.18, Estim Creat Clear Calc 51.59, Est GFR (MDRD) Af Amer 77, Est GFR (MDRD) Non-Af 63, BUN/Creatinine Ratio 23.7 H, Glucose 126 H, Calcium 8.7 Current Medications Acetaminophen (Acetaminophen 325 Mg Tablet) 650 mg PO Q6H PRN PRN PRN Reason: Pain Score 1-10/Temp > 100.7 F Last Admin: 07/19/20 08:27 Dose: 650 mg Documented by: Albuterol Sulfate (Albuterol Ih 8.5 Gm (Proair) Inhaler (200 Puffs)) 2 puff INHALATION BID.RT REPLACED BY [facility] Last Admin: 07/19/20 08:28 Dose: 2 puff Documented by: Dexamethasone (Dexamethasone 4 Mg Tablet) 6 mg PO DAILY [facility]PL[facility] BY [facility] Last Admin: 07/19/20 08:27 Dose: 6 mg Documented by: Enoxaparin Sodium (Enoxaparin 80 Mg/0.8 Ml Syringe) 80 mg SC Q12 [facility]PLACED BY [facility] Last Admin: 07/19/20 08:27 Dose: 80 mg Documented by: Ceftriaxone Sodium 2 gm/ (Sodium Chloride) 50 mls @ 100 mls/hr IV Q24 [facility] Stop: 07/26/20 10:01 Last Infusion: 07/19/20 12:18 Dose: Infused Documented by: Azithromycin 500 mg/ Dextrose 255 mls @ 250 mls/hr IV Q24 [facility] Stop: 07/24/20 10:01 Last Infusion: 07/19/20 11:29 Dose: Infused Documented by: Sodium Chloride () 500 mls @ 15 mls/hr IV PRN PRN PRN Reason: Blood Transfusion Sodium Chloride () 250 mls @ 15 mls/hr IV .[id number] PRN PRN Reason: Saline Flush Last Infusion: 07/19/20 11:50 Dose: Infused Documented by: Sodium Chloride () 250 mls @ 15 mls/hr IV .[id number] PRN PRN Reason: Additional IVPB Infusion Ondansetron HCl (Ondansetron 4 Mg/2 Ml Vial) 4 mg IV Q6H PRN PRN PRN Reason: NAUSEA/VOMITING Last Admin: 07/19/20 08:27 Dose: 4 mg Documented by: Senna/Docusate Sodium (Senna/Docusate Sodium 1 Tablet) 2 tablet PO DAILY PRN PRN PRN Reason: CONSTIPATION Sodium Chloride (0.9% Saline Lock 10 Ml Syringe) 10 - 40 ml IV UD PRN PRN Reason: SALINE FLUSH Last Admin: 07/19/20 10:28 Dose: 10 ml Documented by: Warfarin Sodium (Warfarin 5 Mg Tablet) 10 mg PO DAILY@1700 REPLACED BY [facility] Medical Necessity - Tobacco Use Smoking Status: Former smoker Route of nutrition/ use of supplements: [] Nutritional Intake: [] IV Site: [] Rincon Catheter: [] - Assessment/Plan Antibiotics: [] Assessment/Plan: [] Active and Suspected Problems (Last Reviewed 07/17/20 @ 05:[address] Omega Ann MD) COVID-19 virus infection (Acute) Severe sepsis (Acute) CAP (community acquired pneumonia) (Acute) Fever, hypoxia, lactic acidosis, recent covid diagnosis, and new focal L base infiltrate on cxr. Recent CTA neg for PE. H/o metastatic melanoma and copd. It's not clear when he came down with covid, but it could have been present up to 2 weeks ago. has also been sick during that time frame, encouraged her to get tested as well. Given acute worsening and appearance on cxr, this does seem most consistent with a new bacterial pneumonia. UAgs neg. Sputum cx pending. Cont with azithro, ceftriaxone, and dex for now. He is feeling much better today, still febrile but much improved tmax. Plan will be for home to complete 10 days total of dex and po abx for CAP. Will follow
[2020-07-20 05:24] VITALS: BP 112/58; PULSE 86; RESP 20; TEMP 37.2; O2SAT 93
[2020-07-20] MEDS: Acetaminophen 325 MG Tablet 650 MG PO ×3 (05:27→22:46)
[2020-07-20 08:40] LABS: International Normalized Ratio 1.3; Prothrombin Time (Protime)PT. 15.5 SECONDS (11.7-14.9)
[2020-07-20 08:41] VITALS: BP 112/68; PULSE 84; RESP 18; TEMP 37.6; O2SAT 95
[2020-07-20] MEDS: dexAMETHasone 4 MG Tablet 6 MG PO (08:46)
[2020-07-20] MEDS: Enoxaparin 80 MG/0.8 ML Syringe SC ×2 (08:46→20:03)
--- NOTE | 2020-07-20 13:41 | PN_ITS ---
Patient Problems: Active and Suspected Problems (Last Reviewed 07/18/20 @ 15:[address] Manoj Garcia, DO) COVID-19 virus infection (Acute) Severe sepsis (Acute) CAP (community acquired pneumonia) (Acute) Reason for Visit: COVID. Pneumonia Subjective: Having chills currently. Vitals/I&O's: Vital Signs Temp Pulse Resp BP Pulse Ox 37.6 C H 84 18 112/68 95 07/20/20 08:41 07/20/20 08:41 07/20/20 08:41 07/20/20 08:41 07/20/20 08:41 Oxygen Flow Rate (L/min) 5 Oxygen Delivery Method Nasal Cannula Weight: 80.513 kg Body Mass Index (BMI) 26.2 Finger Stick Blood Glucose 147 Intake and Output for Last 24 Hours 07/18/20 07/19/20 07/20/20 23:59 23:59 23:59 Intake Total 658.75 / 658.75 1055.25 / 1055.25 605 / 605 Output Total 475 / 475 425 / 425 325 / 325 Balance 183.75 / 183.75 630.25 / 630.25 280 / 280 General: Alert, No apparent distress, - - rigors HEENT: Atraumatic, Normocephalic Oral: Moist Mucosa, No Gingival or Mucosal Lesions/ Ulcerations Neck: No Nodes, Thyroid Normal Size and Texture Lungs: Normal air movement, - - crackles on right. Cardiovascular: Regular rate, Regular Rhythm, Normal S1, Normal S2 Abdomen: Bowel Sounds Present, Soft, Non Tender, Non-Distended, No Hepato- splenomegaly Extremities: No edema, No Calf Tenderness Skin: No rashes, No breakdown Psych/Mental Status: Normal Affect, Appropriate Microbiology Past 72 Hours 07/20/20 05:15 Sputum, Expectorated/Coughed Gram Stain - Final 07/18/20 09:42 Blood Culture (Wb) - Anticubital Left Blood Culture - Preliminary No growth in 48 hours. 07/18/20 09:55 Blood Culture (Wb) - Anticubital Right Blood Culture - Preliminary No growth in 48 hours. 07/18/20 10:35 Urine, Clean Catch Urine Culture - Final Mixed Gram Positive Organisms 07/18/20 10:35 Urine, Clean Catch Legionella Antigen - Final 07/18/20 10:35 Urine, Clean Catch Streptococcus pneumoniae Antigen (M - Final Laboratory Results 07/20/20 06:32: PT 15.5 H, INR 1.3 Current Medications Acetaminophen (Acetaminophen 325 Mg Tablet) 650 mg PO Q6H PRN PRN PRN Reason: Pain Score 1-10/Temp > 100.7 F Last Admin: 07/20/20 05:27 Dose: 650 mg Documented by: Albuterol Sulfate (Albuterol Ih 8.5 Gm (Proair) Inhaler (200 Puffs)) 2 puff INHALATION BID.RT [facility] Last Admin: 07/20/20 05:27 Dose: 2 puff Documented by: Dexamethasone (Dexamethasone 4 Mg Tablet) 6 mg PO DAILY [facility] Last Admin: 07/20/20 08:46 Dose: 6 mg Documented by: Enoxaparin Sodium (Enoxaparin 80 Mg/0.8 Ml Syringe) 80 mg SC Q12 [facility] Last Admin: 07/20/20 08:46 Dose: 80 mg Documented by: Ceftriaxone Sodium 2 gm/ (Sodium Chloride) 50 mls @ 100 mls/hr IV Q24 [facility] Stop: 07/26/20 10:01 Last Infusion: 07/20/20 10:35 Dose: Infused Documented by: Azithromycin 500 mg/ Dextrose 255 mls @ 250 mls/hr IV Q24 [facility] Stop: 07/24/20 10:01 Last Infusion: 07/20/20 09:49 Dose: Infused Documented by: Sodium Chloride () 500 mls @ 15 mls/hr IV PRN PRN PRN Reason: Blood Transfusion Sodium Chloride () 250 mls @ 15 mls/hr IV .[id number] PRN PRN Reason: Saline Flush Last Infusion: 07/20/20 09:50 Dose: Infused Documented by: Sodium Chloride () 250 mls @ 15 mls/hr IV .[id number] PRN PRN Reason: Additional IVPB Infusion Ondansetron HCl (Ondansetron 4 Mg/2 Ml Vial) 4 mg IV Q6H PRN PRN PRN Reason: NAUSEA/VOMITING Last Admin: 07/19/20 08:27 Dose: 4 mg Documented by: Senna/Docusate Sodium (Senna/Docusate Sodium 1 Tablet) 2 tablet PO DAILY PRN PRN PRN Reason: CONSTIPATION Sodium Chloride (0.9% Saline Lock 10 Ml Syringe) 10 - 40 ml IV UD PRN PRN Reason: SALINE FLUSH Last Admin: 07/19/20 10:28 Dose: 10 ml Documented by: Warfarin Sodium (Warfarin 5 Mg Tablet) 10 mg PO DAILY@1700 [facility] Last Admin: 07/19/20 18:01 Dose: 10 mg Documented by: Medical Necessity - Tobacco Use Smoking Status: Former smoker Assessment/Plan All Active Problems (Last Reviewed 07/18/20 @ 15:[address] Manoj Garcia, DO) COVID-19 virus infection (Acute) SARS (severe acute respiratory syndrome) (Acute) Severe sepsis (Acute) CAP (community acquired pneumonia) (Acute) 1. Acute Covid pneumonia: * Continue with dexamethasone. * infectious disease following Infectious disease concern for new bacterial pneumonia. Patient going to receive remdesivir nor plasma at this time. 2. Suspected pneumococcal pneumonia: * Could be secondary pneumonia related with Covid. * Patient on azithromycin and ceftriaxone. 3. Severe sepsis: POA. * 2/2 COVID and PNA 4. Malignant melanoma: Follow-up with oncology as outpatient. Complicates overall care. 5. COPD: Chronic. Complicates his his respiratory status. 6. Venous thromboembolic disease: * Patient on warfarin chronically. Patient was on enoxaparin while he was in the hospital. He declined enoxaparin as outpatient given history of hematoma. Will continue with enoxaparin until his INR is therapeutic between 2 and 3. * Increased warfarin to 8 on 07/19, will change to 10mg. 7. Advanced care planning: Discussed with the patient. Patient stated initially wanted CPR but did not want to be intubated. Discussed with them further that that would not be feasible if he were to undergo cardiac arrest and potentially survive that he would require life support. I told him that if he does not want to be intubated that he should not have CPR. He was in agreement therefore, patient is DNR Comfort Care arrest no intubation. 8. Hypotension: improved. hold lisinopril and HCTZ. monitor. Pt states that it is chronic. Inpatient E&M: 24719 Subs Hosp L2
[2020-07-20 14:20] VITALS: BP 101/63; PULSE 87; RESP 18; TEMP 37.2; O2SAT 93
[2020-07-20 16:36] VITALS: BP 103/62; PULSE 87; RESP 18; TEMP 37.7; O2SAT 90
[2020-07-20 17:42] VITALS: BP 92/53; PULSE 87; RESP 16; TEMP 36.8; O2SAT 95
[2020-07-20 20:01] VITALS: BP 105/68; PULSE 85; RESP 18; TEMP 37.2; O2SAT 95
[2020-07-20] MEDS: 0.9% Saline Lock 10 ML Syringe IV (20:04)
[2020-07-21] VITALS (7 sets, daily range): BP systolic 98–123; BP diastolic 59–75; PULSE 66–79; RESP 16–18; TEMP 36.2–37; O2SAT 90–95
[2020-07-21] MEDS: guaiFENesin 1,200 MG Tablet 1200 MG PO ×2 (05:59→20:18)
[2020-07-21 08:24] LABS: International Normalized Ratio 1.5; Prothrombin Time (Protime)PT. 17.8 SECONDS (11.7-14.9)
[2020-07-21] MEDS: Enoxaparin 80 MG/0.8 ML Syringe SC ×2 (10:07→20:18)
[2020-07-21] MEDS: dexAMETHasone 4 MG Tablet 6 MG PO (10:07)
[2020-07-21] MEDS: 0.9% Saline Lock 10 ML Syringe IV ×3 (10:08→20:19)
[2020-07-21] MEDS: Ondansetron 4 MG/2 ML Vial IV ×2 (10:59→20:35)
--- NOTE | 2020-07-21 12:46 | PCM.PN.HOSP ---
Patient Problems: Active and Suspected Problems (Last Reviewed 07/18/20 @ 15:[address] Manoj Garcia, DO) COVID-19 virus infection (Acute) Severe sepsis (Acute) CAP (community acquired pneumonia) (Acute) Reason for Visit: COVID Subjective: Coughing fits and then he has trouble catching his breath. Vitals/I&O's: Vital Signs Temp Pulse Resp BP Pulse Ox 36.6 C 79 18 123/68 H 94 07/21/20 11:01 07/21/20 11:01 07/21/20 11:01 07/21/20 11:01 07/21/20 11:01 Oxygen Flow Rate (L/min) 6 Oxygen Delivery Method Nasal Cannula Weight: 80.513 kg Body Mass Index (BMI) 26.2 Finger Stick Blood Glucose 147 Intake and Output for Last 24 Hours 07/19/20 07/20/20 07/21/20 23:59 23:59 22:59 Intake Total 1055.25 / 1055.25 605 / 605 50 / 50 Output Total 425 / 425 550 / 550 Balance 630.25 / 630.25 55 / 55 50 / 50 General: Alert, No apparent distress HEENT: Atraumatic, Normocephalic Oral: Moist Mucosa, No Gingival or Mucosal Lesions/ Ulcerations Neck: No Nodes, Thyroid Normal Size and Texture Lungs: Clear to auscultation, Normal air movement, No rhonchi, No wheeze Cardiovascular: Regular rate, Regular Rhythm, Normal S1, Normal S2 Extremities: No edema, No Calf Tenderness Skin: No rashes, No breakdown Psych/Mental Status: Normal Affect, Appropriate Microbiology Past 72 Hours 07/20/20 05:15 Sputum, Expectorated/Coughed Gram Stain - Final 07/18/20 09:42 Blood Culture (Wb) - Anticubital Left Blood Culture - Preliminary No growth in 48 hours. 07/18/20 09:55 Blood Culture (Wb) - Anticubital Right Blood Culture - Preliminary No growth in 48 hours. 07/18/20 10:35 Urine, Clean Catch Urine Culture - Final Mixed Gram Positive Organisms 07/18/20 10:35 Urine, Clean Catch Legionella Antigen - Final 07/18/20 10:35 Urine, Clean Catch Streptococcus pneumoniae Antigen (M - Final Laboratory Results 07/21/20 07:27: PT 17.8 H, INR 1.5 Current Medications Acetaminophen (Acetaminophen 325 Mg Tablet) 650 mg PO Q6H PRN PRN PRN Reason: Pain Score 1-10/Temp > 100.7 F Last Admin: 07/20/20 22:46 Dose: 650 mg Documented by: Albuterol Sulfate (Albuterol Ih 8.5 Gm (Proair) Inhaler (200 Puffs)) 2 puff INHALATION BID.RT [facility] Last Admin: 07/20/20 14:15 Dose: 2 puff Documented by: Dexamethasone (Dexamethasone 4 Mg Tablet) 6 mg PO DAILY [facility] Last Admin: 07/21/20 10:07 Dose: 6 mg Documented by: Enoxaparin Sodium (Enoxaparin 80 Mg/0.8 Ml Syringe) 80 mg SC Q12 [facility] Last Admin: 07/21/20 10:07 Dose: 80 mg Documented by: Guaifenesin (Guaifenesin 1,200 Mg Tablet) 1,200 mg PO BID [facility] Last Admin: 07/21/20 05:59 Dose: 1,200 mg Documented by: Guaifenesin/Codeine Phosphate (Guaifenesin/Codeine 5 Ml Udc) 10 ml PO Q6H PRN PRN PRN Reason: coughing fits. Ceftriaxone Sodium 2 gm/ (Sodium Chloride) 50 mls @ 100 mls/hr IV Q24 [facility] Stop: 07/26/20 10:01 Last Infusion: 07/21/20 10:37 Dose: Infused Documented by: Azithromycin 500 mg/ Dextrose 255 mls @ 250 mls/hr IV Q24 [facility] Stop: 07/24/20 10:01 Last Admin: 07/21/20 10:55 Dose: 250 mls/hr Documented by: Sodium Chloride () 500 mls @ 15 mls/hr IV PRN PRN PRN Reason: Blood Transfusion Sodium Chloride () 250 mls @ 15 mls/hr IV .[id number] PRN PRN Reason: Saline Flush Last Infusion: 07/20/20 09:50 Dose: Infused Documented by: Sodium Chloride () 250 mls @ 15 mls/hr IV .[id number] PRN PRN Reason: Additional IVPB Infusion Ondansetron HCl (Ondansetron 4 Mg/2 Ml Vial) 4 mg IV Q6H PRN PRN PRN Reason: NAUSEA/VOMITING Last Admin: 07/21/20 10:59 Dose: 4 mg Documented by: Senna/Docusate Sodium (Senna/Docusate Sodium 1 Tablet) 2 tablet PO DAILY PRN PRN PRN Reason: CONSTIPATION Sodium Chloride (0.9% Saline Lock 10 Ml Syringe) 10 - 40 ml IV UD PRN PRN Reason: SALINE FLUSH Last Admin: 07/21/20 10:59 Dose: 10 ml Documented by: Warfarin Sodium (Warfarin 5 Mg Tablet) 10 mg PO DAILY@1700 [facility] Last Admin: 07/20/20 17:36 Dose: 10 mg Documented by: Warfarin Sodium (Warfarin 2.5 Mg Tablet) 2.5 mg PO X1 ONE Stop: 07/21/20 17:01 STROKE Vital Signs/Narrative: Vital Signs Temp Pulse Resp BP Pulse Ox 07/21/20 11:01 36.6 C 79 18 123/68 H 94 Medical Necessity - Tobacco Use Smoking Status: Former smoker Assessment/Plan All Active Problems (Last Reviewed 07/18/20 @ 15:[address] Manoj Garcia, DO) COVID-19 virus infection (Acute) SARS (severe acute respiratory syndrome) (Acute) Severe sepsis (Acute) CAP (community acquired pneumonia) (Acute) 1. Acute Covid pneumonia: Continue with dexamethasone. infectious disease following Infectious disease concern for new bacterial pneumonia. Patient not going to receive remdesivir nor plasma at this time. 2. Suspected pneumococcal pneumonia: Could be secondary pneumonia related with COVID-19. Patient on azithromycin and ceftriaxone. 3. Severe sepsis: POA. 2/2 COVID and PNA 4. Malignant melanoma: Follow-up with oncology as outpatient. Complicates overall care. 5. COPD: Chronic. Complicates his his respiratory status. 6. Venous thromboembolic disease: Patient on warfarin chronically. Patient was on enoxaparin while he was in the hospital. He declined enoxaparin as outpatient given history of hematoma. Will continue with enoxaparin until his INR is therapeutic between 2 and 3. Continue 7. Advanced care planning: Discussed with the patient. Patient stated initially wanted CPR but did not want to be intubated. Discussed with them further that that would not be feasible if he were to undergo cardiac arrest and potentially survive that he would require life support. I told him that if he does not want to be intubated that he should not have CPR. He was in agreement therefore, patient is DNR Comfort Care arrest no intubation. 8. Hypotension: improved. hold lisinopril and HCTZ. monitor. Pt states that it is chronic. Inpatient E&M: 84898 Subs Hosp L2
[2020-07-21] MEDS: guaiFENesin/Codeine 5 ML UDC 10 ML PO (16:31)
[2020-07-21] MEDS: Acetaminophen 325 MG Tablet 650 MG PO (16:32)
[2020-07-22] VITALS (16 sets, daily range): BP systolic 95–127; BP diastolic 66–99; PULSE 59–74; RESP 12–24; TEMP 36.4–36.9; O2SAT 74–96
[2020-07-22] MEDS: guaiFENesin/Codeine 5 ML UDC 10 ML PO ×2 (00:13→09:15)
[2020-07-22 06:59] LABS: Absolute Lymphocyte Count 0.48 X10^3/uL (0.83-4.51); Absolute Neutrophil Count 2.1 X10^3/uL (2.0-7.7); Basophil# 0.01 X10^3/uL; Basophil% 0.3 % (0-1); Hematocrit 42.9 % (40-54); Hemoglobin 14.3 g/dL (13.0-16.5); Lymphocyte # 0.48 X10^3/ul (4.0); Lymphocyte % 15.6 % (19-41); Mean Corp Hgb Conc 33.3 g/dL (32-36); Mean Corpuscular Hgb 30.9 pg (27.0-32.0); Mean Corpuscular Volume 92.7 fL (80-94); Mean Platelet Vol. 10.2 fl (6.2-12.0); Monocyte# 0.46 X10^3/uL; Monocyte% 14.9 % (0-10); NRBC Flagged by Analyzer 0 % (0-5); Neutrophil # 2.09 X10^3/uL (2.7-7.7); Neutrophil % 67.9 % (47-70); POSITIVE DIFFERENTIAL YES; Platelet Count 200 K/mm3 (150-450); RBC Distribution Width CV 12.8 % (11.6-14.6); RBC Distribution Width SD 43.8 fl (35.1-43.9); Red Blood Count 4.63 M/mm3 (4.6-6.2); White Blood Count 3.1 K/mm3 (4.4-11.0)
[2020-07-22 07:23] LABS: International Normalized Ratio 2.2; Prothrombin Time (Protime)PT. 23.9 SECONDS (11.7-14.9)
[2020-07-22 07:31] LABS: Differential Indicated SCAN CRITERIA MET
[2020-07-22 07:32] LABS: ALB/GLOB Ratio 0.6 RATIO (0.9-2.4); AST(SGOT) 47 U/L (15-37); Alanine Aminotransfer ALT/SGPT 47 U/L (16-61); Albumin, Serum 2.6 g/dL (3.2-5.0); Alkaline Phosphatase 66 U/L (45-117); Anion Gap 8 (5-15); BUN 37 mg/dL (7-18); BUN/Creat Ratio 33.6 RATIO (10-20); Calcium,Total 8.8 mg/dL (8.5-10.1); Chloride 102 mmol/L (98-107); Differential Comment SCANNED; EST Glomerular Filtration Rate 69 mL/min (>60); Est Glom Filt Rate - Afr Amer 83 mL/min (>60); Estimated Creatinine Clearance 55.35 ml/min; Globulin 4.1 g/dL (2.2-4.2); Glucose 109 mg/dL (74-106); Potassium 4.8 mmol/L (3.5-5.1); Protein, Total 6.7 g/dL (6.4-8.2); Sodium Level 136 mmol/L (136-145)
[2020-07-22] MEDS: guaiFENesin 1,200 MG Tablet 1200 MG PO (09:07)
[2020-07-22] MEDS: dexAMETHasone 4 MG Tablet 6 MG PO (09:07)
[2020-07-22] MEDS: 0.9% Saline Lock 10 ML Syringe IV (09:09)
[2020-07-22] MEDS: Enoxaparin 80 MG/0.8 ML Syringe SC (10:44)
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
--- NOTE | 2020-07-22 13:41 | NURSING ---
Assisted patient to BSC. pt very weak. pt sat on commode for approx 15 minutes. pt states I just want to . I've been dealing with this since 2012. I'm just tired. I just want to go to sleep and not wake up. Asked pt if he had discussed this with the doctor as well. states he did talk to the doctor this am. Pt states it should be my choice what I want done. Did relay this to TOD Tompkins as well. assisted pt back to bed. pt wants to stay on high flow O2 instead of the bipap for now.
--- NOTE | 2020-07-22 13:50 | RAD_ITS ---
STUDY: X-RAY CHEST REASON FOR EXAM: Male, 80 years old. Respiratory failure. COVID 19 positive. TECHNIQUE: Single AP portable view of the chest. COMPARISON: 07/18/2020. FINDINGS: There is a decreased inspiratory effort. Linear atelectasis versus infiltrate at the lung bases. There is no demonstrated pleural abnormality. Normal size heart. Normal mediastinum and neeta. Normal visualized pulmonary arteries. There is atherosclerotic calcification of the aortic arch with tortuosity. No visualized osseous changes. There is no demonstrated abnormality of the visualized soft tissue structures of the upper abdomen. RAD/Chest 1 View (Portable) IMPRESSION: Decreased inspiratory effort when compared to prior study. There is bibasilar atelectasis. The possibility of mild infiltrate cannot be ruled out. Electronically Signed: Agustin Zuniga DO at 18:05 EST Tel [phone], Service support ,
--- NOTE | 2020-07-22 14:29 | CASEMGMT ---
Social Work Nursing stating that pt is requesting hospice services. SW attempted to call pt in room and pt did not answer. Phone call to pt with no answer, RN stating she left a message for to return call. AMEE spoke with Jarred from Hospice and referral information faxed. RADHA Carmona
--- NOTE | 2020-07-22 15:18 | PCM.PN.ID ---
Patient Problems: Active and Suspected Problems (Last Reviewed 07/18/20 @ 15:[address] Manoj Garcia, DO) COVID-19 virus infection (Acute) Severe sepsis (Acute) CAP (community acquired pneumonia) (Acute) Subjective: Pt wishes to go with hospice. Wants to be off O2, wishes to receive morphine for comfort. - Physical Exam Vitals/I&O's: Vital Signs Temp Pulse Resp BP Pulse Ox 97.5 F L 67 22 H 115/99 H 90 07/22/20 13:00 07/22/20 13:00 07/22/20 13:00 07/22/20 13:00 07/22/20 13:00 Oxygen Flow Rate (L/min) 15 Oxygen Delivery Method Bi-pap Weight: 80.513 kg Body Mass Index (BMI) 26.2 Finger Stick Blood Glucose 147 Intake and Output for Last 24 Hours 07/21/20 07/21/20 07/22/20 00:59 23:59 23:59 Intake Total 305 / 305 Output Total 450 / 450 Balance -145 / -145 General: Alert, Cooperative, No apparent distress Lungs: Normal air movement Cardiovascular: Regular rate, Regular Rhythm Abdomen: Soft, Non Tender, Non-Distended Skin: No rashes Microbiology Past 72 Hours 07/20/20 05:15 Sputum, Expectorated/Coughed Gram Stain - Final 07/20/20 05:15 Sputum, Expectorated/Coughed Respiratory Culture - Preliminary Yeast Like Organism 07/18/20 09:42 Blood Culture (Wb) - Anticubital Left Blood Culture - Preliminary No growth in 48 hours. 07/18/20 09:55 Blood Culture (Wb) - Anticubital Right Blood Culture - Preliminary No growth in 48 hours. 07/18/20 10:35 Urine, Clean Catch Urine Culture - Final Mixed Gram Positive Organisms Laboratory Results 07/22/20 05:25: PT 23.9 H, INR 2.2 07/22/20 05:25: WBC 3.1 L, RBC 4.63, Hgb 14.3, Hct 42.9, MCV 92.7, MCH 30.9, MCHC 33.3, RDW Std Deviation 43.8, RDW Coeff of Zaid 12.8, Plt Count 200, MPV 10.2, Immature Gran % (Auto) 1.300 H, Neut % (Auto) 67.9, Lymph % (Auto) 15.6 L, [place] % (Auto) 14.9 H, Eos % (Auto) 0.0, Baso % (Auto) 0.3, Absolute Neuts (auto) 2.1, Absolute Lymphs (auto) 0.48 L, Nucleated RBC % 0, Differential Comment SCANNED, Diff Path Review January07/22/20 05:25: Sodium 136, Potassium 4.8, Chloride 102, Carbon Dioxide 26.0, Anion Gap 8, BUN 37 H, Creatinine 1.10, Estim Creat Clear Calc 55.35, Est GFR (MDRD) Af Amer 83, Est GFR (MDRD) Non-Af 69, BUN/Creatinine Ratio 33.6 H, Glucose 109 H, Calcium 8.8, Total Bilirubin 0.30, AST 47 H, ALT 47, Alkaline Phosphatase 66, Total Protein 6.7, Albumin 2.6 L, Globulin 4.1, Albumin/Globulin Ratio 0.6 L Current Medications Acetaminophen (Acetaminophen 325 Mg Tablet) 650 mg PO Q6H PRN PRN PRN Reason: Pain Score 1-10/Temp > 100.7 F Last Admin: 07/21/20 16:32 Dose: 650 mg Documented by: Albuterol Sulfate (Albuterol Ih 8.5 Gm (Proair) Inhaler (200 Puffs)) 2 puff INHALATION BID.RT [facility] Last Admin: 07/20/20 14:15 Dose: 2 puff Documented by: Albuterol/Ipratropium (Ipratropium/Albuterol Sulfate 3 Ml Ampul.Neb) 3 ml INHALATION Q6HWA.RT [facility] Dexamethasone (Dexamethasone 4 Mg Tablet) 6 mg PO DAILY [facility] Last Admin: 07/22/20 09:07 Dose: 6 mg Documented by: Enoxaparin Sodium (Enoxaparin 80 Mg/0.8 Ml Syringe) 80 mg SC Q12 [facility] Last Admin: 07/22/20 10:44 Dose: 80 mg Documented by: Guaifenesin (Guaifenesin 1,200 Mg Tablet) 1,200 mg PO BID [facility] Last Admin: 07/22/20 09:07 Dose: 1,200 mg Documented by: Guaifenesin/Codeine Phosphate (Guaifenesin/Codeine 5 Ml Udc) 10 ml PO Q6H PRN PRN PRN Reason: coughing fits. Last Admin: 07/22/20 09:15 Dose: 10 ml Documented by: Ceftriaxone Sodium 2 gm/ (Sodium Chloride) 50 mls @ 100 mls/hr IV Q24 [facility] Stop: 07/26/20 10:01 Last Infusion: 07/22/20 11:14 Dose: Infused Documented by: Azithromycin 500 mg/ Dextrose 255 mls @ 250 mls/hr IV Q24 [facility] Stop: 07/24/20 10:01 Last Infusion: 07/22/20 10:14 Dose: Infused Documented by: Sodium Chloride () 500 mls @ 15 mls/hr IV PRN PRN PRN Reason: Blood Transfusion Sodium Chloride () 250 mls @ 15 mls/hr IV .[id number] PRN PRN Reason: Saline Flush Last Infusion: 07/20/20 09:50 Dose: Infused Documented by: Sodium Chloride () 250 mls @ 15 mls/hr IV .[id number] PRN PRN Reason: Additional IVPB Infusion Ondansetron HCl (Ondansetron 4 Mg/2 Ml Vial) 4 mg IV Q6H PRN PRN PRN Reason: NAUSEA/VOMITING Last Admin: 07/21/20 20:35 Dose: 4 mg Documented by: Senna/Docusate Sodium (Senna/Docusate Sodium 1 Tablet) 2 tablet PO DAILY PRN PRN PRN Reason: CONSTIPATION Sodium Chloride (0.9% Saline Lock 10 Ml Syringe) 10 - 40 ml IV UD PRN PRN Reason: SALINE FLUSH Last Admin: 07/22/20 09:09 Dose: 10 ml Documented by: Warfarin Sodium (Warfarin 5 Mg Tablet) 10 mg PO DAILY@1700 [facility]I Last Admin: 07/21/20 16:31 Dose: 10 mg Documented by: Medical Necessity - Tobacco Use Smoking Status: Former smoker Route of nutrition/ use of supplements: [] Nutritional Intake: [] IV Site: [] Rincon Catheter: [] - Assessment/Plan Antibiotics: [] Assessment/Plan: [] Active and Suspected Problems (Last Reviewed 07/17/20 @ 05:[address] Omega Ann MD) COVID-19 virus infection (Acute) Severe sepsis (Acute) CAP (community acquired pneumonia) (Acute) Covid with CAP, pt has chosen to be comfort care, be off of O2. Will follow as needed, d/w nursing
--- NOTE | 2020-07-22 16:22 | NURSING ---
Spoke to on phone, offered for her to come and visit patient, she refused.
[2020-07-22] MEDS: LORazepam 2 MG/ML Syringe 1 MG IV (16:46)
[2020-07-22] MEDS: Morphine 4 MG/ML Syringe IV (16:46)
--- NOTE | 2020-07-22 18:40 | PN_ITS ---
Patient Problems: Active and Suspected Problems (Last Reviewed 07/18/20 @ 15:[address] Manoj Garcia, DO) COVID-19 virus infection (Acute) Severe sepsis (Acute) CAP (community acquired pneumonia) (Acute) Subjective: Patient was seen and examined today, I talked with him briefly because the nursing stated that he wanted his CODE STATUS changed and he wanted just to be comfortable, he did not even want oxygen. I told him that the oxygen would help with comfort, and he stated that what ever I felt was best he would go along with. I made the patient DNR CC, stopped his antibiotics, I called his and had a discussion with her about his decision-she was not in favor his decision but later on he called her from his room in the presence of nursing and because the patient was alert and oriented, she agreed that she would follow his wishes. Hospice has been consulted, I ordered the patient IV morphine and Ativan as needed dyspnea. - Physical Exam Vitals/I&O's: Vital Signs Temp Pulse Resp BP Pulse Ox 97.5 F L 68 20 H 95/66 95 07/22/20 13:00 07/22/20 15:48 07/22/20 15:00 07/22/20 15:00 07/22/20 15:37 Oxygen Flow Rate (L/min) 15 Oxygen Delivery Method Nasal Cannula Weight: 80.513 kg Body Mass Index (BMI) 26.2 Finger Stick Blood Glucose 147 Intake and Output for Last 24 Hours 07/21/20 07/21/20 07/22/20 00:59 23:59 23:59 Intake Total 555 / 555 Output Total 850 / 850 Balance -295 / -295 General: Alert, Oriented x3, Cooperative, No apparent distress, Well developed HEENT: Atraumatic, PERRLA, EOMI, Normocephalic Oral: Moist Mucosa Neck: Supple, No JVD, Trachea Midline, Thyroid Normal Size and Texture Lungs: Clear to auscultation, No rhonchi, No wheeze, No rales, Diminished Cardiovascular: Regular rate, Regular Rhythm, Normal S1, Normal S2, No murmurs, PMI Normal, No rub noted Abdomen: Bowel Sounds Present, Soft, Non Tender, Non-Distended Extremities: No clubbing, No cyanosis, No edema, Capillary Refill Less than 3 Seconds Skin: No rashes, No breakdown Musculoskeletal: No Tenderness to Palpation of Joints or Extremities Neurological: Cranial nerves II-XII grossly intact, Neuro grossly intact, Sensory exam intact to light touch and pain, Coordination normal Psych/Mental Status: Normal Affect, Appropriate, Alert and oriented to time, place, person, mood and affect Microbiology Past 72 Hours 07/20/20 05:15 Sputum, Expectorated/Coughed Gram Stain - Final 07/20/20 05:15 Sputum, Expectorated/Coughed Respiratory Culture - Preliminar y Yeast Like Organism 07/18/20 09:42 Blood Culture (Wb) - Anticubital Left Blood Culture - Preliminary No growth in 48 hours. 07/18/20 09:55 Blood Culture (Wb) - Anticubital Right Blood Culture - Preliminary No growth in 48 hours. 07/18/20 10:35 Urine, Clean Catch Urine Culture - Final Mixed Gram Positive Organisms Laboratory Results 07/22/20 05:25: PT 23.9 H, INR 2.2 07/22/20 05:25: WBC 3.1 L, RBC 4.63, Hgb 14.3, Hct 42.9, MCV 92.7, MCH 30.9, MCHC 33.3, RDW Std Deviation 43.8, RDW Coeff of Zaid 12.8, Plt Count 200, MPV 10.2, Immature Gran % (Auto) 1.300 H, Neut % (Auto) 67.9, Lymph % (Auto) 15.6 L, [place] % (Auto) 14.9 H, Eos % (Auto) 0.0, Baso % (Auto) 0.3, Absolute Neuts (auto) 2.1, Absolute Lymphs (auto) 0.48 L, Nucleated RBC % 0, Differential Comment SCANNED, Diff Path Review January07/22/20 05:25: Sodium 136, Potassium 4.8, Chloride 102, Carbon Dioxide 26.0, Anion Gap 8, BUN 37 H, Creatinine 1.10, Estim Creat Clear Calc 55.35, Est GFR (MDRD) Af Amer 83, Est GFR (MDRD) Non-Af 69, BUN/Creatinine Ratio 33.6 H, Glucose 109 H, Calcium 8.8, Total Bilirubin 0.30, AST 47 H, ALT 47, Alkaline Phosphatase 66, Total Protein 6.7, Albumin 2.6 L, Globulin 4.1, Albumin/Globulin Ratio 0.6 L Current Medications Acetaminophen (Acetaminophen 325 Mg Tablet) 650 mg PO Q6H PRN PRN PRN Reason: Pain Score 1-10/Temp > 100.7 F Last Admin: 07/21/20 16:32 Dose: 650 mg Documented by: Albuterol Sulfate (Albuterol Ih 8.5 Gm (Proair) Inhaler (200 Puffs)) 1 puff INHALATION Q2H PRN PRN PRN Reason: SOB/WHEEZING Albuterol/Ipratropium (Ipratropium/Albuterol Sulfate 3 Ml Ampul.Neb) 3 ml INHALATION Q6HWA.RT [facility] Guaifenesin (Guaifenesin 1,200 Mg Tablet) 1,200 mg PO BID [facility]I Last Admin: 07/22/20 09:07 Dose: 1,200 mg Documented by: Guaifenesin/Codeine Phosphate (Guaifenesin/Codeine 5 Ml Udc) 10 ml PO Q6H PRN PRN PRN Reason: coughing fits. Last Admin: 07/22/20 09:15 Dose: 10 ml Documented by: Ceftriaxone Sodium 2 gm/ (Sodium Chloride) 50 mls @ 100 mls/hr IV Q24 [facility] Stop: 07/26/20 10:01 Last Infusion: 07/22/20 11:14 Dose: Infused Documented by: Azithromycin 500 mg/ Dextrose 255 mls @ 250 mls/hr IV Q24 [facility] Stop: 07/24/20 10:01 Last Infusion: 07/22/20 10:14 Dose: Infused Documented by: Sodium Chloride () 500 mls @ 15 mls/hr IV PRN PRN PRN Reason: Blood Transfusion Sodium Chloride () 250 mls @ 15 mls/hr IV .[id number] PRN PRN Reason: Saline Flush Last Infusion: 07/20/20 09:50 Dose: Infused Documented by: Sodium Chloride () 250 mls @ 15 mls/hr IV .[id number] PRN PRN Reason: Additional IVPB Infusion Lorazepam (Lorazepam 2 Mg/Ml Syringe) 0.5 - 1 mg IV Q4H PRN PRN PRN Reason: dyspnea Morphine Sulfate (Morphine 8 Mg/Ml Syringe) 4 - 8 mg IV Q4H PRN PRN PRN Reason: dyspnea Ondansetron HCl (Ondansetron 4 Mg/2 Ml Vial) 4 mg IV Q6H PRN PRN PRN Reason: NAUSEA/VOMITING Last Admin: 07/21/20 20:35 Dose: 4 mg Documented by: Senna/Docusate Sodium (Senna/Docusate Sodium 1 Tablet) 2 tablet PO DAILY PRN PRN PRN Reason: CONSTIPATION Sodium Chloride (0.9% Saline Lock 10 Ml Syringe) 10 - 40 ml IV UD PRN PRN Reason: SALINE FLUSH Last Admin: 07/22/20 09:09 Dose: 10 ml Documented by: Medical Necessity - Tobacco Use Smoking Status: Former smoker Assessment/Plan All Active Problems (Last Reviewed 07/18/20 @ 15:[address] Manoj Garcia, DO) COVID-19 virus infection (Acute) SARS (severe acute respiratory syndrome) (Acute) Severe sepsis (Acute) CAP (community acquired pneumonia) (Acute) #1 acute COVID-19 pneumonia-again patient requested DNR comfort care and I felt it appropriate to stop his antibiotics today. Patient will be seen tomorrow by hospice, he will be given IV morphine and Ativan as needed dyspnea. #2 acute hypoxic respiratory failure secondary to acute COVID-19 pneumonia- patient will remain on oxygen for now, he does not want to go back on BiPAP. #3 chronic obstructive pulmonary disease #4 community-acquired pneumonia-probably bacterial in nature, exact organism unknown-patient will be taken off antibiotics because he is a DNR CC #5 severe sepsis secondary to community-acquired pneumonia #6 history of thromboembolic disease-patient was taken off warfarin today and Lovenox due to his comfort care status Inpatient E&M: [id number] [facility] Hosp L2
[2020-07-23] VITALS (8 sets, daily range): BP systolic 120–130; BP diastolic 66–79; PULSE 57–76; RESP 17–24; TEMP 36.1–36.4; O2SAT 84–94
[2020-07-23] MEDS: 0.9% Saline Lock 10 ML Syringe IV ×3 (08:26→15:00)
[2020-07-23] MEDS: guaiFENesin 1,200 MG Tablet 1200 MG PO (08:26)
--- NOTE | 2020-07-23 08:58 | NURSING ---
Chiqui Rn at HOSPICE phoned in and updated on pt status.
[2020-07-23] MEDS: Morphine 4 MG/ML Syringe IV ×2 (09:17→14:55)
[2020-07-23] MEDS: Ondansetron 4 MG/2 ML Vial IV (13:34)
--- NOTE | 2020-07-23 14:29 | CASEMGMT ---
Addendum entered by Guerita Martinez 07/23/20 15:27: AMEE spoke with Charge Nurse, Eri has been updated that plan is for [facility] physician to speak with Dr. Lima at Hospice to determine plan for pt. Addendum entered by Guerita Martinez 07/23/20 14:47: SW spoke with physician. SW asked physician if he could call Dr. Lima at Hospice regarding pt. Physician states he will do so. AMEE then received call from Chiqui at [facility] stating she spoke with pt's Eri and Eri stated she wants to take pt home with Hospice. Eri states that is what pt would want. Chiqui states that Eri stated she felt she could help pt at home and that it is just her and him and she is willing to assist pt at home. AMEE updated Chiqui that physician at [facility] was going to call Dr. Lima regarding pt's medical needs. SW to continue to follow. Original Note: Social Work Note AMEE updated that pt doesn't qualify for inpatient hospice. AMEE placed a call to TOD Florian. TOD Florian states she spoke with RN this morning, pt was not given any medications last night, was resting comfortable in the 80's, Dr. Lima stated pt didn't qualify for inpatient and there was no symptom management needed for pt. AMEE reviewed chart. Pt currently on nonrebreather, did have morphine this morning around 9:00am. AMEE will speak with TOD. Guerita Martinez SERVICE DELIVERY MANAGER, ASSISTANT EDITOR
[2020-07-23 14:42] LABS: Pathologist Review Reviewed
--- NOTE | 2020-07-23 18:22 | PCM.PROGNOTE ---
Patient Problems: Active and Suspected Problems (Last Reviewed 07/18/20 @ 15:[address] Manoj Garcia, DO) COVID-19 virus infection (Acute) Severe sepsis (Acute) CAP (community acquired pneumonia) (Acute) Subjective: Patient was seen and examined today, hospice evaluated the patient and did not think he was appropriate for hospice due to the fact that he has not been receiving IV morphine or Ativan on a regular basis. Patient remains on a nonrebreather at this time, I again asked him whether he wanted his treatment stopped-he would not give me a direct answer about this and talked about his wanting him to continue to take treatment. He did not tell me however to reverse his DNR CC status. He did complain of nausea and attributed this to reflux. - Physical Exam Vitals/I&O's: Vital Signs Temp Pulse Resp BP Pulse Ox 97.4 F L 62 24 H 120/79 94 07/23/20 14:45 07/23/20 14:45 07/23/20 14:45 07/23/20 14:45 07/23/20 14:45 Oxygen Flow Rate (L/min) 15 Oxygen Delivery Method Nasal Cannula Weight: 80.513 kg Body Mass Index (BMI) 26.2 Finger Stick Blood Glucose 147 Intake and Output for Last 24 Hours 07/21/20 07/22/20 07/23/20 23:59 23:59 23:59 Intake Total 555 / 555 555 / 555 Output Total 850 / 850 600 / 600 Balance -295 / -295 -45 / -45 General: Alert, Oriented x3, Cooperative, Well developed, Well nourished, - - Patient appears in mild respiratory distress at this time HEENT: Atraumatic, PERRLA, EOMI, Normocephalic Oral: Moist Mucosa Neck: Supple, No JVD, Trachea Midline, Thyroid Normal Size and Texture Lungs: Clear to auscultation, Normal air movement, No rhonchi, No wheeze, No rales Cardiovascular: Regular rate, Regular Rhythm, Normal S1, Normal S2, No murmurs, PMI Normal, No rub noted, No Gallop Abdomen: Bowel Sounds Present, Soft, Non Tender, Non-Distended Extremities: No clubbing, No cyanosis, No edema, Capillary Refill Less than 3 Seconds Skin: No rashes, No breakdown Musculoskeletal: No Tenderness to Palpation of Joints or Extremities Neurological: Cranial nerves II-XII grossly intact, Neuro grossly intact, Sensory exam intact to light touch and pain Psych/Mental Status: Normal Affect, Appropriate, Alert and oriented to time, place, person, mood and affect Microbiology Past 72 Hours 07/18/20 09:42 Blood Culture (Wb) - Anticubital Left Blood Culture - Final No growth in 5 days. 07/18/20 09:55 Blood Culture (Wb) - Anticubital Right Blood Culture - Final No growth in 5 days. 07/20/20 05:15 Sputum, Expectorated/Coughed Gram Stain - Final 07/20/20 05:15 Sputum, Expectorated/Coughed Respiratory Culture - Preliminary Vikki albicans Laboratory Results 07/22/20 05:25: Diff Path Review Reviewed Current Medications Acetaminophen (Acetaminophen 325 Mg Tablet) 650 mg PO Q6H PRN PRN PRN Reason: Pain Score 1-10/Temp > 100.7 F Last Admin: 07/21/20 16:32 Dose: 650 mg Documented by: Albuterol Sulfate (Albuterol Ih 8.5 Gm (Proair) Inhaler (200 Puffs)) 1 puff INHALATION Q2H PRN PRN PRN Reason: SOB/WHEEZING Albuterol/Ipratropium (Ipratropium/Albuterol Sulfate 3 Ml Ampul.Neb) 3 ml INHALATION Q6HWA.RT [facility] Guaifenesin (Guaifenesin 1,200 Mg Tablet) 1,200 mg PO BID [facility] Last Admin: 07/23/20 08:26 Dose: 1,200 mg Documented by: Guaifenesin/Codeine Phosphate (Guaifenesin/Codeine 5 Ml Udc) 10 ml PO Q6H PRN PRN PRN Reason: coughing fits. Last Admin: 07/22/20 09:15 Dose: 10 ml Documented by: Sodium Chloride () 500 mls @ 15 mls/hr IV PRN PRN PRN Reason: Blood Transfusion Sodium Chloride () 250 mls @ 15 mls/hr IV .[id number] PRN PRN Reason: Saline Flush Last Infusion: 07/20/20 09:50 Dose: Infused Documented by: Sodium Chloride () 250 mls @ 15 mls/hr IV .[id number] PRN PRN Reason: Additional IVPB Infusion Lorazepam (Lorazepam 2 Mg/Ml Syringe) 0.5 - 1 mg IV Q4H PRN PRN PRN Reason: dyspnea Morphine Sulfate (Morphine 8 Mg/Ml Syringe) 4 - 8 mg IV Q4H PRN PRN PRN Reason: dyspnea Morphine Sulfate (Morphine 4 Mg/Ml Syringe) 4 - 8 mg IV Q4H PRN PRN PRN Reason: pain/dyspnea Last Admin: 07/23/20 14:55 Dose: 4 mg Documented by: Ondansetron HCl (Ondansetron 4 Mg/2 Ml Vial) 4 mg IV Q6H PRN PRN PRN Reason: NAUSEA/VOMITING Last Admin: 07/23/20 13:34 Dose: 4 mg Documented by: Senna/Docusate Sodium (Senna/Docusate Sodium 1 Tablet) 2 tablet PO DAILY PRN PRN PRN Reason: CONSTIPATION Sodium Chloride (0.9% Saline Lock 10 Ml Syringe) 10 - 40 ml IV UD PRN PRN Reason: SALINE FLUSH Last Admin: 07/23/20 15:00 Dose: 10 ml Documented by: Medical Necessity - Tobacco Use Smoking Status: Former smoker Assessment/Plan All Active Problems (Last Reviewed 07/18/20 @ 15:[address] Manoj Garcia, DO) COVID-19 virus infection (Acute) SARS (severe acute respiratory syndrome) (Acute) Severe sepsis (Acute) CAP (community acquired pneumonia) (Acute) #1 acute COVID-19 pneumonia-patient will remain a DNR CC and received morphine and Ativan as needed for respiratory distress, I went over this with nursing, hospice may need to reevaluate the patient tomorrow #2 acute hypoxic respiratory failure secondary to acute COVID-19 pneumonia-patient will remain on oxygen for now #3 chronic obstructive pulmonary disease #4 Possible community-acquired pneumonia-probably bacterial in nature, exact organism unknown-patient is off antibiotics due to the fact he is a DNR CC #5 severe sepsis secondary to community-acquired pneumonia #6 history of thromboembolic disease-patient was taken off of warfarin due to his DNRCC status #7 nausea-possible reflux disease, will place patient on Protonix orally Will continue comfort measures. Inpatient E&M: [id number] [facility] Hosp L2
[2020-07-23] MEDS: Pantoprazole Sodium 40 MG Tablet PO (19:59)
[2020-07-23] MEDS: Ipratropium/Albuterol Sulfate 3 ML AMPUL.NEB INHALATION (20:30)
[2020-07-24] VITALS (12 sets, daily range): BP systolic 115–138; BP diastolic 74–86; PULSE 80–104; RESP 20–26; TEMP 36.4–36.6; O2SAT 86–97
[2020-07-24] MEDS: Morphine 4 MG/ML Syringe IV (03:57)
[2020-07-24] MEDS: 0.9% Saline Lock 10 ML Syringe IV ×3 (03:57→22:03)
[2020-07-24] MEDS: LORazepam 2 MG/ML Syringe IV ×2 (04:54→13:41)
[2020-07-24] MEDS: Ipratropium/Albuterol Sulfate 3 ML AMPUL.NEB INHALATION ×3 (05:13→19:50)
[2020-07-24] MEDS: Pantoprazole Sodium 40 MG Tablet PO (09:07)
[2020-07-24] MEDS: guaiFENesin 1,200 MG Tablet 1200 MG PO ×2 (09:07→21:53)
--- NOTE | 2020-07-24 12:24 | CASEMGMT ---
Social Work Extended conversation with pt Eri regarding discharge plan. Eri talked about bringing pt home with hospice services and indicated that she understood hospice would be available to provide care for pt and would be in the home 3 hours in the morning and 3 hours in the evening and that she would not have to provide care for the pt. AMEE explained that pt would actually be primary caregiver and hospice nurse and aid would make visits, but not daily and only for about an hour at a time. Pt would be responsible for care and hospice would provide supportive visits. AMEE explored support system and Eri denies any support systems, no children and two siblings that do not live close. Pt stating she cannot provide care to pt. Eri also states she spoke with pt yesterday and he seemed better. SW inquired if spoke with about his wishes and she states she did but she would like him to fight but acknowledges that pt said he is tired. is uncertain what to do at this time. Supportive listening provided. AMEE spoke with Physician and TOD Schulz who addressed pt wishes with pt. Pt in uncertain what he would like to happen at this time. (comfort care vs treatment). AMEE spoke with Chiqui at [facility] who states she spoke with pt yesterday and did not want Inpatient unit. Per Chiqui, Dr. Lima has evaluated yesterday and pt does not qualify for the inpatient unit. Second phone call to pt Eri and she states that she would like to see how the pt does over the next few days before she makes a decision. Discussed discharge options including SNF placement and Eri is absolutely refusing this option. Eri again speaking of taking pt home with hospice services and SW re-explained that she would be primary caregiver for personal care and medications and that hospice would visit pt and be available by phone. AMEE also emphasized that with hospice services, as pt declines in the home the goal is for pt to remain comfortable in the home until he passes and that back and forth to the hospital is not the hospice philosophy. Eri expresses agreement that it would not be go to take pt back to the hospital. Eri considering options and wishing that pt continues with treatment at this time and will reevaluate. Physician updated. Chiqui at [facility]. RADHA Carmona
--- NOTE | 2020-07-24 15:00 | NURSING ---
In room to check on patient. patient had taken the venti mask off and was just resting in bed with eyes closed. reapplied the mask. pt states he did not want it on, but states he will leave it in place. no distress noted.
--- NOTE | 2020-07-24 17:05 | PCM.PROGNOTE ---
Patient Problems: Active and Suspected Problems (Last Reviewed 07/18/20 @ 15:[address] Manoj Garcia, DO) COVID-19 virus infection (Acute) Severe sepsis (Acute) CAP (community acquired pneumonia) (Acute) Subjective: Patient was seen and examined today, hospice has refused to accept the patient into the hospice care facility stating that he is not symptomatic enough to be transferred there. Patient still seems to be conflicted about whether to continue supportive care or whether to stop care, at this time he cannot make up his mind, I since he has pressures from his family members and at this time I think the best course of action would be to continue supportive care as before since he appears to be holding his own. Talked briefly with infectious diseases today and they did not recommend restarting antibiotics that had been stopped 2 days ago. - Physical Exam Vitals/I&O's: Vital Signs Temp Pulse Resp BP Pulse Ox 97.7 F L 100 24 H 133/74 H 95 07/24/20 16:22 07/24/20 16:22 07/24/20 16:22 07/24/20 16:22 07/24/20 16:22 Oxygen Flow Rate (L/min) 15 Oxygen Delivery Method Non-Rebreather Weight: 80.513 kg Body Mass Index (BMI) 26.2 Finger Stick Blood Glucose 147 Intake and Output for Last 24 Hours 07/22/20 07/23/20 07/24/20 23:59 23:59 23:59 Intake Total 555 / 555 655 / 655 290 / 290 Output Total 850 / 850 750 / 750 600 / 600 Balance -295 / -295 -95 / -95 -310 / -310 General: Alert, Oriented x3, Cooperative, No apparent distress, Well developed HEENT: Atraumatic, PERRLA, EOMI, Normocephalic Oral: Moist Mucosa Neck: Supple, No JVD, Trachea Midline, Thyroid Normal Size and Texture Lungs: Clear to auscultation, No rhonchi, No wheeze, No rales, Diminished Cardiovascular: Regular rate, Regular Rhythm, Normal S1, Normal S2, No murmurs Abdomen: Bowel Sounds Present, Soft, Non Tender, Non-Distended Extremities: No clubbing, No cyanosis, No edema, Capillary Refill Less than 3 Seconds Skin: No rashes, No breakdown Musculoskeletal: No Tenderness to Palpation of Joints or Extremities Neurological: Cranial nerves II-XII grossly intact, Neuro grossly intact, Sensory exam intact to light touch and pain, Coordination normal Psych/Mental Status: Normal Affect, Appropriate, Alert and oriented to time, place, person, mood and affect Microbiology Past 72 Hours 07/20/20 05:15 Sputum, Expectorated/Coughed Gram Stain - Final 07/20/20 05:15 Sputum, Expectorated/Coughed Respiratory Culture - Final Vikki albicans 07/18/20 09:42 Blood Culture (Wb) - Anticubital Left Blood Culture - Final No growth in 5 days. 07/18/20 09:55 Blood Culture (Wb) - Anticubital Right Blood Culture - Final No growth in 5 days. Current Medications Acetaminophen (Acetaminophen 325 Mg Tablet) 650 mg PO Q6H PRN PRN PRN Reason: Pain Score 1-10/Temp > 100.7 F Last Admin: 07/21/20 16:32 Dose: 650 mg Documented by: Albuterol Sulfate (Albuterol Ih 8.5 Gm (Proair) Inhaler (200 Puffs)) 1 puff INHALATION Q2H PRN PRN PRN Reason: SOB/WHEEZING Last Admin: 07/24/20 12:22 Dose: 1 puff Documented by: Albuterol/Ipratropium (Ipratropium/Albuterol Sulfate 3 Ml Ampul.Neb) 3 ml INHALATION Q6HWA.RT [facility] Last Admin: 07/24/20 13:56 Dose: 3 ml Documented by: Guaifenesin (Guaifenesin 1,200 Mg Tablet) 1,200 mg PO BID [facility] Last Admin: 07/24/20 09:07 Dose: 1,200 mg Documented by: Guaifenesin/Codeine Phosphate (Guaifenesin/Codeine 5 Ml Udc) 10 ml PO Q6H PRN PRN PRN Reason: coughing fits. Last Admin: 07/22/20 09:15 Dose: 10 ml Documented by: Sodium Chloride () 500 mls @ 15 mls/hr IV PRN PRN PRN Reason: Blood Transfusion Sodium Chloride () 250 mls @ 15 mls/hr IV .[id number] PRN PRN Reason: Saline Flush Last Infusion: 07/20/20 09:50 Dose: Infused Documented by: Sodium Chloride () 250 mls @ 15 mls/hr IV .[id number] PRN PRN Reason: Additional IVPB Infusion Lorazepam (Lorazepam 2 Mg/Ml Syringe) 0.5 - 1 mg IV Q4H PRN PRN PRN Reason: dyspnea Last Admin: 07/24/20 13:41 Dose: 1 mg Documented by: Morphine Sulfate (Morphine 8 Mg/Ml Syringe) 4 - 8 mg IV Q4H PRN PRN PRN Reason: dyspnea Morphine Sulfate (Morphine 4 Mg/Ml Syringe) 4 - 8 mg IV Q4H PRN PRN PRN Reason: pain/dyspnea Last Admin: 07/24/20 03:57 Dose: 4 mg Documented by: Ondansetron HCl (Ondansetron 4 Mg/2 Ml Vial) 4 mg IV Q6H PRN PRN PRN Reason: NAUSEA/VOMITING Last Admin: 07/23/20 13:34 Dose: 4 mg Documented by: Pantoprazole Sodium (Pantoprazole Sodium 40 Mg Tablet) 40 mg PO DAILY SAI Last Admin: 07/24/20 09:07 Dose: 40 mg Documented by: Senna/Docusate Sodium (Senna/Docusate Sodium 1 Tablet) 2 tablet PO DAILY PRN PRN PRN Reason: CONSTIPATION Sodium Chloride (0.9% Saline Lock 10 Ml Syringe) 10 - 40 ml IV UD PRN PRN Reason: SALINE FLUSH Last Admin: 07/24/20 13:41 Dose: 10 ml Documented by: Medical Necessity - Tobacco Use Smoking Status: Former smoker Assessment/Plan All Active Problems (Last Reviewed 07/18/20 @ 15:[address] Manoj Garcia, DO) COVID-19 virus infection (Acute) SARS (severe acute respiratory syndrome) (Acute) Severe sepsis (Acute) CAP (community acquired pneumonia) (Acute) #1 acute COVID-19 pneumonia-patient will remain a DNR CC and received morphine and Ativan as needed for respiratory distress, I went over this with nursing, until the patient is on lower flow oxygen, he will not be a candidate to go to a nursing facility. I do not believe the is able to handle him at home on high flow oxygen even if he has hospice at home. #2 acute hypoxic respiratory failure secondary to acute COVID-19 pneumonia-patient will remain on oxygen for now #3 chronic obstructive pulmonary disease #4 Possible community-acquired pneumonia-probably bacterial in nature, exact organism unknown-patient is off antibiotics due to the fact he is a DNR CC, he is not spiked a temperature or declined markedly since the antibiotics were stopped. #5 severe sepsis secondary to community-acquired pneumonia #6 history of thromboembolic disease-patient was taken off of warfarin due to his DNRCC status #7 nausea-possible reflux disease, patient is on Protonix at this time Will continue comfort measures. Inpatient E&M: 15785 Subs Hosp L2
[2020-07-24] MEDS: Acetaminophen 325 MG Tablet 650 MG PO (22:11)
--- NOTE | 2020-07-24 23:54 | NURSING ---
pt refuses to wear nonrebreather mask placed on high flow tubing @ 15L
[2020-07-25] VITALS (9 sets, daily range): BP systolic 100–117; BP diastolic 60–69; PULSE 95–98; RESP 20–26; TEMP 36.6–37.4; O2SAT 71–93
[2020-07-25] MEDS: LORazepam 2 MG/ML Syringe IV ×3 (05:08→20:31)
[2020-07-25] MEDS: guaiFENesin/Codeine 5 ML UDC 10 ML PO (05:13)
[2020-07-25] MEDS: Ipratropium/Albuterol Sulfate 3 ML AMPUL.NEB INHALATION ×2 (05:15→13:37)
--- NOTE | 2020-07-25 08:12 | PCM.PROGNOTE ---
Patient Problems: Active and Suspected Problems (Last Reviewed 07/18/20 @ 15:[address] Manoj Garcia, DO) COVID-19 virus infection (Acute) Severe sepsis (Acute) CAP (community acquired pneumonia) (Acute) Subjective: Patient was seen and examined today, he does not complain of any chills or fever, he is still on high flow oxygen however. Objective: General: Alert, Oriented x3, Cooperative, No apparent distress, Well developed HEENT: Atraumatic, PERRLA, EOMI, Normocephalic Oral: Moist Mucosa Neck: Supple, No JVD, Trachea Midline, Thyroid Normal Size and Texture Lungs: Clear to auscultation, No rhonchi, No wheeze, No rales, Diminished Cardiovascular: Regular rate, Regular Rhythm, Normal S1, Normal S2, No murmurs Abdomen: Bowel Sounds Present, Soft, Non Tender, Non-Distended Extremities: No clubbing, No cyanosis, No edema, Capillary Refill Less than 3 Seconds Skin: No rashes, No breakdown Musculoskeletal: No Tenderness to Palpation of Joints or Extremities Neurological: Cranial nerves II-XII grossly intact, Neuro grossly intact, Sensory exam intact to light touch and pain, Coordination normal Psych/Mental Status: Normal Affect, Appropriate, Alert and oriented to time, place, person, mood and affect - Physical Exam Vitals/I&O's: Vital Signs Temp Pulse Resp BP Pulse Ox 97.5 F L 97 24 H 136/86 H 90 07/24/20 21:45 07/25/20 05:19 07/25/20 05:19 07/24/20 21:45 07/25/20 01:46 Oxygen Flow Rate (L/min) 15 Oxygen Delivery Method Nasal Cannula Weight: 80.513 kg Body Mass Index (BMI) 26.2 Finger Stick Blood Glucose 147 Intake and Output for Last 24 Hours 07/23/20 07/24/20 07/25/20 23:59 23:59 23:59 Intake Total 655 / 655 615 / 715 100 / 100 Output Total 750 / 750 750 / 750 Balance -95 / -95 -135 / -35 100 / 100 Microbiology Past 72 Hours 07/20/20 05:15 Sputum, Expectorated/Coughed Gram Stain - Final 07/20/20 05:15 Sputum, Expectorated/Coughed Respiratory Culture - Final Vikki albicans 07/18/20 09:42 Blood Culture (Wb) - Anticubital Left Blood Culture - Final No growth in 5 days. 07/18/20 09:55 Blood Culture (Wb) - Anticubital Right Blood Culture - Final No growth in 5 days. Current Medications Acetaminophen (Acetaminophen 325 Mg Tablet) 650 mg PO Q6H PRN PRN PRN Reason: Pain Score 1-10/Temp > 100.7 F Last Admin: 07/24/20 22:11 Dose: 650 mg Documented by: Albuterol Sulfate (Albuterol Ih 8.5 Gm (Proair) Inhaler (200 Puffs)) 1 puff INHALATION Q2H PRN PRN PRN Reason: SOB/WHEEZING Last Admin: 07/24/20 12:22 Dose: 1 puff Documented by: Albuterol/Ipratropium (Ipratropium/Albuterol Sulfate 3 Ml Ampul.Neb) 3 ml INHALATION Q6HWA.RT SAI Last Admin: 07/25/20 05:15 Dose: 3 ml Documented by: Guaifenesin (Guaifenesin 1,200 Mg Tablet) 1,200 mg PO BID SAI Last Admin: 07/24/20 21:53 Dose: 1,200 mg Documented by: Guaifenesin/Codeine Phosphate (Guaifenesin/Codeine 5 Ml Udc) 10 ml PO Q6H PRN PRN PRN Reason: coughing fits. Last Admin: 07/25/20 05:13 Dose: 10 ml Documented by: Sodium Chloride () 500 mls @ 15 mls/hr IV PRN PRN PRN Reason: Blood Transfusion Sodium Chloride () 250 mls @ 15 mls/hr IV .[id number] PRN PRN Reason: Saline Flush Last Infusion: 07/20/20 09:50 Dose: Infused Documented by: Sodium Chloride () 250 mls @ 15 mls/hr IV .[id number] PRN PRN Reason: Additional IVPB Infusion Lorazepam (Lorazepam 2 Mg/Ml Syringe) 0.5 - 1 mg IV Q4H PRN PRN PRN Reason: dyspnea Last Admin: 07/25/20 05:08 Dose: 1 mg Documented by: Morphine Sulfate (Morphine 8 Mg/Ml Syringe) 4 - 8 mg IV Q4H PRN PRN PRN Reason: dyspnea Morphine Sulfate (Morphine 4 Mg/Ml Syringe) 4 - 8 mg IV Q4H PRN PRN PRN Reason: pain/dyspnea Last Admin: 07/24/20 03:57 Dose: 4 mg Documented by: Ondansetron HCl (Ondansetron 4 Mg/2 Ml Vial) 4 mg IV Q6H PRN PRN PRN Reason: NAUSEA/VOMITING Last Admin: 07/23/20 13:34 Dose: 4 mg Documented by: Pantoprazole Sodium (Pantoprazole Sodium 40 Mg Tablet) 40 mg PO DAILY SAI Last Admin: 07/24/20 09:07 Dose: 40 mg Documented by: Senna/Docusate Sodium (Senna/Docusate Sodium 1 Tablet) 2 tablet PO DAILY PRN PRN PRN Reason: CONSTIPATION Sodium Chloride (0.9% Saline Lock 10 Ml Syringe) 10 - 40 ml IV UD PRN PRN Reason: SALINE FLUSH Last Admin: 07/24/20 22:03 Dose: 10 ml Documented by: Medical Necessity - Tobacco Use Smoking Status: Former smoker Assessment/Plan All Active Problems (Last Reviewed 07/18/20 @ 15:[address] Manoj Garcia, ) COVID-19 virus infection (Acute) SARS (severe acute respiratory syndrome) (Acute) Severe sepsis (Acute) CAP (community acquired pneumonia) (Acute) #1 acute COVID-19 pneumonia-patient will remain a DNR CC and received morphine and Ativan as needed for respiratory distress, patient is on high flow oxygen at this time and is not a candidate to go to a retirement facility #2 acute hypoxic respiratory failure secondary to acute COVID-19 pneumonia-patient will remain on oxygen for now #3 chronic obstructive pulmonary disease #4 Possible community-acquired pneumonia-probably bacterial in nature, exact organism unknown-patient is off antibiotics due to the fact he is a DNR CC, he is not spiked a temperature or declined markedly since the antibiotics were stopped, I talked yesterday with infectious diseases about this and they did not recommend start restarting antibiotics. #5 severe sepsis secondary to community-acquired pneumonia #6 history of thromboembolic disease-I think it is merritt to restart the patient's warfarin since he is unsure exactly how he wants to proceed with his medical treatment. #7 nausea-possible reflux disease, patient is on Protonix at this time Will continue comfort measures. Inpatient E&M: 57144 Subs Hosp L2
[2020-07-25 09:23] LABS: International Normalized Ratio 2.2; Prothrombin Time (Protime)PT. 24.1 SECONDS (11.7-14.9)
[2020-07-25] MEDS: guaiFENesin 1,200 MG Tablet 1200 MG PO (09:23)
[2020-07-25] MEDS: Pantoprazole Sodium 40 MG Tablet PO (09:23)
[2020-07-25] MEDS: Morphine 4 MG/ML Syringe IV ×4 (10:16→23:10)
[2020-07-25] MEDS: 0.9% Saline Lock 10 ML Syringe IV ×5 (10:19→20:31)
--- NOTE | 2020-07-25 14:57 | NURSING ---
called and update given that pt oxygen levels are low and pt weak. told that she can come and visit pt. declined stated that he will be ok. explained to that pt may not live long with the oxygen levels being low. stated that she can not come to see him that she does not have anyone with her, that she is home by herself. told her that we would call her for any changes.
--- NOTE | 2020-07-25 15:59 | NURSING ---
is here visiting. dr talley did talk to and brother
[2020-07-26] VITALS (9 sets, daily range): BP systolic 99–101; BP diastolic 60–63; PULSE 45–118; RESP 22–26; TEMP 37.2–37.3; O2SAT 74–92
[2020-07-26] MEDS: LORazepam 2 MG/ML Syringe IV ×6 (00:47→20:57)
[2020-07-26] MEDS: 0.9% Saline Lock 10 ML Syringe IV ×8 (00:47→20:58)
[2020-07-26] MEDS: Morphine 4 MG/ML Syringe IV ×5 (03:15→20:57)
--- NOTE | 2020-07-26 08:31 | PN_ITS ---
Patient Problems: Active and Suspected Problems (Last Reviewed 07/18/20 @ 15:[address] Manoj Garcia, DO) COVID-19 virus infection (Acute) Severe sepsis (Acute) CAP (community acquired pneumonia) (Acute) Subjective: Patient was seen and examined today, he appears lethargic this morning and cannot carry on a conversation, he has been medicated for respiratory distress throughout the night, his saw him yesterday in the hospital here, he is currently on high flow oxygen. Objective: General: Patient is lethargic and somnolent, he does respond to painful stimuli but does not carry on a conversation HEENT: Atraumatic, PERRLA, EOMI, Normocephalic Oral: Moist Mucosa Neck: Supple, No JVD, Trachea Midline, Thyroid Normal Size and Texture Lungs: Clear to auscultation, No rhonchi, No wheeze, No rales, Diminished Cardiovascular: Regular rate, Regular Rhythm, Normal S1, Normal S2, No murmurs Abdomen: Bowel Sounds Present, Soft, Non Tender, Non-Distended Extremities: No clubbing, No cyanosis, No edema, Capillary Refill Less than 3 Seconds Skin: No rashes, No breakdown Musculoskeletal: No Tenderness to Palpation of Joints or Extremities Neurological: Cranial nerves II-XII grossly intact, Neuro grossly intact, Sensory exam intact to light touch and pain Psych/Mental Status: Patient is somnolent and lethargic, he is not able to carry on a conversation - Physical Exam Vitals/I&O's: Vital Signs Temp Pulse Resp BP Pulse Ox 99.1 F 116 H 22 H 101/63 84 07/26/20 07:51 07/26/20 07:51 07/26/20 07:51 07/26/20 07:51 07/26/20 07:51 Oxygen Flow Rate (L/min) 15 Oxygen Delivery Method Nasal Cannula Weight: 80.513 kg Body Mass Index (BMI) 26.2 Finger Stick Blood Glucose 147 Intake and Output for Last 24 Hours 07/24/20 07/25/20 07/26/20 23:59 23:59 23:59 Intake Total 615 / 715 100 / 100 Output Total 750 / 750 800 / 800 Balance -135 / -35 -700 / -700 Microbiology Past 72 Hours 07/20/20 05:15 Sputum, Expectorated/Coughed Gram Stain - Final 07/20/20 05:15 Sputum, Expectorated/Coughed Respiratory Culture - Final Vikki albicans 07/18/20 09:42 Blood Culture (Wb) - Anticubital Left Blood Culture - Final No growth in 5 days. 07/18/20 09:55 Blood Culture (Wb) - Anticubital Right Blood Culture - Final No growth in 5 days. Laboratory Results 07/25/20 09:00: PT 24.1 H, INR 2.2 Current Medications Acetaminophen (Acetaminophen 325 Mg Tablet) 650 mg PO Q6H PRN PRN PRN Reason: Pain Score 1-10/Temp > 100.7 F Last Admin: 07/24/20 22:11 Dose: 650 mg Documented by: Albuterol Sulfate (Albuterol Ih 8.5 Gm (Proair) Inhaler (200 Puffs)) 1 puff INHALATION Q2H PRN PRN PRN Reason: SOB/WHEEZING Last Admin: 07/24/20 12:22 Dose: 1 puff Documented by: Albuterol Sulfate (Albuterol 2.5 Mg/3 Ml Vial.Neb.) 2.5 mg INHALATION Q2H PRN P RN PRN Reason: SOB &/OR WHEEZING Guaifenesin (Guaifenesin 1,200 Mg Tablet) 1,200 mg PO BID SAI Last Admin: 07/26/20 07:57 Dose: Not Given Documented by: Guaifenesin/Codeine Phosphate (Guaifenesin/Codeine 5 Ml Udc) 10 ml PO Q6H PRN PRN PRN Reason: coughing fits. Last Admin: 07/25/20 05:13 Dose: 10 ml Documented by: Sodium Chloride () 500 mls @ 15 mls/hr IV PRN PRN PRN Reason: Blood Transfusion Sodium Chloride () 250 mls @ 15 mls/hr IV .[id number] PRN PRN Reason: Saline Flush Last Infusion: 07/20/20 09:50 Dose: Infused Documented by: Sodium Chloride () 250 mls @ 15 mls/hr IV .[id number] PRN PRN Reason: Additional IVPB Infusion Lorazepam (Lorazepam 2 Mg/Ml Syringe) 0.5 - 1 mg IV Q4H PRN PRN PRN Reason: dyspnea Last Admin: 07/26/20 05:05 Dose: 1 mg Documented by: Morphine Sulfate (Morphine 8 Mg/Ml Syringe) 4 - 8 mg IV Q4H PRN PRN PRN Reason: dyspnea Morphine Sulfate (Morphine 4 Mg/Ml Syringe) 4 - 8 mg IV Q4H PRN PRN PRN Reason: pain/dyspnea Last Admin: 07/26/20 07:58 Dose: 8 mg Documented by: Ondansetron HCl (Ondansetron 4 Mg/2 Ml Vial) 4 mg IV Q6H PRN PRN PRN Reason: NAUSEA/VOMITING Last Admin: 07/23/20 13:34 Dose: 4 mg Documented by: Pantoprazole Sodium (Pantoprazole Sodium 40 Mg Tablet) 40 mg PO DAILY SAI Last Admin: 07/26/20 07:57 Dose: Not Given Documented by: Senna/Docusate Sodium (Senna/Docusate Sodium 1 Tablet) 2 tablet PO DAILY PRN PRN PRN Reason: CONSTIPATION Sodium Chloride (0.9% Saline Lock 10 Ml Syringe) 10 - 40 ml IV UD PRN PRN Reason: SALINE FLUSH Last Admin: 07/26/20 07:57 Dose: 10 ml Documented by: Medical Necessity - Tobacco Use Smoking Status: Former smoker Assessment/Plan All Active Problems (Last Reviewed 07/18/20 @ 15:[address] Manoj Garcia, DO) COVID-19 virus infection (Acute) SARS (severe acute respiratory syndrome) (Acute) Severe sepsis (Acute) CAP (community acquired pneumonia) (Acute) #1 acute COVID-19 pneumonia-patient will remain a DNR CC and received morphine and Ativan as needed for respiratory distress, patient's condition is deteriorating, family including is aware that he is not doing well. Will provide comfort measures as noted #2 acute hypoxic respiratory failure secondary to acute COVID-19 pneumonia- patient will remain on oxygen for now #3 chronic obstructive pulmonary disease #4 Possible community-acquired pneumonia-probably bacterial in nature, exact organism unknown-patient is off antibiotics due to the fact he is a DNR CC, he is not spiked a temperature or declined markedly since the antibiotics were stopped. #5 severe sepsis secondary to community-acquired pneumonia #6 history of thromboembolic disease-I considered restarting the patient's warf aleksandra yesterday but his overall medical condition declined and I think that it is not necessary to start the warfarin back because the patient appears to be declining #7 nausea-possible reflux disease, patient is on Protonix at this time Will continue comfort measures. Patient may not be safe for oral intake at this time. Inpatient E&M: [id number] Subs Hosp L2
--- NOTE | 2020-07-26 10:15 | NURSING ---
Patient made NPO at this time d/t mentation.
--- NOTE | 2020-07-26 13:07 | CASEMGMT ---
Social Work SW attended rounds with physician who states pt is actively dying and pt will remain at hospital. Pt brother here to visit pt. SW met with brother and offered support. Phone call to pt Molly to offer support, no answer but VM left. RADHA Carmona
[2020-07-27] MEDS: 0.9% Saline Lock 10 ML Syringe IV ×4 (00:57→18:03)
[2020-07-27] MEDS: LORazepam 2 MG/ML Syringe IV ×3 (00:57→12:41)
[2020-07-27] MEDS: Morphine 4 MG/ML Syringe IV ×4 (00:58→18:02)
[2020-07-27 07:20] VITALS: O2SAT 91
[2020-07-27 08:30] VITALS: BP 92/59; PULSE 52; RESP 12; TEMP 37.4; O2SAT 94
--- NOTE | 2020-07-27 10:49 | NURSING ---
WAS INSTRUCTED AND ASSISTED W/PPE. EXPLAINED IMPORTANCE OF PPE
[2020-07-27 12:49] VITALS: RESP 20
--- NOTE | 2020-07-27 13:03 | PN_ITS ---
Patient Problems: Active and Suspected Problems (Last Reviewed 07/18/20 @ 15:[address] Manoj Garcia, DO) COVID-19 virus infection (Acute) Severe sepsis (Acute) CAP (community acquired pneumonia) (Acute) Subjective: Patient was seen and examined today, he is for more lethargic and somnolent than yesterday, he does respond to deep painful stimuli but he does not carry on any conversation. I talked to his briefly who came up to visit him today, I asked her to let me know if there was anything differently she wanted me to do concerning his care. Objective: General: Patient is lethargic and somnolent, he does respond to painful stimuli but does not carry on a conversation HEENT: Atraumatic, PERRLA, EOMI, Normocephalic Oral: Moist Mucosa Neck: Supple, No JVD, Trachea Midline, Thyroid Normal Size and Texture Lungs: Clear to auscultation, No rhonchi, No wheeze, No rales, Diminished Cardiovascular: Regular rate, Regular Rhythm, Normal S1, Normal S2, No murmurs Abdomen: Bowel Sounds Present, Soft, Non Tender, Non-Distended Extremities: No clubbing, No cyanosis, No edema, Capillary Refill Less than 3 Seconds Skin: No rashes, No breakdown Musculoskeletal: No Tenderness to Palpation of Joints or Extremities Neurological: Cranial nerves II-XII grossly intact, Neuro grossly intact, Sensory exam intact to light touch and pain Psych/Mental Status: Patient is somnolent and lethargic, he is not able to carry on a conversation - Physical Exam Vitals/I&O's: Vital Signs Temp Pulse Resp BP Pulse Ox 99.4 F H 52 L 20 H 92/59 L 94 07/27/20 08:30 07/27/20 08:30 07/27/20 12:49 07/27/20 08:30 07/27/20 08:30 Oxygen Flow Rate (L/min) 15 Oxygen Delivery Method Nasal Cannula Weight: 80.513 kg Body Mass Index (BMI) 26.2 Finger Stick Blood Glucose 147 Intake and Output for Last 24 Hours 07/25/20 07/26/20 07/27/20 23:59 23:59 23:59 Intake Total 100 / 100 Output Total 800 / 800 Balance -700 / -700 Microbiology Past 72 Hours 07/20/20 05:15 Sputum, Expectorated/Coughed Gram Stain - Final 07/20/20 05:15 Sputum, Expectorated/Coughed Respiratory Culture - Final Vikki albicans Current Medications Acetaminophen (Acetaminophen 325 Mg Tablet) 650 mg PO Q6H PRN PRN PRN Reason: Pain Score 1-10/Temp > 100.7 F Last Admin: 07/24/20 22:11 Dose: 650 mg Documented by: Albuterol Sulfate (Albuterol Ih 8.5 Gm (Proair) Inhaler (200 Puffs)) 1 puff INHALATION Q2H PRN PRN PRN Reason: SOB/WHEEZING Last Admin: 07/24/20 12:22 Dose: 1 puff Documented by: Albuterol Sulfate (Albuterol 2.5 Mg/3 Ml Vial.Neb.) 2.5 mg INHALATION Q2H PRN PRN PRN Reason: SOB &/OR WHEEZING Guaifenesin/Codeine Phosphate (Guaifenesin/Codeine 5 Ml Udc) 10 ml PO Q6H PRN PRN PRN Reason: coughing fits. Last Admin: 07/25/20 05:13 Dose: 10 ml Documented by: Sodium Chloride () 500 mls @ 15 mls/hr IV PRN PRN PRN Reason: Blood Transfusion Sodium Chloride () 250 mls @ 15 mls/hr IV .[id number] PRN PRN Reason: Saline Flush Last Infusion: 07/20/20 09:50 Dose: Infused Documented by: Sodium Chloride () 250 mls @ 15 mls/hr IV .[id number] PRN PRN Reason: Additional IVPB Infusion Lorazepam (Lorazepam 2 Mg/Ml Syringe) 0.5 - 1 mg IV Q4H PRN PRN PRN Reason: dyspnea Last Admin: 07/27/20 12:41 Dose: 1 mg Documented by: Morphine Sulfate (Morphine 8 Mg/Ml Syringe) 4 - 8 mg IV Q4H PRN PRN PRN Reason: dyspnea Morphine Sulfate (Morphine 4 Mg/Ml Syringe) 4 - 8 mg IV Q4H PRN PRN PRN Reason: pain/dyspnea Last Admin: 07/27/20 12:41 Dose: 4 mg Documented by: Ondansetron HCl (Ondansetron 4 Mg/2 Ml Vial) 4 mg IV Q6H PRN PRN PRN Reason: NAUSEA/VOMITING Last Admin: 07/23/20 13:34 Dose: 4 mg Documented by: Senna/Docusate Sodium (Senna/Docusate Sodium 1 Tablet) 2 tablet PO DAILY PRN PRN PRN Reason: CONSTIPATION Sodium Chloride (0.9% Saline Lock 10 Ml Syringe) 10 - 40 ml IV UD PRN PRN Reason: SALINE FLUSH Last Admin: 07/27/20 12:42 Dose: 20 ml Documented by: Medical Necessity - Tobacco Use Smoking Status: Former smoker Assessment/Plan All Active Problems (Last Reviewed 07/18/20 @ 15:[address] Manoj Garcia, DO) COVID-19 virus infection (Acute) SARS (severe acute respiratory syndrome) (Acute) Severe sepsis (Acute) CAP (community acquired pneumonia) (Acute) #1 acute COVID-19 pneumonia-patient will remain a DNR CC and received morphine and Ativan as needed for respiratory distress, patient's condition is dete riorating, family including is aware that he is not doing well. Will provide comfort measures as noted, will let me know if she wants any of the measures in place changed. #2 acute hypoxic respiratory failure secondary to acute COVID-19 pneumonia- patient will remain on oxygen for now #3 chronic obstructive pulmonary disease #4 Possible community-acquired pneumonia-probably bacterial in nature, exact organism unknown-patient is off antibiotics due to the fact he is a DNR CC, he is not spiked a temperature or declined markedly since the antibiotics were stopped. #5 severe sepsis secondary to community-acquired pneumonia #6 history of thromboembolic disease #7 nausea-possible reflux disease Will continue comfort measures. Patient will not be safe for oral intake at this time. Inpatient E&M: [id number] Subs Hosp L2
[2020-07-27 14:48] VITALS: PULSE 94; RESP 18
[2020-07-27 18:06] VITALS: PULSE 99; RESP 22; O2SAT 94
[2020-07-27 20:47] VITALS: BP 104/59; PULSE 98; RESP 14; TEMP 37.4; O2SAT 91
[2020-07-28 02:54] VITALS: PULSE 104; O2SAT 84
[2020-07-28] MEDS: Morphine 4 MG/ML Syringe IV (03:10)
--- NOTE | 2020-07-28 08:22 | EXP.PCM_ITS ---
Preliminary Cause of Hypoxic respiratory failure secondary to COVID-19 pneumonia Date of Admission: 07/18/20 Date of : 07/28/20 - Principle Diagnosis #1 acute hypoxic respiratory failure secondary to COVID-19 pneumonia #2 COVID-19 pneumonia #3 community-acquired pneumonia-organism unknown #4 severe sepsis secondary to community-acquired pneumonia-organism unknown #5 chronic obstructive pulmonary disease Problem List: Active and Suspected Problems (Last Reviewed 07/18/20 @ 15:[address] Manoj Garcia, DO) COVID-19 virus infection (Acute) Severe sepsis (Acute) CAP (community acquired pneumonia) (Acute) Hospital Course Patient was seen in the emergency room at [facility] with chief complaint of fevers dry cough and malaise. He had been hospitalized briefly for COVID-19 pneumonia, he had been discharge 1 day prior. Work-up in the emergency room revealed the patient have a fever of 103, patient's pulse ox was 90% on room air, labs revealed a white count of 9.1, lactic acid was 2.2, chest x-ray showed a left lower lobe infiltrate. Patient was given Rocephin and Zithromax, he was admitted to [facility] to and seen in consultation by infectious diseases. Patient's condition overall worsen, he was a DNR CC arrest without intubation, on 07/22/2020, repeat patient requested all measures to be stopped but then agreed to oxygen administration and comfort meds. Hospice was consulted but did not feel the patient was appropriate for the inpatient hospice facility. Over the next several days, patient's condition declined. On 07/27/2020, patient was seen and examined:General: Patient is lethargic and somnolent, he does not respond to painful stimuli HEENT: Atraumatic, PERRLA, EOMI, Normocephalic Oral: Moist Mucosa Neck: Supple, No JVD, Trachea Midline, Thyroid Normal Size and Texture Lungs: Clear to auscultation, No rhonchi, No wheeze, No rales, Diminished Cardiovascular: Regular rate, Regular Rhythm, Normal S1, Normal S2, No murmurs Abdomen: Bowel Sounds Present, Soft, Non Tender, Non-Distended Extremities: No clubbing, No cyanosis, No edema, Capillary Refill Less than 3 Seconds Skin: No rashes, No breakdown Musculoskeletal: No Tenderness to Palpation of Joints or Extremities Neurological: Cranial nerves II-XII grossly intact, Neuro grossly intact, Sensory exam intact to light touch and pain Psych/Mental Status: Patient is somnolent and lethargic, he appears moribund On 07/27/2020 at 8:02 AM, patient was noted to be apneic, pulseless, with fixed pupils. He was pronounced at that time. Patient's family including his and brother were contacted and no autopsy was requested. Inpatient E&M: [id number] [facility]
[2020-07-28 08:25] VITALS: O2SAT 92
--- NOTE | 2020-07-28 10:48 | NURSING ---
This nurse into room to assess pt. Pt noted to have agonal type breathing. This nurse left room to notify Dr. Mccray who was on the floor. This nurse immediately returned to room and pt had .
== END 2020-07-28 08:00 | DRG 871 ==
LOC: ED 11:29 → MS2 11:32
PROVIDERS: Emergency Provider Emergency Medicine; PCP Family Medicine Geriatric Medicine; Visit Provider Internal Medicine
DX: A41.89 Other specified sepsis (principal); U07.1 COVID-19; J12.89 Other viral pneumonia; J96.01 Acute respiratory failure with hypoxia; J15.9 Unspecified bacterial pneumonia; J44.0 Chronic obstructive pulmonary disease with (acute) lower respiratory infection; D68.59 Other primary thrombophilia; R65.20 Severe sepsis without septic shock; I10 Essential (primary) hypertension; I95.9 Hypotension, unspecified; K21.9 Gastro-esophageal reflux disease without esophagitis; C43.9 Malignant melanoma of skin, unspecified; E11.65 Type 2 diabetes mellitus with hyperglycemia; I27.81 Cor pulmonale (chronic); M17.0 Bilateral primary osteoarthritis of knee; M50.320 Other cervical disc degeneration, mid-cervical region, unspecified level; S30.1XXA Contusion of abdominal wall, initial encounter; X58.XXXA Exposure to other specified factors, initial encounter; Z66 Do not resuscitate; Z51.5 Encounter for palliative care; Z86.711 Personal history of pulmonary embolism; Z86.718 Personal history of other venous thrombosis and embolism; Z79.01 Long term (current) use of anticoagulants; Z99.81 Dependence on supplemental oxygen; Z79.899 Other long term (current) drug therapy; Z87.891 Personal history of nicotine dependence; Z85.820 Personal history of malignant melanoma of skin
CPT/HCPCS: 36415; 71045; 71275; 80048; 80053; 81001; 82962; 83605; 84145; 84484; 85025; 85379; 85610; 85730; 87040; 87070; 87086; 87088; 87205; 87449; 87633; 87635; 93005; 94002; 94640; 94667; 94668; 96372; 96374; 97162; 97530; 97802; 99218; 99285; J7030; J7050; Q9967; A4216; G0378; J0696; J2405; U0002